=== PATIENT | male | born 1975 | race Caucasian/White ===

== ENCOUNTER 2018-08-01 19:17 | Emergency (ER) | payer MEDICAID ==
[~2018-08-01] VITALS: Ht 185.4 cm; Wt 129.3 kg
[2018-08-01] MEDS ORDERED: NKM (19:24)
[2018-08-01 19:28] VITALS: BP 145/94
--- NOTE | 2018-08-01 19:28 | NUR ---
ED Nurse Note: Pt arrived ED from home. c/o slipped and fell on his back and hurt on his left hip and back. Pt is A/O X4. Vital signs stable at this time, waiting for orders.
[2018-08-01] MEDS ORDERED: Morphine Sulfate 2mg/ml Inj(IV/IM USE ONLY) IVP ONE (20:00)
--- NOTE | 2018-08-01 20:02 | NUR ---
ED Nurse Note: Pt was sent for X-ray.
--- NOTE | 2018-08-01 20:22 | NUR ---
ED Nurse Note: Pt returned from X-ray.
--- NOTE | 2018-08-01 20:39 | NUR ---
ED Nurse Note: Meds given as ordered.
[2018-08-01] MEDS ORDERED: Methocarbamol 750mg tab ORAL ONE (21:15)
[2018-08-01] MEDS ORDERED: LIDODERM700 M1 TOPIC (21:16)
[2018-08-01] MEDS ORDERED: NARCAN4 MG NS (21:30)
[2018-08-01 21:41] VITALS: BP 141/90
--- NOTE | 2018-08-01 21:41 | NUR ---
ER DISCHARGE NOTE: Patient is cleared to be discharged per Ismael Scott. X-ray done, Meds given as ordered. Pt is aox4 on room air with stable vital signs. Pt was given dc and prescription instructions and was able to verbalize understanding. Pt ID band removed. Pt is able to ambulate with steady gait and took all belongings.
--- NOTE | 2018-08-01 21:50 | Emergency Room Report ---
History of Present Illness General Chief Complaint: Multiple Trauma/Fall Source: Patient Present Illness HPI 42-year-old male presents to the emergency department complaining of 10 out of 10 in severity pain to the mid lumbar portion of the back with left-sided sciatica/radiculopathy in addition to tenderness to the left femur status post mechanical trip and fall earlier today. Patient denies hitting his head he denies having a loss of consciousness and he denies midline neck pain. Patient reports history of chronic low back pain with left-sided sciatica he states that his symptoms have been exacerbated with today's injury. Patient denies open wounds or bleeding. Denies paresthesias, loss of gross motor movements, urinary retention or incontinence. He is exacerbated upon attempts to walk however he is ambulatory without assistance. No relieving factors at this time. Allergies: Coded Allergies: TRAMADOL (Verified Allergy, Unknown, 08/01/18) NSAIDS (NON-STEROIDAL ANTI-INFLAMMA (Verified Adverse Reaction, Unknown, ) Patient History Past Medical History: see triage record Past Surgical History: none Pertinent Family History: none Reviewed Nursing Documentation: PMH: Agreed; PSxH: Agreed Nursing Documentation-PMH Past Medical History: No History, Except For Review of Systems All Other Systems: negative except mentioned in HPI Physical Exam Vital Signs Date Time Temp Pulse Resp B/P (MAP) Pulse Ox O2 Delivery O2 Flow Rate FiO2 08/01/18 19:17 98.1 65 18 98 Room Air 08/01/18 19:28 145/94 Sp02 EP Interpretation: reviewed, normal General Appearance: alert, GCS 15, non-toxic, mild distress Head: normocephalic, atraumatic Eyes: bilateral eye normal inspection, bilateral eye PERRL ENT: hearing grossly normal, normal voice Neck: full range of motion Respiratory: lungs clear, normal breath sounds, speaking full sentences Cardiovascular #1: regular rate, rhythm, normal capillary refill Cardiovascular #2: 2+ dorsalis pedis (R), 2+ dorsalis pedis (L) Gastrointestinal: non tender, soft Musculoskeletal: back normal, gait/station normal - compensatory gait. no saddle anesthesia, normal range of motion, tender - Mild Tenderness to palpation to left paraspinal muscles of the lower back with midline tenderness. TTP to the lateral aspect of the proximal femur, pt. has compensatory gait. Neurologic: alert, oriented x3, responsive, motor strength/tone normal, sensory intact, speech normal, grossly normal Psychiatric: judgement/insight normal Skin: normal color, no rash, warm/dry, well hydrated Medical Decision Making PA Attestation Dr. peters is my supervising Physician whom patient management has been discussed with. Diagnostic Impression: Primary Impression: Opiate dependence, continuous Additional Impressions: Exacerbation of chronic back pain Contusion, hip and thigh Qualified Codes: S70.02XA - Contusion of left hip, initial encounter; S70.12XA - Contusion of left thigh, initial encounter Back pain Qualified Codes: M54.42 - Lumbago with sciatica, left side ER Course Pt. presents to ED c/o LBP and lateral left femur and thigh pain s/p mechanical fall. Ddx considered: epidural abscess, fracture, sprain/strain, meningitis, spinal chord injury, sciatica, cauda equina, Pyelonephritis, renal calculi just to name a few. Vital signs reviewed and are WNL during ED visit. Pt. is afebrile with no signs of infection No new symptoms, and denies recent trauma. No saddle anesthesia noted, Pt. denies incontinence Neurovascular is intact ROM is limited due to pain * Mild Tenderness to palpation to left paraspinal muscles of the lower back with midline tenderness. TTP to the lateral aspect of the proximal femur, pt. has compensatory gait. *Pt. describes pain today as moderate and radiates across the lower back. ORDERS: X_RAY L-spine and left femur; Within normal limits INTERVENTIONS: - 4mg Morphine IM -Robaxin PO This patient's cures report is very concerning for doctor shopping as well as prescription opiate abuse/misuse distribution. I discussed this with this patient and I went over his report discussing several instances where he filled [id number] days for a quantity of medication that should have lasted him more than overnight. I discussed with this patient that if he is truly in a lot of pain he needs to establish himself with a primary care provider as his current report is suggestive of abuse/misuse which is a deterrent for providers to prescribe medication and therefore he may be poorly controlled due to his habit of doctor shopping. I discussed with this patient resources for substance abuse and I provided him resources information as well I went over the use of indication Narcan and he was prescribed nasal spray of Narcan symptoms to be used in a case of accidental overdose which I am concerned for due to multiple medication refills when there should be sufficient amount. D/W Pt. that for further pain management is it recommended to consult PCP or a Chronic Pain management doctor. A provider who can safely prescribe controlled substances with close follow up. DISCHARGE: At this time pt. is stable for d/c to home. Will provide printed patient care instructions, and any necessary prescriptions. Care plan and follow up instructions have been discussed with the patient prior to discharge. Other X-Ray Diagnostic Results Other X-Ray Diagnostic Results #1: X-Ray ordered: L-Spine # of Views/Limited Vs Complete: 4 View Indication: Pain EP Interpretation: Yes PA Xray: Interpretation reviewed, by supervising MD Interpretation: no dislocation, no soft tissue swelling, other - Chronic compression fx of T12 Impression: Other - abnormal: chronic Electronically Signed by: Zeinab Guevara PA-C Other X-Ray Diagnostic Results #2: X-Ray ordered: Left Femur # of Views/Limited Vs Complete: 2 View Indication: Pain EP Interpretation: Yes PA Xray: Interpretation reviewed, by supervising MD, and agrees with findings. Interpretation: no dislocation, no soft tissue swelling, no fractures Impression: No acute disease Electronically Signed by: Zeinab Guevara PA-C Last Vital Signs Date Time Temp Pulse Resp B/P (MAP) Pulse Ox O2 Delivery O2 Flow Rate FiO2 08/01/18 19:28 67 18 Room Air 08/01/18 19:28 98.1 145/94 98 Disposition: HOME, SELF-CARE Condition: Stable Scripts Naloxone HCl (Narcan) 4 Mg [place] 4 MG NS PRN PRN for Per rx protocol, #1 SPRAY 2 Refills Prov: Zeinab Guevara 08/01/18 Lidocaine (Lidoderm) 1 Each Adh..patch 1 PATCH TOPIC DAILY, #30 PATCH 0 Refills Patch(es) may remain in place for up to 12 hours in any 24-hour period. Prov: Zeinab Guevara 08/01/18 Referrals: NOT CHOSEN [facility]/,REFERRING (PCP) Patient Instructions: Contusion, [place], Back Pain, Adult Additional Instructions: Take medications as directed. Follow up with a Primary Care Provider in 3-5 days, even if your symptoms have resolved. Please review provided information for substance abuse resources Return sooner to ED if new symptoms occur, or current symptoms become worse. - Please note that this Emergency Department Report was dictated using [employer]ipal quality engineer technology software, occasionally this can lead to erroneous entry secondary to interpretation by the dictation equipment. Zeinab Guevara August 01, 2018 21:50
--- NOTE | 2018-08-02 11:09 | Diagnostic Imaging Report ---
Indication: Back pain Comparison: None Findings: 3 views of the lumbar spine were obtained. No acute fracture or malalignment is identified. Minimal endplate osteophytes noted. Vertebral body heights and disk spaces are well maintained. Posterior elements are unremarkable. Impression: No acute findings.
--- NOTE | 2018-08-02 11:11 | Diagnostic Imaging Report ---
Indication: Left thigh pain Comparison: None Findings: 2 views of the left femur were obtained. No acute fractures, malalignment, erosions or periostitis are identified. There is a deformity of the upper femur likely on the basis of an old fracture. The bones are osteopenic. Soft tissues are unremarkable. Impression: Negative for acute injury
== END 2018-08-01 21:41 | disposition home or self-care (01) ==
LOC: EMR 19:52
DX: M54.42 Lumbago with sciatica, left side (principal); S70.02XA Contusion of left hip, initial encounter; S70.12XA Contusion of left thigh, initial encounter; F11.20 Opioid dependence, uncomplicated; G89.29 Other chronic pain; W01.0XXA Fall on same level from slipping, tripping and stumbling without subsequent striking against object, initial encounter; Y92.9 Unspecified place or not applicable; Z88.6 Allergy status to analgesic agent
CPT/HCPCS: 72020; 73552; 96374; 99284; J2270

== ENCOUNTER 2018-08-24 01:16 | Emergency (ER) | payer MEDICAID ==
[~2018-08-24] VITALS: Ht 185.4 cm; Wt 127.0 kg
[~2018-08-24 01:16] MED LIST: LIDODERM700 M1 TOPIC; NARCAN4 MG NS; NKM
--- NOTE | 2018-08-24 01:34 | NUR ---
ED Nurse Note: Pt has internal abcess in rectum, pain level 10/10 when sitting or standing.
[2018-08-24 01:40] VITALS: BP 141/93
--- NOTE | 2018-08-24 01:40 | NUR ---
ED Nurse Note: iv access established. blood collected; sent down to lab.
[2018-08-24] MEDS ORDERED: Isovue-300 100ml vial INJ PRN (01:45)
[2018-08-24 01:58] LABS: BASOPHILS % (AUTO) 0.7 % (0.0-2.0); EOSINOPHILS % (AUTO) 1.2 % (0.0-3.0); HEMATOCRIT 36.8 % (42.0-52.0); HEMOGLOBIN 12.5 G/DL (14.2-18.0); LYMPHOCYTES % (AUTO) 30.7 % (20.0-45.0); MEAN CORPUSCULAR VOLUME 95 FL (80-99); MONOCYTES % (AUTO) 5.7 % (1.0-10.0); NEUTROPHILS % (AUTO) 61.7 % (45.0-75.0); PLATELET COUNT 139 K/UL (150-450); RED BLOOD COUNT 3.88 M/UL (4.70-6.10); RED CELL DISTRIBUTION WIDTH 11.9 % (11.6-14.8); WHITE BLOOD COUNT 6.2 K/UL (4.8-10.8)
[2018-08-24 02:11] LABS: ANION GAP 8 mmol/L (5-15); BLOOD UREA NITROGEN 12 mg/dL (7-18); CALCIUM 8.7 MG/DL (8.5-10.1); CARBON DIOXIDE 26 MMOL/L (21-32); CHLORIDE 108 MMOL/L (98-107); POTASSIUM 3.8 MMOL/L (3.5-5.1); SODIUM 142 MMOL/L (136-145)
[2018-08-24 02:16] LABS: ALANINE AMINOTRANSFERASE 34 U/L (12-78); ALBUMIN 3.5 G/DL (3.4-5.0); ALBUMIN/GLOBULIN RATIO 0.9 (1.0-2.7); ALKALINE PHOSPHATASE 100 U/L (46-116); ASPARTATE AMINO TRANSFERASE 33 U/L (15-37); BILIRUBIN,TOTAL 0.5 MG/DL (0.2-1.0)
[2018-08-24] MEDS ORDERED: TYLENOL EXTRA500 MG ORAL (03:28)
[2018-08-24 03:35] VITALS: BP 141/93
--- NOTE | 2018-08-24 03:35 | NUR ---
ER DISCHARGE NOTE: Patient is cleared to be discharged per ERMD, pt is aox4, on room air, with stable vital signs. pt was given dc and prescription instructions, pt was able to verbalize understanding, pt id band removed. pt is able to ambulate with steady gait. pt took all belongings.
--- NOTE | 2018-08-24 04:35 | Emergency Room Report ---
History of Present Illness General Chief Complaint: Gastrointestinal Illness Source: Patient Present Illness HPI 42-year-old male presents ED for evaluation. Patient walked in complaining of rectal pain for the last several days. States that in the past he had a rectal abscess that required surgery. States that this feels the same. Pain is a 10 out of 10, sharp, nonradiating. Denies fevers or chills. Denies any rectal bleeding or discharge. No other aggravating relieving factors. Denies any other associated symptoms Allergies: Coded Allergies: TRAMADOL (Verified Allergy, Unknown, 08/01/18) NSAIDS (NON-STEROIDAL ANTI-INFLAMMA (Verified Adverse Reaction, Unknown, ) Patient History Past Medical History: none Past Surgical History: none Pertinent Family History: none Social History: Denies: smoking, alcohol use, drug use Immunizations: UTD Reviewed Nursing Documentation: PMH: Agreed; PSxH: Agreed Review of Systems All Other Systems: negative except mentioned in HPI Physical Exam Vital Signs Date Time Temp Pulse Resp B/P (MAP) Pulse Ox O2 Delivery O2 Flow Rate FiO2 08/24/18 01:25 98.1 91 18 141/93 (109) 97 Room Air Sp02 EP Interpretation: reviewed, normal General Appearance: no apparent distress, alert, GCS 15, non-toxic, obese Head: normocephalic, atraumatic Eyes: bilateral eye normal inspection, bilateral eye PERRL ENT: hearing grossly normal, normal pharynx, no angioedema, normal voice Neck: full range of motion, supple/symm/no masses Respiratory: chest non-tender, lungs clear, normal breath sounds, speaking full sentences Cardiovascular #1: regular rate, rhythm, no edema Cardiovascular #2: 2+ carotid (R), 2+ carotid (L), 2+ radial (R), 2+ radial (L) , 2+ dorsalis pedis (R), 2+ dorsalis pedis (L) Gastrointestinal: normal bowel sounds, non tender, soft, non-distended, no guarding, no rebound Rectal: normal exam, normal rectal tone Genitourinary: normal inspection, no CVA tenderness Musculoskeletal: back normal, gait/station normal, normal range of motion, non- tender Neurologic: alert, oriented x3, responsive, motor strength/tone normal, sensory intact, speech normal Psychiatric: judgement/insight normal, memory normal, mood/affect normal, no suicidal/homicidal ideation Reflexes: 3+ bicep (R), 3+ bicep (L), 3+ tricep (R), 3+ tricep (L), 3+ knee (R) , 3+ knee (L) Skin: normal color, no rash, warm/dry, well hydrated Lymphatic: no adenopathy Medical Decision Making Diagnostic Impression: Primary Impression: Rectal pain, chronic Additional Impression: Opiate dependence, continuous ER Course Hospital Course 42 yo M presents to ED c/o rectal pain. h/o rectal abscess Differential diagnosis includes - fistula, rectal abscess, cellultiis Clinical course Patient placed on stretcher. After initial history and physical I ordered labs , CT scan Labs - no leukocytosis, electrolytes ok LFTs normal CT scan shows no acute pathology no evidence of rectal abscess Patient requested pain medications multiple times. During previous ED it was documented patient had multiple narcotic prescriptions on [facility]. I reviewed CURES a and patient has extensive narcotic prescriptions being filled to him. I discussed this with the patient explained that and I will prescribe him any additional medication at this time. He will need to follow-up with his PMD. I will provide referrals I feel this is a highly complex case requiring extensive working including EKG/ Rhythm strip, Xray/CT/US, Blood/urine lab work, repeat exams while in ED, and administration of strong opiates/narcotics for pain control, admission to hospital or close patient follow up. Diagnosis - rectal pain chronic, opiate dependence Stable and discharged to home. Followup with PMD. Return to ED if symptoms recur or worsen Labs Test 08/24/18 01:40 White Blood Count 6.2 K/UL (4.8-10.8) Red Blood Count 3.88 M/UL (4.70-6.10) Hemoglobin 12.5 G/DL (14.2-18.0) Hematocrit 36.8 % (42.0-52.0) Mean Corpuscular Volume 95 FL (80-99) Mean Corpuscular Hemoglobin 32.2 PG (27.0-31.0) Mean Corpuscular Hemoglobin Concent 33.9 G/DL (32.0-36.0) Red Cell Distribution Width 11.9 % (11.6-14.8) Platelet Count 139 K/UL (150-450) Mean Platelet Volume 7.3 FL (6.5-10.1) Neutrophils (%) (Auto) 61.7 % (45.0-75.0) Lymphocytes (%) (Auto) 30.7 % (20.0-45.0) Monocytes (%) (Auto) 5.7 % (1.0-10.0) Eosinophils (%) (Auto) 1.2 % (0.0-3.0) Basophils (%) (Auto) 0.7 % (0.0-2.0) Prothrombin Time 10.4 SEC (9.30-11.50) Prothromb Time International Ratio 1.0 (0.9-1.1) Activated Partial Thromboplast Time 24 SEC (23-33) Sodium Level 142 MMOL/L (136-145) Potassium Level 3.8 MMOL/L (3.5-5.1) Chloride Level 108 MMOL/L (98-107) Carbon Dioxide Level 26 MMOL/L (21-32) Anion Gap 8 mmol/L (5-15) Blood Urea Nitrogen 12 mg/dL (7-18) Creatinine 1.0 MG/DL (0.55-1.30) Estimat Glomerular Filtration Rate > 60 mL/min (>60) Glucose Level 115 MG/DL (74-106) Calcium Level 8.7 MG/DL (8.5-10.1) Total Bilirubin 0.5 MG/DL (0.2-1.0) Aspartate Amino Transf (AST/SGOT) 33 U/L (15-37) Alanine Aminotransferase (ALT/SGPT) 34 U/L (12-78) Alkaline Phosphatase 100 U/L (46-116) Total Protein 7.3 G/DL (6.4-8.2) Albumin 3.5 G/DL (3.4-5.0) Globulin 3.8 g/dL Albumin/Globulin Ratio 0.9 (1.0-2.7) CT/MRI/US Diagnostic Results CT/MRI/US Diagnostic Results : Imaging Test Ordered: CT A/P Impression no acute process. no evidence of rectal abscess Last Vital Signs Date Time Temp Pulse Resp B/P (MAP) Pulse Ox O2 Delivery O2 Flow Rate FiO2 08/24/18 03:35 98.1 91 18 141/93 97 Room Air Status: improved Disposition: HOME, SELF-CARE Condition: Stable Scripts Acetaminophen* (TYLENOL EXTRA STRENGTH*) 500 Mg Tablet 500 MG ORAL Q8H PRN for Prn Headache/Temp > 101, #30 TAB 0 Refills Prov: Juan Diego Donohue MD 08/24/18 Referrals: NOT CHOSEN [facility]/,REFERRING (PCP) [facility] Patient Instructions: Chronic Pain Juan Diego Donohue MD Aug 24, 2018 04:35
--- NOTE | 2018-08-24 17:46 | Diagnostic Imaging Report ---
Clinical Indication: Abdominal pain for 3 days Technique: No oral contrast utilized, per emergency room physician request IV administration nonionic contrast. Venous phase spiral acquisition obtained through the abdomen and pelvis. Multiplanar reconstructions were generated. Total dose length product 1116.74 mGycm. CTDIvol(s) 19.51 mGy. Dose reduction achieved using automated exposure control Comparison: none Findings: What is probably a normal appendix is demonstrated. There are ascending colonic diverticula. No evidence of diverticulitis. No small bowel distention. There is evidence of prior gastroesophageal surgery. There is mild hazy infiltration of the fat of the mesenteric root. No free or loculated intraperitoneal gas or fluid is evident. The duodenum is unremarkable. The liver, gallbladder, bile ducts, pancreas are unremarkable. The spleen demonstrates a capsular calcification. The adrenals and kidneys are unremarkable. No retroperitoneal or mesenteric mass or adenopathy. No pelvic mass or adenopathy. There is some edema of the lumbar region and bilateral flank subcutaneous fat. The included lung bases are clear. The bones are unremarkable. Impression: Mild hazy infiltration of the mesenteric fat. This is a nonspecific finding, could indicate mesenteric panniculitis No definite acute process otherwise Ascending colon diverticulosis. No evidence of diverticulitis Evidence of prior gastroesophageal surgery Mild edema of the lumbar region and bilateral flank subcutaneous fat This agrees with the preliminary interpretation provided overnight by [facility] teleradiology service, with minor variation. The CT scanner at [facility] is accredited by the [employer] and the scans are performed using protocols designed to limit radiation exposure to as low as reasonably achievable to attain images of sufficient resolution adequate for diagnostic evaluation.
== END 2018-08-24 03:35 | disposition home or self-care (01) ==
LOC: EMR 01:40
DX: K62.89 Other specified diseases of anus and rectum (principal); G89.29 Other chronic pain; F11.20 Opioid dependence, uncomplicated; Z88.5 Allergy status to narcotic agent; K57.30 Diverticulosis of large intestine without perforation or abscess without bleeding
CPT/HCPCS: 36415; 74177; 80053; 85025; 85610; 85730; 86850; 86900; 86901; 99284; Q9967

== ENCOUNTER 2019-08-18 00:55 | Emergency (ER) | payer MEDICAID ==
[~2019-08-18] VITALS: Ht 185.4 cm; Wt 136.1 kg
[~2019-08-18 00:55] MED LIST changes: +ACETAMINOPHEN500 M3 ORAL; +TYLENOL EXTRA500 MG ORAL
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
[2019-08-18 01:11] VITALS: BP 126/78
[2019-08-18] MEDS ORDERED: HYDROcodone/Acetamin 5/325 tab ORAL ONE (01:15)
[2019-08-18] MEDS ORDERED: Morphine Sulfate 2mg/ml Inj(IV/IM USE ONLY) IM ONE (02:00)
--- NOTE | 2019-08-18 02:23 | Diagnostic Imaging Report ---
EXAM: CT Chest Without Intravenous Contrast CLINICAL HISTORY: TRAUMA TECHNIQUE: Axial computed tomography images of the chest without intravenous contrast. CTDI is 14 mGy and DLP is 990 mGy-cm. One or more of the following dose reduction techniques were used: automated exposure control, adjustment of the mA and/or kV according to patient size, use of iterative reconstruction technique. Coronal and sagittal reformatted images were created and reviewed. COMPARISON: No relevant prior studies available. FINDINGS: Lungs: Unremarkable. No mass. No consolidation. Pleural space: Unremarkable. No pneumothorax. No significant effusion. Heart: Unremarkable. No cardiomegaly. No significant pericardial effusion. Mediastinum: Hiatal hernia. Bones/joints: Unremarkable. No acute fracture. No dislocation. Soft tissues: Unremarkable. Vasculature: Unremarkable. No thoracic aortic aneurysm. Lymph nodes: Unremarkable. No enlarged lymph nodes. IMPRESSION: 1. No acute traumatic injury. 2. Hiatal hernia. 3. Otherwise unremarkable study. EXAM: CT Abdomen and Pelvis Without Intravenous Contrast CLINICAL HISTORY: TRAUMA TECHNIQUE: Axial computed tomography images of the abdomen and pelvis without intravenous contrast. CTDI is 14 mGy and DLP is 990 mGy-cm. One or more of the following dose reduction techniques were used: automated exposure control, adjustment of the mA and/or kV according to patient size, use of iterative reconstruction technique. Coronal and sagittal reformatted images were created and reviewed. COMPARISON: No relevant prior studies available. FINDINGS: Lung bases: Unremarkable. No mass. No consolidation. ABDOMEN: Liver: Unremarkable. Gallbladder and bile ducts: Unremarkable. No calcified stones. No ductal dilation. Pancreas: Unremarkable. No ductal dilation. Spleen: Unremarkable. No splenomegaly. Adrenals: Unremarkable. No mass. Kidneys and ureters: Unremarkable. No obstructing stones. No hydronephrosis. Stomach and bowel: Sleeve gastrectomy. Colonic diverticulosis without acute diverticulitis. No obstruction. PELVIS: Appendix: Appendectomy. Bladder: Unremarkable. No stones. Reproductive: Unremarkable as visualized. ABDOMEN and PELVIS: Intraperitoneal space: Unremarkable. No free air. No significant fluid collection. Bones/joints: No acute fracture. No dislocation. Soft tissues: Unremarkable. Vasculature: Unremarkable. No abdominal aortic aneurysm. Lymph nodes: Unremarkable. No enlarged lymph nodes. IMPRESSION: 1. No acute traumatic injury. 2. Sleeve gastrectomy. 3. Colonic diverticulosis without acute diverticulitis. 4. Appendectomy.
[2019-08-18] MEDS ORDERED: NORCO 5-325 TA1 EAC1 ORAL (02:29)
[2019-08-18 02:30] VITALS: BP_SYST 126; BP_SYST 134; BP_DIAS 76; BP_DIAS 78
== END 2019-08-18 02:30 | disposition home or self-care (01) ==
LOC: EMR 01:09
DX: K57.90 Diverticulosis of intestine, part unspecified, without perforation or abscess without bleeding (principal); K44.9 Diaphragmatic hernia without obstruction or gangrene; M54.6 Pain in thoracic spine; Z88.6 Allergy status to analgesic agent; Z88.8 Allergy status to other drugs, medicaments and biological substances; Y04.2XXA Assault by strike against or bumped into by another person, initial encounter; Y92.9 Unspecified place or not applicable; Z98.84 Bariatric surgery status; E66.3 Overweight; Z68.39 Body mass index [BMI] 39.0-39.9, adult
CPT/HCPCS: 71250; 74176; 96372; J2270; Z7502; 99284

== ENCOUNTER 2019-10-05 00:57 | Inpatient (IN) | payer MEDICAID ==
[2019-10-05] VITALS (7 sets, daily range): BP systolic 118–163; BP diastolic 65–79
[~2019-10-05] VITALS: Ht 185.4 cm; Wt 136.1 kg
[~2019-10-05 00:57] MED LIST changes: +NORCO 5-325 TA1 EAC1 ORAL
--- NOTE | 2019-10-05 01:27 | Emergency Room Report ---
History of Present Illness General Chief Complaint: Chest Pain Source: Patient Present Illness HPI Patient is a 43-year-old male presents after increased right-sided chest pain. Reports having intermittent pain which has become more constant. Reports having prior history of pulmonary embolism as well as atrial fibrillation in the past. States he is not currently on anticoagulation and had this discontinued. Reports having previous pulmonary embolism approximately 2 to 3 months ago. Had reported constant pain for approximately 8 hours. Prior history of acid reflux as well as PTSD. Had taken Tylenol with codeine prior to arrival denies any cough. Allergies: Coded Allergies: KETOROLAC (Verified Allergy, Mild, Rash, 01/01/19) TRAMADOL (Verified Allergy, Unknown, 08/01/18) NSAIDS (NON-STEROIDAL ANTI-INFLAMMA (Verified Adverse Reaction, Unknown, ) COVID-19 Screening Contact w/high risk pt: No Recent Travel to affected area: No Experienced COVID-19 symptoms?: No COVID-19 Testing performed AIR ROUTE [employer]ER: No Patient History Past Medical History: see triage record Reviewed Nursing Documentation: PMH: Agreed; PSxH: Agreed Nursing Documentation-PMH Hx Gastrointestinal Problems: Yes - GASTRIC BYPASS Review of Systems All Other Systems: negative except mentioned in HPI Physical Exam Vital Signs Date Time Temp Pulse Resp B/P (MAP) Pulse Ox O2 Delivery O2 Flow Rate FiO2 10/05/19 01:10 98.6 71 14 129/77 (94) 97 Room Air Sp02 EP Interpretation: reviewed, normal General Appearance: normal inspection, well appearing, no apparent distress, alert, GCS 15, non-toxic Head: atraumatic ENT: normal ENT inspection, hearing grossly normal, normal voice Neck: normal inspection, full range of motion, supple, no bony tend Respiratory: normal inspection, lungs clear, normal breath sounds, no respiratory distress, no retraction, no wheezing Cardiovascular #1: regular rate, rhythm, no edema Gastrointestinal: normal inspection, normal bowel sounds, non tender, soft, no guarding, no hernia Genitourinary: no CVA tenderness Musculoskeletal: normal inspection, back normal, normal range of motion Neurologic: alert, motor strength/tone normal, 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 Differential diagnosis include was not limited to pulmonary embolism, pneumonia, coronavirus infection, myocardial infarction among others. Because of complexity of patient's case laboratory tests and imaging studies were ordered. EKG interpreted by me showed normal sinus rhythm with a rate of [address] or T wave changes. Given patient's constant pain for greater than 8hours laboratory testing should definitively evaluate for MA. CTA was ordered due to patient's prior history of pulmonary embolism. Patient does not appear to be in distress and has 100% oxygen saturation.Patient apparently had recent negative CT imaging however given patient's reported history ABG was ordered CT angiogram was ordered. Patient denies any recent exposure to coronavirus. He states he lives in transitional housing. Laboratory testing showed some pancytopenia as well as elevated d-dimer.CT imaging did not show any evidence of pulmonary embolism. Coronavirus testing was negative. Dr. Raymon Santamaria was contacted for inpatient management due to panel physician Labs Test 10/05/19 01:17 White Blood Count 3.8 K/UL (4.8-10.8) Red Blood Count 3.27 M/UL (4.70-6.10) Hemoglobin 9.4 G/DL (14.2-18.0) Hematocrit 30.3 % (42.0-52.0) Mean Corpuscular Volume 93 FL (80-99) Mean Corpuscular Hemoglobin 28.8 PG (27.0-31.0) Mean Corpuscular Hemoglobin Concent 31.0 G/DL (32.0-36.0) Red Cell Distribution Width 15.4 % (11.6-14.8) Platelet Count 90 K/UL (150-450) Mean Platelet Volume 7.3 FL (6.5-10.1) Neutrophils (%) (Auto) % (45.0-75.0) Lymphocytes (%) (Auto) % (20.0-45.0) Monocytes (%) (Auto) % (1.0-10.0) Eosinophils (%) (Auto) % (0.0-3.0) Basophils (%) (Auto) % (0.0-2.0) Differential Total Cells Counted 100 Neutrophils % (Manual) 57 % (45-75) Lymphocytes % (Manual) 33 % (20-45) Monocytes % (Manual) 9 % (1-10) Eosinophils % (Manual) 0 % (0-3) Basophils % (Manual) 1 % (0-2) Band Neutrophils 0 % (0-8) Platelet Estimate Decreased Platelet Morphology Normal D-Dimer 2.26 mg/L FEU (0.00-0.49) Sodium Level 141 MMOL/L (136-145) Potassium Level 3.6 MMOL/L (3.5-5.1) Chloride Level 106 MMOL/L (98-107) Carbon Dioxide Level 29 MMOL/L (21-32) Anion Gap 6 mmol/L (5-15) Blood Urea Nitrogen 10 mg/dL (7-18) Creatinine 1.0 MG/DL (0.55-1.30) Estimat Glomerular Filtration Rate > 60 mL/min (>60) Glucose Level 93 MG/DL (74-106) Calcium Level 8.2 MG/DL (8.5-10.1) Total Bilirubin 0.2 MG/DL (0.2-1.0) Aspartate Amino Transf (AST/SGOT) 18 U/L (15-37) Alanine Aminotransferase (ALT/SGPT) 22 U/L (12-78) Alkaline Phosphatase 81 U/L (46-116) Troponin I 0.000 ng/mL (0.000-0.056) Pro-B-Type Natriuretic Peptide 335 pg/mL (0-125) Total Protein 7.1 G/DL (6.4-8.2) Albumin 3.7 G/DL (3.4-5.0) Globulin 3.4 g/dL Albumin/Globulin Ratio 1.1 (1.0-2.7) Lipase 96 U/L (73-393) EKG Diagnostic Results Rate: normal Rhythm: NSR ST Segments: no acute changes Last Vital Signs Date Time Temp Pulse Resp B/P (MAP) Pulse Ox O2 Delivery O2 Flow Rate FiO2 10/05/19 01:20 98.6 89 14 129/77 97 Room Air Status: unchanged Disposition: ADMITTED INPATIENT Condition: Stable Girma Valladares MD Oct 05, 2019 01:27
[2019-10-05] MEDS ORDERED: Omnipaque 350 100ml vial INJ PRN (01:30)
[2019-10-05 01:40] LABS: HEMATOCRIT 30.3 % (42.0-52.0); HEMOGLOBIN 9.4 G/DL (14.2-18.0); MEAN CORPUSCULAR VOLUME 93 FL (80-99); PLATELET COUNT 90 K/UL (150-450); RED BLOOD COUNT 3.27 M/UL (4.70-6.10); RED CELL DISTRIBUTION WIDTH 15.4 % (11.6-14.8); WHITE BLOOD COUNT 3.8 K/UL (4.8-10.8)
[2019-10-05 01:45] LABS: ANION GAP 6 mmol/L (5-15); BLOOD UREA NITROGEN 10 mg/dL (7-18); CALCIUM 8.2 MG/DL (8.5-10.1); CARBON DIOXIDE 29 MMOL/L (21-32); CHLORIDE 106 MMOL/L (98-107); POTASSIUM 3.6 MMOL/L (3.5-5.1); SODIUM 141 MMOL/L (136-145)
[2019-10-05 01:58] LABS: ALANINE AMINOTRANSFERASE 22 U/L (12-78); ALBUMIN 3.7 G/DL (3.4-5.0); ALBUMIN/GLOBULIN RATIO 1.1 (1.0-2.7); ALKALINE PHOSPHATASE 81 U/L (46-116); ASPARTATE AMINO TRANSFERASE 18 U/L (15-37); BILIRUBIN,TOTAL 0.2 MG/DL (0.2-1.0)
[2019-10-05] MEDS ORDERED: HYDROcodone/Acetamin 5/325 tab ORAL ONE (02:30)
--- NOTE | 2019-10-05 04:55 | Diagnostic Imaging Report ---
EXAM: CT Angiography Chest With Intravenous Contrast CLINICAL HISTORY: CP TECHNIQUE: Axial computed tomographic angiography images of the chest with intravenous contrast. CTDI is 13 mGy and DLP is 454 mGy-cm. One or more of the following dose reduction techniques were used: automated exposure control, adjustment of the mA and/or kV according to patient size, use of iterative reconstruction technique. MIP reconstructed images were created and reviewed. COMPARISON: No relevant prior studies available. FINDINGS: Pulmonary arteries: Unremarkable. No pulmonary embolism. Aorta: No acute findings. No thoracic aortic aneurysm. Lungs: Unremarkable. No mass. No consolidation. Pleural space: Unremarkable. No significant effusion. No pneumothorax. Heart: Unremarkable. No cardiomegaly. No significant pericardial effusion. No evidence of RV dysfunction. Bones/joints: No acute fracture. No dislocation. Soft tissues: Unremarkable. Lymph nodes: Unremarkable. No enlarged lymph nodes. Stomach and bowel: There are postsurgical changes of gastric reduction surgery. There is mild sliding type hiatal hernia. IMPRESSION: No acute findings in the visualized arteries of the chest.
[2019-10-05] MEDS ORDERED: Morphine Sulfate 4mg/ml Inj (IV USE ONLY) IVP PRN (05:15)
--- NOTE | 2019-10-05 08:44 | Diagnostic Imaging Report ---
EXAM: US Duplex Bilateral Lower Extremities Veins CLINICAL HISTORY: DVT TECHNIQUE: Real-time duplex ultrasound scan of the bilateral lower extremity veins integrating B-mode two-dimensional vascular structure, Doppler spectral analysis, color flow Doppler imaging and compression. COMPARISON: No relevant prior studies available. FINDINGS: Right deep veins: Unremarkable. No DVT in the right common femoral, femoral, proximal deep femoral or popliteal veins. The veins demonstrate normal color flow, are normally compressible, with normal phasic flow and/or augmentation response. Right superficial veins: Unremarkable. No thrombus in the visualized right great saphenous vein. Left deep veins: Unremarkable. No DVT in the left common femoral, femoral, proximal deep femoral or popliteal veins. The veins demonstrate normal color flow, are normally compressible, with normal phasic flow and/or augmentation response. Left superficial veins: Unremarkable. No thrombus in the visualized left great saphenous vein. Soft tissues: No acute findings. No popliteal cyst. IMPRESSION: Normal bilateral lower extremity duplex venous ultrasound.
[2019-10-05] MEDS ORDERED: Enoxaparin 40mg Inj SUBQ SCH (09:00)
[2019-10-05] MEDS: Enoxaparin 40mg Inj SUBQ SCH (09:09)
--- NOTE | 2019-10-05 14:01 | Consultation ---
Consult Note Consult Note PULMONARY Rg Silva~is a 43 year old~male~with a history of HTN, gastric sleeve~ 2011, and left calf DVT found 6 months ago at [facility], on rivaroxaban, who presents with pleuritic chest pain. After being diagnosed with the left calf DVT, he was started on rivaroxaban 15mg BID for 3 weeks, then 20mg daily. He denies any injury to the leg or prolonged stasis. He reports taking the medication every day without missing a dose. However, per patient and OSH notes, he received a 30 day start pack, but first had the DVT 1.5 to 2 months ago. He describes it as a constant chest tightness, worse with deep breath, and associated with occasional palpitations. The pain radiates to his back, and is worse with lying down. The pain is a 9/10, and is not improved with norco or tylenol. HE also reports productive cough with blood tinged sputum. He denies fevers, chills, or recent illness. He endorses nausea, nonbloody emesis, left calf pain and swelling. Of note, he has had multiple family members with unprovoked DVT. CT was read as negative by the radiologist. ~Chest x-ray is without a pneumothorax or effusion. ~Patient had stated that he had taken Tylenol at home without any relief. ~Patient does not appear to be uncomfortable here and is comfortably watching his iPhone. ~Cures inquiry was done. ~The patient's had greater than 400 tablets of narcotics prescribed by multiple different providers since March 20, 2019. ~Explained to the patient that in a 12-month. ~ He has had greater than the thousand tablets prescribed. Review of Systems: A fourteen point review of systems was negative except as noted in the HPI or as noted below. PAST MEDICAL HISTORY History of pulmonary embolus (PE) Drug-seeking behavior Gastric~Sleeve HTN Sciatic nerve pain Lives~in [place] with his sister. Allergies: Tramadol and Nsaids (non-steroidal anti-inflammatory drug) Medications Prior to Admission rivaroxaban (XARELTO PO) HYDROcodone-acetaminophen 5-325 mg (NORCO) 5-325 mg oral tablet Take 1 tablet by mouth every 6 hours as needed for Pain. Max dose of acetaminophen is 3000mg from all sources in 24 hrs. Physical exam: Vital Signs: BP ~Min: 128/79 ~Max: 149/89 Temp ~Av.8 F (36.6 C) ~Min: 97.5 F (36.4 C) ~Max: 98 F (36.7 C) Pulse ~Av.5 ~Min: 61 ~Max: 79 Resp ~Av.6 ~Min: 16 ~Max: 26 SpO2 ~Av.3 % ~Min: 97 % ~Max: 100 % Physical Exam: General: Alert, cooperative, no distress HEENT: normocephalic atraumatic, EOMI, MMM~ Lungs: Clear to auscultation bilaterally, no w/r/r. Chest wall:~Tenderness to palpation along right chest wall, no bruising or deformity Heart: Regular rate and rhythm, normal S1/S2,~no~murmur, click, rub or gallop. Abdomen:~normoactive, soft, non-tender, non-distended. No masses, ~No hepatosplenomegaly. Extremities: Extremities normal, no cyanosis or edema.~Right and left calf symmetric Pulses:~radial and DP~pulses 2+ and symmetric Skin: Skin color, texture, turgor normal.~no~rashes or lesions. Neurologic:~nonfocal, moving all extremities appropriately~ Assessment/ Plan: Rg Silva~is a 43 year old~male~with a history of HTN, gastric~sleeve~ 2011, and left calf DVT, and drug seeking behaviors, now with chest pain. #~PE: # Right chest pain: #HTN: RECOMMENDATIONS DC home Drug seeking behaviour Conor Allen MD Oct 05, 2019 14:01
--- NOTE | 2019-10-05 15:36 | Cardiac Electrophysiology PN ---
Subjective Subjective [id number] Objective Last 24 Hour Vital Signs Date Time Temp Pulse Resp B/P (MAP) Pulse Ox O2 Delivery O2 Flow Rate FiO2 10/05/19 12:00 Room Air 10/05/19 12:00 98.1 74 20 124/72 (89) 100 10/05/19 12:00 58 10/05/19 08:51 62 10/05/19 08:00 Room Air 10/05/19 08:00 98.3 58 20 122/70 (87) 100 10/05/19 05:45 98.0 67 20 137/79 (98) 100 10/05/19 05:45 Room Air 10/05/19 05:30 98.6 60 17 117/78 99 Room Air 10/05/19 03:12 55 15 118/79 99 Room Air 10/05/19 03:12 98.6 10/05/19 01:20 98.6 89 14 129/77 97 Room Air 10/05/19 01:20 71 14 Room Air 10/05/19 01:10 98.6 71 14 129/77 (94) 97 Room Air Intake and Output 10/04/19 10/05/19 19:00 07:00 Intake Total 100 ml Balance 100 ml Intake Oral 100 ml Laboratory Tests Test 10/05/19 01:17 10/05/19 10:15 White Blood Count 3.8 K/UL (4.8-10.8) L Red Blood Count 3.27 M/UL (4.70-6.10) L Hemoglobin 9.4 G/DL (14.2-18.0) L Hematocrit 30.3 % (42.0-52.0) L Mean Corpuscular Volume 93 FL (80-99) Mean Corpuscular Hemoglobin 28.8 PG (27.0-31.0) Mean Corpuscular Hemoglobin Concent 31.0 G/DL (32.0-36.0) L Red Cell Distribution Width 15.4 % (11.6-14.8) H Platelet Count 90 K/UL (150-450) L Mean Platelet Volume 7.3 FL (6.5-10.1) Neutrophils (%) (Auto) % (45.0-75.0) Lymphocytes (%) (Auto) % (20.0-45.0) Monocytes (%) (Auto) % (1.0-10.0) Eosinophils (%) (Auto) % (0.0-3.0) Basophils (%) (Auto) % (0.0-2.0) Differential Total Cells Counted 100 Neutrophils % (Manual) 57 % (45-75) Lymphocytes % (Manual) 33 % (20-45) Monocytes % (Manual) 9 % (1-10) Eosinophils % (Manual) 0 % (0-3) Basophils % (Manual) 1 % (0-2) Band Neutrophils 0 % (0-8) Platelet Estimate Decreased L Platelet Morphology Normal D-Dimer 2.26 mg/L FEU (0.00-0.49) H Sodium Level 141 MMOL/L (136-145) Potassium Level 3.6 MMOL/L (3.5-5.1) Chloride Level 106 MMOL/L (98-107) Carbon Dioxide Level 29 MMOL/L (21-32) Anion Gap 6 mmol/L (5-15) Blood Urea Nitrogen 10 mg/dL (7-18) Creatinine 1.0 MG/DL (0.55-1.30) Estimat Glomerular Filtration Rate > 60 mL/min (>60) Glucose Level 93 MG/DL (74-106) Calcium Level 8.2 MG/DL (8.5-10.1) L Total Bilirubin 0.2 MG/DL (0.2-1.0) Aspartate Amino Transf (AST/SGOT) 18 U/L (15-37) Alanine Aminotransferase (ALT/SGPT) 22 U/L (12-78) Alkaline Phosphatase 81 U/L (46-116) Troponin I 0.000 ng/mL (0.000-0.056) 0.000 ng/mL (0.000-0.056) Pro-B-Type Natriuretic Peptide 335 pg/mL (0-125) H Total Protein 7.1 G/DL (6.4-8.2) Albumin 3.7 G/DL (3.4-5.0) Globulin 3.4 g/dL Albumin/Globulin Ratio 1.1 (1.0-2.7) Lipase 96 U/L (73-393) Jarek Grant MD Oct 05, 2019 15:36
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
--- NOTE | 2019-10-05 17:15 | History and Physical Report ---
DATE OF ADMISSION: 10/05/2019 DATE AND TIME SEEN: On 10/05/2019 at 9 a.m. CONSULTANTS: 1. Conor Allen MD 2. Jarek Grant MD 3. Dr. Contreras. 4. Gary Carrillo MD 5. Heather Churchill MD CHIEF COMPLAINT: Chest pain, history of PE, pancytopenia, suspect COVID. BRIEF HISTORY: This is a 43-year-old male, who presents to [facility] last night with the above-mentioned diagnoses, admitted to step-down unit. Currently, sleeping in bed, not talking much. REVIEW OF SYSTEMS: Unavailable. PAST MEDICAL HISTORY: Includes back pain, hip pain, hiatal hernia, and diverticulosis. PAST SURGICAL HISTORY: Unknown. ALLERGIES: Ketorolac and NSAID. MEDICATIONS: Include trazodone, famotidine, fluoxetine, quetiapine, enoxaparin, morphine, Zofran, and hydrocodone. SOCIAL HISTORY: Unable to obtain secondary to lethargy. PHYSICAL EXAMINATION: GENERAL: Sleeping in bed, not talking much. VITAL SIGNS: Temperature is 98 degrees, pulse 67, respirations 20, blood pressure 137/79. HEENT: Normocephalic and atraumatic. NECK: Trachea in midline. CARDIOVASCULAR: No peripheral edema. LUNGS: Breathing comfortably on room air. ABDOMEN: wounds. EXTREMITIES: Show no cyanosis or clubbing. LABORATORY AND DIAGNOSTIC DATA: Labs at this time show white count 3.8, hemoglobin and hematocrit 9.4/30, platelets 90,000. BMP shows calcium 8.2. BNP is 335, otherwise BMP is normal. D-dimer 2.26. ASSESSMENT: Chest pain, history of PE, pancytopenia, hiatal hernia, suspect COVID, back pain, hip pain, and diverticulosis. PLAN: O2 and pulmonary treatment as needed. Antibiotic per Infectious Disease. Hematology followup. PT and dietary evaluation. Resume home medications. Troponin q.8h. x3. EKG in the morning. Cardiology followup. CBC and BMP in the morning. Raymon Santamaria D.O. DR: Nacho :57 JOB#: [id number] CC:
--- NOTE | 2019-10-05 18:30 | Consultation ---
DATE OF CONSULTATION: 10/05/2019 INFECTIOUS DISEASES CONSULTATION CONSULTING PHYSICIAN: Heather Churchill MD REFERRING PHYSICIAN: Raymon Santamaria DO REASON FOR CONSULTATION: Possible pneumonia. HISTORY OF PRESENTING ILLNESS: This is a 43-year-old gentleman with history of gastric bypass, who comes in with chest pain, abdominal pain, and nausea. His COVID-19 test was negative. An Infectious Diseases consultation has been obtained for antibiotics. PAST MEDICAL HISTORY: 1. History of gastric bypass. 2. History of pulmonary embolism. 3. Atrial fibrillation. MEDICATIONS: As an inpatient, he is on trazodone, famotidine, Prozac, Seroquel, enoxaparin, and morphine. ALLERGIES: 1. Ketoralac. 2. NSAIDs. 3. Tramadol. SOCIAL HISTORY: He does not smoke. He used to drink alcohol. He does not drink anymore. He used to smoke marijuana; he does not smoke anymore. FAMILY HISTORY: Positive for heart disease. REVIEW OF SYSTEMS: RESPIRATORY: No fever or chills. No cough. No shortness of breath. He has chest pain. CARDIAC: He has chest pain. No palpitation. No dizziness. No syncope. GASTROINTESTINAL: He has nausea. No vomiting. He does have abdominal pain. No diarrhea. PHYSICAL EXAMINATION: VITAL SIGNS: Temperature 98.3, T-max of 98.6, pulse of 62, respiratory rate 20, blood pressure 122/70, O2 saturation of 100%. GENERAL: Examination deferred due to possibility of COVID-19. LABORATORY AND DIAGNOSTIC DATA: White count 3.8, hemoglobin 9.4, hematocrit 30.3, MCV 93, platelet count of 90,000 with neutrophils of 57%. Sodium 141, potassium 3.6, chloride 106, bicarb 29, BUN 10, creatinine 1, glucose 93, calcium 8.2. Total bilirubin 0.2, AST 18, ALT 22, alkaline phosphatase 81. Troponin zero. Beta-natriuretic peptide 335. Total protein 7.1, albumin 3.7. Lipase of 96. CT angiogram of chest showed no acute findings. Ultrasound of legs showed it was normal. ASSESSMENT: This is a 43-year-old gentleman with history of gastric bypass, pulmonary embolism, atrial fibrillation, who comes in with chest pain. 1. We would like to rule out COVID-19 pneumonia as a possibility. 2. History of pulmonary embolism. 3. History of atrial fibrillation. PLAN: 1. Continue isolation. 2. We will order COVID-19 testing. 3. We will follow up the patient clinically. I would like to thank, Dr. Raymon Santamaria, for this consultation. Heather Churchill M.D. DR: Char JOB#: [id number] CC: Raymon Santamaria D.O.
[2019-10-05] MEDS: Morphine Sulfate 4mg/ml Inj (IV USE ONLY) IVP PRN (20:35)
[2019-10-05] MEDS ORDERED: TraZODone 100mg tab ORAL SCH (21:00)
--- NOTE | 2019-10-05 22:00 | Consultation ---
DATE OF CONSULTATION: 10/05/2019 CARDIOLOGY CONSULTATION CONSULTING PHYSICIAN: Jarek Grant M.D. REFERRING PHYSICIAN: Raymon Santamaria D.O. REASON FOR CONSULTATION: Chest pain, hypertension, and bradycardia. HISTORY OF PRESENT ILLNESS: The patient is a 43-year-old gentleman with hypertension and morbid obesity, status post gastric sleeve surgery in 2011, with left calf DVT, about 6 months on Xarelto, who presented with chest pain to the emergency room. The patient denies any injury to the leg and has been medication regularly. The patient complained of chest pain, worse with deep breathing with radiation to the back. The patient's CT scan was negative for PE or effusion or pneumothorax. The patient however was noted and has had more than 400 tablets of narcotics prescribed by multiple different providers since March 2019. The patient also has bradycardia with heart rate down to 41. At the time of my evaluation, the patient denies any headache, shortness of breath atypical chest pain. REVIEW OF SYSTEMS: Negative other than what is mentioned in history of present illness. PAST MEDICAL HISTORY: As mentioned above. FAMILY HISTORY: Noncontributory. SOCIAL HISTORY: He lives in assisted living. Does not smoke or drink alcohol. MEDICATIONS AT HOME: Xarelto and [place]. He is currently also on psych medication. PHYSICAL EXAMINATION: VITAL SIGNS: Blood pressure 124/72, pulse is 58, respirations 18, and he is afebrile. NECK: No JVD or carotid bruit. LUNGS: Clear. CARDIOVASCULAR: Regular S1 and S2 with no gallop. ABDOMEN: Soft. EXTREMITIES: No pitting edema. LABORATORY DATA: Labs show troponin negative x2. Sodium 141, potassium 3.3, BUN of 10, creatinine 1, glucose of 93. D-dimer is 2.26. The chest CT shows no pulmonary embolism or aneurysm or dissection. His lower extremity duplex is negative for DVT. ASSESSMENT AND PLAN: 1. Atypical chest pain. The patient was ruled out for myocardial infarction. EKG does not show any acute ischemic changes. Echocardiogram showed normal left ventricular systolic function. The chest showed no evidence of pulmonary embolism or dissection. The patient may benefit from a stress test, but it can be done as an outpatient. 2. Bradycardia. On telemetry, heart rate dropped to 40s. This may be due to the patient's narcotic and psych medications. The patient has no history of syncope. We will check a thyroid function test to make sure the patient is not hypothyroid. 3. History of psychiatric issue, on Desyrel 4. Pain-seeking behavior as mentioned above. 5. History of pulmonary embolus. The patient is on Xarelto. Thank you very much for allowing me to participate in the care of this patient. Please do not hesitate to contact me for any questions regarding my evaluation. Case was discussed with Dr. Allen and nurse at the bedside. Jarek rGant M.D. DR: Jacklyn JOB#: [id number] CC:
[2019-10-06] VITALS: BP 111/63
[2019-10-06 04:00] VITALS: BP 92/53
[2019-10-06 06:11] LABS: HEMATOCRIT 30.2 % (42.0-52.0); HEMOGLOBIN 9.3 G/DL (14.2-18.0); MEAN CORPUSCULAR VOLUME 92 FL (80-99); PLATELET COUNT 79 K/UL (150-450); RED BLOOD COUNT 3.27 M/UL (4.70-6.10); WHITE BLOOD COUNT 2.7 K/UL (4.8-10.8)
[2019-10-06 06:21] LABS: ANION GAP 3 mmol/L (5-15); BLOOD UREA NITROGEN 9 mg/dL (7-18); CALCIUM 8.3 MG/DL (8.5-10.1); CARBON DIOXIDE 32 MMOL/L (21-32); CHLORIDE 109 MMOL/L (98-107); CREATININE 0.9 MG/DL (0.55-1.30); POTASSIUM 3.8 MMOL/L (3.5-5.1); SODIUM 144 MMOL/L (136-145)
[2019-10-06 08:00] VITALS: BP 125/70
--- NOTE | 2019-10-06 08:26 | Pulmonology Progress Note ---
Subjective Interval Events: None new Constitutional: Reports: no symptoms HEENT: Repors: no symptoms Respiratory: Reports: no symptoms Cardiovascular: Reports: chest pain Gastrointestinal/Abdominal: Reports: no symptoms Allergies: Coded Allergies: KETOROLAC (Verified Allergy, Mild, Rash, 01/01/19) TRAMADOL (Verified Allergy, Unknown, 08/01/18) NSAIDS (NON-STEROIDAL ANTI-INFLAMMA (Verified Adverse Reaction, Unknown, ) Objective Last 24 Hour Vital Signs Date Time Temp Pulse Resp B/P (MAP) Pulse Ox O2 Delivery O2 Flow Rate FiO2 10/06/19 04:00 47 10/06/19 04:00 98.5 53 20 92/53 (66) 100 10/06/19 00:00 63 10/06/19 00:00 98.5 54 20 111/63 (79) 100 10/05/19 21:00 Room Air 10/05/19 20:00 98.6 81 24 163/70 (101) 100 10/05/19 20:00 71 10/05/19 16:00 Room Air 10/05/19 16:00 55 10/05/19 16:00 98.5 63 16 127/65 (85) 100 10/05/19 12:00 Room Air 10/05/19 12:00 98.1 74 20 124/72 (89) 100 10/05/19 12:00 58 10/05/19 08:51 62 Intake and Output 10/05/19 10/06/19 19:00 07:00 Intake Total 70 ml 1060 ml Output Total 2000 ml Balance -1930 ml 1060 ml Intake Oral 360 ml IV Total 70 ml 700 ml Output Urine Total 2000 ml # Voids 6 2 # Bowel Movements 3 General Appearance: no acute distress HEENT: normocephalic Respiratory: chest wall non-tender Cardiovascular: normal peripheral pulses Abdomen: normal bowel sounds Laboratory Tests 10/05/19 10:15: Troponin I 0.000, Thyroid Stimulating Hormone (TSH) 1.030, Free Thyroxine 0.97 10/06/19 05:07: White Blood Count 2.7L, Red Blood Count 3.27L, Hemoglobin 9.3L, Hematocrit 30.2L , Mean Corpuscular Volume 92, Mean Corpuscular Hemoglobin 28.3, Mean Corpuscular Hemoglobin Concent 30.7L, Red Cell Distribution Width 15.0H, Platelet Count 79L, Mean Platelet Volume 7.4, Neutrophils (%) (Auto) , Lymphocytes (%) (Auto) , Monocytes (%) (Auto) , Eosinophils (%) (Auto) , Basophils (%) (Auto) , Neutrophils % (Manual) [Pending], Lymphocytes % (Manual) [Pending], Platelet Estimate [Pending], Platelet Morphology [Pending], Sodium Level 144, Potassium Level 3.8, Chloride Level 109H, Carbon Dioxide Level 32, Anion Gap 3L, Blood Urea Nitrogen 9, Creatinine 0.9, Estimat Glomerular Filtration Rate > 60, Glucose Level 95, Calcium Level 8.3L Current Medications Medications (Trade) Dose Ordered Sig/Mikey Route PRN Reason Start Time Stop Time Status Last Admin Dose Admin Enoxaparin Sodium (Lovenox) 40 mg DAILY SUBQ 10/05/19 09:00 01/03/20 08:59 10/05/19 09:09 Famotidine (Pepcid) 40 mg DAILY ORAL 10/05/19 09:00 01/03/20 08:59 10/05/19 09:08 Fluoxetine HCl (PROzac) 40 mg DAILY ORAL 10/05/19 09:00 11/04/19 08:59 10/05/19 09:08 Iohexol (Omnipaque 350 100ml) 100 ml NOW PRN INJ Radiology Procedure 10/05/19 01:30 10/07/19 01:22 Morphine Sulfate (Morphine Sulfate) 1 mg Q6H PRN IVP For Pain 10/05/19 06:15 10/12/19 06:14 10/05/19 20:35 Quetiapine Fumarate (SEROqueL) 50 mg QHS ORAL 10/06/19 21:00 11/19/19 08:59 Sodium Chloride 1,000 ml @ 70 mls/hr [id number] IV 10/05/19 09:00 11/04/19 08:59 10/05/19 09:08 Trazodone HCl (Desyrel) 100 mg BEDTIME ORAL 10/05/19 21:00 11/04/19 20:59 10/05/19 20:34 Assessment/Plan Assessment/Plan Assessment/ Plan: Rg Silva~is a 43 year old~male~with a history of HTN, gastric~sleeve~ 2011, and left calf DVT, and drug seeking behaviors, now with chest pain. #~PE: On Xarelto # Right chest pain:Cleared by cardilogy #HTN: RECOMMENDATIONS DC home Drug seeking behavior Conor Allen MD Oct 06, 2019 08:25
--- NOTE | 2019-10-06 08:27 | Consultation ---
History of Present Illness General Chief Complaint: Chest Pain Present Illness Allergies: Coded Allergies: KETOROLAC (Verified Allergy, Mild, Rash, 01/01/19) TRAMADOL (Verified Allergy, Unknown, 08/01/18) NSAIDS (NON-STEROIDAL ANTI-INFLAMMA (Verified Adverse Reaction, Unknown, ) Medication History Scheduled PRN Acetaminophen* (Acetaminophen Extra Strength*), 500 MG ORAL Q8H PRN for Fever/ Headache/Mild Pain Hydrocodone Bit/Acetaminophen 5-325* (Twain 5-325 Tablet*), 1 TAB ORAL Q6H PRN for FOR PAIN Patient History Healthcare decision maker Resuscitation status Advanced Directive on File Physical Exam Last 24 Hour Vital Signs Date Time Temp Pulse Resp B/P (MAP) Pulse Ox O2 Delivery O2 Flow Rate FiO2 10/06/19 04:00 47 10/06/19 04:00 98.5 53 20 92/53 (66) 100 10/06/19 00:00 63 10/06/19 00:00 98.5 54 20 111/63 (79) 100 10/05/19 21:00 Room Air 10/05/19 20:00 98.6 81 24 163/70 (101) 100 10/05/19 20:00 71 10/05/19 16:00 Room Air 10/05/19 16:00 55 10/05/19 16:00 98.5 63 16 127/65 (85) 100 10/05/19 12:00 Room Air 10/05/19 12:00 98.1 74 20 124/72 (89) 100 10/05/19 12:00 58 10/05/19 08:51 62 Intake and Output 10/05/19 10/06/19 19:00 07:00 Intake Total 70 ml 1060 ml Output Total 2000 ml Balance -1930 ml 1060 ml Intake Oral 360 ml IV Total 70 ml 700 ml Output Urine Total 2000 ml # Voids 6 2 # Bowel Movements 3 Laboratory Tests Test 10/05/19 10:15 10/06/19 05:07 Troponin I 0.000 ng/mL (0.000-0.056) Thyroid Stimulating Hormone (TSH) 1.030 uiU/mL (0.358-3.740) Free Thyroxine 0.97 NG/DL (0.76-1.46) White Blood Count 2.7 K/UL (4.8-10.8) L Red Blood Count 3.27 M/UL (4.70-6.10) L Hemoglobin 9.3 G/DL (14.2-18.0) L Hematocrit 30.2 % (42.0-52.0) L Mean Corpuscular Volume 92 FL (80-99) Mean Corpuscular Hemoglobin 28.3 PG (27.0-31.0) Mean Corpuscular Hemoglobin Concent 30.7 G/DL (32.0-36.0) L Red Cell Distribution Width 15.0 % (11.6-14.8) H Platelet Count 79 K/UL (150-450) L Mean Platelet Volume 7.4 FL (6.5-10.1) Neutrophils (%) (Auto) % (45.0-75.0) Lymphocytes (%) (Auto) % (20.0-45.0) Monocytes (%) (Auto) % (1.0-10.0) Eosinophils (%) (Auto) % (0.0-3.0) Basophils (%) (Auto) % (0.0-2.0) Neutrophils % (Manual) Pending Lymphocytes % (Manual) Pending Platelet Estimate Pending Platelet Morphology Pending Sodium Level 144 MMOL/L (136-145) Potassium Level 3.8 MMOL/L (3.5-5.1) Chloride Level 109 MMOL/L (98-107) H Carbon Dioxide Level 32 MMOL/L (21-32) Anion Gap 3 mmol/L (5-15) L Blood Urea Nitrogen 9 mg/dL (7-18) Creatinine 0.9 MG/DL (0.55-1.30) Estimat Glomerular Filtration Rate > 60 mL/min (>60) Glucose Level 95 MG/DL (74-106) Calcium Level 8.3 MG/DL (8.5-10.1) L Height (Feet): 6 Height (Inches): 1.00 Weight (Pounds): 300 Medications Current Medications Medications (Trade) Dose Ordered Sig/Mikey Route PRN Reason Start Time Stop Time Status Last Admin Dose Admin Enoxaparin Sodium (Lovenox) 40 mg DAILY SUBQ 10/05/19 09:00 01/03/20 08:59 10/05/19 09:09 Famotidine (Pepcid) 40 mg DAILY ORAL 10/05/19 09:00 01/03/20 08:59 10/05/19 09:08 Fluoxetine HCl (PROzac) 40 mg DAILY ORAL 10/05/19 09:00 11/04/19 08:59 10/05/19 09:08 Iohexol (Omnipaque 350 100ml) 100 ml NOW PRN INJ Radiology Procedure 10/05/19 01:30 10/07/19 01:22 Morphine Sulfate (Morphine Sulfate) 1 mg Q6H PRN IVP For Pain 10/05/19 06:15 10/12/19 06:14 10/05/19 20:35 Quetiapine Fumarate (SEROqueL) 50 mg QHS ORAL 10/06/19 21:00 11/19/19 08:59 Sodium Chloride 1,000 ml @ 70 mls/hr [id number] IV 10/05/19 09:00 11/04/19 08:59 10/05/19 09:08 Trazodone HCl (Desyrel) 100 mg BEDTIME ORAL 10/05/19 21:00 11/04/19 20:59 10/05/19 20:34 Assessment/Plan Assessment/Plan: Hematology Consultation REQ MD: Raymon Santamaria [facility] Pancytopenia DOS 10/06/2019 HPI 43-year-old male presents after increased right-sided chest pain. Reports having intermittent pain which has become more constant. Reports having prior history of pulmonary embolism as well as atrial fibrillation in the past. States he is not currently on anticoagulation and had this discontinued. Reports having previous pulmonary embolism approximately 2 to 3 months ago. Had reported constant pain for approximately 8 hours. Prior history of acid reflux as well as PTSD. Had taken Tylenol with codeine prior to arrival denies any cough. currently is on xarelto, has been seen by id, pulm, cards and surg, I have reviewed their recommendations. Allergies: KETOROLAC (Verified Allergy, Mild, Rash, 01/01/19) TRAMADOL (Verified Allergy, Unknown, 08/01/18) NSAIDS (NON-STEROIDAL ANTI-INFLAMMA (Verified Adverse Reaction, Unknown, ) COVID-19 Screening Contact w/high risk pt: No Recent Travel to affected area: No Experienced COVID-19 symptoms?: No COVID-19 Testing performed BAKERY CLERK: No Patient History Reviewed Nursing Documentation: PMH: Agreed; PSxH: Agreed Nursing Documentation-PMH Hx Gastrointestinal Problems: Yes - GASTRIC BYPASS Review of Systems All Other Systems: negative except mentioned in HPI Physical Exam Vitals: reviewed are wnl General: normal inspection, well appearing, no apparent distress, alert Heent: nc, at Resp: normal inspection, lungs clear, normal breath sounds Cardiovascular: regular rate, rhythm, no edema GI: normal inspection, normal bowel sounds, non tender, soft, no guarding, no hernia Gu: no CVA tenderness Msk: normal inspection, back normal Neurologic: alert, motor strength/tone normal, acetylene torch solderer III-XII nml as tested, oriented x3, responsive Psychiatric: normal inspection Labs: noted Imaging: reviewed Assessment and Recs # Pancytopenia is likely related to history of drug use and potential liver disease as well, labs noted --> have ordered for hepatitis and hiv panel at this time --> us abd hold off unless stays here overwknd --> consider outpatient management once discharged as well --> reviewed labs from 2018, 2019 and now is worsened concerning for condition requires workup in near future --> outpatient appointment pls schedule this week to followup as per cm # Pulmonary embolism history 2-3 months ago, came in on xarelto --> continue as outpatient xarelto --> 3 month course # Elevated D-Dimer --> cta is neg for pe --> venous duplex neg for acute dvt # Chest pain, CTA was ordered due to patient's prior history of pulmonary embolism. Patient does not appear to be in distress and has 100% oxygen saturation. --> The patient may benefit from a stress test, but it can be done as an outpatient. --> as per cards recs, no bleeding # History of psychiatric issue, on Desyrel # Pain-seeking behavior as mentioned above. # Dvt ppx Xarelto Appreciate consultation and dw Deonte Hsu MD Oct 06, 2019 08:27
--- NOTE | 2019-10-06 09:48 | General Progress Note ---
Assessment/Plan Problem List: (1) Chest pain ICD Codes: R07.9 - Chest pain, unspecified SNOMED: 50273494 (2) Exacerbation of chronic back pain ICD Codes: M54.9 - Dorsalgia, unspecified; G89.29 - Other chronic pain SNOMED: 014775280, 138237467 (3) Diverticulosis ICD Codes: K57.90 - Diverticulosis of intestine, part unspecified, without perforation or abscess without bleeding SNOMED: 119759463, 262410708 (4) Back pain ICD Codes: M54.9 - Dorsalgia, unspecified SNOMED: 456241710 (5) Hiatal hernia ICD Codes: K44.9 - Diaphragmatic hernia without obstruction or gangrene SNOMED: 71840773 (6) Pancytopenia ICD Codes: D61.818 - Other pancytopenia SNOMED: 753151302 Status: stable, progressing Assessment/Plan: pt diet abx cbc bmp am cardio and pulm cleared, dc if celar by heme and id Subjective Constitutional: Reports: weakness Allergies: Coded Allergies: KETOROLAC (Verified Allergy, Mild, Rash, 01/01/19) TRAMADOL (Verified Allergy, Unknown, 08/01/18) NSAIDS (NON-STEROIDAL ANTI-INFLAMMA (Verified Adverse Reaction, Unknown, ) All Systems: reviewed and negative except above Subjective calm in bed Objective Last 24 Hour Vital Signs Date Time Temp Pulse Resp B/P (MAP) Pulse Ox O2 Delivery O2 Flow Rate FiO2 10/06/19 08:00 48 10/06/19 04:00 47 10/06/19 04:00 98.5 53 20 92/53 (66) 100 10/06/19 00:00 63 10/06/19 00:00 98.5 54 20 111/63 (79) 100 10/05/19 21:00 Room Air 10/05/19 20:00 98.6 81 24 163/70 (101) 100 10/05/19 20:00 71 10/05/19 16:00 Room Air 10/05/19 16:00 55 10/05/19 16:00 98.5 63 16 127/65 (85) 100 10/05/19 12:00 Room Air 10/05/19 12:00 98.1 74 20 124/72 (89) 100 10/05/19 12:00 58 Intake and Output 10/05/19 10/06/19 19:00 07:00 Intake Total 70 ml 1060 ml Output Total 2000 ml Balance -1930 ml 1060 ml Intake Oral 360 ml IV Total 70 ml 700 ml Output Urine Total 2000 ml # Voids 6 2 # Bowel Movements 3 Laboratory Tests 10/05/19 10:15: Troponin I 0.000, Thyroid Stimulating Hormone (TSH) 1.030, Free Thyroxine 0.97 10/06/19 05:07: White Blood Count 2.7L, Red Blood Count 3.27L, Hemoglobin 9.3L, Hematocrit 30.2L , Mean Corpuscular Volume 92, Mean Corpuscular Hemoglobin 28.3, Mean Corpuscular Hemoglobin Concent 30.7L, Red Cell Distribution Width 15.0H, Platelet Count 79L, Mean Platelet Volume 7.4, Neutrophils (%) (Auto) , Lymphocytes (%) (Auto) , Monocytes (%) (Auto) , Eosinophils (%) (Auto) , Basophils (%) (Auto) , Neutrophils % (Manual) [Pending], Lymphocytes % (Manual) [Pending], Platelet Estimate [Pending], Platelet Morphology [Pending], Sodium Level 144, Potassium Level 3.8, Chloride Level 109H, Carbon Dioxide Level 32, Anion Gap 3L, Blood Urea Nitrogen 9, Creatinine 0.9, Estimat Glomerular Filtration Rate > 60, Glucose Level 95, Calcium Level 8.3L, Ferritin 6L, Hepatitis A IgM Antibody [Pending], Hepatitis B Surface Antigen [Pending], Hepatitis B Core IgM Antibody [Pending], Hepatitis C Antibody [Pending], HIV (1& 2) Antibody Rapid Negative Height (Feet): 6 Height (Inches): 1.00 Weight (Pounds): 300 General Appearance: lethargic EENT: normal ENT inspection Neck: normal alignment Cardiovascular: normal rate, regular rhythm Respiratory/Chest: no respiratory distress, no accessory muscle use Extremities: normal inspection Skin: normal pigmentation Raymon Santamaria DO Oct 06, 2019 09:48
[2019-10-06] MEDS: Enoxaparin 40mg Inj SUBQ SCH (09:53)
[2019-10-06] MEDS: Morphine Sulfate 4mg/ml Inj (IV USE ONLY) IVP PRN (09:55)
--- NOTE | 2019-10-06 10:21 | Infectious Diseases Prog Note ---
Assessment/Plan Assessment/Plan A: 1. Chest pain rule out COVID19 2. History of pulmonary embolism. 3. History of atrial fibrillation. 4. Pancytopenia PLAN: 1. Can be discharged to home 2. We will f/u COVID-19 testing. Subjective ROS Limited/Unobtainable: No Constitutional: Reports: no symptoms Respiratory: Reports: no symptoms Cardiovascular: Reports: chest pain, other - right side Gastrointestinal/Abdominal: Reports: no symptoms Genitourinary: Reports: no symptoms Allergies: Coded Allergies: KETOROLAC (Verified Allergy, Mild, Rash, 01/01/19) TRAMADOL (Verified Allergy, Unknown, 08/01/18) NSAIDS (NON-STEROIDAL ANTI-INFLAMMA (Verified Adverse Reaction, Unknown, ) Objective Last 24 Hour Vital Signs Date Time Temp Pulse Resp B/P (MAP) Pulse Ox O2 Delivery O2 Flow Rate FiO2 10/06/19 08:00 48 10/06/19 04:00 47 10/06/19 04:00 98.5 53 20 92/53 (66) 100 10/06/19 00:00 63 10/06/19 00:00 98.5 54 20 111/63 (79) 100 10/05/19 21:00 Room Air 10/05/19 20:00 98.6 81 24 163/70 (101) 100 10/05/19 20:00 71 10/05/19 16:00 Room Air 10/05/19 16:00 55 10/05/19 16:00 98.5 63 16 127/65 (85) 100 10/05/19 12:00 Room Air 10/05/19 12:00 98.1 74 20 124/72 (89) 100 10/05/19 12:00 58 Height (Feet): 6 Height (Inches): 1.00 Weight (Pounds): 300 General Appearance: no acute distress HEENT: mucous membranes moist Respiratory/Chest: no respiratory distress Cardiovascular: bradycardia Extremities: no edema Neurologic/Psychiatric: alert, oriented x 3, responsive Laboratory Tests Test 10/06/19 05:07 White Blood Count 2.7 K/UL (4.8-10.8) L Red Blood Count 3.27 M/UL (4.70-6.10) L Hemoglobin 9.3 G/DL (14.2-18.0) L Hematocrit 30.2 % (42.0-52.0) L Mean Corpuscular Volume 92 FL (80-99) Mean Corpuscular Hemoglobin 28.3 PG (27.0-31.0) Mean Corpuscular Hemoglobin Concent 30.7 G/DL (32.0-36.0) L Red Cell Distribution Width 15.0 % (11.6-14.8) H Platelet Count 79 K/UL (150-450) L Mean Platelet Volume 7.4 FL (6.5-10.1) Neutrophils (%) (Auto) % (45.0-75.0) Lymphocytes (%) (Auto) % (20.0-45.0) Monocytes (%) (Auto) % (1.0-10.0) Eosinophils (%) (Auto) % (0.0-3.0) Basophils (%) (Auto) % (0.0-2.0) Differential Total Cells Counted 100 Neutrophils % (Manual) 57 % (45-75) Lymphocytes % (Manual) 36 % (20-45) Monocytes % (Manual) 6 % (1-10) Eosinophils % (Manual) 1 % (0-3) Basophils % (Manual) 0 % (0-2) Band Neutrophils 0 % (0-8) Platelet Estimate Decreased L Platelet Morphology Normal Hypochromasia 2+ Anisocytosis 1+ Sodium Level 144 MMOL/L (136-145) Potassium Level 3.8 MMOL/L (3.5-5.1) Chloride Level 109 MMOL/L (98-107) H Carbon Dioxide Level 32 MMOL/L (21-32) Anion Gap 3 mmol/L (5-15) L Blood Urea Nitrogen 9 mg/dL (7-18) Creatinine 0.9 MG/DL (0.55-1.30) Estimat Glomerular Filtration Rate > 60 mL/min (>60) Glucose Level 95 MG/DL (74-106) Calcium Level 8.3 MG/DL (8.5-10.1) L Ferritin 6 NG/ML (8-388) L Hepatitis A IgM Antibody Pending Hepatitis B Surface Antigen Pending Hepatitis B Core IgM Antibody Pending Hepatitis C Antibody Pending HIV (1&2) Antibody Rapid Negative (NEGATIVE) Current Medications Medications (Trade) Dose Ordered Sig/Mikey Route PRN Reason Start Time Stop Time Status Last Admin Dose Admin Enoxaparin Sodium (Lovenox) 40 mg DAILY SUBQ 10/05/19 09:00 01/03/20 08:59 10/06/19 09:53 Famotidine (Pepcid) 40 mg DAILY ORAL 10/05/19 09:00 01/03/20 08:59 10/06/19 09:53 Fluoxetine HCl (PROzac) 40 mg DAILY ORAL 10/05/19 09:00 11/04/19 08:59 10/06/19 09:53 Iohexol (Omnipaque 350 100ml) 100 ml NOW PRN INJ Radiology Procedure 10/05/19 01:30 10/07/19 01:22 Morphine Sulfate (Morphine Sulfate) 1 mg Q6H PRN IVP For Pain 10/05/19 06:15 10/12/19 06:14 10/06/19 09:55 Quetiapine Fumarate (SEROqueL) 50 mg QHS ORAL 10/06/19 21:00 11/19/19 08:59 Sodium Chloride 1,000 ml @ 70 mls/hr [id number] IV 10/05/19 09:00 11/04/19 08:59 10/05/19 09:08 Trazodone HCl (Desyrel) 100 mg BEDTIME ORAL 10/05/19 21:00 11/04/19 20:59 10/05/19 20:34 Norberto Lux MD Oct 06, 2019 10:21
[2019-10-06] MEDS ORDERED: FAMOTIDINE20 MG ORAL (11:04)
[2019-10-06] MEDS ORDERED: FLUOXETINE HCL40 MG ORAL (11:05)
[2019-10-06] MEDS ORDERED: QUETIAPINE FUMA50 MG ORAL (11:05)
[2019-10-06] MEDS ORDERED: TRAZODONE HCL100 MG ORAL (11:06)
[2019-10-06 12:00] VITALS: BP 123/78
[2019-10-06] MEDS ORDERED: Tubing IV Secondary IV ONE (13:23)
[2019-10-06] MEDS ORDERED: D5NS 1000ml IV ONE (13:23)
[2019-10-06] MEDS ORDERED: NS 275ml ONE (13:23)
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
[2019-10-06 14:00] VITALS: BP 120/76
--- NOTE | 2019-10-07 17:17 | Discharge Summary ---
Discharge Summary Discharge Summary _ DATE OF ADMISSION: 10/05/2019 DATE OF DISCHARGE: 10/06/2019 DISCHARGED BY: Dr Santamaria REASON FOR ADMISSION: 43 years old male with past medical history of atrial fibrillation, DVT, PE, obesity, status post gastric bypass, presented with right-sided chest pain , reported as intermittent , which became more constant. Patient reported not being on anticoagulation at this time. Prior pulmonary embolism was about 3 months ago. Upon evaluation vital signs were stable. CTA of the chest and thorax revealed no acute findings. Venous duplex bilateral lower extremity revealed no evidence of acute DVT. Laboratory work-up revealed pancytopenia with WBC 3.8, hemoglobin 9.4, hematocrit 30.3 ,platelet count 90. Troponin was negative. ProBNP 335. EKG revealed sinus rhythm, no acute ischemic changes. Stable electrolytes and renal parameters. Patient subsequently admitted for pancytopenia and chest pain. CONSULTANTS: solar electric practitioner Dr. Márquez pulmonary Dr. Allen ID specialist Dr. Churchill v groove cutter/oncologist Dr. Contreras surgery Dr. Carrillo [facility] COURSE: Patient admitted to stepdown unit. Serial troponin were negative. EKG revealed no acute ischemic changes. Patient was ruled out for acute myocardial infarction. Echocardiogram demonstrated preserved ejection fraction 55 to 60%. No evidence of wall motion abnormality. Per cardiology, chest pain was atypical. Transfusion Nurse recommended stress test, which can be done as outpatient. On telemetry noted bradycardia with heart rate dropped to 40s. Per solar electric practitioner possibly due to to patient's narcotic and psych medication. Thyroid function test was checked and was stable. Patient had no prior history of syncope. Judicious use of narcotic and psych medication was implemented. Heart rate improved to high 50th -low 60th prior to discharge Patient was on DVT prophylaxis with Lovenox. GI prophylaxis provided. Blood pressure was closely monitored and remained stable. Per v groove cutter, pancytopenia was likely related to history of drug use and potential liver disease. HIV was nonreactive, hepatitis panel pending at the time of this dictation. Counts were closely monitored. Prior to discharge hemoglobin 9.3, hematocrit 30.2, WBC 2.7 and platelet count 79. Chest pain resolved. Heart rate stable. All counts remained at baseline. Patient clinically stabilized and was ready for discharge to Board and Care for continuation of care. FINAL DIAGNOSES: Pancytopenia (likely due to history of drug use and potential liver disease Atypical chest pain Bradycardia possibly due to narcotic and psych medication Pain seeking behavior History of PE History of atrial fibrillation DISCHARGE MEDICATIONS: See Medication Reconciliation list. DISCHARGE INSTRUCTIONS: [facility] Follow-up with a primary care provider in 1 week. I have been assigned to dictate discharge summary for this account. I was not involved in the patient's management. Cher Lerner NP Oct 07, 2019 17:17
== END 2019-10-06 14:34 | DRG 660 ==
LOC: EMR 01:36 → 2W 02:53 → EDBEDREQ 04:51
DX: D61.818 Other pancytopenia (principal); Z88.6 Allergy status to analgesic agent; Z86.711 Personal history of pulmonary embolism; K57.90 Diverticulosis of intestine, part unspecified, without perforation or abscess without bleeding; K44.9 Diaphragmatic hernia without obstruction or gangrene; R07.89 Other chest pain; R00.1 Bradycardia, unspecified; T40.605A Adverse effect of unspecified narcotics, initial encounter; T43.95XA Adverse effect of unspecified psychotropic drug, initial encounter; Z76.5 Malingerer [conscious simulation]; I48.91 Unspecified atrial fibrillation; I10 Essential (primary) hypertension; Z98.84 Bariatric surgery status; Z86.718 Personal history of other venous thrombosis and embolism; S70.00XA Contusion of unspecified hip, initial encounter; X58.XXXA Exposure to other specified factors, initial encounter; G89.29 Other chronic pain; M54.9 Dorsalgia, unspecified; K62.89 Other specified diseases of anus and rectum; F11.20 Opioid dependence, uncomplicated; Z79.01 Long term (current) use of anticoagulants; Z66 Do not resuscitate
CPT/HCPCS: 36415; 71275; 80048; 80053; 82728; 83690; 83880; 84439; 84443; 84484; 85007; 85025; 85379; 86703; 86705; 86709; 86803; 87340; 93005; 93306; 93970; 96374; 99285; J7030

== ENCOUNTER 2019-11-17 02:22 | Inpatient (IN) | payer MEDICAID ==
[~2019-11-17] VITALS: Ht 175.3 cm; Wt 116.1 kg
[2019-11-17] VITALS (7 sets, daily range): BP systolic 121–135; BP diastolic 62–90
[~2019-11-17 02:22] MED LIST changes: +FAMOTIDINE20 MG ORAL; +FLUOXETINE HCL40 MG ORAL; +QUETIAPINE FUMA50 MG ORAL; +TRAZODONE HCL100 MG ORAL
[2019-11-17] MEDS ORDERED: Morphine Sulfate 4mg/ml Inj (IV USE ONLY) IVP ONE ×2 (02:45→05:30)
[2019-11-17] MEDS ORDERED: Omnipaque-300 100ml vial INJ PRN (02:45)
[2019-11-17 02:58] LABS: HEMATOCRIT 30.6 % (42.0-52.0); HEMOGLOBIN 9.7 G/DL (14.2-18.0); MEAN CORPUSCULAR VOLUME 93 FL (80-99); PLATELET COUNT 96 K/UL (150-450); RED BLOOD COUNT 3.29 M/UL (4.70-6.10); RED CELL DISTRIBUTION WIDTH 16.7 % (11.6-14.8)
--- NOTE | 2019-11-17 02:59 | Emergency Room Report ---
History of Present Illness General Chief Complaint: Abdominal Pain Present Illness HPI 43-year-old male here with right lower quadrant abdominal pain. The patient had an open appendectomy at outside hospital 7 days ago and says that over the past 4 days he has been having "twisting cramping" underneath the incision site in his right lower quadrant. Says he has been taking Tylenol for the pain. [place] headaches, vision changes, fevers, chills, chest pain, palpitation, shortness of breath, back pain, other abdominal pain, nausea, vomiting, diarrhea , dysuria. Allergies: Coded Allergies: KETOROLAC (Verified Allergy, Mild, Rash, 01/01/19) TRAMADOL (Verified Allergy, Unknown, 08/01/18) NSAIDS (NON-STEROIDAL ANTI-INFLAMMA (Verified Adverse Reaction, Unknown, ) COVID-19 Screening Contact w/high risk pt: No Recent Travel to affected area: No Experienced COVID-19 symptoms?: No COVID-19 Testing performed KENNEL WORKER: No Nursing Documentation-PMH Hx Cardiac Problems: Yes - A-FIB Hx Gastrointestinal Problems: Yes - GASTRIC BYPASS 2016, appy 10/2019 Hx Neurological Problems: No Review of Systems All Other Systems: negative except mentioned in HPI Physical Exam Vital Signs Date Time Temp Pulse Resp B/P (MAP) Pulse Ox O2 Delivery O2 Flow Rate FiO2 11/17/19 02:26 98.2 75 16 135/90 (105) 99 Room Air Sp02 EP Interpretation: reviewed, normal General Appearance: no apparent distress, alert, non-toxic Head: normocephalic, atraumatic Eyes: bilateral eye normal inspection, bilateral eye PERRL ENT: hearing grossly normal, normal pharynx, no angioedema, normal voice Neck: full range of motion, supple/symm/no masses Respiratory: chest non-tender, lungs clear, normal breath sounds, speaking full sentences Cardiovascular #1: regular rate, rhythm, no edema Cardiovascular #2: 2+ carotid (R), 2+ carotid (L), 2+ radial (R), 2+ radial (L) , 2+ dorsalis pedis (R), 2+ dorsalis pedis (L) Gastrointestinal: normal bowel sounds, soft, non-distended, no guarding, no rebound, other - Moderate tenderness in the right lower quadrant in the region of the incision site. Approximately 10 cm linear horizontal surgical incision in the right lower quadrant that appears well-healed without any evidence of surrounding infection or wound evisceration. No drainage Rectal: deferred Genitourinary: normal inspection, no CVA tenderness Musculoskeletal: back normal, normal range of motion, calf tenderness, gait/ station normal, non-tender Neurologic: alert, motor strength/tone normal, oriented x3, sensory intact, responsive, speech normal Psychiatric: judgement/insight normal, memory normal, mood/affect normal, no suicidal/homicidal ideation Reflexes: 3+ bicep (R), 3+ bicep (L), 3+ tricep (R), 3+ tricep (L), 3+ knee (R) , 3+ knee (L) Lymphatic: no adenopathy Medical Decision Making Diagnostic Impression: Primary Impression: Post-operative wound abscess Additional Impressions: Post-operative complication Abdominal pain ER Course Laboratory Tests Test 11/17/19 02:48 11/17/19 03:40 White Blood Count 4.0 K/UL (4.8-10.8) L Red Blood Count 3.29 M/UL (4.70-6.10) L Hemoglobin 9.7 G/DL (14.2-18.0) L Hematocrit 30.6 % (42.0-52.0) L Mean Corpuscular Volume 93 FL (80-99) Mean Corpuscular Hemoglobin 29.4 PG (27.0-31.0) Mean Corpuscular Hemoglobin Concent 31.7 G/DL (32.0-36.0) L Red Cell Distribution Width 16.7 % (11.6-14.8) H Platelet Count 96 K/UL (150-450) L Mean Platelet Volume 4.9 FL (6.5-10.1) L Neutrophils (%) (Auto) % (45.0-75.0) Lymphocytes (%) (Auto) % (20.0-45.0) Monocytes (%) (Auto) % (1.0-10.0) Eosinophils (%) (Auto) % (0.0-3.0) Basophils (%) (Auto) % (0.0-2.0) Differential Total Cells Counted 100 Neutrophils % (Manual) 55 % (45-75) Lymphocytes % (Manual) 39 % (20-45) Monocytes % (Manual) 2 % (1-10) Eosinophils % (Manual) 4 % (0-3) H Basophils % (Manual) 0 % (0-2) Band Neutrophils 0 % (0-8) Platelet Estimate Decreased L Platelet Morphology Normal Anisocytosis 1+ Sodium Level 142 MMOL/L (136-145) Potassium Level 3.7 MMOL/L (3.5-5.1) Chloride Level 105 MMOL/L (98-107) Carbon Dioxide Level 29 MMOL/L (21-32) Anion Gap 8 mmol/L (5-15) Blood Urea Nitrogen 11 mg/dL (7-18) Creatinine 1.0 MG/DL (0.55-1.30) Estimated Glomerular Filtration Rate > 60 mL/min (>60) Glucose Level 113 MG/DL (74-106) H Calcium Level 8.6 MG/DL (8.5-10.1) Total Bilirubin 0.3 MG/DL (0.2-1.0) Aspartate Amino Transferase (AST) 15 U/L (15-37) Alanine Aminotransferase (ALT) 13 U/L (12-78) Alkaline Phosphatase 79 U/L (46-116) Total Protein 6.9 G/DL (6.4-8.2) Albumin 3.5 G/DL (3.4-5.0) Globulin 3.4 g/dL Albumin/Globulin Ratio 1.0 (1.0-2.7) Lipase 94 U/L (73-393) Urine Color Yellow Urine Appearance Clear Urine pH 6 (4.5-8.0) Urine Specific [place] 1.025 (1.005-1.035) Urine Protein 1+ (NEGATIVE) H Urine Glucose (UA) Negative (NEGATIVE) Urine Ketones 1+ (NEGATIVE) H Urine Blood Negative (NEGATIVE) Urine Nitrite Negative (NEGATIVE) Urine Bilirubin Negative (NEGATIVE) Urine Urobilinogen 1 MG/DL (0.0-1.0) H Urine Leukocyte Esterase 1+ (NEGATIVE) H Urine RBC 0-2 /HPF (0 - 0) H Urine WBC 2-4 /HPF (0 - 0) Urine Squamous Epithelial Cells Occasional /LPF Urine Bacteria Few /HPF (NONE) Urine Mucus Moderate /LPF (NONE/OCC) H CT abdomen pelvis with IV contrast: Superficial soft tissue edema and inflammatory changes along the right anterior abdominal wall with loculated fluid collection 6.3 x 1.5 x 1.7 cm. Superficial soft tissue cellulitis with abscess versus postoperative seroma or considerations 43-year-old male here with right lower quadrant abdominal pain after an appendectomy performed 1 week ago at outside hospital. Patient was hemodynamically stable in the emergency department and was afebrile had otherwise normal vital signs. CBC shows his baseline pancytopenia without any acute changes. CMP unremarkable. CT abdomen pelvis shows a fluid collection in the subcutaneous region surrounding the patient's operative site. I spoke with the radiologist over the phone who agreed this was possible cellulitis versus a postoperative seroma. Patient was requiring multiple doses of pain medications in the emergency department. High suspicion for abscess at this time given the patient's severe pain with the CT findings. He was started on vancomycin in the emergency department. Blood cultures obtained. Patient to be admitted [facility]. Last Vital Signs Date Time Temp Pulse Resp B/P (MAP) Pulse Ox O2 Delivery O2 Flow Rate FiO2 11/17/19 02:26 98.2 75 16 135/90 (105) 99 Room Air Referrals: [facility],REFERRING (PCP) León Barfield M.D. Nov 17, 2019 02:59
[2019-11-17 03:08] LABS: ANION GAP 8 mmol/L (5-15); BLOOD UREA NITROGEN 11 mg/dL (7-18); CALCIUM 8.6 MG/DL (8.5-10.1); CARBON DIOXIDE 29 MMOL/L (21-32); CHLORIDE 105 MMOL/L (98-107); POTASSIUM 3.7 MMOL/L (3.5-5.1); SODIUM 142 MMOL/L (136-145)
[2019-11-17 03:13] LABS: ALANINE AMINOTRANSFERASE 13 U/L (12-78); ALBUMIN 3.5 G/DL (3.4-5.0); ALKALINE PHOSPHATASE 79 U/L (46-116); ASPARTATE AMINO TRANSFERASE 15 U/L (15-37); BILIRUBIN,TOTAL 0.3 MG/DL (0.2-1.0)
[2019-11-17 04:01] LABS: APPEARANCE,URINE CLEAR; BILIRUBIN, URINE NEGATIVE (NEGATIVE); GLUCOSE, URINE (UA) NEGATIVE (NEGATIVE); KETONES,URINE 1+ (NEGATIVE); LEUKOCYTE ESTERASE ,URINE 1+ (NEGATIVE); NITRITE,URINE NEGATIVE (NEGATIVE); PH,URINE 6 (4.5-8.0); PROTEIN,URINE 1+ (NEGATIVE); UROBILINOGEN,URINE 1 MG/DL (0.0-1.0)
[2019-11-17 04:05] LABS: COLOR,URINE YELLOW
[2019-11-17] MEDS ORDERED: HYDROcodone/Acetamin 5/325 tab ORAL ONE (04:30)
--- NOTE | 2019-11-17 05:21 | Diagnostic Imaging Report ---
EXAM: CT Abdomen and Pelvis With Intravenous Contrast CLINICAL HISTORY: PAIN TECHNIQUE: Axial computed tomography images of the abdomen and pelvis with intravenous contrast. CTDI is 14.00 mGy and DLP is 704.10 mGy-cm. One or more of the following dose reduction techniques were used: automated exposure control, adjustment of the mA and/or kV according to patient size, use of iterative reconstruction technique. COMPARISON: CT abdomen pelvis 08/24/2018. FINDINGS: Visualized lung bases are clear. There is no pleural effusion. The liver, gallbladder, pancreas, spleen, adrenals, and kidneys are unremarkable. Patient is status post gastric sleeve procedure with postsurgical change along the greater curvature of the stomach. There is no bowel obstruction or significant adenopathy. The appendix is not visualized, likely surgically absent. Small amount of fluid versus undescended left testicle is seen in the left angle canal. Also trace pelvic free fluid is noted, image 72 series 3. There is no loculation of the intraabdominal fluid. There is no significant abdominal free air. Small volume mesenteric nodes and retroperitoneal are identified. Abdominal wall superficial soft tissue changes and small nodular foci of soft tissue edema are noted. This may be sequelae of recent surgery. Superficial soft tissue cellulitis cannot be excluded. Loculated fluid collection along the right anterior superficial soft tissues measures 6.3 x 1.5 x 1.7 cm, images 49-59 of series 3. Small additional phlegmonous changes noted inferior to the umbilicus. There are multilevel degenerative changes of the spine and pelvis. IMPRESSION: Superficial soft tissue edema and inflammatory change noted along the right anterior abdominal wall superficial soft tissues with loculated fluid collection measuring 6.3 x 1.5 x 1.7 cm. Superficial soft tissue cellulitis with abscess versus postoperative seroma are considerations. Additional phlegmonous change inferior to the umbilicus. Dr. Barfield was informed of these findings on 11/17/2019 at 8:17 AM EDT.
[2019-11-17] MEDS ORDERED: Vancomycin 1 GM in NS 275 ML IVPB ONE (05:30)
[2019-11-17] MEDS ORDERED: HYDROmorphone 1mg/ml Carpuject IVP ONE (07:00)
[2019-11-17] MEDS: Morphine Sulfate 4mg/ml Inj (IV USE ONLY) IVP PRN ×4 (10:11→22:03)
--- NOTE | 2019-11-17 10:14 | History and Physical Report ---
DATE OF ADMISSION: 11/17/2019 TIME SEEN: 8 a.m. CONSULTANTS: 1. Gary Carrillo MD. 2. Danyel Walden MD. 3. Jay Sommer MD. CHIEF COMPLAINT: Postop abscess. BRIEF HISTORY: This is a 43-year-old male who had appendectomy about two weeks ago, about 3 days ago started having some abdominal pain and nausea, came to [facility], diagnosed with possible postop post-appendectomy abscess and currently calm in the ER [facility], awaiting admission. PAST MEDICAL HISTORY: . PAST SURGICAL HISTORY: Recent appendectomy, gastric sleeve, right wrist surgery. MEDICATIONS: Include hydromorphone, Zofran, vancomycin. ALLERGIES: Ketorolac, NSAID, Tramadol. SOCIAL HISTORY: No smoking. No alcohol. Positive marijuana. OBJECTIVE: GENERAL: Calm in bed, oriented x3, no acute distress. VITAL SIGNS: Temperature is 98 degrees, pulse 80, respiratory rate 19, blood pressure 120/78. CARDIOVASCULAR: No murmur. LUNGS: Distant and clear. ABDOMEN: Bowel sound positive. Slightly tender. No guarding. No rigidity. No rebound. EXTREMITIES: No cyanosis, clubbing, or edema. NEUROLOGIC: The patient moves all extremities, slightly weak. LABORATORY AND DIAGNOSTIC DATA: Labs at this time show white count 4.2, hemoglobin and hematocrit 9.7 and 30, platelets is 96. BMP shows glucose 113, otherwise normal. Urinalysis, 1+ leukocyte esterase. ASSESSMENT: 1. Abdominal pain. 2. Nausea. 3. Postop abscess. 4. Status post appendectomy. 5. Anemia. 6. Urinary tract infection. 7. Pancytopenia. PLAN: 1. NPO. 2. IV fluids. 3. Pain control. 4. Wound care. 5. PT and dietary evaluation. 6. CBC and BMP in the morning. 7. Dr. Contreras, hematology evaluation. Raymon Santamaria D.O. DR: Ana JOB#: [id number] CC:
[2019-11-17] MEDS ORDERED: D5 1/2NS 1,000 ML IV SCH (11:00)
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
[2019-11-17] MEDS: D5 1/2NS 1,000 ML IV SCH ×2 (13:38→23:09)
[2019-11-17] MEDS ORDERED: Piperacillin/Tazobactam 3.375 GM in NS 110 ML IVPB SCH (14:00)
[2019-11-17] MEDS: Vancomycin 1gm in Dextrose 275ml IVPB SCH ×2 (14:05→22:07)
--- NOTE | 2019-11-17 14:09 | Consultation ---
History of Present Illness General Chief Complaint: Abdominal Pain Present Illness Allergies: Coded Allergies: KETOROLAC (Verified Allergy, Mild, Rash, 01/01/19) TRAMADOL (Verified Allergy, Unknown, 08/01/18) NSAIDS (NON-STEROIDAL ANTI-INFLAMMA (Verified Adverse Reaction, Unknown, ) Medication History Scheduled Famotidine* (Pepcid 20mg tablet*), 40 MG ORAL DAILY, (Reported) Fluoxetine Hcl* (Fluoxetine Hcl*), 40 MG ORAL DAILY, (Reported) Quetiapine Fumarate* (Quetiapine Fumarate*), 50 MG ORAL QHS, (Reported) Trazodone Hcl* (Desyrel*), 100 MG ORAL BEDTIME, (Reported) Patient History Healthcare decision maker N Resuscitation status Advanced Directive on File Physical Exam Last 24 Hour Vital Signs Date Time Temp Pulse Resp B/P (MAP) Pulse Ox O2 Delivery O2 Flow Rate FiO2 11/17/19 12:00 97.7 48 18 121/62 (81) 97 11/17/19 10:41 98.4 11/17/19 08:21 98.4 79 17 128/76 97 Room Air 11/17/19 08:20 97.3 60 20 133/75 (94) 98 11/17/19 07:27 98.4 11/17/19 07:00 98.4 80 19 121/78 99 Room Air 11/17/19 06:11 98.2 11/17/19 05:00 98.2 11/17/19 05:00 98.1 76 18 128/90 99 Room Air 11/17/19 03:19 98.2 11/17/19 02:54 78 16 Room Air 11/17/19 02:54 98.2 82 16 135/90 99 Room Air 11/17/19 02:30 59 21 100 Nasal Cannula 2.0 28 56 21 100 11/17/19 02:26 98.2 75 16 135/90 (105) 99 Room Air Laboratory Tests Test 11/17/19 02:48 11/17/19 03:40 White Blood Count 4.0 K/UL (4.8-10.8) L Red Blood Count 3.29 M/UL (4.70-6.10) L Hemoglobin 9.7 G/DL (14.2-18.0) L Hematocrit 30.6 % (42.0-52.0) L Mean Corpuscular Volume 93 FL (80-99) Mean Corpuscular Hemoglobin 29.4 PG (27.0-31.0) Mean Corpuscular Hemoglobin Concent 31.7 G/DL (32.0-36.0) L Red Cell Distribution Width 16.7 % (11.6-14.8) H Platelet Count 96 K/UL (150-450) L Mean Platelet Volume 4.9 FL (6.5-10.1) L Neutrophils (%) (Auto) % (45.0-75.0) Lymphocytes (%) (Auto) % (20.0-45.0) Monocytes (%) (Auto) % (1.0-10.0) Eosinophils (%) (Auto) % (0.0-3.0) Basophils (%) (Auto) % (0.0-2.0) Differential Total Cells Counted 100 Neutrophils % (Manual) 55 % (45-75) Lymphocytes % (Manual) 39 % (20-45) Monocytes % (Manual) 2 % (1-10) Eosinophils % (Manual) 4 % (0-3) H Basophils % (Manual) 0 % (0-2) Band Neutrophils 0 % (0-8) Platelet Estimate Decreased L Platelet Morphology Normal Anisocytosis 1+ Sodium Level 142 MMOL/L (136-145) Potassium Level 3.7 MMOL/L (3.5-5.1) Chloride Level 105 MMOL/L (98-107) Carbon Dioxide Level 29 MMOL/L (21-32) Anion Gap 8 mmol/L (5-15) Blood Urea Nitrogen 11 mg/dL (7-18) Creatinine 1.0 MG/DL (0.55-1.30) Estimat Glomerular Filtration Rate > 60 mL/min (>60) Glucose Level 113 MG/DL (74-106) H Calcium Level 8.6 MG/DL (8.5-10.1) Total Bilirubin 0.3 MG/DL (0.2-1.0) Aspartate Amino Transf (AST/SGOT) 15 U/L (15-37) Alanine Aminotransferase (ALT/SGPT) 13 U/L (12-78) Alkaline Phosphatase 79 U/L (46-116) Total Protein 6.9 G/DL (6.4-8.2) Albumin 3.5 G/DL (3.4-5.0) Globulin 3.4 g/dL Albumin/Globulin Ratio 1.0 (1.0-2.7) Lipase 94 U/L (73-393) Urine Color Yellow Urine Appearance Clear Urine pH 6 (4.5-8.0) Urine Specific [place] 1.025 (1.005-1.035) Urine Protein 1+ (NEGATIVE) H Urine Glucose (UA) Negative (NEGATIVE) Urine Ketones 1+ (NEGATIVE) H Urine Blood Negative (NEGATIVE) Urine Nitrite Negative (NEGATIVE) Urine Bilirubin Negative (NEGATIVE) Urine Urobilinogen 1 MG/DL (0.0-1.0) H Urine Leukocyte Esterase 1+ (NEGATIVE) H Urine RBC 0-2 /HPF (0 - 0) H Urine WBC 2-4 /HPF (0 - 0) Urine Squamous Epithelial Cells Occasional /LPF Urine Bacteria Few /HPF (NONE) Urine Mucus Moderate /LPF (NONE/OCC) H Microbiology Date/Time Source Procedure Growth Status 11/17/19 07:18 Nasopharynx SARS-CoV-2 RdRp Gene Assay - Final Complete Height (Feet): 5 Height (Inches): 9.00 Weight (Pounds): 220 Medications Current Medications Medications (Trade) Dose Ordered Sig/Mikey Route PRN Reason Start Time Stop Time Status Last Admin Dose Admin Dextrose/Sodium Chloride 1,000 ml @ 100 mls/hr Q10H IV 11/17/19 12:54 12/17/19 12:53 11/17/19 13:38 Famotidine (Pepcid) 40 mg QHS ORAL 11/17/19 21:00 02/15/20 20:59 Fluoxetine HCl (PROzac) 40 mg QHS ORAL 11/17/19 21:00 12/17/19 20:59 Iohexol (OMNIPAQUE-300 100ml) 100 ml NOW PRN INJ Radiology Procedure 11/17/19 02:45 11/19/19 02:38 Morphine Sulfate (Morphine Sulfate) 4 mg Q4H PRN IVP Severe Pain (Pain Scale 7-10) 11/17/19 09:38 11/24/19 09:37 11/17/19 10:11 Ondansetron HCl (Zofran) 4 mg Q4H PRN IVP Nausea & Vomiting 11/17/19 11:00 12/17/19 10:59 Piperacillin Sod/ Tazobactam Sod 3.375 gm/Sodium Chloride 110 ml @ 27.5 mls/hr Q8H IVPB 11/17/19 16:00 11/24/19 15:59 Quetiapine Fumarate (SEROqueL) 50 mg QHS ORAL 11/17/19 21:00 01/01/20 20:59 Trazodone HCl (Desyrel) 100 mg BEDTIME ORAL 11/17/19 21:00 12/17/19 20:59 Vancomycin HCl (Vanco pharmacy to dose) 1 ea DAILY PRN MISC Per rx protocol 11/17/19 12:30 12/17/19 12:29 Vancomycin HCl 1 gm/Dextrose 275 ml @ 183.708 mls/hr Q8H IVPB 11/17/19 14:00 11/22/19 13:59 Assessment/Plan Assessment/Plan: Hematology Consultation REQ MD: Raymon Santamaria [facility] Pancytopenia DOS 11/17/19 HPI 43-year-old male presents after increased right-sided chest pain.He is well known to me from /admission. Reports having intermittent pain which has become more constant. Reports having prior history of pulmonary embolism as well as atrial fibrillation in the past. States he is not currently on anticoagulation and had this discontinued. Reports having previous pulmonary embolism approximately 2 to 3 months ago. Had reported constant pain for approximately 8 hours. Prior history of acid reflux as well as PTSD. Had taken Tylenol with codeine prior to arrival denies any cough. currently is on xarelto, has been seen by id, pulm, cards and surg, I have reviewed their recommendations. At this viist, he is recently s/p open appy and now with a fluid collection, surg has seen already in am. Allergies: KETOROLAC (Verified Allergy, Mild, Rash, 01/01/19) TRAMADOL (Verified Allergy, Unknown, 08/01/18) NSAIDS (NON-STEROIDAL ANTI-INFLAMMA (Verified Adverse Reaction, Unknown, ) COVID-19 Screening Contact w/high risk pt: No Recent Travel to affected area: No Experienced COVID-19 symptoms?: No COVID-19 Testing performed NURSE CLINICAL: No Patient History Reviewed Nursing Documentation: PMH: Agreed; PSxH: Agreed Nursing Documentation-PMH Hx Gastrointestinal Problems: Yes - GASTRIC BYPASS Review of Systems All Other Systems: negative except mentioned in HPI Physical Exam Vitals: reviewed are wnl General: normal inspection, well appearing, no apparent distress, alert Heent: nc, at Resp: normal inspection, lungs clear, normal breath sounds Cardiovascular: regular rate, rhythm, no edema GI: normal inspection, normal bowel sounds, non tender, soft, no guarding, no hernia Gu: no CVA tenderness Msk: normal inspection, back normal Neurologic: alert, motor strength/tone normal, 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, oriented x3, responsive Psychiatric: normal inspection Labs: noted Imaging: reviewed Assessment and Recs # Pancytopenia is likely related to history of drug use and potential liver disease as well, labs noted, recent surgery with potential fluid loculation v abscess --> have ordered for hepatitis and hiv panel at this time --> us abd hold off unless stays here overwknd --> consider outpatient management once discharged as well --> reviewed labs from 2018, 2019 and now is worsened concerning for condition requires workup in near future --> outpatient appointment pls schedule this week to followup as per cm # Pulmonary embolism history 2-3 months ago, came in on xarelto --> 3 month course anticoag ccompleted recently --> low dose lovenox if cbc better # Elevated D-Dimer hx --> cta is neg for pe --> venous duplex neg for acute dvt # Phlegmon v fluid collection abd s/p surgery --> per surg recs --> ABX vanc/zosyn # History of psychiatric issue, on Desyrel # Pain-seeking behavior as mentioned above. # Dvt ppx lovenox if cbc improvs Appreciate consultation and dw Deonte Hsu MD Nov 17, 2019 14:09
--- NOTE | 2019-11-17 15:39 | General Progress Note ---
Assessment/Plan Assessment/Plan: GI Consult Dictated Thank you Bernardo Reardon MD Subjective Allergies: Coded Allergies: KETOROLAC (Verified Allergy, Mild, Rash, 01/01/19) TRAMADOL (Verified Allergy, Unknown, 08/01/18) NSAIDS (NON-STEROIDAL ANTI-INFLAMMA (Verified Adverse Reaction, Unknown, ) Objective Last 24 Hour Vital Signs Date Time Temp Pulse Resp B/P (MAP) Pulse Ox O2 Delivery O2 Flow Rate FiO2 11/17/19 14:40 97.7 11/17/19 12:00 97.7 48 18 121/62 (81) 97 11/17/19 08:21 98.4 79 17 128/76 97 Room Air 11/17/19 08:20 97.3 60 20 133/75 (94) 98 11/17/19 07:27 98.4 11/17/19 07:00 98.4 80 19 121/78 99 Room Air 11/17/19 06:11 98.2 11/17/19 05:00 98.2 11/17/19 05:00 98.1 76 18 128/90 99 Room Air 11/17/19 03:19 98.2 11/17/19 02:54 78 16 Room Air 11/17/19 02:54 98.2 82 16 135/90 99 Room Air 11/17/19 02:30 59 21 100 Nasal Cannula 2.0 28 56 21 100 11/17/19 02:26 98.2 75 16 135/90 (105) 99 Room Air Laboratory Tests 11/17/19 02:48: White Blood Count 4.0L, Red Blood Count 3.29L, Hemoglobin 9.7L, Hematocrit 30.6L , Mean Corpuscular Volume 93, Mean Corpuscular Hemoglobin 29.4, Mean Corpuscular Hemoglobin Concent 31.7L, Red Cell Distribution Width 16.7H, Platelet Count 96L, Mean Platelet Volume 4.9L, Neutrophils (%) (Auto) , Lymphocytes (%) (Auto) , Monocytes (%) (Auto) , Eosinophils (%) (Auto) , Basophils (%) (Auto) , Differential Total Cells Counted 100, Neutrophils % ( Manual) 55, Lymphocytes % (Manual) 39, Monocytes % (Manual) 2, Eosinophils % ( Manual) 4H, Basophils % (Manual) 0, Band Neutrophils 0, Platelet Estimate DecreasedL, Platelet Morphology Normal, Anisocytosis 1+, Sodium Level 142, Potassium Level 3.7, Chloride Level 105, Carbon Dioxide Level 29, Anion Gap 8, Blood Urea Nitrogen 11, Creatinine 1.0, Estimat Glomerular Filtration Rate > 60 , Glucose Level 113H, Calcium Level 8.6, Total Bilirubin 0.3, Aspartate Amino Transf (AST/SGOT) 15, Alanine Aminotransferase (ALT/SGPT) 13, Alkaline Phosphatase 79, Total Protein 6.9, Albumin 3.5, Globulin 3.4, Albumin/Globulin Ratio 1.0, Lipase 94 11/17/19 03:40: Urine Color Yellow, Urine Appearance Clear, Urine pH 6, Urine Specific [place] 1.025, Urine Protein 1+H, Urine Glucose (UA) Negative, Urine Ketones 1+H, Urine Blood Negative, Urine Nitrite Negative, Urine Bilirubin Negative, Urine Urobilinogen 1H, Urine Leukocyte Esterase 1+H, Urine RBC 0-2H, Urine WBC 2-4, Urine Squamous Epithelial Cells Occasional, Urine Bacteria Few, Urine Mucus ModerateH Height (Feet): 5 Height (Inches): 9.00 Weight (Pounds): 220 Bernardo Reardon MD Nov 17, 2019 15:39
[2019-11-17] MEDS: Piperacillin/Tazobactam 3.375 GM in NS 110 ML IVPB SCH ×2 (17:13→23:09)
[2019-11-17] MEDS: TraZODone 100mg tab ORAL SCH (20:46)
--- NOTE | 2019-11-17 21:45 | Consultation ---
DATE OF CONSULTATION: 11/17/2019 GASTROENTEROLOGY CONSULTATION CONSULTING PHYSICIAN: Bernardo Reardon MD. CHIEF COMPLAINT: I was asked to see patient by Dr. Raymon Santamaria for evaluation of abdominal pain after operation. HISTORY OF PRESENT ILLNESS: The patient is a 43-year-old white man who presented to an outside hospital about 2 weeks ago with acute appendicitis. He underwent an open appendectomy and was discharged home. The patient has now noted a 2 or 3-day history of tightness and pain and swelling in the right lower quadrant where the surgical incision is. He has had no fevers or chills. His bowel movements were regular and last was last night. Patient has already been seen by the surgical consultants in the hospital. PAST MEDICAL HISTORY: History of posttraumatic stress disorder, depression, bipolar affective disorder, history of gastroesophageal reflux. MEDICATIONS: Prozac, trazodone, and Seroquel. FAMILY HISTORY: Positive for gastric and liver cancer as well as leukemia and breast cancer. SOCIAL HISTORY: The patient is single. He has no children. He does not drink alcohol, but does use marijuana. REVIEW OF SYSTEMS: Otherwise negative. MEDICATIONS: Noted. ASSESSMENT: This patient has developed tenderness and fluid collection around his wound in the right lower quadrant, which is concerning for either an abscess or seroma. The patient has been seen by the surgical staff and plans are noted. Since the patient has no elevation in white count and no fever, the possibility of seroma has been raised. Should there be any diagnostic uncertainties identified, then fine-needle aspiration can be used to remove some fluid to determine the nature of the fluid collection. In the meantime, the patient should be placed on broad-spectrum antibiotics and should be followed closely. RECOMMENDATIONS: Per above discussion and per orders written in the chart. Thank you for asking me to participate in the care of this patient. Bernardo Reardon M.D. DR: ANAHI JOB#: [id number] CC:
[2019-11-18] VITALS: BP 129/66
[2019-11-18 04:00] VITALS: BP 117/61
[2019-11-18] MEDS: Vancomycin 1gm in Dextrose 275ml IVPB SCH ×3 (06:00→21:24)
[2019-11-18 06:01] LABS: HEMATOCRIT 28.6 % (42.0-52.0); HEMOGLOBIN 9.2 G/DL (14.2-18.0); MEAN CORPUSCULAR VOLUME 94 FL (80-99); PLATELET COUNT 87 K/UL (150-450); RED BLOOD COUNT 3.05 M/UL (4.70-6.10); RED CELL DISTRIBUTION WIDTH 16.7 % (11.6-14.8); WHITE BLOOD COUNT 2.5 K/UL (4.8-10.8)
[2019-11-18 06:06] LABS: INR 1.1 (0.9-1.1)
[2019-11-18 06:12] LABS: ALANINE AMINOTRANSFERASE 17 U/L (12-78); ALBUMIN 3.1 G/DL (3.4-5.0); ALKALINE PHOSPHATASE 70 U/L (46-116); ANION GAP 2 mmol/L (5-15); ASPARTATE AMINO TRANSFERASE 15 U/L (15-37); BILIRUBIN,TOTAL 0.3 MG/DL (0.2-1.0); BLOOD UREA NITROGEN 4 mg/dL (7-18); CALCIUM 8.2 MG/DL (8.5-10.1); CARBON DIOXIDE 33 MMOL/L (21-32); CHLORIDE 109 MMOL/L (98-107); POTASSIUM 3.8 MMOL/L (3.5-5.1); SODIUM 144 MMOL/L (136-145)
--- NOTE | 2019-11-18 07:28 | Hematology/Onc Progress Note ---
Assessment/Plan Assessment/Plan Assessment and Recs # Pancytopenia is likely related to history of drug use and potential liver disease as well, labs noted, recent surgery with potential fluid loculation v abscess --> have ordered for hepatitis and hiv panel at this time --> us abd hold off unless stays here overwknd --> consider outpatient management once discharged as well --> reviewed labs from 2018, 2019 and now is worsened concerning for condition requires workup in near future --> outpatient appointment pls schedule this week to followup as per cm --> wbc 2.5 --> hgb 9.2 # Pulmonary embolism history 2-3 months ago, came in on xarelto --> 3 month course anticoag ccompleted recently --> low dose lovenox if cbc better # Elevated D-Dimer hx --> cta is neg for pe --> venous duplex neg for acute dvt # Phlegmon v fluid collection abd s/p surgery --> per surg recs --> ABX vanc/zosyn # History of psychiatric issue, on Desyrel # Pain-seeking behavior as mentioned above. # Dvt ppx lovenox if cbc improvs Appreciate consultation and cinthya RN Subjective HEENT: Denies: no symptoms, eye pain, blurred vision, tearing, double vision, ear pain, ear discharge, nose pain, nose congestion, throat pain, throat swelling, mouth pain, mouth swelling, other Cardiovascular: Denies: no symptoms, chest pain, edema, irregular heart rate, lightheadedness, palpitations, syncope, other Respiratory: Denies: no symptoms, cough, shortness of breath, SOB with excertion, SOB at rest, sputum, wheezing, other Gastrointestinal/Abdominal: Denies: no symptoms, abdomen distended, abdominal pain, black stools, tarry stools, blood in stool, constipated, diarrhea, difficulty swallowing, nausea, poor appetite, poor fluid intake, rectal bleeding , vomiting, other Genitourinary: Denies: no symptoms, burning, discharge, frequency, flank pain, hematuria, incontinence, pain, urgency, other Neurologic/Psychiatric: Denies: no symptoms, anxiety, depressed, emotional problems, headache, numbness, paresthesia, pre-existing deficit, seizure, tingling, tremors, weakness, other Endocrine: Denies: no symptoms, excessive sweating, flushing, intolerance to cold, intolerance to heat, increased hunger, increased thirst, increased urine, unexplained weight gain, unexplained weight loss, other Hematologic/Lymphatic: Denies: no symptoms, anemia, easy bleeding, easy bruising, adenopathy, other Allergies: Coded Allergies: KETOROLAC (Verified Allergy, Mild, Rash, 01/01/19) TRAMADOL (Verified Allergy, Unknown, 08/01/18) NSAIDS (NON-STEROIDAL ANTI-INFLAMMA (Verified Adverse Reaction, Unknown, ) Subjective 11/17 labs noted, no bleeding, dw rn, may need neupogen v prbc if worse Objective Objective Current Medications Medications (Trade) Dose Ordered Sig/Mikey Route PRN Reason Start Time Stop Time Status Last Admin Dose Admin Dextrose/Sodium Chloride 1,000 ml @ 100 mls/hr Q10H IV 11/17/19 12:54 12/17/19 12:53 11/17/19 23:09 Famotidine (Pepcid) 40 mg QHS ORAL 11/17/19 21:00 02/15/20 20:59 11/17/19 20:46 Fluoxetine HCl (PROzac) 40 mg QHS ORAL 11/17/19 21:00 12/17/19 20:59 11/17/19 20:46 Hydromorphone HCl (Dilaudid) 2 mg Q4H PRN IVP Severe Pain (Pain Scale 7-10) 11/17/19 22:45 11/24/19 22:44 11/18/19 04:44 Iohexol (OMNIPAQUE-300 100ml) 100 ml NOW PRN INJ Radiology Procedure 11/17/19 02:45 11/19/19 02:38 Ondansetron HCl (Zofran) 4 mg Q4H PRN IVP Nausea & Vomiting 11/17/19 11:00 12/17/19 10:59 Piperacillin Sod/ Tazobactam Sod 3.375 gm/Sodium Chloride 110 ml @ 27.5 mls/hr Q8H IVPB 11/17/19 16:00 11/24/19 15:59 11/17/19 23:09 Quetiapine Fumarate (SEROqueL) 50 mg QHS ORAL 11/17/19 21:00 01/01/20 20:59 11/17/19 20:46 Trazodone HCl (Desyrel) 100 mg BEDTIME ORAL 11/17/19 21:00 12/17/19 20:59 11/17/19 20:46 Vancomycin HCl (Vanco pharmacy to dose) 1 ea DAILY PRN MISC Per rx protocol 11/17/19 12:30 12/17/19 12:29 Vancomycin HCl 1 gm/Dextrose 275 ml @ 183.708 mls/hr Q8H IVPB 11/17/19 14:00 11/22/19 13:59 11/18/19 06:00 Last 24 Hour Vital Signs Date Time Temp Pulse Resp B/P (MAP) Pulse Ox O2 Delivery O2 Flow Rate FiO2 11/18/19 04:00 97.7 50 18 117/61 (79) 97 11/18/19 00:00 98.1 57 16 129/66 (87) 98 11/17/19 20:25 Room Air 11/17/19 20:00 98.3 60 18 135/70 (91) 99 11/17/19 18:54 97.7 11/17/19 16:34 Room Air 11/17/19 16:00 97.9 52 18 129/71 (90) 96 11/17/19 12:00 97.7 48 18 121/62 (81) 97 11/17/19 09:00 Room Air 11/17/19 08:21 98.4 79 17 128/76 97 Room Air 11/17/19 08:20 Room Air 11/17/19 08:20 97.3 60 20 133/75 (94) 98 11/17/19 07:27 98.4 11/17/19 07:00 98.4 80 19 121/78 99 Room Air 11/17/19 06:11 98.2 11/17/19 05:00 98.2 11/17/19 05:00 98.1 76 18 128/90 99 Room Air 11/17/19 03:19 98.2 11/17/19 02:54 78 16 Room Air 11/17/19 02:54 98.2 82 16 135/90 99 Room Air 11/17/19 02:30 59 21 100 Nasal Cannula 2.0 28 56 21 100 11/17/19 02:26 98.2 75 16 135/90 (105) 99 Room Air Intake and Output 11/17/19 11/18/19 19:00 07:00 Intake Total 100 ml 2523.708 ml Output Total 1100 ml Balance 100 ml 1423.708 ml Intake Oral 1000 ml IV Total 100 ml 1523.708 ml Output Urine Total 1100 ml Labs Test 11/17/19 02:48 11/17/19 03:40 11/18/19 05:00 White Blood Count 4.0 K/UL (4.8-10.8) 2.5 K/UL (4.8-10.8) Red Blood Count 3.29 M/UL (4.70-6.10) 3.05 M/UL (4.70-6.10) Hemoglobin 9.7 G/DL (14.2-18.0) 9.2 G/DL (14.2-18.0) Hematocrit 30.6 % (42.0-52.0) 28.6 % (42.0-52.0) Mean Corpuscular Volume 93 FL (80-99) 94 FL (80-99) Mean Corpuscular Hemoglobin 29.4 PG (27.0-31.0) 30.1 PG (27.0-31.0) Mean Corpuscular Hemoglobin Concent 31.7 G/DL (32.0-36.0) 32.1 G/DL (32.0-36.0) Red Cell Distribution Width 16.7 % (11.6-14.8) 16.7 % (11.6-14.8) Platelet Count 96 K/UL (150-450) 87 K/UL (150-450) Mean Platelet Volume 4.9 FL (6.5-10.1) 7.5 FL (6.5-10.1) Neutrophils (%) (Auto) % (45.0-75.0) % (45.0-75.0) Lymphocytes (%) (Auto) % (20.0-45.0) % (20.0-45.0) Monocytes (%) (Auto) % (1.0-10.0) % (1.0-10.0) Eosinophils (%) (Auto) % (0.0-3.0) % (0.0-3.0) Basophils (%) (Auto) % (0.0-2.0) % (0.0-2.0) Differential Total Cells Counted 100 Neutrophils % (Manual) 55 % (45-75) Lymphocytes % (Manual) 39 % (20-45) Monocytes % (Manual) 2 % (1-10) Eosinophils % (Manual) 4 % (0-3) Basophils % (Manual) 0 % (0-2) Band Neutrophils 0 % (0-8) Platelet Estimate Decreased Platelet Morphology Normal Anisocytosis 1+ Sodium Level 142 MMOL/L (136-145) 144 MMOL/L (136-145) Potassium Level 3.7 MMOL/L (3.5-5.1) 3.8 MMOL/L (3.5-5.1) Chloride Level 105 MMOL/L (98-107) 109 MMOL/L (98-107) Carbon Dioxide Level 29 MMOL/L (21-32) 33 MMOL/L (21-32) Anion Gap 8 mmol/L (5-15) 2 mmol/L (5-15) Blood Urea Nitrogen 11 mg/dL (7-18) 4 mg/dL (7-18) Creatinine 1.0 MG/DL (0.55-1.30) 1.0 MG/DL (0.55-1.30) Estimat Glomerular Filtration Rate > 60 mL/min (>60) > 60 mL/min (>60) Glucose Level 113 MG/DL (74-106) 106 MG/DL (74-106) Calcium Level 8.6 MG/DL (8.5-10.1) 8.2 MG/DL (8.5-10.1) Total Bilirubin 0.3 MG/DL (0.2-1.0) 0.3 MG/DL (0.2-1.0) Aspartate Amino Transf (AST/SGOT) 15 U/L (15-37) 15 U/L (15-37) Alanine Aminotransferase (ALT/SGPT) 13 U/L (12-78) 17 U/L (12-78) Alkaline Phosphatase 79 U/L (46-116) 70 U/L (46-116) Total Protein 6.9 G/DL (6.4-8.2) 6.1 G/DL (6.4-8.2) Albumin 3.5 G/DL (3.4-5.0) 3.1 G/DL (3.4-5.0) Globulin 3.4 g/dL 3.0 g/dL Albumin/Globulin Ratio 1.0 (1.0-2.7) 1.0 (1.0-2.7) Lipase 94 U/L (73-393) Urine Color Yellow Urine Appearance Clear Urine pH 6 (4.5-8.0) Urine Specific [place] 1.025 (1.005-1.035) Urine Protein 1+ (NEGATIVE) Urine Glucose (UA) Negative (NEGATIVE) Urine Ketones 1+ (NEGATIVE) Urine Blood Negative (NEGATIVE) Urine Nitrite Negative (NEGATIVE) Urine Bilirubin Negative (NEGATIVE) Urine Urobilinogen 1 MG/DL (0.0-1.0) Urine Leukocyte Esterase 1+ (NEGATIVE) Urine RBC 0-2 /HPF (0 - 0) Urine WBC 2-4 /HPF (0 - 0) Urine Squamous Epithelial Cells Occasional /LPF Urine Bacteria Few /HPF (NONE) Urine Mucus Moderate /LPF (NONE/OCC) Prothrombin Time 12.0 SEC (9.30-11.50) Prothromb Time International Ratio 1.1 (0.9-1.1) Activated Partial Thromboplast Time 23 SEC (23-33) Vancomycin Level Trough 15.6 ug/mL (5.0-12.0) Height (Feet): 5 Height (Inches): 9.00 Weight (Pounds): 220 Objective Physical Exam Vitals: reviewed are wnl General: normal inspection, well appearing, no apparent distress, alert Heent: nc, at Resp: normal inspection, lungs clear, normal breath sounds Cardiovascular: regular rate, rhythm, no edema GI: normal inspection, normal bowel sounds, non tender, soft, no guarding, no hernia Gu: no CVA tenderness Msk: normal inspection, back normal Neurologic: alert, motor strength/tone normal, 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
[2019-11-18] MEDS: Piperacillin/Tazobactam 3.375 GM in NS 110 ML IVPB SCH ×2 (08:23→16:00)
--- NOTE | 2019-11-18 08:46 | General Progress Note ---
Assessment/Plan Problem List: (1) UTI (urinary tract infection) ICD Codes: N39.0 - Urinary tract infection, site not specified SNOMED: 66460992 (2) Anemia ICD Codes: D64.9 - Anemia, unspecified SNOMED: 728442484 (3) Nausea ICD Codes: R11.0 - Nausea SNOMED: 895931999 (4) Post-operative wound abscess ICD Codes: T81.49XA - Infection following a procedure, other surgical site, initial encounter SNOMED: 67604392 (5) Abdominal pain ICD Codes: R10.9 - Unspecified abdominal pain SNOMED: 06120622 Status: unchanged Assessment/Plan: diet abx pain control cbc bmp am Subjective Constitutional: Reports: weakness Gastrointestinal/Abdominal: Reports: abdominal pain, nausea Allergies: Coded Allergies: KETOROLAC (Verified Allergy, Mild, Rash, 01/01/19) TRAMADOL (Verified Allergy, Unknown, 08/01/18) NSAIDS (NON-STEROIDAL ANTI-INFLAMMA (Verified Adverse Reaction, Unknown, ) All Systems: reviewed and negative except above Subjective calm in bed Objective Last 24 Hour Vital Signs Date Time Temp Pulse Resp B/P (MAP) Pulse Ox O2 Delivery O2 Flow Rate FiO2 11/18/19 04:00 97.7 50 18 117/61 (79) 97 11/18/19 00:00 98.1 57 16 129/66 (87) 98 11/17/19 20:25 Room Air 11/17/19 20:00 98.3 60 18 135/70 (91) 99 11/17/19 18:54 97.7 11/17/19 16:34 Room Air 11/17/19 16:00 97.9 52 18 129/71 (90) 96 11/17/19 12:00 97.7 48 18 121/62 (81) 97 11/17/19 09:00 Room Air Intake and Output 11/17/19 11/18/19 19:00 07:00 Intake Total 100 ml 2523.708 ml Output Total 1100 ml Balance 100 ml 1423.708 ml Intake Oral 1000 ml IV Total 100 ml 1523.708 ml Output Urine Total 1100 ml Laboratory Tests 11/18/19 05:00: White Blood Count 2.5L, Red Blood Count 3.05L, Hemoglobin 9.2L, Hematocrit 28.6L , Mean Corpuscular Volume 94, Mean Corpuscular Hemoglobin 30.1, Mean Corpuscular Hemoglobin Concent 32.1, Red Cell Distribution Width 16.7H, Platelet Count 87L, Mean Platelet Volume 7.5, Neutrophils (%) (Auto) , Lymphocytes (%) (Auto) , Monocytes (%) (Auto) , Eosinophils (%) (Auto) , Basophils (%) (Auto) , Neutrophils % (Manual) [Pending], Lymphocytes % (Manual) [Pending], Platelet Estimate [Pending], Platelet Morphology [Pending], Erythrocyte Sedimentation Rate [Pending], Prothrombin Time 12.0H, Prothromb Time International Ratio 1.1, Activated Partial Thromboplast Time 23, Sodium Level 144, Potassium Level 3.8, Chloride Level 109H, Carbon Dioxide Level 33H, Anion Gap 2L, Blood Urea Nitrogen 4L, Creatinine 1.0, Estimat Glomerular Filtration Rate > 60, Glucose Level 106, Calcium Level 8.2L, Total Bilirubin 0.3 , Aspartate Amino Transf (AST/SGOT) 15, Alanine Aminotransferase (ALT/SGPT) 17, Alkaline Phosphatase 70, C-Reactive Protein, Quantitative 0.6, Total Protein 6.1L, Albumin 3.1L, Globulin 3.0, Albumin/Globulin Ratio 1.0, Amylase Level 29, Lipase 63L, Vancomycin Level Trough 15.6H Height (Feet): 5 Height (Inches): 9.00 Weight (Pounds): 220 General Appearance: lethargic EENT: normal ENT inspection Neck: normal alignment Cardiovascular: normal peripheral pulses, normal rate, regular rhythm Respiratory/Chest: chest wall non-tender, lungs clear, normal breath sounds Abdomen: normal bowel sounds, non tender, soft Extremities: normal inspection Edema: no edema noted Arm (L), no edema noted Arm (R), no edema noted Leg (L), no edema noted Leg (R), no edema noted Pedal (L), no edema noted Pedal (R), no edema noted Generalized Neurologic: responsive, motor weakness Skin: normal pigmentation, warm/dry Raymon Santamaria DO Nov 18, 2019 08:46
[2019-11-18] MEDS: D5 1/2NS 1,000 ML IV SCH ×3 (08:54→21:43)
--- NOTE | 2019-11-18 10:40 | General Progress Note ---
Assessment/Plan Status: unchanged Assessment/Plan: left lower abd fluid collection post appendectomy abx pain control fu abd us may need drainage Subjective ROS Limited/Unobtainable: Yes Allergies: Coded Allergies: KETOROLAC (Verified Allergy, Mild, Rash, 01/01/19) TRAMADOL (Verified Allergy, Unknown, 08/01/18) NSAIDS (NON-STEROIDAL ANTI-INFLAMMA (Verified Adverse Reaction, Unknown, ) Objective Last 24 Hour Vital Signs Date Time Temp Pulse Resp B/P (MAP) Pulse Ox O2 Delivery O2 Flow Rate FiO2 11/18/19 04:00 97.7 50 18 117/61 (79) 97 11/18/19 00:00 98.1 57 16 129/66 (87) 98 11/17/19 20:25 Room Air 11/17/19 20:00 98.3 60 18 135/70 (91) 99 11/17/19 18:54 97.7 11/17/19 16:34 Room Air 11/17/19 16:00 97.9 52 18 129/71 (90) 96 11/17/19 12:00 97.7 48 18 121/62 (81) 97 Intake and Output 11/17/19 11/18/19 19:00 07:00 Intake Total 100 ml 2523.708 ml Output Total 1100 ml Balance 100 ml 1423.708 ml Intake Oral 1000 ml IV Total 100 ml 1523.708 ml Output Urine Total 1100 ml Laboratory Tests 11/18/19 05:00: White Blood Count 2.5L, Red Blood Count 3.05L, Hemoglobin 9.2L, Hematocrit 28.6L , Mean Corpuscular Volume 94, Mean Corpuscular Hemoglobin 30.1, Mean Corpuscular Hemoglobin Concent 32.1, Red Cell Distribution Width 16.7H, Platelet Count 87L, Mean Platelet Volume 7.5, Neutrophils (%) (Auto) , Lymphocytes (%) (Auto) , Monocytes (%) (Auto) , Eosinophils (%) (Auto) , Basophils (%) (Auto) , Differential Total Cells Counted 100, Neutrophils % ( Manual) 50, Lymphocytes % (Manual) 43, Monocytes % (Manual) 5, Eosinophils % ( Manual) 2, Basophils % (Manual) 0, Band Neutrophils 0, Platelet Estimate DecreasedL, Platelet Morphology Normal, Hypochromasia 2+, Anisocytosis 1+, Erythrocyte Sedimentation Rate 40H, Prothrombin Time 12.0H, Prothromb Time International Ratio 1.1, Activated Partial Thromboplast Time 23, Sodium Level 144, Potassium Level 3.8, Chloride Level 109H, Carbon Dioxide Level 33H, Anion Gap 2L, Blood Urea Nitrogen 4L, Creatinine 1.0, Estimat Glomerular Filtration Rate > 60, Glucose Level 106, Calcium Level 8.2L, Total Bilirubin 0.3, Aspartate Amino Transf (AST/SGOT) 15, Alanine Aminotransferase (ALT/SGPT) 17, Alkaline Phosphatase 70, C-Reactive Protein, Quantitative 0.6, Total Protein 6.1L, Albumin 3.1L, Globulin 3.0, Albumin/Globulin Ratio 1.0, Amylase Level 29, Lipase 63L, Vancomycin Level Trough 15.6H Height (Feet): 5 Height (Inches): 9.00 Weight (Pounds): 220 General Appearance: no apparent distress EENT: normal ENT inspection Neck: supple Cardiovascular: normal rate Respiratory/Chest: decreased breath sounds Abdomen: soft, hypoactive bowel sounds, tender Extremities: non-tender Daynel Walden MD Nov 18, 2019 10:40
[2019-11-18 12:00] VITALS: BP 111/55
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
--- NOTE | 2019-11-18 12:50 | Consultation ---
History of Present Illness General Date patient seen: Nov 18, 2019 Chief Complaint: Abdominal Pain Present Illness HPI 43 y/o M with hx of PTSD, right wrist surgery, PE ~2-3 months ago (not currently on AC), obesity, gastric bypass 2017, Afib, MDD, bipolar disorder, GERD presented to ED on 11/17/19 with 4 days of abd pain. Patient had recent acute appendicitis s/p open appendectomy at OSH about 2 weeks prior to admission. Pain is RLQ around surgical incision. Denied f/c, cough, surgical wound drainage, n/v/d, dysuria Allergies: Coded Allergies: KETOROLAC (Verified Allergy, Mild, Rash, 01/01/19) TRAMADOL (Verified Allergy, Unknown, 08/01/18) NSAIDS (NON-STEROIDAL ANTI-INFLAMMA (Verified Adverse Reaction, Unknown, ) Medication History Scheduled Famotidine* (Pepcid 20mg tablet*), 40 MG ORAL DAILY, (Reported) Fluoxetine Hcl* (Fluoxetine Hcl*), 40 MG ORAL DAILY, (Reported) Quetiapine Fumarate* (Quetiapine Fumarate*), 50 MG ORAL QHS, (Reported) Trazodone Hcl* (Desyrel*), 100 MG ORAL BEDTIME, (Reported) Patient History Healthcare decision maker N Resuscitation status Advanced Directive on File Patient History Narrative Pmhx: as above Shx: The patient is single. He has no children. He does not drink alcohol, but does use marijuana. Fhx: non contributory Review of Systems All Other Systems: negative except mentioned in HPI Physical Exam Physical Exam Narrative GENERAL: Calm in bed, oriented x3, no acute distress. CARDIOVASCULAR: No murmur. LUNGS: Distant and clear. ABDOMEN: Bowel sound positive. Slightly tender. No guarding. No rigidity. No rebound. EXTREMITIES: No cyanosis, clubbing, or edema. NEUROLOGIC: The patient moves all extremities, slightly weak. Last 24 Hour Vital Signs Date Time Temp Pulse Resp B/P (MAP) Pulse Ox O2 Delivery O2 Flow Rate FiO2 11/18/19 09:05 97.7 11/18/19 04:00 97.7 50 18 117/61 (79) 97 11/18/19 00:00 98.1 57 16 129/66 (87) 98 11/17/19 20:25 Room Air 8/30/20 20:00 98.3 60 18 135/70 (91) 99 11/17/19 18:54 97.7 11/17/19 16:34 Room Air 11/17/19 16:00 97.9 52 18 129/71 (90) 96 Intake and Output 11/17/19 11/18/19 19:00 07:00 Intake Total 100 ml 2523.708 ml Output Total 1100 ml Balance 100 ml 1423.708 ml Intake Oral 1000 ml IV Total 100 ml 1523.708 ml Output Urine Total 1100 ml Laboratory Tests Test 11/18/19 05:00 White Blood Count 2.5 K/UL (4.8-10.8) L Red Blood Count 3.05 M/UL (4.70-6.10) L Hemoglobin 9.2 G/DL (14.2-18.0) L Hematocrit 28.6 % (42.0-52.0) L Mean Corpuscular Volume 94 FL (80-99) Mean Corpuscular Hemoglobin 30.1 PG (27.0-31.0) Mean Corpuscular Hemoglobin Concent 32.1 G/DL (32.0-36.0) Red Cell Distribution Width 16.7 % (11.6-14.8) H Platelet Count 87 K/UL (150-450) L Mean Platelet Volume 7.5 FL (6.5-10.1) Neutrophils (%) (Auto) % (45.0-75.0) Lymphocytes (%) (Auto) % (20.0-45.0) Monocytes (%) (Auto) % (1.0-10.0) Eosinophils (%) (Auto) % (0.0-3.0) Basophils (%) (Auto) % (0.0-2.0) Differential Total Cells Counted 100 Neutrophils % (Manual) 50 % (45-75) Lymphocytes % (Manual) 43 % (20-45) Monocytes % (Manual) 5 % (1-10) Eosinophils % (Manual) 2 % (0-3) Basophils % (Manual) 0 % (0-2) Band Neutrophils 0 % (0-8) Platelet Estimate Decreased L Platelet Morphology Normal Hypochromasia 2+ Anisocytosis 1+ Erythrocyte Sedimentation Rate 40 MM/HR (0-15) H Prothrombin Time 12.0 SEC (9.30-11.50) H Prothromb Time International Ratio 1.1 (0.9-1.1) Activated Partial Thromboplast Time 23 SEC (23-33) Sodium Level 144 MMOL/L (136-145) Potassium Level 3.8 MMOL/L (3.5-5.1) Chloride Level 109 MMOL/L (98-107) H Carbon Dioxide Level 33 MMOL/L (21-32) H Anion Gap 2 mmol/L (5-15) L Blood Urea Nitrogen 4 mg/dL (7-18) L Creatinine 1.0 MG/DL (0.55-1.30) Estimat Glomerular Filtration Rate > 60 mL/min (>60) Glucose Level 106 MG/DL (74-106) Calcium Level 8.2 MG/DL (8.5-10.1) L Total Bilirubin 0.3 MG/DL (0.2-1.0) Aspartate Amino Transf (AST/SGOT) 15 U/L (15-37) Alanine Aminotransferase (ALT/SGPT) 17 U/L (12-78) Alkaline Phosphatase 70 U/L (46-116) C-Reactive Protein, Quantitative 0.6 mg/dL (0.00-0.90) Total Protein 6.1 G/DL (6.4-8.2) L Albumin 3.1 G/DL (3.4-5.0) L Globulin 3.0 g/dL Albumin/Globulin Ratio 1.0 (1.0-2.7) Amylase Level 29 U/L (25-115) Lipase 63 U/L (73-393) L Vancomycin Level Trough 15.6 ug/mL (5.0-12.0) H Height (Feet): 5 Height (Inches): 9.00 Weight (Pounds): 220 Medications Current Medications Medications (Trade) Dose Ordered Sig/Mikey Route PRN Reason Start Time Stop Time Status Last Admin Dose Admin Dextrose/Sodium Chloride 1,000 ml @ 100 mls/hr Q10H IV 11/17/19 12:54 12/17/19 12:53 11/18/19 08:54 Famotidine (Pepcid) 40 mg QHS ORAL 11/17/19 21:00 02/15/20 20:59 11/17/19 20:46 Fluoxetine HCl (PROzac) 40 mg QHS ORAL 11/17/19 21:00 12/17/19 20:59 11/17/19 20:46 Hydromorphone HCl (Dilaudid) 2 mg Q4H PRN IVP Severe Pain (Pain Scale 7-10) 11/17/19 22:45 11/24/19 22:44 11/18/19 08:35 Iohexol (OMNIPAQUE-300 100ml) 100 ml NOW PRN INJ Radiology Procedure 11/17/19 02:45 11/19/19 02:38 Ondansetron HCl (Zofran) 4 mg Q4H PRN IVP Nausea & Vomiting 11/17/19 11:00 12/17/19 10:59 Piperacillin Sod/ Tazobactam Sod 3.375 gm/Sodium Chloride 110 ml @ 27.5 mls/hr Q8H IVPB 11/17/19 16:00 11/24/19 15:59 11/18/19 08:23 Quetiapine Fumarate (SEROqueL) 50 mg QHS ORAL 11/17/19 21:00 01/01/20 20:59 11/17/19 20:46 Trazodone HCl (Desyrel) 100 mg BEDTIME ORAL 11/17/19 21:00 12/17/19 20:59 11/17/19 20:46 Vancomycin HCl (Vanco pharmacy to dose) 1 ea DAILY PRN MISC Per rx protocol 11/17/19 12:30 12/17/19 12:29 Vancomycin HCl 1 gm/Dextrose 275 ml @ 183.708 mls/hr Q8H IVPB 11/17/19 14:00 11/22/19 13:59 11/18/19 06:00 Assessment/Plan Assessment/Plan: Abx: IV Vancomycin 11/16- Zosyn 11/17- Assessment: COVID neg -11/16 rapid COVID PCR neg Afebrile Pancytopenia Abdominal pain- loculated fluid collection- seroma vs abscess Recent Acute appendicitis s/p open appendectomy -11/16 CT abd/p w/: Superficial soft tissue edema and inflammatory change noted along the right anterior abdominal wall superficial soft tissues with loculated fluid collection measuring 6.3 x 1.5 x 1.7 cm. Superficial soft tissue cellulitis with abscess versus postoperative seroma are considerations. Additional phlegmonous change inferior to the umbilicus. PTSD right wrist surgery hx of PE ~2-3 months ago (not currently on AC) obesity gastric bypass 2017 Afib MDD bipolar disorder GERD Plan: -Continue empiric IV Vancomycin #2 and ZOsyn #1 -f/u cx -Monitor CBC/CMP, temperatures -GI, Gen Sx f/u -wound care per surgical team Thank you for this consultation. Will continue to follow along with you. Discussed with ANDERS. Aline Oneal M.D. Nov 18, 2019 12:50
--- NOTE | 2019-11-18 13:02 | Diagnostic Imaging Report ---
Indication: Lower right abdominal pain. History of gastric sleeve surgery 2 weeks ago Technique: Figueroa-scale and duplex images of the upper abdomen were obtained Comparison: No comparison sonograms. Reference made to CT scan dated 11/17/2019 Findings: In the right lower quadrant subcutaneous fat, in the area of incision, there is a small fluid collection which measures 7.4 x 2.2 x 1.1 cm. This corresponds to findings reported on recent CT scan. The collection is anechoic Gallbladder is unremarkable, without stones, wall thickening, nor pericholecystic fluid. Sonographic Atkinson's sign is negative. Common bile duct measures 4 mm in diameter. No intrahepatic biliary ductal dilatation. Liver demonstrates borderline increased echogenicity. No focal abnormality. It is somewhat enlarged. Portal vein and hepatic veins are patent. Pancreas is unremarkable. Spleen is unremarkable. Left kidney measures 11.2 cm in length. Right kidney measures 11.2 cm length. Both kidneys demonstrate normal echogenicity. There is no hydronephrosis. No focal abnormality . Non-aneurysmal abdominal aorta . Impression: 7.4 x 2.2 x 1.1 cm fluid collection in the right lower quadrant subcutaneous fat, corresponding to findings reported on recent CT scan. Appearance is nonspecific as to whether or not this is infected although the lack of internal echoes suggests a sterile collection. Negative for gallstones or dilated bile ducts Borderline enlarged liver. Nonspecific slight increased hepatic echogenicity may indicate hepatocellular disease. Note that appearance on recent CT scan did not suggest fatty change, however
[2019-11-18 16:00] VITALS: BP 116/66
[2019-11-18 20:00] VITALS: BP 113/55
[2019-11-18] MEDS: TraZODone 100mg tab ORAL SCH (21:24)
[2019-11-19] VITALS: BP 146/67
[2019-11-19] MEDS: Piperacillin/Tazobactam 3.375 GM in NS 110 ML IVPB SCH ×2 (00:44→08:39)
[2019-11-19 04:00] VITALS: BP 109/76
[2019-11-19] MEDS: Vancomycin 1gm in Dextrose 275ml IVPB SCH ×2 (05:45→15:01)
[2019-11-19 06:10] LABS: HEMATOCRIT 28.5 % (42.0-52.0); MEAN CORPUSCULAR VOLUME 94 FL (80-99); PLATELET COUNT 70 K/UL (150-450); RED BLOOD COUNT 3.02 M/UL (4.70-6.10); RED CELL DISTRIBUTION WIDTH 16.7 % (11.6-14.8); WHITE BLOOD COUNT 2.2 K/UL (4.8-10.8)
--- NOTE | 2019-11-19 06:29 | General Progress Note ---
Assessment/Plan Status: unchanged Assessment/Plan: left lower abd fluid collection post appendectomy obesity h/o sleeve gastrectomy abx per ID pain control abd us and CT reviewed surg and ID note reviewed conservative management for now percutaneous drainage if needed Subjective ROS Limited/Unobtainable: Yes Allergies: Coded Allergies: KETOROLAC (Verified Allergy, Mild, Rash, 01/01/19) TRAMADOL (Verified Allergy, Unknown, 08/01/18) NSAIDS (NON-STEROIDAL ANTI-INFLAMMA (Verified Adverse Reaction, Unknown, ) Objective Last 24 Hour Vital Signs Date Time Temp Pulse Resp B/P (MAP) Pulse Ox O2 Delivery O2 Flow Rate FiO2 11/19/19 04:00 97.8 63 17 109/76 (87) 99 11/19/19 00:00 97.7 55 19 146/67 (93) 97 11/18/19 21:00 Room Air 11/18/19 20:00 97.8 55 18 113/55 (74) 95 11/18/19 17:07 97.7 11/18/19 16:00 98.1 56 20 116/66 (83) 95 11/18/19 12:00 97.3 52 19 111/55 (73) 96 11/18/19 09:00 Room Air Intake and Output 11/18/19 11/19/19 19:00 07:00 Intake Total 1000 ml Balance 1000 ml Intake Oral 400 ml IV Total 600 ml # Voids 3 # Bowel Movements 1 Laboratory Tests 11/19/19 04:45: White Blood Count [Pending], Red Blood Count [Pending], Hemoglobin [Pending], Hematocrit [Pending], Mean Corpuscular Volume [Pending], Mean Corpuscular Hemoglobin [Pending], Mean Corpuscular Hemoglobin Concent [Pending], Red Cell Distribution Width [Pending], Platelet Count [Pending], Mean Platelet Volume [ Pending], Neutrophils (%) (Auto) [Pending], Lymphocytes (%) (Auto) [Pending], Monocytes (%) (Auto) [Pending], Eosinophils (%) (Auto) [Pending], Basophils (%) (Auto) [Pending], Sodium Level [Pending], Potassium Level [Pending], Chloride Level [Pending], Carbon Dioxide Level [Pending], Blood Urea Nitrogen [Pending], Creatinine [Pending], Estimat Glomerular Filtration Rate [Pending], Glucose Level [Pending], Calcium Level [Pending], Total Bilirubin [Pending], Aspartate Amino Transf (AST/SGOT) [Pending], Alanine Aminotransferase (ALT/SGPT) [Pending] , Alkaline Phosphatase [Pending], Total Protein [Pending], Albumin [Pending], Globulin [Pending] Height (Feet): 5 Height (Inches): 9.00 Weight (Pounds): 256 General Appearance: alert EENT: normal ENT inspection Neck: supple Cardiovascular: normal rate Respiratory/Chest: lungs clear Abdomen: hypoactive bowel sounds, tender Extremities: non-tender Danyel Walden MD Nov 19, 2019 06:29
[2019-11-19 06:49] LABS: ALANINE AMINOTRANSFERASE 17 U/L (12-78); ALBUMIN 2.9 G/DL (3.4-5.0); ALBUMIN/GLOBULIN RATIO 0.9 (1.0-2.7); ALKALINE PHOSPHATASE 68 U/L (46-116); ANION GAP 6 mmol/L (5-15); ASPARTATE AMINO TRANSFERASE 19 U/L (15-37); BILIRUBIN,TOTAL 0.2 MG/DL (0.2-1.0); BLOOD UREA NITROGEN 7 mg/dL (7-18); CALCIUM 8.3 MG/DL (8.5-10.1); CARBON DIOXIDE 32 MMOL/L (21-32); CHLORIDE 106 MMOL/L (98-107); CREATININE 1.2 MG/DL (0.55-1.30); POTASSIUM 3.8 MMOL/L (3.5-5.1); SODIUM 143 MMOL/L (136-145)
--- NOTE | 2019-11-19 07:23 | Hematology/Onc Progress Note ---
Assessment/Plan Assessment/Plan Assessment and Recs # Pancytopenia is likely related to history of drug use and potential liver disease as well, labs noted, recent surgery with potential fluid loculation v abscess --> have ordered for hepatitis and hiv panel at this time --> us abd shows same size indeterminate abscess/fluid collection-->per surg --> consider outpatient management once discharged as well --> reviewed labs from 2018, 2019 and now is worsened concerning for condition requires workup in near future --> outpatient appointment pls schedule this week to followup as per cm --> wbc 2.5-->2.2 --> hgb 9.2-->9 --> plt 70 # Pulmonary embolism history 2-3 months ago, came in on xarelto --> 3 month course anticoag ccompleted recently --> low dose lovenox if cbc better # Elevated D-Dimer hx --> cta is neg for pe --> venous duplex neg for acute dvt # Phlegmon v fluid collection abd s/p surgery --> per surg recs --> ABX vanc/zosyn # History of psychiatric issue, on Desyrel # Pain-seeking behavior as mentioned above. # Dvt ppx lovenox if cbc improvs Appreciate consultation and cinthya RN Subjective HEENT: Denies: no symptoms, eye pain, blurred vision, tearing, double vision, ear pain, ear discharge, nose pain, nose congestion, throat pain, throat swelling, mouth pain, mouth swelling, other Cardiovascular: Denies: no symptoms, chest pain, edema, irregular heart rate, lightheadedness, palpitations, syncope, other Respiratory: Denies: no symptoms, cough, shortness of breath, SOB with excertion, SOB at rest, sputum, wheezing, other Gastrointestinal/Abdominal: Denies: no symptoms, abdomen distended, abdominal pain, black stools, tarry stools, blood in stool, constipated, diarrhea, difficulty swallowing, nausea, poor appetite, poor fluid intake, rectal bleeding , vomiting, other Genitourinary: Denies: no symptoms, burning, discharge, frequency, flank pain, hematuria, incontinence, pain, urgency, other Endocrine: Denies: no symptoms, excessive sweating, flushing, intolerance to cold, intolerance to heat, increased hunger, increased thirst, increased urine, unexplained weight gain, unexplained weight loss, other Hematologic/Lymphatic: Denies: no symptoms, anemia, easy bleeding, easy bruising, adenopathy, other Allergies: Coded Allergies: KETOROLAC (Verified Allergy, Mild, Rash, 01/01/19) TRAMADOL (Verified Allergy, Unknown, 08/01/18) NSAIDS (NON-STEROIDAL ANTI-INFLAMMA (Verified Adverse Reaction, Unknown, ) Subjective 11/17 labs noted, no bleeding, dw rn, may need neupogen v prbc if worse 11/18 labs noted, seen by gi and surg, meds noted, patient irritable in am Objective Objective Current Medications Medications (Trade) Dose Ordered Sig/Mikey Route PRN Reason Start Time Stop Time Status Last Admin Dose Admin Dextrose/Sodium Chloride 1,000 ml @ 100 mls/hr Q10H IV 11/17/19 12:54 12/17/19 12:53 11/18/19 21:43 Famotidine (Pepcid) 40 mg QHS ORAL 11/17/19 21:00 02/15/20 20:59 11/18/19 21:25 Fluoxetine HCl (PROzac) 40 mg QHS ORAL 11/17/19 21:00 12/17/19 20:59 11/18/19 21:24 Hydromorphone HCl (Dilaudid) 2 mg Q4H PRN IVP Severe Pain (Pain Scale 7-10) 11/17/19 22:45 11/24/19 22:44 11/19/19 04:36 Ondansetron HCl (Zofran) 4 mg Q4H PRN IVP Nausea & Vomiting 11/17/19 11:00 12/17/19 10:59 11/19/19 04:35 Piperacillin Sod/ Tazobactam Sod 3.375 gm/Sodium Chloride 110 ml @ 27.5 mls/hr Q8H IVPB 11/17/19 16:00 11/24/19 15:59 11/19/19 00:44 Quetiapine Fumarate (SEROqueL) 50 mg QHS ORAL 11/17/19 21:00 01/01/20 20:59 11/18/19 21:25 Trazodone HCl (Desyrel) 100 mg BEDTIME ORAL 11/17/19 21:00 12/17/19 20:59 8/31/20 21:24 Vancomycin HCl (Vanco pharmacy to dose) 1 ea DAILY PRN MISC Per rx protocol 11/17/19 12:30 12/17/19 12:29 Vancomycin HCl 1 gm/Dextrose 275 ml @ 183.708 mls/hr Q8H IVPB 11/17/19 14:00 11/22/19 13:59 11/19/19 05:45 Last 24 Hour Vital Signs Date Time Temp Pulse Resp B/P (MAP) Pulse Ox O2 Delivery O2 Flow Rate FiO2 11/19/19 04:00 97.8 63 17 109/76 (87) 99 11/19/19 00:00 97.7 55 19 146/67 (93) 97 11/18/19 21:00 Room Air 11/18/19 20:00 97.8 55 18 113/55 (74) 95 11/18/19 17:07 97.7 11/18/19 16:00 98.1 56 20 116/66 (83) 95 11/18/19 12:00 97.3 52 19 111/55 (73) 96 11/18/19 09:00 Room Air 11/18/19 04:00 97.7 50 18 117/61 (79) 97 11/18/19 00:00 98.1 57 16 129/66 (87) 98 11/17/19 20:25 Room Air 11/17/19 20:00 98.3 60 18 135/70 (91) 99 11/17/19 18:54 97.7 11/17/19 16:34 Room Air 11/17/19 16:00 97.9 52 18 129/71 (90) 96 11/17/19 12:00 97.7 48 18 121/62 (81) 97 11/17/19 09:00 Room Air 11/17/19 08:21 98.4 79 17 128/76 97 Room Air 11/17/19 08:20 Room Air 11/17/19 08:20 97.3 60 20 133/75 (94) 98 11/17/19 07:27 98.4 Intake and Output 11/18/19 11/19/19 19:00 07:00 Intake Total 1600 ml Balance 1600 ml Intake Oral 400 ml IV Total 1200 ml # Voids 3 # Bowel Movements 1 Labs Test 11/17/19 02:48 11/17/19 03:40 11/18/19 05:00 11/19/19 04:45 White Blood Count 4.0 K/UL (4.8-10.8) 2.5 K/UL (4.8-10.8) 2.2 K/UL (4.8-10.8) Red Blood Count 3.29 M/UL (4.70-6.10) 3.05 M/UL (4.70-6.10) 3.02 M/UL (4.70-6.10) Hemoglobin 9.7 G/DL (14.2-18.0) 9.2 G/DL (14.2-18.0) 9.0 G/DL (14.2-18.0) Hematocrit 30.6 % (42.0-52.0) 28.6 % (42.0-52.0) 28.5 % (42.0-52.0) Mean Corpuscular Volume 93 FL (80-99) 94 FL (80-99) 94 FL (80-99) Mean Corpuscular Hemoglobin 29.4 PG (27.0-31.0) 30.1 PG (27.0-31.0) 29.7 PG (27.0-31.0) Mean Corpuscular Hemoglobin Concent 31.7 G/DL (32.0-36.0) 32.1 G/DL (32.0-36.0) 31.4 G/DL (32.0-36.0) Red Cell Distribution Width 16.7 % (11.6-14.8) 16.7 % (11.6-14.8) 16.7 % (11.6-14.8) Platelet Count 96 K/UL (150-450) 87 K/UL (150-450) 70 K/UL (150-450) Mean Platelet Volume 4.9 FL (6.5-10.1) 7.5 FL (6.5-10.1) 6.3 FL (6.5-10.1) Neutrophils (%) (Auto) % (45.0-75.0) % (45.0-75.0) % (45.0-75.0) Lymphocytes (%) (Auto) % (20.0-45.0) % (20.0-45.0) % (20.0-45.0) Monocytes (%) (Auto) % (1.0-10.0) % (1.0-10.0) % (1.0-10.0) Eosinophils (%) (Auto) % (0.0-3.0) % (0.0-3.0) % (0.0-3.0) Basophils (%) (Auto) % (0.0-2.0) % (0.0-2.0) % (0.0-2.0) Differential Total Cells Counted 100 100 Neutrophils % (Manual) 55 % (45-75) 50 % (45-75) Lymphocytes % (Manual) 39 % (20-45) 43 % (20-45) Monocytes % (Manual) 2 % (1-10) 5 % (1-10) Eosinophils % (Manual) 4 % (0-3) 2 % (0-3) Basophils % (Manual) 0 % (0-2) 0 % (0-2) Band Neutrophils 0 % (0-8) 0 % (0-8) Platelet Estimate Decreased Decreased Platelet Morphology Normal Normal Anisocytosis 1+ 1+ Sodium Level 142 MMOL/L (136-145) 144 MMOL/L (136-145) 143 MMOL/L (136-145) Potassium Level 3.7 MMOL/L (3.5-5.1) 3.8 MMOL/L (3.5-5.1) 3.8 MMOL/L (3.5-5.1) Chloride Level 105 MMOL/L (98-107) 109 MMOL/L (98-107) 106 MMOL/L (98-107) Carbon Dioxide Level 29 MMOL/L (21-32) 33 MMOL/L (21-32) 32 MMOL/L (21-32) Anion Gap 8 mmol/L (5-15) 2 mmol/L (5-15) 6 mmol/L (5-15) Blood Urea Nitrogen 11 mg/dL (7-18) 4 mg/dL (7-18) 7 mg/dL (7-18) Creatinine 1.0 MG/DL (0.55-1.30) 1.0 MG/DL (0.55-1.30) 1.2 MG/DL (0.55-1.30) Estimat Glomerular Filtration Rate > 60 mL/min (>60) > 60 mL/min (>60) > 60 mL/min (>60) Glucose Level 113 MG/DL (74-106) 106 MG/DL (74-106) 99 MG/DL (74-106) Calcium Level 8.6 MG/DL (8.5-10.1) 8.2 MG/DL (8.5-10.1) 8.3 MG/DL (8.5-10.1) Total Bilirubin 0.3 MG/DL (0.2-1.0) 0.3 MG/DL (0.2-1.0) 0.2 MG/DL (0.2-1.0) Aspartate Amino Transf (AST/SGOT) 15 U/L (15-37) 15 U/L (15-37) 19 U/L (15-37) Alanine Aminotransferase (ALT/SGPT) 13 U/L (12-78) 17 U/L (12-78) 17 U/L (12-78) Alkaline Phosphatase 79 U/L (46-116) 70 U/L (46-116) 68 U/L (46-116) Total Protein 6.9 G/DL (6.4-8.2) 6.1 G/DL (6.4-8.2) 6.1 G/DL (6.4-8.2) Albumin 3.5 G/DL (3.4-5.0) 3.1 G/DL (3.4-5.0) 2.9 G/DL (3.4-5.0) Globulin 3.4 g/dL 3.0 g/dL 3.2 g/dL Albumin/Globulin Ratio 1.0 (1.0-2.7) 1.0 (1.0-2.7) 0.9 (1.0-2.7) Lipase 94 U/L (73-393) 63 U/L (73-393) Urine Color Yellow Urine Appearance Clear Urine pH 6 (4.5-8.0) Urine Specific [place] 1.025 (1.005-1.035) Urine Protein 1+ (NEGATIVE) Urine Glucose (UA) Negative (NEGATIVE) Urine Ketones 1+ (NEGATIVE) Urine Blood Negative (NEGATIVE) Urine Nitrite Negative (NEGATIVE) Urine Bilirubin Negative (NEGATIVE) Urine Urobilinogen 1 MG/DL (0.0-1.0) Urine Leukocyte Esterase 1+ (NEGATIVE) Urine RBC 0-2 /HPF (0 - 0) Urine WBC 2-4 /HPF (0 - 0) Urine Squamous Epithelial Cells Occasional /LPF Urine Bacteria Few /HPF (NONE) Urine Mucus Moderate /LPF (NONE/OCC) Hypochromasia 2+ Erythrocyte Sedimentation Rate 40 MM/HR (0-15) Prothrombin Time 12.0 SEC (9.30-11.50) Prothromb Time International Ratio 1.1 (0.9-1.1) Activated Partial Thromboplast Time 23 SEC (23-33) C-Reactive Protein, Quantitative 0.6 mg/dL (0.00-0.90) Amylase Level 29 U/L (25-115) Vancomycin Level Trough 15.6 ug/mL (5.0-12.0) Height (Feet): 5 Height (Inches): 9.00 Weight (Pounds): 256 Objective Physical Exam Vitals: reviewed are wnl General: normal inspection, well appearing, no apparent distress, alert Heent: nc, at Resp: normal inspection, lungs clear, normal breath sounds Cardiovascular: regular rate, rhythm, no edema GI: normal inspection, normal bowel sounds, non tender, soft, no guarding, no hernia Gu: no CVA tenderness Msk: normal inspection, back normal Neurologic: alert, motor strength/tone normal, edge cutter III-XII nml as tested, oriented x3, responsive Psychiatric: normal inspection Deonte Contreras MD Nov 19, 2019 07:23
[2019-11-19 08:00] VITALS: BP 116/66
[2019-11-19 12:00] VITALS: BP 112/52
--- NOTE | 2019-11-19 13:32 | General Progress Note ---
Assessment/Plan Problem List: (1) UTI (urinary tract infection) ICD Codes: N39.0 - Urinary tract infection, site not specified SNOMED: 70848891 (2) Anemia ICD Codes: D64.9 - Anemia, unspecified SNOMED: 060530953 (3) Nausea ICD Codes: R11.0 - Nausea SNOMED: 489070500 (4) Post-operative wound abscess ICD Codes: T81.49XA - Infection following a procedure, other surgical site, initial encounter SNOMED: 83247811 (5) Abdominal pain ICD Codes: R10.9 - Unspecified abdominal pain SNOMED: 52760982 Status: stable, progressing Assessment/Plan: diet abx pain control cbc bmp am dc plan if lcear by heme and gi Subjective Constitutional: Reports: weakness Allergies: Coded Allergies: KETOROLAC (Verified Allergy, Mild, Rash, 01/01/19) TRAMADOL (Verified Allergy, Unknown, 08/01/18) NSAIDS (NON-STEROIDAL ANTI-INFLAMMA (Verified Adverse Reaction, Unknown, ) All Systems: reviewed and negative except above Subjective calm in bed Objective Last 24 Hour Vital Signs Date Time Temp Pulse Resp B/P (MAP) Pulse Ox O2 Delivery O2 Flow Rate FiO2 11/19/19 12:00 97.7 55 20 112/52 (72) 95 11/19/19 09:00 Room Air 11/19/19 08:00 97.7 57 18 116/66 (83) 97 11/19/19 04:00 97.8 63 17 109/76 (87) 99 11/19/19 00:00 97.7 55 19 146/67 (93) 97 11/18/19 21:00 Room Air 11/18/19 20:00 97.8 55 18 113/55 (74) 95 11/18/19 17:07 97.7 11/18/19 16:00 98.1 56 20 116/66 (83) 95 Intake and Output 11/18/19 11/19/19 19:00 07:00 Intake Total 1600 ml Balance 1600 ml Intake Oral 400 ml IV Total 1200 ml # Voids 3 # Bowel Movements 1 Laboratory Tests 11/19/19 04:45: White Blood Count 2.2L, Red Blood Count 3.02L, Hemoglobin 9.0L, Hematocrit 28.5L , Mean Corpuscular Volume 94, Mean Corpuscular Hemoglobin 29.7, Mean Corpuscular Hemoglobin Concent 31.4L, Red Cell Distribution Width 16.7H, Platelet Count 70L, Mean Platelet Volume 6.3L, Neutrophils (%) (Auto) , Lymphocytes (%) (Auto) , Monocytes (%) (Auto) , Eosinophils (%) (Auto) , Basophils (%) (Auto) , Differential Total Cells Counted 100, Neutrophils % ( Manual) 49, Lymphocytes % (Manual) 46H, Monocytes % (Manual) 4, Eosinophils % ( Manual) 1, Basophils % (Manual) 0, Band Neutrophils 0, Platelet Estimate DecreasedL, Platelet Morphology Normal, Hypochromasia 1+, Anisocytosis 1+, Sodium Level 143, Potassium Level 3.8, Chloride Level 106, Carbon Dioxide Level 32, Anion Gap 6, Blood Urea Nitrogen 7, Creatinine 1.2, Estimat Glomerular Filtration Rate > 60, Glucose Level 99, Calcium Level 8.3L, Total Bilirubin 0.2 , Aspartate Amino Transf (AST/SGOT) 19, Alanine Aminotransferase (ALT/SGPT) 17, Alkaline Phosphatase 68, Total Protein 6.1L, Albumin 2.9L, Globulin 3.2, Albumin /Globulin Ratio 0.9L Height (Feet): 5 Height (Inches): 9.00 Weight (Pounds): 256 General Appearance: lethargic EENT: normal ENT inspection Neck: normal alignment Cardiovascular: normal peripheral pulses, normal rate, regular rhythm Respiratory/Chest: chest wall non-tender, lungs clear, normal breath sounds Abdomen: normal bowel sounds, non tender, soft Extremities: normal inspection Edema: no edema noted Arm (L), no edema noted Arm (R), no edema noted Leg (L), no edema noted Leg (R), no edema noted Pedal (L), no edema noted Pedal (R), no edema noted Generalized Neurologic: motor weakness Skin: normal pigmentation, warm/dry Raymon Santamaria DO Nov 19, 2019 13:32
--- NOTE | 2019-11-19 14:13 | Infectious Diseases Prog Note ---
Assessment/Plan Abx: IV Vancomycin 11/16- Zosyn 11/17- Assessment: COVID neg -11/16 rapid COVID PCR neg Afebrile Pancytopenia Abdominal pain- loculated fluid collection- likely seroma rather than abscess based on US appearance, afebrile, no leukocytosis and relatively normal inflammatory markers Recent Acute appendicitis s/p open appendectomy -11/17 Abd US: .4 x 2.2 x 1.1 cm fluid collection in the right lower quadrant subcutaneous fat, corresponding to findings reported on recent CT scan. Appearance is nonspecific as to whether or not this is infected although the lack of internal echoes suggests a sterile collection. Negative for gallstones or dilated bile ducts. Borderline enlarged liver. Nonspecific slight increased hepatic echogenicity may indicate hepatocellular disease. -11/16 CT abd/p w/: Superficial soft tissue edema and inflammatory change noted along the right anterior abdominal wall superficial soft tissues with loculated fluid collection measuring 6.3 x 1.5 x 1.7 cm. Superficial soft tissue cellulitis with abscess versus postoperative seroma are considerations. Additional phlegmonous change inferior to the umbilicus. -ESR 46, CRP 0.6 PTSD right wrist surgery hx of PE ~2-3 months ago (not currently on AC) obesity gastric bypass 2017 Afib MDD bipolar disorder GERD Plan: -Dc empiric IV Vancomycin #3 and ZOsyn #2 and monitor off abx --low threshold to restart if fever, leukocytosis, worsening pain, drainage, local erythema -f/u cx -Monitor CBC/CMP, temperatures -GI, Gen Sx f/u -wound care per surgical team Thank you for this consultation. Will continue to follow along with you. Discussed with RN and Dr Carrillo Subjective Allergies: Coded Allergies: KETOROLAC (Verified Allergy, Mild, Rash, 01/01/19) TRAMADOL (Verified Allergy, Unknown, 08/01/18) NSAIDS (NON-STEROIDAL ANTI-INFLAMMA (Verified Adverse Reaction, Unknown, ) afebrile leukopenia and thrombocytopenia worsening Objective Last 24 Hour Vital Signs Date Time Temp Pulse Resp B/P (MAP) Pulse Ox O2 Delivery O2 Flow Rate FiO2 11/19/19 12:00 97.7 55 20 112/52 (72) 95 11/19/19 09:00 Room Air 11/19/19 08:00 97.7 57 18 116/66 (83) 97 11/19/19 04:00 97.8 63 17 109/76 (87) 99 11/19/19 00:00 97.7 55 19 146/67 (93) 97 11/18/19 21:00 Room Air 11/18/19 20:00 97.8 55 18 113/55 (74) 95 11/18/19 17:07 97.7 11/18/19 16:00 98.1 56 20 116/66 (83) 95 Height (Feet): 5 Height (Inches): 9.00 Weight (Pounds): 256 Microbiology Date/Time Source Procedure Growth Status 11/17/19 05:45 Blood Blood Culture - Preliminary NO GROWTH AFTER 24 HOURS Resulted 11/17/19 05:30 Blood Blood Culture - Preliminary NO GROWTH AFTER 24 HOURS Resulted 11/17/19 07:18 Nasal Nares MRSA Culture - Final NO METHICILLIN RESISTANT STAPH AUREUS... Complete 11/17/19 07:18 Nasopharynx SARS-CoV-2 RdRp Gene Assay - Final Complete 11/17/19 07:18 Rectum VRE Culture - Final NO VANCOMYCIN RESISTANT ENTEROCOCCUS ... Complete Laboratory Tests Test 11/19/19 04:45 White Blood Count 2.2 K/UL (4.8-10.8) L Red Blood Count 3.02 M/UL (4.70-6.10) L Hemoglobin 9.0 G/DL (14.2-18.0) L Hematocrit 28.5 % (42.0-52.0) L Mean Corpuscular Volume 94 FL (80-99) Mean Corpuscular Hemoglobin 29.7 PG (27.0-31.0) Mean Corpuscular Hemoglobin Concent 31.4 G/DL (32.0-36.0) L Red Cell Distribution Width 16.7 % (11.6-14.8) H Platelet Count 70 K/UL (150-450) L Mean Platelet Volume 6.3 FL (6.5-10.1) L Neutrophils (%) (Auto) % (45.0-75.0) Lymphocytes (%) (Auto) % (20.0-45.0) Monocytes (%) (Auto) % (1.0-10.0) Eosinophils (%) (Auto) % (0.0-3.0) Basophils (%) (Auto) % (0.0-2.0) Differential Total Cells Counted 100 Neutrophils % (Manual) 49 % (45-75) Lymphocytes % (Manual) 46 % (20-45) H Monocytes % (Manual) 4 % (1-10) Eosinophils % (Manual) 1 % (0-3) Basophils % (Manual) 0 % (0-2) Band Neutrophils 0 % (0-8) Platelet Estimate Decreased L Platelet Morphology Normal Hypochromasia 1+ Anisocytosis 1+ Sodium Level 143 MMOL/L (136-145) Potassium Level 3.8 MMOL/L (3.5-5.1) Chloride Level 106 MMOL/L (98-107) Carbon Dioxide Level 32 MMOL/L (21-32) Anion Gap 6 mmol/L (5-15) Blood Urea Nitrogen 7 mg/dL (7-18) Creatinine 1.2 MG/DL (0.55-1.30) Estimat Glomerular Filtration Rate > 60 mL/min (>60) Glucose Level 99 MG/DL (74-106) Calcium Level 8.3 MG/DL (8.5-10.1) L Total Bilirubin 0.2 MG/DL (0.2-1.0) Aspartate Amino Transf (AST/SGOT) 19 U/L (15-37) Alanine Aminotransferase (ALT/SGPT) 17 U/L (12-78) Alkaline Phosphatase 68 U/L (46-116) Total Protein 6.1 G/DL (6.4-8.2) L Albumin 2.9 G/DL (3.4-5.0) L Globulin 3.2 g/dL Albumin/Globulin Ratio 0.9 (1.0-2.7) L Current Medications Medications (Trade) Dose Ordered Sig/Mikey Route PRN Reason Start Time Stop Time Status Last Admin Dose Admin Dextrose/Sodium Chloride 1,000 ml @ 100 mls/hr Q10H IV 11/17/19 12:54 12/17/19 12:53 11/18/19 21:43 Famotidine (Pepcid) 40 mg QHS ORAL 11/17/19 21:00 02/15/20 20:59 11/18/19 21:25 Fluoxetine HCl (PROzac) 40 mg QHS ORAL 11/17/19 21:00 12/17/19 20:59 11/18/19 21:24 Hydromorphone HCl (Dilaudid) 2 mg Q4H PRN IVP Severe Pain (Pain Scale 7-10) 11/17/19 22:45 11/24/19 22:44 11/19/19 12:40 Ondansetron HCl (Zofran) 4 mg Q4H PRN IVP Nausea & Vomiting 11/17/19 11:00 12/17/19 10:59 11/19/19 12:40 Piperacillin Sod/ Tazobactam Sod 3.375 gm/Sodium Chloride 110 ml @ 27.5 mls/hr Q8H IVPB 11/17/19 16:00 11/24/19 15:59 11/19/19 08:39 Quetiapine Fumarate (SEROqueL) 50 mg QHS ORAL 11/17/19 21:00 01/01/20 20:59 11/18/19 21:25 Trazodone HCl (Desyrel) 100 mg BEDTIME ORAL 11/17/19 21:00 12/17/19 20:59 11/18/19 21:24 Vancomycin HCl (Vanco pharmacy to dose) 1 ea DAILY PRN MISC Per rx protocol 11/17/19 12:30 12/17/19 12:29 Vancomycin HCl 1 gm/Dextrose 275 ml @ 183.708 mls/hr Q8H IVPB 11/17/19 14:00 11/22/19 13:59 11/19/19 05:45 Aline Oneal M.D. Nov 19, 2019 14:13
[2019-11-19] MEDS: D5 1/2NS 1,000 ML IV SCH (15:04)
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
[2019-11-19 16:00] VITALS: BP 123/65
[2019-11-19] MEDS ORDERED: ACETAMINOPHEN-1 EAC1 ORAL (17:22)
[2019-11-19] MEDS ORDERED: COLACE100 MG ORAL (17:23)
[2019-11-19] MEDS ORDERED: D5 1/2NS 1000ml IV ONE (18:32)
--- NOTE | 2019-11-22 11:23 | Discharge Summary ---
Discharge Summary Discharge Summary _ Charge summary DATE OF ADMISSION: 11/17/2019 DATE OF DISCHARGE: [] 11/19/2019 DISCHARGED BY: Dr. Santamaria REASON FOR ADMISSION: 43 years old male with past medical history of gastric sleeve surgery, atrial fibrillation, history of PE, history of recent open appendectomy at the outside hospital 7 days ago, presented to emergency department with right lower quadrant abdominal pain. Patient reported that over the past 4 days he had cramping underneath the incision site in the right lower quadrant. Patient was taken Tylenol for pain . No fever or chills. No chest pain or shortness of breath. No back pain, no other abdominal pain. No nausea ,vomiting, diarrhea or dysuria Upon evaluation vital signs were stable. Laboratory work-up revealed leukopenia WBC 4.0, hemoglobin 9.7, hematocrit 30.6 , platelet count 96. Chemistry was stable. Stable LFT and lipase. Urinalysis revealed +1 leukocyte esterase, no pyuria , no bacteria. CT scan of the abdomen and pelvis revealed superficial soft tissue edema and inflammatory changes along the right anterior abdominal wall with superficial soft tissue loculated fluid collection. Consider superficial soft tissue cellulitis with abscess versus postoperative seroma. In emergency department patient pancultured, started on empiric antibiotics , received analgesic, one liter of fluid and admitted for further management. Rapid COVID-19 was negative. CONSULTANTS: ID specialist Dr Oneal GI specialist Dr. Reardon mining engineer/oncologist Dr. Contreras [facility] COURSE: Patient admitted to medical surgical floor . Patient continued on IV fluids and empiric antibiotic. Blood cultures were negative. Abdominal ultrasound revealed 7.4 x 2.2 x 1.1 cm fluid collection in the right lower quadrant cutaneous fat corresponding to findings reported on CT scan. Appearance was nonspecific. No evidence of gallstones or dilated bile ducts. Borderline enlarged liver. Surgeon closely reviewed imaging. CRP 0.6, ESR 40. Per surgeon, fluid collection was most likely postoperative seroma, and not appear to be an abscess. No acute surgical intervention was necessarily at this time. GI specialist concurred with surgeon and recommended conservative measures. If no improvement consider percutaneous drainage. Antibiotic provided as per ID specialist recommendation. Patient received empiric Vanco and Zosyn while in the hospital. ID specialist recommended to monitor patient off antibiotic, and only restart antibiotic if fever, leukocytosis, worsening pain, drainage or local erythema. Diet provided as tolerated. Patient was able to tolerate diet. Pain management was addressed. Surgeon recommended to patient follow-up with his primary surgeon after discharge. Counts were closely monitored, prior to discharge WBC 2.2, hemoglobin 9, platelet count 70. Pancytopenia was most likely related to history of drug use and potential liver disease. Patient to follow-up as outpatient with mining engineer for further work-up and management. Patient with history of PE. He completed 3 months of anticoagulation. Pulse oximetry remained stable on room air. No signs of respiratory distress. Patient clinically stabilized and was ready for discharge home. FINAL DIAGNOSES: Abdominal pain Recent acute appendicitis, status post open appendectomy Loculated postoperative fluid collection likely seroma History of sleeve gastrectomy Pancytopenia History of PE DISCHARGE MEDICATIONS: See Medication Reconciliation list. DISCHARGE INSTRUCTIONS: Patient was discharged home. Follow-up with primary care provider in 1 week. Follow-up with a mining engineer as scheduled for pancytopenia I have been assigned to dictate discharge summary for this account. I was not involved in the patient's management. Cher Lerner NP Nov 22, 2019 11:23
== END 2019-11-19 18:33 | disposition home or self-care (01) | DRG 813 ==
LOC: EMR 02:40 → EDBEDREQ 07:01 → 3E 08:00
DX: K91.872 Postprocedural seroma of a digestive system organ or structure following a digestive system procedure (principal); Y83.8 Other surgical procedures as the cause of abnormal reaction of the patient, or of later complication, without mention of misadventure at the time of the procedure; N39.0 Urinary tract infection, site not specified; D61.818 Other pancytopenia; Z88.6 Allergy status to analgesic agent; Z88.8 Allergy status to other drugs, medicaments and biological substances; K57.90 Diverticulosis of intestine, part unspecified, without perforation or abscess without bleeding; Z86.711 Personal history of pulmonary embolism; Z79.01 Long term (current) use of anticoagulants; F43.10 Post-traumatic stress disorder, unspecified; K44.9 Diaphragmatic hernia without obstruction or gangrene; Z98.84 Bariatric surgery status; F31.9 Bipolar disorder, unspecified; K21.9 Gastro-esophageal reflux disease without esophagitis; G89.29 Other chronic pain; K62.89 Other specified diseases of anus and rectum; M54.9 Dorsalgia, unspecified; F11.20 Opioid dependence, uncomplicated
CPT/HCPCS: 36415; 74177; 76700; 80053; 80202; 81003; 82150; 83690; 85007; 85025; 85610; 85651; 85730; 86140; 87040; 87081; 94640; 96361; 96365; 96375; 96376; 99285; J2405; J7030; U0002

== ENCOUNTER 2019-12-22 00:21 | Inpatient (IN) | payer MEDICAID ==
[~2019-12-22] VITALS: Ht 185.4 cm; Wt 113.0 kg
[~2019-12-22 00:21] MED LIST changes: +ACETAMINOPHEN-1 EAC1 ORAL; +COLACE100 MG ORAL
[2019-12-22 00:35] VITALS: BP 109/76
[2019-12-22] MEDS ORDERED: Morphine Sulfate 4mg/ml Inj (IV USE ONLY) IVP ONE ×2 (01:00→04:45)
[2019-12-22] MEDS ORDERED: Omnipaque 350 100ml vial INJ PRN (01:00)
[2019-12-22 01:29] LABS: ANION GAP 6 mmol/L (5-15); BLOOD UREA NITROGEN 13 mg/dL (7-18); CALCIUM 8.9 MG/DL (8.5-10.1); CARBON DIOXIDE 28 MMOL/L (21-32); CHLORIDE 104 MMOL/L (98-107); CREATININE 0.9 MG/DL (0.55-1.30); POTASSIUM 3.9 MMOL/L (3.5-5.1); SODIUM 138 MMOL/L (136-145)
[2019-12-22 01:41] LABS: ALANINE AMINOTRANSFERASE 38 U/L (12-78); ALBUMIN 3.9 G/DL (3.4-5.0); ALBUMIN/GLOBULIN RATIO 1.1 (1.0-2.7); ALKALINE PHOSPHATASE 93 U/L (46-116); ASPARTATE AMINO TRANSFERASE 32 U/L (15-37); BILIRUBIN,TOTAL 0.3 MG/DL (0.2-1.0)
[2019-12-22 01:42] LABS: HEMATOCRIT 30.2 % (42.0-52.0); MEAN CORPUSCULAR VOLUME 90 FL (80-99); PLATELET COUNT 79 K/UL (150-450); RED BLOOD COUNT 3.36 M/UL (4.70-6.10); RED CELL DISTRIBUTION WIDTH 15.9 % (11.6-14.8); WHITE BLOOD COUNT 3.5 K/UL (4.8-10.8)
[2019-12-22 01:54] LABS: INR 1.2 (0.9-1.1)
--- NOTE | 2019-12-22 03:46 | Diagnostic Imaging Report ---
EXAM: CT Angiography Chest With Intravenous Contrast CLINICAL HISTORY: CP TECHNIQUE: Axial computed tomographic angiography images of the chest with intravenous contrast. CTDI is 12.00 mGy and DLP is 407.70 mGy-cm. One or more of the following dose reduction techniques were used: automated exposure control, adjustment of the mA and/or kV according to patient size, use of iterative reconstruction technique. MIP reconstructed images were created and reviewed. COMPARISON: 10/05/2019 FINDINGS: Pulmonary arteries: Pulmonary embolism in the subsegmental branch of the right lower lobe. Aorta: No thoracic aortic aneurysm. Lungs: No mass. No consolidation. Pleural space: No pneumothorax. No effusion. Heart: No cardiomegaly. No pericardial effusion. Bones/joints: No acute fracture or dislocation. Soft tissues: Prior gastric surgery. Lymph nodes: No enlarged lymph nodes. IMPRESSION: Pulmonary embolism in the subsegmental branch of the right lower lobe. No pulmonary infarct or right heart strain.
[2019-12-22] MEDS ORDERED: Enoxaparin 100mg Inj SUBQ ONE (04:00)
--- NOTE | 2019-12-22 04:31 | Emergency Room Report ---
History of Present Illness General Chief Complaint: Pain Source: Patient Present Illness HPI 44-year-old male presents to ED complaining of chest pain. Noting right-sided chest pain pain with deep breaths. Started today. States he has had a PE last year. States he was taken off blood thinners a few months ago. Denies any leg swelling. Denies shortness of breath. Denies cough. No other aggravating reli eving factors. Denies any other associated symptoms Allergies: Coded Allergies: KETOROLAC (Verified Allergy, Mild, Rash, 01/01/19) TRAMADOL (Verified Allergy, Unknown, 08/01/18) NSAIDS (NON-STEROIDAL ANTI-INFLAMMA (Verified Adverse Reaction, Unknown, 08/01/18) COVID-19 Screening Contact w/high risk pt: No Recent Travel to affected area: No Experienced COVID-19 symptoms?: No COVID-19 Testing performed DIETARY WORKER: No Patient History Past Medical History: AFib, other - PE Past Surgical History: none Pertinent Family History: none Social History: Denies: smoking, alcohol use, drug use Immunizations: UTD Reviewed Nursing Documentation: PMH: Agreed; PSxH: Agreed Nursing Documentation-PMH Past Medical History: No History, Except For Hx Cardiac Problems: Yes - atrial fibrillation Hx Cancer: No Hx Neurological Problems: No Review of Systems All Other Systems: negative except mentioned in HPI Physical Exam Vital Signs Date Time Temp Pulse Resp B/P (MAP) Pulse Ox O2 Delivery O2 Flow Rate FiO2 12/22/19 00:30 97.5 68 18 108/71 (83) 96 Room Air Sp02 EP Interpretation: reviewed, normal General Appearance: no apparent distress, alert, GCS 15, non-toxic Head: normocephalic, atraumatic Eyes: bilateral eye normal inspection, bilateral eye PERRL ENT: hearing grossly normal, normal pharynx, no angioedema, normal voice Neck: full range of motion, supple/symm/no masses Respiratory: chest non-tender, lungs clear, normal breath sounds, speaking full sentences Cardiovascular #1: regular rate, rhythm, no edema Cardiovascular #2: 2+ carotid (R), 2+ carotid (L), 2+ radial (R), 2+ radial (L), 2+ dorsalis pedis (R), 2+ dorsalis pedis (L) Gastrointestinal: normal bowel sounds, non tender, soft, non-distended, no guarding, no rebound Rectal: deferred Genitourinary: normal inspection, no CVA tenderness Musculoskeletal: back normal, normal range of motion, gait/station normal, non- tender Neurologic: alert, motor strength/tone normal, oriented x3, sensory intact, responsive, speech normal Psychiatric: judgement/insight normal, memory normal, mood/affect normal, no suicidal/homicidal ideation Reflexes: 3+ bicep (R), 3+ bicep (L), 3+ tricep (R), 3+ tricep (L), 3+ knee (R), 3+ knee (L) Lymphatic: no adenopathy Medical Decision Making Diagnostic Impression: Primary Impression: Pulmonary embolus Qualified Codes: I26.99 - Other pulmonary embolism without acute cor pulmonale ER Course Hospital Course 44 yo M presents with chest pain. h/o PE Differential diagnoses include: NH/unstable angina, PE, bronchitis, asthma Clinical course Patient placed on stretcher. on cardiac technician. After initial history and physical I ordered labs, EKG, CTA CHest. pain meds labs reviewed- no leukocytosis, hemoglobin/hematocrit stable, electrolytes ok, troponins negative, coags ok EKG - NSR, no acute ischemic changes interpreted by me CT chest- R sided PE, no signs of RV strain Lovenox given. Resting comfortably. On cardiac technician with stable vitals. O2 sats normal. No tachypnea. No tachycardia. Case discussed with Dr. Nascimento and he agreed to accept the patient to his service for further care and support I. I feel this is a highly complex case requiring extensive working including EKG/Rhythm strip, Xray/CT/US, Blood/urine lab work, repeat exams while in ED, and administration of strong opiates/narcotics for pain control, admission to hospital or close patient follow up. Diagnosis - Pulmonary Embolus admitted to telemetry in serious condition Laboratory Tests Test 12/22/19 01:00 White Blood Count 3.5 K/UL (4.8-10.8) L Red Blood Count 3.36 M/UL (4.70-6.10) L Hemoglobin 10.0 G/DL (14.2-18.0) L Hematocrit 30.2 % (42.0-52.0) L Mean Corpuscular Volume 90 FL (80-99) Mean Corpuscular Hemoglobin 29.8 PG (27.0-31.0) Mean Corpuscular Hemoglobin Concent 33.1 G/DL (32.0-36.0) Red Cell Distribution Width 15.9 % (11.6-14.8) H Platelet Count 79 K/UL (150-450) L Mean Platelet Volume 5.7 FL (6.5-10.1) L Neutrophils (%) (Auto) % (45.0-75.0) Lymphocytes (%) (Auto) % (20.0-45.0) Monocytes (%) (Auto) % (1.0-10.0) Eosinophils (%) (Auto) % (0.0-3.0) Basophils (%) (Auto) % (0.0-2.0) Prothrombin Time 12.6 SEC (9.30-11.50) H Prothromb Time International Ratio 1.2 (0.9-1.1) H Activated Partial Thromboplast Time 22 SEC (23-33) L Sodium Level 138 MMOL/L (136-145) Potassium Level 3.9 MMOL/L (3.5-5.1) Chloride Level 104 MMOL/L (98-107) Carbon Dioxide Level 28 MMOL/L (21-32) Anion Gap 6 mmol/L (5-15) Blood Urea Nitrogen 13 mg/dL (7-18) Creatinine 0.9 MG/DL (0.55-1.30) Estimat Glomerular Filtration Rate > 60 mL/min (>60) Glucose Level 101 MG/DL (74-106) Calcium Level 8.9 MG/DL (8.5-10.1) Total Bilirubin 0.3 MG/DL (0.2-1.0) Aspartate Amino Transf (AST/SGOT) 32 U/L (15-37) Alanine Aminotransferase (ALT/SGPT) 38 U/L (12-78) Alkaline Phosphatase 93 U/L (46-116) Troponin I 0.000 ng/mL (0.000-0.056) Total Protein 7.5 G/DL (6.4-8.2) Albumin 3.9 G/DL (3.4-5.0) Globulin 3.6 g/dL Albumin/Globulin Ratio 1.1 (1.0-2.7) EKG Diagnostic Results Rate: normal Rhythm: NSR ST Segments: no acute changes ASA given to the pt in ED: No Rhythm Strip Diag. Results EP Interpretation: yes Rhythm: NSR, no PVC's, no ectopy CT/MRI/US Diagnostic Results CT/MRI/US Diagnostic Results : Imaging Test Ordered: CTA Chest Impression Procedure: CTA Chest w Contrast EXAM: CT Angiography Chest With Intravenous Contrast CLINICAL HISTORY: CP TECHNIQUE: Axial computed tomographic angiography images of the chest with intravenous contrast. CTDI is 12.00 mGy and DLP is 407.70 mGy-cm. One or more of the following dose reduction techniques were used: automated exposure control, adjustment of the mA and/or kV according to patient size, use of iterative reconstruction technique. MIP reconstructed images were created and reviewed. COMPARISON: 10/05/2019 FINDINGS: Pulmonary arteries: Pulmonary embolism in the subsegmental branch of the right lower lobe. Aorta: No thoracic aortic aneurysm. Lungs: No mass. No consolidation. Pleural space: No pneumothorax. No effusion. Heart: No cardiomegaly. No pericardial effusion. Bones/joints: No acute fracture or dislocation. Soft tissues: Prior gastric surgery. Lymph nodes: No enlarged lymph nodes. IMPRESSION: Pulmonary embolism in the subsegmental branch of the right lower lobe. No pulmonary infarct or right heart strain. Last Vital Signs Date Time Temp Pulse Resp B/P (MAP) Pulse Ox O2 Delivery O2 Flow Rate FiO2 12/22/19 01:44 97.6 12/22/19 00:35 66 18 109/76 97 Room Air Status: improved Disposition: ADMITTED INPATIENT Condition: Serious Referrals: NON PHYSICIAN (PCP) Juan Diego Donohue MD Dec 22, 2019 04:31
[2019-12-22 05:13] VITALS: BP 114/81
[2019-12-22] MEDS ORDERED: Milk of Magnesia 30ml Ud ORAL PRN (06:15)
[2019-12-22] MEDS ORDERED: Tylenol #3 tab (300mg/30mg) ORAL PRN (06:15)
[2019-12-22 08:00] VITALS: BP 112/59
[2019-12-22] MEDS: Docusate 100mg cap ORAL SCH ×2 (09:09→17:48)
--- NOTE | 2019-12-22 10:09 | History and Physical ---
Lerner Cher EQUIPMENT ASSOCIATE 12/22/19 1008: History of Present Illness General Date patient seen: Dec 22, 2019 Time patient seen: 09:00 Reason for Hospitalization: chest pain with deep breathing Present Illness HPI 44 years old male with PMH of DVT, prior PE in 2019 completed 6 months of anticoagulation, atrial fibrillation, history of gastric bypass, history of open appendectomy, bipolar disorder, presented from transitional home with right- sided chest pain with deep breathing. Onset of symptoms for 1 day. He denied any leg swelling. No shortness of breath or cough. No fever or chills. Upon evaluation vital signs were stable. CT angio fo the chest revealed pulmonary embolism in the subsegmental branch of the right lower lobe. No pulmonary infarct or right heart strain. Troponin negative, ECG revealed NSR, no acute ischemic change., Stable electrolytes and renal parameters. Pancytopenia with WBC 3.5, hemoglobin 10, platelet count 79. In emergency room patient received a dose of Lovenox and admitted to telemetry floor for further management Upon questioning of the patient , it was found that patient had a family history from the father's side of blood clots. Patient initially developed DVT and then apparently was untreated , and subsequently he developed PE in 2019, status post anticoagulation for 6 months with Coumadin. Patient admits to prior history of EtOH abuse quit in 2007. Allergies: Coded Allergies: KETOROLAC (Verified Allergy, Mild, Rash, 01/01/19) TRAMADOL (Verified Allergy, Unknown, 08/01/18) NSAIDS (NON-STEROIDAL ANTI-INFLAMMA (Verified Adverse Reaction, Unknown, 08/01/18) COVID-19 Screening Contact w/high risk pt: No Recent Travel to affected area: No Experienced COVID-19 symptoms?: No Medication History Scheduled Docusate Sodium* (Colace*), 100 MG ORAL TWICE A DAY, (Reported) Famotidine* (Pepcid 20mg tablet*), 40 MG ORAL DAILY, (Reported) Fluoxetine Hcl* (Fluoxetine Hcl*), 40 MG ORAL DAILY, (Reported) Quetiapine Fumarate* (Quetiapine Fumarate*), 50 MG ORAL QHS, (Reported) Trazodone Hcl* (Desyrel*), 100 MG ORAL BEDTIME, (Reported) Scheduled PRN Acetaminophen With Codeine (T#3) (Tylenol #3 Tab*), 1 TAB ORAL Q6HR PRN for For Pain, (Reported) Patient History History Provided By: Patient Healthcare decision maker Resuscitation status full code Advanced Directive on File Review of Systems Constitutional: Reports: weakness Eye: Reports: no symptoms ENT: Reports: no symptoms Respiratory: Reports: see HPI Cardiovascular: Reports: see HPI Gastrointestinal: Reports: no symptoms Genitourinary: Reports: no symptoms Musculoskeletal: Reports: no symptoms Skin: Reports: no symptoms Psychiatric: Reports: no symptoms Neurological: Reports: no symptoms Endocrine: Reports: no symptoms Hematologic/Lymphatic: Reports: no symptoms Physical Exam General Appearance: WD/WN - overweight middle age male in NAD , alert Lines, tubes and drains: peripheral HEENT: normocephalic, atraumatic, anicteric, mucous membranes moist, PERRL Neck: non-tender, normal alignment, supple Respiratory/Chest: chest wall non-tender, lungs clear, no respiratory distress, no accessory muscle use Cardiovascular/Chest: normal peripheral pulses, normal rate, regular rhythm - SR on tele Abdomen: normal bowel sounds, non tender, soft - obese Extremities: normal range of motion, non-tender, no calf tenderness, normal capillary refill Skin Exam: warm/dry, other - large ecchymosis abdominal area, healed scars 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 normal, no motor/sensory deficits, alert, oriented x 3, responsive, normal mood/affect Musculoskeletal: normal muscle bulk Last 24 Hour Vital Signs Date Time Temp Pulse Resp B/P (MAP) Pulse Ox O2 Delivery O2 Flow Rate FiO2 12/22/19 05:30 98.1 78 18 114/81 98 Room Air 12/22/19 05:13 98.1 78 18 114/81 98 Room Air 12/22/19 05:11 97.6 12/22/19 01:44 97.6 12/22/19 00:35 97.3 66 18 109/76 97 Room Air 12/22/19 00:30 97.5 68 18 108/71 (83) 96 Room Air Intake and Output 12/21/19 12/22/19 19:00 07:00 Intake Total 1000 ml Balance 1000 ml IV Total 1000 ml Laboratory Tests Test 12/22/19 01:00 White Blood Count 3.5 K/UL (4.8-10.8) L Red Blood Count 3.36 M/UL (4.70-6.10) L Hemoglobin 10.0 G/DL (14.2-18.0) L Hematocrit 30.2 % (42.0-52.0) L Mean Corpuscular Volume 90 FL (80-99) Mean Corpuscular Hemoglobin 29.8 PG (27.0-31.0) Mean Corpuscular Hemoglobin Concent 33.1 G/DL (32.0-36.0) Red Cell Distribution Width 15.9 % (11.6-14.8) H Platelet Count 79 K/UL (150-450) L Mean Platelet Volume 5.7 FL (6.5-10.1) L Neutrophils (%) (Auto) % (45.0-75.0) Lymphocytes (%) (Auto) % (20.0-45.0) Monocytes (%) (Auto) % (1.0-10.0) Eosinophils (%) (Auto) % (0.0-3.0) Basophils (%) (Auto) % (0.0-2.0) Prothrombin Time 12.6 SEC (9.30-11.50) H Prothromb Time International Ratio 1.2 (0.9-1.1) H Activated Partial Thromboplast Time 22 SEC (23-33) L Sodium Level 138 MMOL/L (136-145) Potassium Level 3.9 MMOL/L (3.5-5.1) Chloride Level 104 MMOL/L (98-107) Carbon Dioxide Level 28 MMOL/L (21-32) Anion Gap 6 mmol/L (5-15) Blood Urea Nitrogen 13 mg/dL (7-18) Creatinine 0.9 MG/DL (0.55-1.30) Estimat Glomerular Filtration Rate > 60 mL/min (>60) Glucose Level 101 MG/DL (74-106) Calcium Level 8.9 MG/DL (8.5-10.1) Total Bilirubin 0.3 MG/DL (0.2-1.0) Aspartate Amino Transf (AST/SGOT) 32 U/L (15-37) Alanine Aminotransferase (ALT/SGPT) 38 U/L (12-78) Alkaline Phosphatase 93 U/L (46-116) Troponin I 0.000 ng/mL (0.000-0.056) Total Protein 7.5 G/DL (6.4-8.2) Albumin 3.9 G/DL (3.4-5.0) Globulin 3.6 g/dL Albumin/Globulin Ratio 1.1 (1.0-2.7) Microbiology Date/Time Source Procedure Growth Status 12/22/19 00:00 Nasopharynx SARS-CoV-2 RdRp Gene Assay - Final Complete Height (Feet): 6 Height (Inches): 1.00 Weight (Pounds): 242 Medications Current Medications Medications (Trade) Dose Ordered Sig/Mikey Route PRN Reason Start Time Stop Time Status Last Admin Dose Admin Acetaminophen (Tylenol) 650 mg Q4H PRN ORAL Pain (1-3)/ Temp >100.4 12/22/19 06:15 01/21/20 06:14 Acetaminophen/ Codeine Phosphate (Tylenol #3) 1 tab Q6H PRN ORAL For Pain 12/22/19 06:15 12/29/19 06:14 Docusate Sodium (Colace) 100 mg TWICE A DAY ORAL 12/22/19 09:00 01/21/20 08:59 12/22/19 09:09 Famotidine (Pepcid) 40 mg DAILY ORAL 12/22/19 09:00 03/21/20 08:59 12/22/19 09:09 Fluoxetine HCl (PROzac) 40 mg DAILY ORAL 12/22/19 09:00 01/21/20 08:59 12/22/19 09:09 Hydromorphone HCl (Dilaudid) 2 mg Q4H PRN IVP Severe pain (7-10) 12/22/19 06:15 12/29/19 06:14 12/22/19 09:28 Magnesium Hydroxide (Mom) 30 ml DAILYPRN PRN ORAL Constipation 12/22/19 06:15 01/21/20 06:14 Ondansetron HCl (Zofran) 4 mg Q4H PRN IVP Nausea & Vomiting 12/22/19 06:15 01/21/20 06:14 Quetiapine Fumarate (SEROqueL) 50 mg QHS ORAL 12/22/19 21:00 02/05/20 20:59 Trazodone HCl (Desyrel) 100 mg BEDTIME ORAL 12/22/19 21:00 01/21/20 20:59 Assessment/Plan Assessment/Plan: ASSESSMENT 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 Possible hypercoagulability disorder ( given family hsitroy) Pancytopenia Hx of ETOH abuse ( quit yrs ago) HTN PAF Bipolar disorder Homeless/from transitional housing Hx of gastric bypass PLAN OF CARE tele O2 prn keep sat > 90%, so far pulse ox remains 98% on RA hold Heparin or Lovenox for now given low PLT ECHO heme eval , need further recs re management and hypercoagulability w/up likely as OP source of pancytopenias unclear will check hep panel and HIV test as well as abdominal US pain management BP monitoring and management, no need for antiHTN at this time keep on tele GI prophylaxis supportive care case discussed and evaluated by supervising physician Nikko Nascimento MD 12/22/19 1336: History of Present Illness General Reason for Hospitalization: chest pain with deep breathing Present Illness Allergies: Coded Allergies: KETOROLAC (Verified Allergy, Mild, Rash, 01/01/19) TRAMADOL (Verified Allergy, Unknown, 08/01/18) NSAIDS (NON-STEROIDAL ANTI-INFLAMMA (Verified Adverse Reaction, Unknown, 08/01/18) Medication History Scheduled Docusate Sodium* (Colace*), 100 MG ORAL TWICE A DAY, (Reported) Famotidine* (Pepcid 20mg tablet*), 40 MG ORAL DAILY, (Reported) Fluoxetine Hcl* (Fluoxetine Hcl*), 40 MG ORAL DAILY, (Reported) Quetiapine Fumarate* (Quetiapine Fumarate*), 50 MG ORAL QHS, (Reported) Trazodone Hcl* (Desyrel*), 100 MG ORAL BEDTIME, (Reported) Scheduled PRN Acetaminophen With Codeine (T#3) (Tylenol #3 Tab*), 1 TAB ORAL Q6HR PRN for For Pain, (Reported) Assessment/Plan Assessment/Plan: Patient seen and examined with EQUIPMENT ASSOCIATE and I agree with the above formulated assessment and plan. Recurrent PE. Hemodynamically stable with no evidence of heart strain. Check 2D Echo and duplex b/l LE r/o DVT Lovenox given in Ed, noted concern about thrombocytopenia, will cont heparin gtt and await heme/onc eval. Patient will likely need lifelong anticoagulation. Cher Lerner NP Dec 22, 2019 10:08 Nikko Nascimento MD Dec 22, 2019 13:36
[2019-12-22 12:00] VITALS: BP 100/44
[2019-12-22 16:00] VITALS: BP 99/63
[2019-12-22 16:43] LABS: HEMATOCRIT 30.1 % (42.0-52.0); HEMOGLOBIN 9.5 G/DL (14.2-18.0); MEAN CORPUSCULAR VOLUME 96 FL (80-99); PLATELET COUNT 64 K/UL (150-450); RED BLOOD COUNT 3.14 M/UL (4.70-6.10); RED CELL DISTRIBUTION WIDTH 17.1 % (11.6-14.8); WHITE BLOOD COUNT 2.3 K/UL (4.8-10.8)
--- NOTE | 2019-12-22 16:51 | Diagnostic Imaging Report ---
US ABDOMEN Ultrasound abdomen complete INDICATION: Pain COMPARISON: None TECHNIQUE: Real-time sonographic evaluation of the abdomen is performed using grayscale and color flow. FINDINGS: The liver demonstrates fatty changes and measures 19.31 cm. The portal vein is patent with appropriate direction of flow. The common duct is not abnormally dilated. Common bile duct measures 3.5 mm The gallbladder demonstrates no abnormal wall thickening, pericholecystic free fluid, or shadowing echogenic foci. Visualized portions of the pancreas are within normal limits. The spleen is normal in size and echogenicity. The right kidney measures 10.55 cm in length. No contour deforming masses, hydronephrosis, or shadowing echogenic stones are identified. Renal cortical echogenicity is echogenicity. The left kidney measures 11.74 cm in length. No contour deforming masses, hydronephrosis, or shadowing echogenic stones are identified. Renal cortical echogenicity is echogenicity. Visualized portions of the aorta and IVC are unremarkable. No free fluid is identified. IMPRESSION: Enlarged liver with fatty changes. No gallstones appreciated. No free fluid seen.
[2019-12-22] MEDS ORDERED: Heparin1,000 units/500ml Premix(Conc:2 units/ml) IV SCH (18:15)
[2019-12-22 20:00] VITALS: BP 136/76
[2019-12-22] MEDS: TraZODone 100mg tab ORAL SCH (20:48)
--- NOTE | 2019-12-22 20:51 | Diagnostic Imaging Report ---
US VENOUS BILATERAL LOWER EXTREMITIES INDICATION: Shortness of breath TECHNIQUE: Real-time sonographic imaging of the bilateral common femoral, superficial femoral and popliteal veins is performed utilizing intermittent compression. The study is supplemented with color flow imaging and duplex Doppler during spontaneous flow, Valsalva and calf augmentation. COMPARISON: None FINDINGS: Normal compressibility is demonstrated from the left common femoral vein to the popliteal vein bilaterally. There is normal response to Valsalva and augmentation in the left lower extremity. Normal spontaneous phasic flow is noted. There is echogenic material within the right distal superficial femoral vein. Remaining right lower extremity veins appear patent. IMPRESSION: Nonocclusive clot in the right distal superficial femoral vein.
[2019-12-22] MEDS: Heparin 5000 units/ml inj SUBQ SCH (23:48)
[2019-12-23] VITALS (14 sets, daily range): BP systolic 108–138; BP diastolic 51–72
[2019-12-23] MEDS: Heparin 5000 units/ml inj SUBQ SCH ×3 (06:00→22:00)
[2019-12-23 07:12] LABS: HEMATOCRIT 28.7 % (42.0-52.0); HEMOGLOBIN 9.6 G/DL (14.2-18.0); MEAN CORPUSCULAR VOLUME 91 FL (80-99); PLATELET COUNT 72 K/UL (150-450); RED BLOOD COUNT 3.15 M/UL (4.70-6.10); RED CELL DISTRIBUTION WIDTH 15.7 % (11.6-14.8); WHITE BLOOD COUNT 2.6 K/UL (4.8-10.8)
[2019-12-23 07:23] LABS: ANION GAP 2 mmol/L (5-15); BLOOD UREA NITROGEN 9 mg/dL (7-18); CALCIUM 8.6 MG/DL (8.5-10.1); CARBON DIOXIDE 32 MMOL/L (21-32); CHLORIDE 108 MMOL/L (98-107); CREATININE 0.9 MG/DL (0.55-1.30); POTASSIUM 4.2 MMOL/L (3.5-5.1); SODIUM 142 MMOL/L (136-145)
[2019-12-23] MEDS ORDERED: Lidocaine 1% Plain 30 ml INJ PRN (08:15)
[2019-12-23] MEDS ORDERED: Sodium Bicarbonate 4% 2.4meq/5ml vial IV PRN (08:15)
[2019-12-23] MEDS: Docusate 100mg cap ORAL SCH ×2 (08:21→18:15)
[2019-12-23] MEDS ORDERED: Omnipaque-300 100ml vial INJ PRN (10:45)
[2019-12-23] MEDS ORDERED: Heparin1,000 units/500ml Premix(Conc:2 units/ml) INJ PRN (10:45)
--- NOTE | 2019-12-23 10:48 | Pulmonology Progress Note ---
Cher Lerner ADDICTIONS THERAPIST 12/23/19 1048: Subjective Allergies: Coded Allergies: KETOROLAC (Verified Allergy, Mild, Rash, 01/01/19) TRAMADOL (Verified Allergy, Unknown, 08/01/18) NSAIDS (NON-STEROIDAL ANTI-INFLAMMA (Verified Adverse Reaction, Unknown, 08/01/18) Subjective no CP no SOB pulse oximetry remains stable on RA PLT 72 this am awaiting for IVC filter and heme eval noted yessi high 40th-low 50th on monitor, SB patient reports intermittent dizziness, Objective Last 24 Hour Vital Signs Date Time Temp Pulse Resp B/P (MAP) Pulse Ox O2 Delivery O2 Flow Rate FiO2 12/23/19 08:57 97.9 12/23/19 08:53 Room Air 12/23/19 08:00 97.9 60 19 109/69 (82) 98 12/23/19 08:00 56 12/23/19 04:56 96.8 12/23/19 04:00 46 12/23/19 04:00 97.2 46 20 131/71 (91) 98 12/23/19 00:00 96.8 45 18 138/69 (92) 100 12/23/19 00:00 45 12/22/19 22:15 97.7 12/22/19 21:00 Room Air 12/22/19 20:00 97.3 47 18 136/76 (96) 100 12/22/19 20:00 47 12/22/19 18:18 97.7 12/22/19 16:00 97.7 50 18 99/63 (75) 96 12/22/19 16:00 45 12/22/19 14:41 97.5 12/22/19 12:00 45 12/22/19 12:00 97.5 54 18 100/44 (62) 100 12/22/19 11:44 Room Air 12/22/19 11:28 Room Air Intake and Output 12/22/19 12/23/19 19:00 07:00 Intake Total 640 ml Balance 640 ml Intake Oral 640 ml # Voids 5 3 # Bowel Movements 1 Objective General Appearance: WD/WN - overweight middle age male in NAD , alert Lines, tubes and drains: peripheral HEENT: normocephalic, atraumatic, anicteric, mucous membranes moist, PERRL Neck: non-tender, normal alignment, supple Respiratory/Chest: chest wall non-tender, lungs clear, no respiratory distress, no accessory muscle use Cardiovascular/Chest: normal peripheral pulses, yessi, regular rhythm - SB on tele Abdomen: normal bowel sounds, non tender, soft - obese Extremities: normal range of motion, non-tender, no calf tenderness, normal capillary refill Skin Exam: warm/dry, large ecchymosis abdominal area, healed scars 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 grossly normal, no motor/sensory deficits, alert, oriented x 3, responsive, normal mood/affect Musculoskeletal: normal muscle bulk Microbiology Date/Time Source Procedure Growth Status 12/22/19 00:00 Nasopharynx SARS-CoV-2 RdRp Gene Assay - Final Complete Laboratory Tests 12/22/19 16:25: White Blood Count 2.3L, Red Blood Count 3.14L, Hemoglobin 9.5L, Hematocrit 30.1L , Mean Corpuscular Volume 96, Mean Corpuscular Hemoglobin 30.3, Mean Corpuscular Hemoglobin Concent 31.6L, Red Cell Distribution Width 17.1H, Platelet Count 64L, Mean Platelet Volume 7.6, Neutrophils (%) (Auto) , Lymphocytes (%) (Auto) , Monocytes (%) (Auto) , Eosinophils (%) (Auto) , Basophils (%) (Auto) , Differential Total Cells Counted 100, Neutrophils % (Manual) 47, Lymphocytes % (Manual) 42, Monocytes % (Manual) 8, Eosinophils % (Manual) 2, Basophils % (Manual) 1, Band Neutrophils 0, Platelet Estimate DecreasedL, Platelet Morphology Normal, Hypochromasia 1+, Anisocytosis 1+ 12/23/19 06:34: White Blood Count 2.6L, Red Blood Count 3.15L, Hemoglobin 9.6L, Hematocrit 28.7L , Mean Corpuscular Volume 91, Mean Corpuscular Hemoglobin 30.4, Mean Corpuscular Hemoglobin Concent 33.4, Red Cell Distribution Width 15.7H, Platelet Count 72L, Mean Platelet Volume 6.9, Neutrophils (%) (Auto) , Lymphocytes (%) (Auto) , Monocytes (%) (Auto) , Eosinophils (%) (Auto) , Basophils (%) (Auto) , Differential Total Cells Counted 100, Neutrophils % (Manual) 51, Lymphocytes % (Manual) 47H, Monocytes % (Manual) 1, Eosinophils % (Manual) 1, Basophils % (Manual) 0, Band Neutrophils 0, Platelet Estimate DecreasedL, Platelet Morphology Normal, Hypochromasia 2+, Anisocytosis 1+, Sodium Level 142, Potassium Level 4.2, Chloride Level 108H, Carbon Dioxide Level 32, Anion Gap 2L, Blood Urea Nitrogen 9, Creatinine 0.9, Estimat Glomerular Filtration Rate > 60, Glucose Level 88, Calcium Level 8.6, Troponin I 0.003, Hepatitis A IgM Antibody [Pending], Hepatitis B Surface Antigen [Pending], Hepatitis B Core IgM Antibody [Pending], Hepatitis C Antibody [Pending], HIV (1&2) Antibody Rapid Negative Current Medications Medications (Trade) Dose Ordered Sig/Mikey Route PRN Reason Start Time Stop Time Status Last Admin Dose Admin Acetaminophen (Tylenol) 650 mg Q4H PRN ORAL Pain (1-3)/ Temp >100.4 12/22/19 06:15 01/21/20 06:14 Acetaminophen/ Codeine Phosphate (Tylenol #3) 1 tab Q6H PRN ORAL For Pain 12/22/19 06:15 12/29/19 06:14 Docusate Sodium (Colace) 100 mg TWICE A DAY ORAL 12/22/19 09:00 01/21/20 08:59 12/23/19 08:21 Famotidine (Pepcid) 40 mg DAILY ORAL 12/22/19 09:00 03/21/20 08:59 12/23/19 08:22 Fluoxetine HCl (PROzac) 40 mg DAILY ORAL 12/22/19 09:00 01/21/20 08:59 12/23/19 08:23 Heparin Sodium (Porcine) (Heparin 5000 units/ml) 5,000 units EVERY 8 HOURS SUBQ 12/22/19 23:30 02/05/20 23:29 12/23/19 06:00 Hydromorphone HCl (Dilaudid) 2 mg Q4H PRN IVP Severe pain (7-10) 12/22/19 06:15 12/29/19 06:14 12/23/19 08:24 Lidocaine HCl (Xylocaine 1% 30ml) 30 ml NOW PRN INJ Radiology Procedure 12/23/19 08:15 12/26/19 08:14 Magnesium Hydroxide (Mom) 30 ml DAILYPRN PRN ORAL Constipation 12/22/19 06:15 01/21/20 06:14 Ondansetron HCl (Zofran) 4 mg Q4H PRN IVP Nausea & Vomiting 12/22/19 06:15 01/21/20 06:14 12/23/19 08:26 Quetiapine Fumarate (SEROqueL) 50 mg QHS ORAL 12/22/19 21:00 02/05/20 20:59 12/22/19 20:48 Sodium Bicarbonate (Sodium Bicarbonate 4%) 1 ml NOW PRN IV Radiology Procedure 12/23/19 08:15 12/26/19 08:14 Trazodone HCl (Desyrel) 100 mg BEDTIME ORAL 12/22/19 21:00 01/21/20 20:59 12/22/19 20:48 Assessment/Plan Assessment/Plan ASSESSMENT 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 Probably hypercoagulability disorder ( given family history) Bradycardia with dizziness Pancytopenia Hepatomegaly Fatty liver Hx of ETOH abuse ( quit yrs ago) HTN PAF Bipolar disorder Homeless/from transitional housing Hx of gastric bypass PLAN OF CARE tele O2 prn keep sat > 90%, so far pulse ox remains 98% on RA hold Heparin or Lovenox given low PLT Venous Duplex nonocclusive clot R distal SFV heme eval pending -> need further recs re management and hypercoagulability w/up, likely as OP IVC filter this am ECHO with pEF, no evidence of R heart strain yessi noted high 40th and low 50th, troponin negative will get another troponin this am and ECG cardio eval pending source of pancytopenias unclear will check hep panel pending and HIV test NGT as well as abdominal US + HM, fatty liver prior hx of ETOH pain management BP monitoring and management, no need for antiHTN at this time keep on tele GI prophylaxis supportive care case discussed and evaluated by supervising physician Nikko Nascimento MD 12/23/19 1128: Subjective Allergies: Coded Allergies: KETOROLAC (Verified Allergy, Mild, Rash, 01/01/19) TRAMADOL (Verified Allergy, Unknown, 08/01/18) NSAIDS (NON-STEROIDAL ANTI-INFLAMMA (Verified Adverse Reaction, Unknown, 08/01/18) Assessment/Plan Assessment/Plan Patient seen and examined with ADDICTIONS THERAPIST and the above formulated assessment and plan. Cher Lerner NP Dec 23, 2019 10:48 Nikko Nascimento MD Dec 23, 2019 11:28
--- NOTE | 2019-12-23 14:15 | Pre-Procedure Note/Attestation ---
Pre-Procedure Note/Attestation Complete Prior to Procedure Planned Procedure: not applicable Procedure Narrative: IVC filter Indications for Procedure Pre-Operative Diagnosis: recurrent PE/DVT, thrombocytopenia contraindicating anticoagulation Attestation I attest that I discussed the nature of the procedure; its benefits; risks and complications; and alternatives (and the risks and benefits of such alternatives), prior to the procedure, with the patient (or the patient's legal practice representative). I attest that, if there was a reasonable possibility of needing a blood transfusion, the patient (or the patient's legal practice representative) was given the [facility] standardized written summary, pursuant to the Brien Vincenzo Blood Safety Act ([place] Health and Safety Code # 1645, as amended). I attest that I re-evaluated the patient just prior to the surgery and that ther e has been no change in the patient's H&P, except as documented below: D/W pt. Also d/w Dr. Nascimento, indicated preference for removable filter. This was also discussed with pt. Mitch Sampson MD Dec 23, 2019 14:15
--- NOTE | 2019-12-23 15:01 | Cardiac Electrophysiology PN ---
Subjective Subjective [id number] Objective Last 24 Hour Vital Signs Date Time Temp Pulse Resp B/P (MAP) Pulse Ox O2 Delivery O2 Flow Rate FiO2 12/23/19 14:32 62 19 109/51 99 Room Air 12/23/19 13:33 52 19 12/23/19 12:00 46 12/23/19 12:00 97.9 53 18 108/56 (73) 98 12/23/19 08:57 97.9 12/23/19 08:53 Room Air 12/23/19 08:00 97.9 60 19 109/69 (82) 98 12/23/19 08:00 56 12/23/19 04:56 96.8 12/23/19 04:00 46 12/23/19 04:00 97.2 46 20 131/71 (91) 98 12/23/19 00:00 96.8 45 18 138/69 (92) 100 12/23/19 00:00 45 12/22/19 22:15 97.7 12/22/19 21:00 Room Air 12/22/19 20:00 97.3 47 18 136/76 (96) 100 12/22/19 20:00 47 12/22/19 18:18 97.7 12/22/19 16:00 97.7 50 18 99/63 (75) 96 12/22/19 16:00 45 Intake and Output 12/22/19 12/23/19 19:00 07:00 Intake Total 640 ml Balance 640 ml Intake Oral 640 ml # Voids 5 3 # Bowel Movements 1 Laboratory Tests Test 12/22/19 16:25 12/23/19 06:34 White Blood Count 2.3 K/UL (4.8-10.8) L 2.6 K/UL (4.8-10.8) L Red Blood Count 3.14 M/UL (4.70-6.10) L 3.15 M/UL (4.70-6.10) L Hemoglobin 9.5 G/DL (14.2-18.0) L 9.6 G/DL (14.2-18.0) L Hematocrit 30.1 % (42.0-52.0) L 28.7 % (42.0-52.0) L Mean Corpuscular Volume 96 FL (80-99) 91 FL (80-99) Mean Corpuscular Hemoglobin 30.3 PG (27.0-31.0) 30.4 PG (27.0-31.0) Mean Corpuscular Hemoglobin Concent 31.6 G/DL (32.0-36.0) L 33.4 G/DL (32.0-36.0) Red Cell Distribution Width 17.1 % (11.6-14.8) H 15.7 % (11.6-14.8) H Platelet Count 64 K/UL (150-450) L 72 K/UL (150-450) L Mean Platelet Volume 7.6 FL (6.5-10.1) 6.9 FL (6.5-10.1) Neutrophils (%) (Auto) % (45.0-75.0) % (45.0-75.0) Lymphocytes (%) (Auto) % (20.0-45.0) % (20.0-45.0) Monocytes (%) (Auto) % (1.0-10.0) % (1.0-10.0) Eosinophils (%) (Auto) % (0.0-3.0) % (0.0-3.0) Basophils (%) (Auto) % (0.0-2.0) % (0.0-2.0) Differential Total Cells Counted 100 100 Neutrophils % (Manual) 47 % (45-75) 51 % (45-75) Lymphocytes % (Manual) 42 % (20-45) 47 % (20-45) H Monocytes % (Manual) 8 % (1-10) 1 % (1-10) Eosinophils % (Manual) 2 % (0-3) 1 % (0-3) Basophils % (Manual) 1 % (0-2) 0 % (0-2) Band Neutrophils 0 % (0-8) 0 % (0-8) Platelet Estimate Decreased L Decreased L Platelet Morphology Normal Normal Hypochromasia 1+ 2+ Anisocytosis 1+ 1+ Sodium Level 142 MMOL/L (136-145) Potassium Level 4.2 MMOL/L (3.5-5.1) Chloride Level 108 MMOL/L (98-107) H Carbon Dioxide Level 32 MMOL/L (21-32) Anion Gap 2 mmol/L (5-15) L Blood Urea Nitrogen 9 mg/dL (7-18) Creatinine 0.9 MG/DL (0.55-1.30) Estimat Glomerular Filtration Rate > 60 mL/min (>60) Glucose Level 88 MG/DL (74-106) Calcium Level 8.6 MG/DL (8.5-10.1) Troponin I 0.003 ng/mL (0.000-0.056) Hepatitis A IgM Antibody Pending Hepatitis B Surface Antigen Pending Hepatitis B Core IgM Antibody Pending Hepatitis C Antibody Pending HIV (1&2) Antibody Rapid Negative (NEGATIVE) Microbiology Date/Time Source Procedure Growth Status 12/22/19 00:00 Nasopharynx SARS-CoV-2 RdRp Gene Assay - Final Complete Jarek Grant MD Dec 23, 2019 15:01
--- NOTE | 2019-12-23 17:20 | Diagnostic Imaging Report ---
Indications: Deep venous thrombosis, contraindication to anticoagulation Technique: Informed consent obtained prior to commencement of the procedure. Prior CT scan reviewed, and demonstrates no caval anomalies . Total sterile technique, including sterile probe cover and sterile gel, sterile gloves, hand hygiene, hat, mask,, sterile gown, large sterile drape, and preparation with 2% chlorhexidine utilized. Local anesthesia with 1% lidocaine. Ultrasound reveals patent compressible right internal jugular vein. Under real-time ultrasound guidance, puncture right internal jugular vein, passage of a guidewire, into the inferior vena cava, , over which was passed the introducer assembly for the Cook Celect IVC filter. Catheter was then placed at the level of the iliac venous confluence.. An inferior venacavogram performed, using machine injection of contrast. The images were reviewed. The position of the renal veins was determined. The sheath was positioned appropriately, and the guidewire and dilator were removed. The filter was passed into the into the sheath. It was then positioned into the appropriate position. The filter was then deployed by unsheathing it. The filter introducer was removed, and a followup inferior venacavogram was performed using hand injection of contrast through the sheath. The filter position was deemed acceptable. The sheath was removed. Pressure held on the right neck until hemostasis was achieved. The patient tolerated procedure well, without immediate complication. Total fluoroscopy time 467 seconds Total dose area product 2.4 mGym2 Comparison: none. Findings: Inferior venacavogram demonstrates normal caliber inferior vena cava. Single renal veins. No intracaval thrombus. Completion inferior venacavogram demonstrates satisfactory filter position, with slight acceptable rightward tilt. Impression: Successful placement of right transjugular infrarenal inferior vena cava filter, as above.
[2019-12-23] MEDS: TraZODone 100mg tab ORAL SCH (20:56)
--- NOTE | 2019-12-23 21:45 | Consultation ---
DATE OF CONSULTATION: 12/23/2019 CARDIOLOGY CONSULTATION CONSULTING PHYSICIAN: Jarek Grant MD REFERRING PHYSICIAN: Jonas Butt MD REASON FOR CONSULTATION: Chest pain and shortness of breath. HISTORY OF PRESENT ILLNESS: The patient is a 44-year-old gentleman with history of DVT and pulmonary embolism in 2019, who completed six months of anticoagulation as well as atrial fibrillation, history of morbid obesity, status post gastric bypass surgery as well as appendectomy, and bipolar disorder, presented from the transitional home with right-sided chest pain, especially with deep breathing of one-day duration. The patient denies any nausea, vomiting, or diaphoresis. CT angio of the chest showed pulmonary embolism in the subsegmental branch of the right lower lobe. EKG showed sinus rhythm with no acute ischemic changes. Patient received Lovenox on admission and was admitted. The patient also has family history of blood clots in his father's side. He has been on anticoagulation for six months with Coumadin. The patient has a history of alcohol use, quit in 2007. REVIEW OF SYSTEMS: Negative other than what was mentioned in history of present illness. PAST MEDICAL HISTORY: As mentioned above. FAMILY HISTORY: Noncontributory. SOCIAL HISTORY: History of alcohol use in the past. PHYSICAL EXAMINATION: VITAL SIGNS: Show blood pressure 114/55, pulse is 67, respirations 18. He is afebrile. HEAD AND NECK: Showed no JVD. LUNGS: Coarse rhonchi. CARDIOVASCULAR: Shows regular S1 and S2 with no gallop or murmur. ABDOMEN: Soft. EXTREMITIES: 1+ pitting edema. LABORATORY AND DIAGNOSTIC DATA: Labs show white count of 2.7, hemoglobin 9.7, hematocrit 28.7, platelet count of 72,000. Sodium 142, potassium 4.2, BUN of 9, creatinine 0.9. Troponin is negative. ASSESSMENT AND PLAN: 1. Chest pain due to acute pulmonary embolism. The patient is already ruled out for myocardial infarction. Echocardiogram showed ejection fraction of 60% to 65% with a PA pressure of only 12. 2. Acute pulmonary embolism. The patient is on heparin drip and IVC filter in view of history of recurrent pulmonary embolism. 3. Thrombocytopenia contraindicating anticoagulation. The patient's platelet count in 60s and 70s. 4. History of bipolar disorder, on Seroquel. Thank you very much for allowing me to participate in the care of this patient. Please do not hesitate to contact me for any questions regarding my evaluation. Jarek Grant M.D. DR: ELIZA JOB#: [id number] CC:
[2019-12-24] VITALS: BP 107/69
[2019-12-24 04:00] VITALS: BP 120/58
[2019-12-24] MEDS: Heparin 5000 units/ml inj SUBQ SCH ×3 (06:00→22:00)
[2019-12-24 06:45] LABS: HEMATOCRIT 27.7 % (42.0-52.0); HEMOGLOBIN 9.2 G/DL (14.2-18.0); MEAN CORPUSCULAR VOLUME 92 FL (80-99); PLATELET COUNT 76 K/UL (150-450); RED BLOOD COUNT 3.02 M/UL (4.70-6.10); RED CELL DISTRIBUTION WIDTH 15.6 % (11.6-14.8); WHITE BLOOD COUNT 2.8 K/UL (4.8-10.8)
[2019-12-24 08:00] VITALS: BP 112/54
[2019-12-24] MEDS: Docusate 100mg cap ORAL SCH ×2 (08:28→19:19)
--- NOTE | 2019-12-24 11:54 | Pulmonology Progress Note ---
Reginald Lerneret HOG STICKER 12/24/19 1154: Subjective Allergies: Coded Allergies: DIAZEPAM (Verified Allergy, Intermediate, 12/23/19) TREE NUT (Verified Allergy, Intermediate, 12/23/19) KETOROLAC (Verified Allergy, Mild, Rash, 01/01/19) TRAMADOL (Verified Allergy, Unknown, 08/01/18) NSAIDS (NON-STEROIDAL ANTI-INFLAMMA (Verified Adverse Reaction, Unknown, 08/01/18) Subjective no CP no SOB pulse oximetry remains stable on RA PLT 76 this am s/p IVC filter 12/22 heme eval pending no yessi this am Objective Last 24 Hour Vital Signs Date Time Temp Pulse Resp B/P (MAP) Pulse Ox O2 Delivery O2 Flow Rate FiO2 12/24/19 09:00 Room Air 12/24/19 08:00 99.3 62 20 112/54 (73) 94 12/24/19 08:00 71 12/24/19 04:00 63 12/24/19 04:00 98.1 61 16 120/58 (78) 98 12/24/19 00:00 52 12/24/19 00:00 97.1 52 14 107/69 (82) 99 12/23/19 21:00 Room Air 12/23/19 20:16 98.6 12/23/19 20:00 96.8 64 18 120/72 (88) 100 12/23/19 20:00 59 12/23/19 16:00 98.6 58 20 119/58 (78) 100 12/23/19 14:59 67 22 114/55 100 Room Air 12/23/19 14:57 65 26 119/57 100 Room Air 12/23/19 14:52 57 19 114/57 100 Room Air 12/23/19 14:47 60 12 118/60 100 Room Air 12/23/19 14:42 62 12 113/54 100 Room Air 12/23/19 14:37 53 17 113/56 100 Room Air 12/23/19 14:32 62 19 109/51 99 Room Air 12/23/19 13:33 52 19 12/23/19 12:00 46 12/23/19 12:00 97.9 53 18 108/56 (73) 98 Intake and Output 12/23/19 12/24/19 19:00 07:00 Intake Total 150 ml 505 ml Balance 150 ml 505 ml Intake Oral 150 ml 480 ml IV Total 25 ml # Voids 4 3 # Bowel Movements 1 Objective General Appearance: WD/WN - overweight middle age male in NAD , alert Lines, tubes and drains: peripheral HEENT: normocephalic, atraumatic, anicteric, mucous membranes moist, PERRL Neck: non-tender, normal alignment, supple Respiratory/Chest: chest wall non-tender, lungs clear, no respiratory distress, no accessory muscle use Cardiovascular/Chest: normal peripheral pulses, yessi, regular rhythm - SB on tele Abdomen: normal bowel sounds, non tender, soft - obese Extremities: normal range of motion, non-tender, no calf tenderness, normal capillary refill Skin Exam: warm/dry, large ecchymosis abdominal area, healed scars 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 grossly normal, no motor/sensory deficits, alert, oriented x 3, responsive, normal mood/affect Musculoskeletal: normal muscle bulk Microbiology Date/Time Source Procedure Growth Status 12/22/19 00:00 Nasopharynx SARS-CoV-2 RdRp Gene Assay - Final Complete Laboratory Tests 12/24/19 06:09: White Blood Count 2.8L, Red Blood Count 3.02L, Hemoglobin 9.2L, Hematocrit 27.7L , Mean Corpuscular Volume 92, Mean Corpuscular Hemoglobin 30.3, Mean Corpuscular Hemoglobin Concent 33.0, Red Cell Distribution Width 15.6H, Platelet Count 76L, Mean Platelet Volume 8.1, Neutrophils (%) (Auto) , Lymphocytes (%) (Auto) , Monocytes (%) (Auto) , Eosinophils (%) (Auto) , Basophils (%) (Auto) , Differential Total Cells Counted 100, Neutrophils % (Manual) 55, Lymphocytes % (Manual) 40, Monocytes % (Manual) 4, Eosinophils % (Manual) 1, Basophils % (Manual) 0, Band Neutrophils 0, Platelet Estimate DecreasedL, Platelet Morphology Normal, Hypochromasia 2+, Anisocytosis 1+, Spherocytes 1+ Current Medications Medications (Trade) Dose Ordered Sig/Mikey Route PRN Reason Start Time Stop Time Status Last Admin Dose Admin Acetaminophen (Tylenol) 650 mg Q4H PRN ORAL Pain (1-3)/ Temp >100.4 12/22/19 06:15 01/21/20 06:14 Acetaminophen/ Codeine Phosphate (Tylenol #3) 1 tab Q6H PRN ORAL For Pain 12/22/19 06:15 12/29/19 06:14 Docusate Sodium (Colace) 100 mg TWICE A DAY ORAL 12/22/19 09:00 01/21/20 08:59 12/24/19 08:28 Famotidine (Pepcid) 40 mg DAILY ORAL 12/22/19 09:00 03/21/20 08:59 12/24/19 08:27 Fluoxetine HCl (PROzac) 40 mg DAILY ORAL 12/22/19 09:00 01/21/20 08:59 12/24/19 08:28 Heparin Sodium (Porcine) (Heparin 5000 units/ml) 5,000 units EVERY 8 HOURS SUBQ 12/22/19 23:30 02/05/20 23:29 12/23/19 06:00 Heparin Sodium/ Sodium Chloride (Heparin 1000 units/500ml Premix) 1,000 unit ONCE PRN INJ PROCEDURE 12/23/19 10:45 12/25/19 10:44 Hydromorphone HCl (Dilaudid) 2 mg Q4H PRN IVP Severe pain (7-10) 12/22/19 06:15 12/29/19 06:14 12/24/19 11:41 Iohexol (OMNIPAQUE-300 100ml) 200 ml ONCE PRN INJ radiology 12/23/19 10:45 12/25/19 10:44 Lidocaine HCl (Xylocaine 1% 30ml) 30 ml NOW PRN INJ Radiology Procedure 12/23/19 08:15 12/26/19 08:14 Magnesium Hydroxide (Mom) 30 ml DAILYPRN PRN ORAL Constipation 12/22/19 06:15 01/21/20 06:14 Ondansetron HCl (Zofran) 4 mg Q4H PRN IVP Nausea & Vomiting 12/22/19 06:15 01/21/20 06:14 12/24/19 11:40 Quetiapine Fumarate (SEROqueL) 50 mg QHS ORAL 12/22/19 21:00 02/05/20 20:59 12/23/19 20:57 Sodium Bicarbonate (Sodium Bicarbonate 4%) 1 ml NOW PRN IV Radiology Procedure 12/23/19 08:15 12/26/19 08:14 Trazodone HCl (Desyrel) 100 mg BEDTIME ORAL 12/22/19 21:00 01/21/20 20:59 12/23/19 20:56 Assessment/Plan Assessment/Plan ASSESSMENT 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 Probably hypercoagulability disorder ( given family history) Bradycardia with dizziness Pancytopenia Hepatomegaly Fatty liver Hx of ETOH abuse ( quit yrs ago) HTN PAF Bipolar disorder Homeless/from transitional housing Hx of gastric bypass PLAN OF CARE tele O2 prn keep sat > 90%, so far pulse ox remains 98% on RA hold Heparin or Lovenox given low PLT Venous Duplex nonocclusive clot R distal SFV heme eval pending -> need further recs re management and hypercoagulability w/up, likely as OP s/p 12/22 IVC filter ECHO with pEF, no evidence of R heart strain yessi noted high 40th and low 50th, improved now troponin x2 negative cardio eval appreciated source of pancytopenias unclear -also need heme further recs hep panel NGT , HIV test NGT abdominal US + HM, fatty liver prior hx of ETOH pain management BP monitoring and management, no need for antiHTN at this time keep on tele GI prophylaxis supportive care case discussed and evaluated by supervising physician Nikko Nascimento MD 12/24/19 1500: Subjective Allergies: Coded Allergies: DIAZEPAM (Verified Allergy, Intermediate, 12/23/19) TREE NUT (Verified Allergy, Intermediate, 12/23/19) KETOROLAC (Verified Allergy, Mild, Rash, 01/01/19) TRAMADOL (Verified Allergy, Unknown, 08/01/18) NSAIDS (NON-STEROIDAL ANTI-INFLAMMA (Verified Adverse Reaction, Unknown, 08/01/18) Assessment/Plan Assessment/Plan Patient seen and examined with HOG STICKER and the above formulated assessment and plan. Awaiting heme eval for recurrent PE with thrombocytopenia. IVC filter placed. Platelets in 70s. Not on anticoagulation for now. Heme to see today. Cher Lerner NP Dec 24, 2019 11:54 Nikko Nascimento MD Dec 24, 2019 15:00
[2019-12-24 12:00] VITALS: BP 109/57
[2019-12-24 16:00] VITALS: BP 116/62
--- NOTE | 2019-12-24 16:38 | Cardiology Report ---
APPROVED REPORT EXAM: Two-dimensional and M-mode echocardiogram with Doppler and color Doppler. INDICATION Chest Pain Pericardial Effusion M-Mode DIMENSIONS IVSd0.9 (0.7-1.1cm)Left Atrium (MM)3.1 (1.6-4.0cm) LVDd5.5 (3.5-5.6cm)Aortic Root3.6 (2.0-3.7cm) PWd0.9 (0.7-1.1cm)Aortic Cusp Exc.2.4 (1.5-2.0cm) IVSs1.4 cmEPSS0.5 (>1.0cm) LVDs3.7 (2.5-4.0cm) PWs1.4 cm <Conclusion> Normal left ventricular chamber size, systolic function and wall motion. Left ventricular ejection fraction estimated to be 60-65 %. No evidence of left ventricular hypertrophy. Anterior Echo-free space, may be due to pericardial fat or effusion. Left atrial chamber size is at upper limits of normal. Right cardiac chamber sizes are within normal limits. Focal aortic valve sclerosis with adequate cusp excursion. Thickened mitral valve leaflets with normal excursion. Mitral annulus and aortic root calcification. Pulmonic valve not well visualized. Normal tricuspid valve structure. IVC at normal size with physiologic collapse. A color flow and spectral Doppler study was performed and revealed: No aortic regurgitation. Trace mitral regurgitation. Mitral inflow indicate normal left ventricular diastolic function. Trace tricuspid regurgitation. Tricuspid systolic velocities suggests peak right ventricular systolic pressure of 12 mmHg.
--- NOTE | 2019-12-24 17:05 | Cardiac Electrophysiology PN ---
Assessment/Plan Assessment/Plan 1. Chest pain due to acute pulmonary embolism. The patient is already ruled out for myocardial infarction. Echocardiogram showed ejection fraction of 60% to 65% with a PA pressure of only 12. 2. Acute pulmonary embolism. S/P IVC filter 12/23/19 3. Thrombocytopenia contraindicating anticoagulation. The patient's platelet count in 60s and 70s. Hemonc eval pending 4. History of bipolar disorder, on Seroquel. 5. LOAN IN 50S INTERMITTENT. NO HEART BLOCK Subjective Subjective Still has some CP and SOB. On heparin drip on 2 liter NC. Occasional sinus loan in 50s Objective Last 24 Hour Vital Signs Date Time Temp Pulse Resp B/P (MAP) Pulse Ox O2 Delivery O2 Flow Rate FiO2 12/24/19 16:00 98.5 61 20 116/62 (80) 95 12/24/19 12:00 98.9 62 20 109/57 (74) 95 12/24/19 12:00 70 12/24/19 09:00 Room Air 12/24/19 08:00 99.3 62 20 112/54 (73) 94 12/24/19 08:00 71 12/24/19 04:00 63 12/24/19 04:00 98.1 61 16 120/58 (78) 98 12/24/19 00:00 52 12/24/19 00:00 97.1 52 14 107/69 (82) 99 12/23/19 21:00 Room Air 12/23/19 20:16 98.6 12/23/19 20:00 96.8 64 18 120/72 (88) 100 12/23/19 20:00 59 Intake and Output 12/23/19 12/24/19 19:00 07:00 Intake Total 150 ml 505 ml Balance 150 ml 505 ml Intake Oral 150 ml 480 ml IV Total 25 ml # Voids 4 3 # Bowel Movements 1 Laboratory Tests Test 12/24/19 06:09 White Blood Count 2.8 K/UL (4.8-10.8) L Red Blood Count 3.02 M/UL (4.70-6.10) L Hemoglobin 9.2 G/DL (14.2-18.0) L Hematocrit 27.7 % (42.0-52.0) L Mean Corpuscular Volume 92 FL (80-99) Mean Corpuscular Hemoglobin 30.3 PG (27.0-31.0) Mean Corpuscular Hemoglobin Concent 33.0 G/DL (32.0-36.0) Red Cell Distribution Width 15.6 % (11.6-14.8) H Platelet Count 76 K/UL (150-450) L Mean Platelet Volume 8.1 FL (6.5-10.1) Neutrophils (%) (Auto) % (45.0-75.0) Lymphocytes (%) (Auto) % (20.0-45.0) Monocytes (%) (Auto) % (1.0-10.0) Eosinophils (%) (Auto) % (0.0-3.0) Basophils (%) (Auto) % (0.0-2.0) Differential Total Cells Counted 100 Neutrophils % (Manual) 55 % (45-75) Lymphocytes % (Manual) 40 % (20-45) Monocytes % (Manual) 4 % (1-10) Eosinophils % (Manual) 1 % (0-3) Basophils % (Manual) 0 % (0-2) Band Neutrophils 0 % (0-8) Platelet Estimate Decreased L Platelet Morphology Normal Hypochromasia 2+ Anisocytosis 1+ Spherocytes 1+ Microbiology Date/Time Source Procedure Growth Status 12/22/19 00:00 Nasopharynx SARS-CoV-2 RdRp Gene Assay - Final Complete Objective HEAD AND NECK: Showed no JVD. LUNGS: Coarse rhonchi. CARDIOVASCULAR: Shows regular S1 and S2 with no gallop or murmur. ABDOMEN: Soft. EXTREMITIES: 1+ pitting edema. Jarek Grant MD Dec 24, 2019 17:05
--- NOTE | 2019-12-24 17:06 | Cardiology Report ---
APPROVED REPORT EKG Measurement Heart [id number] <Conclusion> Normal sinus rhythm with sinus arrhythmia Normal ECG
[2019-12-24 20:00] VITALS: BP 115/68
[2019-12-24] MEDS: TraZODone 100mg tab ORAL SCH (20:30)
[2019-12-25] VITALS: BP 127/75
[2019-12-25 04:00] VITALS: BP 124/66
[2019-12-25] MEDS: Heparin 5000 units/ml inj SUBQ SCH ×2 (06:00→13:56)
--- NOTE | 2019-12-25 07:04 | Pulmonology Progress Note ---
Reginald Lerneret [facility] 12/25/19 0704: Subjective Allergies: Coded Allergies: DIAZEPAM (Verified Allergy, Intermediate, 12/23/19) TREE NUT (Verified Allergy, Intermediate, 12/23/19) KETOROLAC (Verified Allergy, Mild, Rash, 01/01/19) TRAMADOL (Verified Allergy, Unknown, 08/01/18) NSAIDS (NON-STEROIDAL ANTI-INFLAMMA (Verified Adverse Reaction, Unknown, 08/01/18) Subjective no CP no SOB labs pending for this am s/p IVC filter 12/22 heme seen last night -per patient, no notes yet at the chart yessi this am in 50 th Objective Last 24 Hour Vital Signs Date Time Temp Pulse Resp B/P (MAP) Pulse Ox O2 Delivery O2 Flow Rate FiO2 12/25/19 04:00 98.2 62 17 124/66 (85) 97 12/25/19 04:00 51 12/25/19 00:00 97.9 55 17 127/75 (92) 99 12/25/19 00:00 50 12/24/19 21:00 Room Air 12/24/19 20:00 99.5 59 18 115/68 (84) 95 12/24/19 20:00 64 12/24/19 19:48 98.5 12/24/19 16:00 98.5 61 20 116/62 (80) 95 12/24/19 16:00 64 12/24/19 12:00 98.9 62 20 109/57 (74) 95 12/24/19 12:00 70 12/24/19 09:00 Room Air 12/24/19 08:00 99.3 62 20 112/54 (73) 94 12/24/19 08:00 71 Intake and Output 12/24/19 12/25/19 19:00 07:00 Intake Total 925 ml 480 ml Balance 925 ml 480 ml Intake Oral 900 ml 480 ml IV Total 25 ml # Voids 4 5 # Bowel Movements 3 1 Objective General Appearance: WD/WN - overweight middle age male in NAD , alert Lines, tubes and drains: peripheral HEENT: normocephalic, atraumatic, anicteric, mucous membranes moist, PERRL Neck: non-tender, normal alignment, supple Respiratory/Chest: chest wall non-tender, lungs clear, no respiratory distress, no accessory muscle use Cardiovascular/Chest: normal peripheral pulses, yessi, regular rhythm - SB on tele Abdomen: normal bowel sounds, non tender, soft - obese Extremities: normal range of motion, non-tender, no calf tenderness, normal capillary refill Skin Exam: warm/dry, large ecchymosis abdominal area, healed scars 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 II-XII grossly normal, no motor/sensory deficits, alert, oriented x 3, responsive, normal mood/affect Musculoskeletal: normal muscle bulk Current Medications Medications (Trade) Dose Ordered Sig/Mikey Route PRN Reason Start Time Stop Time Status Last Admin Dose Admin Acetaminophen (Tylenol) 650 mg Q4H PRN ORAL Pain (1-3)/ Temp >100.4 12/22/19 06:15 01/21/20 06:14 Acetaminophen/ Codeine Phosphate (Tylenol #3) 1 tab Q6H PRN ORAL For Pain 12/22/19 06:15 12/29/19 06:14 Docusate Sodium (Colace) 100 mg TWICE A DAY ORAL 12/22/19 09:00 01/21/20 08:59 12/24/19 19:19 Famotidine (Pepcid) 40 mg DAILY ORAL 12/22/19 09:00 03/21/20 08:59 12/24/19 08:27 Fluoxetine HCl (PROzac) 40 mg DAILY ORAL 12/22/19 09:00 01/21/20 08:59 12/24/19 08:28 Heparin Sodium (Porcine) (Heparin 5000 units/ml) 5,000 units EVERY 8 HOURS SUBQ 12/22/19 23:30 02/05/20 23:29 12/23/19 06:00 Heparin Sodium/ Sodium Chloride (Heparin 1000 units/500ml Premix) 1,000 unit ONCE PRN INJ PROCEDURE 12/23/19 10:45 12/25/19 10:44 Hydromorphone HCl (Dilaudid) 2 mg Q4H PRN IVP Severe pain (7-10) 12/22/19 06:15 12/29/19 06:14 12/25/19 04:08 Iohexol (OMNIPAQUE-300 100ml) 200 ml ONCE PRN INJ radiology 12/23/19 10:45 12/25/19 10:44 Lidocaine HCl (Xylocaine 1% 30ml) 30 ml NOW PRN INJ Radiology Procedure 12/23/19 08:15 12/26/19 08:14 Magnesium Hydroxide (Mom) 30 ml DAILYPRN PRN ORAL Constipation 12/22/19 06:15 01/21/20 06:14 Ondansetron HCl (Zofran) 4 mg Q4H PRN IVP Nausea & Vomiting 12/22/19 06:15 01/21/20 06:14 12/25/19 04:09 Quetiapine Fumarate (SEROqueL) 50 mg QHS ORAL 12/22/19 21:00 02/05/20 20:59 12/24/19 20:30 Sodium Bicarbonate (Sodium Bicarbonate 4%) 1 ml NOW PRN IV Radiology Procedure 12/23/19 08:15 12/26/19 08:14 Trazodone HCl (Desyrel) 100 mg BEDTIME ORAL 12/22/19 21:00 01/21/20 20:59 12/24/19 20:30 Assessment/Plan Assessment/Plan ASSESSMENT 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 need further recs re management and hypercoagulability w/up, likely as OP s/p 12/22 IVC filter ECHO with pEF, no evidence of R heart strain yessi noted high 40th and low 50th, improved now troponin x2 negative cardio eval appreciated source of pancytopenias unclear -also need heme further recs-apparently BM biopsy is planned hep panel NGT , HIV test NGT abdominal US + HM, fatty liver prior hx of ETOH pain management BP monitoring and management, no need for antiHTN at this time keep on tele GI prophylaxis supportive care case discussed and evaluated by supervising physician Nikko Nascimento MD 12/25/19 1504: Subjective Allergies: Coded Allergies: DIAZEPAM (Verified Allergy, Intermediate, 12/23/19) TREE NUT (Verified Allergy, Intermediate, 10/5/20) KETOROLAC (Verified Allergy, Mild, Rash, 01/01/19) TRAMADOL (Verified Allergy, Unknown, 08/01/18) NSAIDS (NON-STEROIDAL ANTI-INFLAMMA (Verified Adverse Reaction, Unknown, 08/01/18) Assessment/Plan Assessment/Plan Patient seen and examined with [facility] and the above formulated assessment and plan. Lovenox restarted. Will monitor platelet. Awaiting heme recs. Cher Lerner NP Dec 25, 2019 07:04 Nikko Nascimento MD Dec 25, 2019 15:04
[2019-12-25 08:00] VITALS: BP 111/54
[2019-12-25 08:04] LABS: ANION GAP 4 mmol/L (5-15); BLOOD UREA NITROGEN 11 mg/dL (7-18); CALCIUM 8.7 MG/DL (8.5-10.1); CARBON DIOXIDE 32 MMOL/L (21-32); CHLORIDE 104 MMOL/L (98-107); POTASSIUM 3.7 MMOL/L (3.5-5.1); SODIUM 140 MMOL/L (136-145)
[2019-12-25 08:13] LABS: HEMATOCRIT 28.2 % (42.0-52.0); HEMOGLOBIN 9.4 G/DL (14.2-18.0); MEAN CORPUSCULAR VOLUME 91 FL (80-99); PLATELET COUNT 73 K/UL (150-450); RED BLOOD COUNT 3.11 M/UL (4.70-6.10); RED CELL DISTRIBUTION WIDTH 15.3 % (11.6-14.8); WHITE BLOOD COUNT 2.5 K/UL (4.8-10.8)
[2019-12-25] MEDS: Docusate 100mg cap ORAL SCH ×2 (08:26→18:23)
[2019-12-25 12:00] VITALS: BP 95/52
--- NOTE | 2019-12-25 13:36 | Cardiac Electrophysiology PN ---
Assessment/Plan Assessment/Plan 1. Chest pain due to acute pulmonary embolism. The patient is already ruled out for myocardial infarction. Echocardiogram showed ejection fraction of 60% to 65% with a PA pressure of only 12. 2. Acute pulmonary embolism. S/P IVC filter 12/23/19 3. Bradycardia with HR dropping to high 30s and low BP. Off any CHEN or AVN tessy. May need PPM implant. 4. Thrombocytopenia contraindicating anticoagulation. The patient's platelet count in 60s and 70s. Hemonc eval pending 5. History of bipolar disorder, on Seroquel. JENNIFER RN Subjective Subjective Still has some SOB. On heparin drip and on 2 liter NC. HR in 50s and at times drops to 39 Objective Last 24 Hour Vital Signs Date Time Temp Pulse Resp B/P (MAP) Pulse Ox O2 Delivery O2 Flow Rate FiO2 12/25/19 13:13 98.2 12/25/19 12:00 49 12/25/19 12:00 98.2 51 20 95/52 (66) 96 12/25/19 09:00 Room Air 12/25/19 09:00 59 12/25/19 08:57 98.4 12/25/19 08:00 98.4 64 18 111/54 (73) 97 12/25/19 04:00 98.2 62 17 124/66 (85) 97 12/25/19 04:00 51 12/25/19 00:00 97.9 55 17 127/75 (92) 99 12/25/19 00:00 50 12/24/19 21:00 Room Air 12/24/19 20:00 99.5 59 18 115/68 (84) 95 12/24/19 20:00 64 12/24/19 19:48 98.5 12/24/19 16:00 98.5 61 20 116/62 (80) 95 12/24/19 16:00 64 Intake and Output 12/24/19 12/25/19 19:00 07:00 Intake Total 925 ml 480 ml Balance 925 ml 480 ml Intake Oral 900 ml 480 ml IV Total 25 ml # Voids 4 5 # Bowel Movements 3 1 Laboratory Tests Test 12/25/19 07:43 White Blood Count 2.5 K/UL (4.8-10.8) L Red Blood Count 3.11 M/UL (4.70-6.10) L Hemoglobin 9.4 G/DL (14.2-18.0) L Hematocrit 28.2 % (42.0-52.0) L Mean Corpuscular Volume 91 FL (80-99) Mean Corpuscular Hemoglobin 30.4 PG (27.0-31.0) Mean Corpuscular Hemoglobin Concent 33.5 G/DL (32.0-36.0) Red Cell Distribution Width 15.3 % (11.6-14.8) H Platelet Count 73 K/UL (150-450) L Mean Platelet Volume 7.8 FL (6.5-10.1) Neutrophils (%) (Auto) % (45.0-75.0) Lymphocytes (%) (Auto) % (20.0-45.0) Monocytes (%) (Auto) % (1.0-10.0) Eosinophils (%) (Auto) % (0.0-3.0) Basophils (%) (Auto) % (0.0-2.0) Differential Total Cells Counted 100 Neutrophils % (Manual) 52 % (45-75) Lymphocytes % (Manual) 41 % (20-45) Monocytes % (Manual) 5 % (1-10) Eosinophils % (Manual) 2 % (0-3) Basophils % (Manual) 0 % (0-2) Band Neutrophils 0 % (0-8) Platelet Estimate Decreased L Platelet Morphology Normal Red Blood Cell Morphology Normal Sodium Level 140 MMOL/L (136-145) Potassium Level 3.7 MMOL/L (3.5-5.1) Chloride Level 104 MMOL/L (98-107) Carbon Dioxide Level 32 MMOL/L (21-32) Anion Gap 4 mmol/L (5-15) L Blood Urea Nitrogen 11 mg/dL (7-18) Creatinine 1.0 MG/DL (0.55-1.30) Estimat Glomerular Filtration Rate > 60 mL/min (>60) Glucose Level 73 MG/DL (74-106) L Calcium Level 8.7 MG/DL (8.5-10.1) Objective HEAD AND NECK: Showed no JVD. LUNGS: Coarse rhonchi. CARDIOVASCULAR: Shows regular S1 and S2 with no gallop or murmur. ABDOMEN: Soft. EXTREMITIES: 1+ pitting edema. Jarek Grant MD Dec 25, 2019 13:36
--- NOTE | 2019-12-25 14:52 | Cardiac Electrophysiology PN ---
Assessment/Plan Assessment/Plan 1. Chest pain due to acute pulmonary embolism. The patient is already ruled out for myocardial infarction. Echocardiogram showed ejection fraction of 60% to 65% with a PA pressure of only 12. 2. Acute pulmonary embolism. S/P IVC filter 12/23/19. On Lovenox 100 mg sq bid Awaiting final input from hematology 3. Bradycardia with HR dropping to high 30s and low BP. Off any CHEN or AVN tessy. May need PPM implant. 4. Pancytopenia including Thrombocytopenia 70s. Hemonc eval pending 5. History of bipolar disorder, on Seroquel. JENNIFER RN, pharmacist and Dr Nascimento Subjective Subjective Still has some SOB. On Lovenox 100 mg sq bid and on 2 liter NC. HR in 50s and at times drops to 39 Objective Last 24 Hour Vital Signs Date Time Temp Pulse Resp B/P (MAP) Pulse Ox O2 Delivery O2 Flow Rate FiO2 12/25/19 13:13 98.2 12/25/19 12:00 49 12/25/19 12:00 98.2 51 20 95/52 (66) 96 12/25/19 09:00 Room Air 12/25/19 09:00 59 12/25/19 08:57 98.4 12/25/19 08:00 98.4 64 18 111/54 (73) 97 12/25/19 04:00 98.2 62 17 124/66 (85) 97 12/25/19 04:00 51 12/25/19 00:00 97.9 55 17 127/75 (92) 99 12/25/19 00:00 50 12/24/19 21:00 Room Air 12/24/19 20:00 99.5 59 18 115/68 (84) 95 12/24/19 20:00 64 12/24/19 19:48 98.5 12/24/19 16:00 98.5 61 20 116/62 (80) 95 12/24/19 16:00 64 Intake and Output 12/24/19 12/25/19 19:00 07:00 Intake Total 925 ml 480 ml Balance 925 ml 480 ml Intake Oral 900 ml 480 ml IV Total 25 ml # Voids 4 5 # Bowel Movements 3 1 Laboratory Tests Test 12/25/19 07:43 White Blood Count 2.5 K/UL (4.8-10.8) L Red Blood Count 3.11 M/UL (4.70-6.10) L Hemoglobin 9.4 G/DL (14.2-18.0) L Hematocrit 28.2 % (42.0-52.0) L Mean Corpuscular Volume 91 FL (80-99) Mean Corpuscular Hemoglobin 30.4 PG (27.0-31.0) Mean Corpuscular Hemoglobin Concent 33.5 G/DL (32.0-36.0) Red Cell Distribution Width 15.3 % (11.6-14.8) H Platelet Count 73 K/UL (150-450) L Mean Platelet Volume 7.8 FL (6.5-10.1) Neutrophils (%) (Auto) % (45.0-75.0) Lymphocytes (%) (Auto) % (20.0-45.0) Monocytes (%) (Auto) % (1.0-10.0) Eosinophils (%) (Auto) % (0.0-3.0) Basophils (%) (Auto) % (0.0-2.0) Differential Total Cells Counted 100 Neutrophils % (Manual) 52 % (45-75) Lymphocytes % (Manual) 41 % (20-45) Monocytes % (Manual) 5 % (1-10) Eosinophils % (Manual) 2 % (0-3) Basophils % (Manual) 0 % (0-2) Band Neutrophils 0 % (0-8) Platelet Estimate Decreased L Platelet Morphology Normal Red Blood Cell Morphology Normal Sodium Level 140 MMOL/L (136-145) Potassium Level 3.7 MMOL/L (3.5-5.1) Chloride Level 104 MMOL/L (98-107) Carbon Dioxide Level 32 MMOL/L (21-32) Anion Gap 4 mmol/L (5-15) L Blood Urea Nitrogen 11 mg/dL (7-18) Creatinine 1.0 MG/DL (0.55-1.30) Estimat Glomerular Filtration Rate > 60 mL/min (>60) Glucose Level 73 MG/DL (74-106) L Calcium Level 8.7 MG/DL (8.5-10.1) Objective HEAD AND NECK: Showed no JVD. LUNGS: Coarse rhonchi. CARDIOVASCULAR: Shows regular S1 and S2 with no gallop or murmur. ABDOMEN: Soft. EXTREMITIES: 1+ pitting edema. Toluie,Jarek MD Dec 25, 2019 14:52
[2019-12-25 16:00] VITALS: BP 110/67
[2019-12-25] MEDS: Enoxaparin 100mg Inj SUBQ SCH (18:25)
[2019-12-25 20:00] VITALS: BP 115/57
[2019-12-25] MEDS ORDERED: Enoxaparin 100mg Inj SUBQ SCH (21:00)
[2019-12-25] MEDS: TraZODone 100mg tab ORAL SCH (21:17)
[2019-12-26] VITALS: BP 122/74
[2019-12-26 04:00] VITALS: BP 108/55
[2019-12-26] MEDS: Enoxaparin 100mg Inj SUBQ SCH ×2 (05:35→17:40)
[2019-12-26 07:26] LABS: HEMATOCRIT 27.5 % (42.0-52.0); MEAN CORPUSCULAR VOLUME 91 FL (80-99); PLATELET COUNT 71 K/UL (150-450); RED BLOOD COUNT 3.01 M/UL (4.70-6.10); RED CELL DISTRIBUTION WIDTH 15.2 % (11.6-14.8); WHITE BLOOD COUNT 2.3 K/UL (4.8-10.8)
[2019-12-26 07:59] LABS: ANION GAP 6 mmol/L (5-15); BLOOD UREA NITROGEN 12 mg/dL (7-18); CALCIUM 8.3 MG/DL (8.5-10.1); CARBON DIOXIDE 31 MMOL/L (21-32); CHLORIDE 105 MMOL/L (98-107); CREATININE 0.9 MG/DL (0.55-1.30); POTASSIUM 3.8 MMOL/L (3.5-5.1); SODIUM 142 MMOL/L (136-145)
[2019-12-26 08:00] VITALS: BP 108/65
[2019-12-26] MEDS: Docusate 100mg cap ORAL SCH ×2 (08:45→17:30)
--- NOTE | 2019-12-26 08:45 | Consultation ---
DATE OF CONSULTATION: HEMATOLOGY/ONCOLOGY CONSULTATION REFERRING PHYSICIAN: Nikko Nascimento M.D. REASON FOR CONSULTATION: History of DVT, pulmonary embolism, and pancytopenia. HISTORY OF PRESENT ILLNESS: The patient is an extremely pleasant 44-year-old gentleman with a history of obesity, history of psychiatric disorders including PTSD, depression, bipolar disease, insomnia, anxiety disorder. The patient presented to [facility] and has been admitted on December 22, 2019 with significant shortness of breath and right-sided calf pain. It should be noted, the patient apparently in October 2019 was admitted to an outside facility with a perforated appendix, status post open appendectomy. The patient was discharged presented with shortness of breath and calf pain. It should be noted in 2018, the patient was diagnosed with a spontaneous lower extremity clot and pulmonary embolus, was treated with 6 months of Coumadin therapy, which was discontinued in July 2019. The patient does have a known history of atrial fibrillation, three gastric bypass history, history of appendectomy as noted above. During hospitalization, the patient had undergone CT angiogram of the chest and abdomen, was found to have some pulmonary embolism in the subsegmental branch of the right lower lobe. Venous duplex has demonstrated lower extremity DVT as above. At the same time, upon admission, the patient was noted to have white count of 3.5, hemoglobin of 10, platelet count 79. The patient's hepatitis B surface antigen, hep C antibody, HIV antibody have all been noted to be negative. PAST MEDICAL HISTORY: History of obesity, history of DVT, history of PE, history of bipolar disease, history of atrial fibrillation, history of gastric bypass, history of appendectomy, history of insomnia and anxiety, history of PTSD, history of significant family history, has multiple cancers. MEDICATIONS: The patient has been on Prozac, Seroquel, as well as Trazodone and subQ heparin. PAST SURGICAL HISTORY: The patient has undergone IVC filter placement today. SOCIAL HISTORY: The patient resides in a transitional facility. The patient denies any significant alcohol or drugs. REVIEW OF SYSTEMS: CONSTITUTIONAL: The patient denies any headaches. PULMONARY: chest pain and shortness of breath pleuritic chest pain. GASTROINTESTINAL: abdominal pain. NEUROLOGIC: The patient denies any focal weakness. SKIN: The patient denies any bruising or petechiae. MUSCULOSKELETAL: The patient lower extremity edema as well as calf pain. HEMATOLOGIC: The patient does have pancytopenia. He has been told he has . PHYSICAL EXAMINATION: GENERAL APPEARANCE: The patient is very pleasant. VITAL SIGNS: Temperature 98 degrees. Blood pressure 114/85, , pulse oximetry 98%, 20. HEAD AND NECK: Sclerae anicteric. CHEST: Rhonchi. CARDIAC: Regular rhythm. S1 and S2. ABDOMEN: Tender 04:16 abdominal wall. EXTREMITIES: Edema 04:20 on the left than the right. NEUROLOGIC: Nonfocal. PSYCHIATRIC: The patient has appropriate mood. LABORATORY DATA: has been noted in detail. The patient has a white count of 2.8, hemoglobin 9.2, platelet count 76. the patient has a PT of 12.6, INR 1.2, PTT of 22. Sodium 142, potassium 4.2, creatinine 0.9, calcium 8.6, albumin of 3.9, troponin negative. HIV antibody, hepatitis B surface antigen and transferrin has been noted to be negative. IMAGING STUDIES: As noted above. ASSESSMENT AND PLAN: 1. Recurrent pulmonary embolism. The patient had a significant DVT and PE, previously diagnosed to have a repeat PE and DVT. The patient most likely will need to undergo a left leg anticoagulation. At this point, concerning. Therefore, the patient has not been further anticoagulant. However, the patient's platelet count is greater than 50,000. The patient should be okay to proceed with anticoagulation. Risks and benefits should be discussed with the patient at length in terms of risk of bleeding versus recurrent PE. At the same time, the patient is status post IVC filter placement. Hopefully, the patient can be fully anticoagulated and filter can be discontinued within the next month or two. I made the patient aware of the need for removal of the IVC filter at length. I explained to him that unfortunately because of his insurance status his insurance would not allow me to follow him on an outpatient basis and he needs to follow up all his primary care physician for removal of the filter as well as to follow up all the laboratory data that I will be recommending. Underlying malignancy should also be ruled out. The patient had a CT scan of the abdomen and pelvis to delineate any intra-abdominal malignancy. CT scan of the chest as not reported any malignancy. In light of the patient's age and anticoagulation evaluation will be done. 2. Pancytopenia. The patient's B12, folate, SPEP, UPEP, flow cytometry will be reevaluated. The patient is found to have bone marrow biopsy aspiration and would like to proceed. 3. Code status. Full code has been discussed with the patient and family history of multiple cancers. The patient needs to have appropriate evaluation in terms of upper and lower endoscopy at outpatient visits. Reny Ross M.D. DR: CASSI JOB#: [id number] CC:
[2019-12-26 12:00] VITALS: BP 104/57
--- NOTE | 2019-12-26 13:24 | Pulmonology Progress Note ---
Subjective Interval Events: Platelets stable on lovenox. Wants pain meds. Ok with pacemaker placement Allergies: Coded Allergies: DIAZEPAM (Verified Allergy, Intermediate, 12/23/19) TREE NUT (Verified Allergy, Intermediate, 12/23/19) KETOROLAC (Verified Allergy, Mild, Rash, 01/01/19) TRAMADOL (Verified Allergy, Unknown, 08/01/18) NSAIDS (NON-STEROIDAL ANTI-INFLAMMA (Verified Adverse Reaction, Unknown, 08/01/18) Objective Last 24 Hour Vital Signs Date Time Temp Pulse Resp B/P (MAP) Pulse Ox O2 Delivery O2 Flow Rate FiO2 12/26/19 12:00 98.2 58 20 104/57 (73) 97 12/26/19 12:00 58 12/26/19 09:00 Room Air 12/26/19 08:00 62 12/26/19 08:00 98.1 60 18 108/65 (79) 98 12/26/19 04:00 97.0 67 18 108/55 (72) 97 12/26/19 04:00 52 12/26/19 00:00 57 12/26/19 00:00 97.9 60 20 122/74 (90) 100 12/25/19 21:00 Room Air 12/25/19 20:00 98.6 58 20 115/57 (76) 98 12/25/19 20:00 57 12/25/19 17:06 98.2 12/25/19 16:00 58 12/25/19 16:00 99.8 58 18 110/67 (81) 98 Intake and Output 12/25/19 12/26/19 19:00 07:00 Intake Total 720 ml 500 ml Balance 720 ml 500 ml Intake Oral 720 ml 500 ml # Voids 4 2 # Bowel Movements 1 General Appearance: no acute distress HEENT: normocephalic, atraumatic Respiratory: lungs clear Cardiovascular: normal rate, regular rhythm Abdomen: non distended Extremities: no edema Laboratory Tests 12/26/19 06:34: White Blood Count 2.3L, Red Blood Count 3.01L, Hemoglobin 9.0L, Hematocrit 27.5L , Mean Corpuscular Volume 91, Mean Corpuscular Hemoglobin 29.9, Mean Corpuscular Hemoglobin Concent 32.7, Red Cell Distribution Width 15.2H, Platelet Count 71L, Mean Platelet Volume 6.9, Neutrophils (%) (Auto) , Lymphocytes (%) (Auto) , Monocytes (%) (Auto) , Eosinophils (%) (Auto) , Basophils (%) (Auto) , Differential Total Cells Counted 100, Neutrophils % (Manual) 38L, Lymphocytes % (Manual) 55H, Monocytes % (Manual) 3, Eosinophils % (Manual) 4H, Basophils % (Manual) 0, Band Neutrophils 0, Platelet Estimate DecreasedL, Platelet Morphology Normal, Red Blood Cell Morphology Normal, Sodium Level 142, Potassium Level 3.8, Chloride Level 105, Carbon Dioxide Level 31, Anion Gap 6, Blood Urea Nitrogen 12, Creatinine 0.9, Estimat Glomerular Filtration Rate > 60, Glucose Level 87, Calcium Level 8.3L Current Medications Medications (Trade) Dose Ordered Sig/Mikey Route PRN Reason Start Time Stop Time Status Last Admin Dose Admin Acetaminophen (Tylenol) 650 mg Q4H PRN ORAL Pain (1-3)/ Temp >100.4 12/22/19 06:15 01/21/20 06:14 Acetaminophen/ Codeine Phosphate (Tylenol #3) 1 tab Q6H PRN ORAL For Pain 12/22/19 06:15 12/29/19 06:14 Docusate Sodium (Colace) 100 mg TWICE A DAY ORAL 12/22/19 09:00 01/21/20 08:59 12/26/19 08:45 Enoxaparin Sodium (Lovenox) 100 mg Q12H SUBQ 12/25/19 17:00 03/24/20 16:59 12/26/19 05:35 Famotidine (Pepcid) 40 mg DAILY ORAL 12/22/19 09:00 03/21/20 08:59 12/26/19 08:45 Fluoxetine HCl (PROzac) 40 mg DAILY ORAL 12/22/19 09:00 01/21/20 08:59 12/26/19 08:45 Hydromorphone HCl (Dilaudid) 2 mg Q4H PRN IVP Severe pain (7-10) 12/22/19 06:15 12/29/19 06:14 12/26/19 12:55 Magnesium Hydroxide (Mom) 30 ml DAILYPRN PRN ORAL Constipation 12/22/19 06:15 01/21/20 06:14 Ondansetron HCl (Zofran) 4 mg Q4H PRN IVP Nausea & Vomiting 12/22/19 06:15 01/21/20 06:14 12/25/19 21:18 Quetiapine Fumarate (SEROqueL) 50 mg QHS ORAL 12/22/19 21:00 02/05/20 20:59 12/25/19 21:17 Trazodone HCl (Desyrel) 100 mg BEDTIME ORAL 12/22/19 21:00 01/21/20 20:59 12/25/19 21:17 Assessment/Plan Assessment/Plan ASSESSMENT 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 Consideration for bone marrow biopsy, wll f/u w/ Dr. Ross IVC filter in place, will need to be removed once tolerating anticoagulation Patient is open to pacemaker if felt necessary ECHO with pEF, no evidence of R heart strain Nikko Nascimento MD Dec 26, 2019 13:24
[2019-12-26 16:00] VITALS: BP 120/69
--- NOTE | 2019-12-26 16:03 | Diagnostic Imaging Report ---
Indication: Pain Technique: Grayscale and duplex images of the right upper extremity veins Comparison: Findings: On the right, grayscale and duplex images demonstrate no evidence of intraluminal thrombus. Normal phasic Doppler waveforms. Normal compressibility Impression: Negative for evidence of right upper extremity venous thrombosis
--- NOTE | 2019-12-26 16:15 | Cardiac Electrophysiology PN ---
Assessment/Plan Assessment/Plan 1. Chest pain due to acute pulmonary embolism. Ruled out for myocardial infarction. Echocardiogram showed ejection fraction of 60% to 65% with a PA pressure of only 12. 2. Acute pulmonary embolism. S/P IVC filter 12/23/19. On Lovenox 100 mg sq bid Awaiting final input from hematology 3. Bradycardia with HR dropping to high 30s and low BP. Off any CHEN or AVN tessy. May need PPM implant. 4. Pancytopenia including Thrombocytopenia 70s. Hemonc eval pending 5. History of bipolar disorder, on Seroquel. JENNIFER RN, pharmacist and Dr Nascimento Subjective Subjective On Lovenox 100 mg sq bid and on 2 liter NC. HR in 50s and at times drops to 39. No CP or SOB Objective Last 24 Hour Vital Signs Date Time Temp Pulse Resp B/P (MAP) Pulse Ox O2 Delivery O2 Flow Rate FiO2 12/26/19 12:00 98.2 58 20 104/57 (73) 97 12/26/19 12:00 58 12/26/19 09:00 Room Air 12/26/19 08:00 62 12/26/19 08:00 98.1 60 18 108/65 (79) 98 12/26/19 04:00 97.0 67 18 108/55 (72) 97 12/26/19 04:00 52 12/26/19 00:00 57 12/26/19 00:00 97.9 60 20 122/74 (90) 100 12/25/19 21:00 Room Air 12/25/19 20:00 98.6 58 20 115/57 (76) 98 12/25/19 20:00 57 12/25/19 17:06 98.2 Intake and Output 12/25/19 12/26/19 19:00 07:00 Intake Total 720 ml 500 ml Balance 720 ml 500 ml Intake Oral 720 ml 500 ml # Voids 4 2 # Bowel Movements 1 Laboratory Tests Test 12/26/19 06:34 White Blood Count 2.3 K/UL (4.8-10.8) L Red Blood Count 3.01 M/UL (4.70-6.10) L Hemoglobin 9.0 G/DL (14.2-18.0) L Hematocrit 27.5 % (42.0-52.0) L Mean Corpuscular Volume 91 FL (80-99) Mean Corpuscular Hemoglobin 29.9 PG (27.0-31.0) Mean Corpuscular Hemoglobin Concent 32.7 G/DL (32.0-36.0) Red Cell Distribution Width 15.2 % (11.6-14.8) H Platelet Count 71 K/UL (150-450) L Mean Platelet Volume 6.9 FL (6.5-10.1) Neutrophils (%) (Auto) % (45.0-75.0) Lymphocytes (%) (Auto) % (20.0-45.0) Monocytes (%) (Auto) % (1.0-10.0) Eosinophils (%) (Auto) % (0.0-3.0) Basophils (%) (Auto) % (0.0-2.0) Differential Total Cells Counted 100 Neutrophils % (Manual) 38 % (45-75) L Lymphocytes % (Manual) 55 % (20-45) H Monocytes % (Manual) 3 % (1-10) Eosinophils % (Manual) 4 % (0-3) H Basophils % (Manual) 0 % (0-2) Band Neutrophils 0 % (0-8) Platelet Estimate Decreased L Platelet Morphology Normal Red Blood Cell Morphology Normal Sodium Level 142 MMOL/L (136-145) Potassium Level 3.8 MMOL/L (3.5-5.1) Chloride Level 105 MMOL/L (98-107) Carbon Dioxide Level 31 MMOL/L (21-32) Anion Gap 6 mmol/L (5-15) Blood Urea Nitrogen 12 mg/dL (7-18) Creatinine 0.9 MG/DL (0.55-1.30) Estimat Glomerular Filtration Rate > 60 mL/min (>60) Glucose Level 87 MG/DL (74-106) Calcium Level 8.3 MG/DL (8.5-10.1) L Objective HEAD AND NECK: Showed no JVD. LUNGS: Coarse rhonchi. CARDIOVASCULAR: Shows regular S1 and S2 with no gallop or murmur. ABDOMEN: Soft. EXTREMITIES: 1+ pitting edema. Jarek Grant MD Dec 26, 2019 16:15
[2019-12-26 20:00] VITALS: BP 112/62
[2019-12-26] MEDS: TraZODone 100mg tab ORAL SCH (20:13)
[2019-12-27] VITALS (8 sets, daily range): BP systolic 104–152; BP diastolic 55–74
[2019-12-27] MEDS: Enoxaparin 100mg Inj SUBQ SCH ×2 (05:00→16:15)
--- NOTE | 2019-12-27 07:56 | Pulmonology Progress Note ---
Cher Lerner VENDING MACHINE COIN COLLECTOR 12/27/19 0756: Subjective Interval Events: Platelets stable on lovenox. Wants pain meds. Ok with pacemaker placement Allergies: Coded Allergies: DIAZEPAM (Verified Allergy, Intermediate, 12/23/19) TREE NUT (Verified Allergy, Intermediate, 12/23/19) KETOROLAC (Verified Allergy, Mild, Rash, 01/01/19) TRAMADOL (Verified Allergy, Unknown, 08/01/18) NSAIDS (NON-STEROIDAL ANTI-INFLAMMA (Verified Adverse Reaction, Unknown, 08/01/18) Subjective no CP no SOB s/p IVC filter 12/22 started on a/c as per heme BM biopsy and CT scan A/P pending for today Objective Last 24 Hour Vital Signs Date Time Temp Pulse Resp B/P (MAP) Pulse Ox O2 Delivery O2 Flow Rate FiO2 12/27/19 04:00 52 12/27/19 04:00 98.7 60 20 121/60 (80) 96 12/27/19 00:00 98.3 68 20 104/55 (71) 97 12/27/19 00:00 59 12/26/19 21:00 Room Air 12/26/19 20:00 98.0 70 20 112/62 (79) 95 12/26/19 20:00 63 12/26/19 16:00 98.6 63 18 120/69 (86) 98 12/26/19 16:00 60 12/26/19 12:00 98.2 58 20 104/57 (73) 97 12/26/19 12:00 58 12/26/19 09:00 Room Air 12/26/19 08:00 62 12/26/19 08:00 98.1 60 18 108/65 (79) 98 Intake and Output 12/26/19 12/27/19 19:00 07:00 Intake Total 600 ml 100 ml Balance 600 ml 100 ml Intake Oral 600 ml 100 ml # Voids 3 3 # Bowel Movements 1 Objective General Appearance: WD/WN - overweight middle age male in NAD , alert Lines, tubes and drains: peripheral HEENT: normocephalic, atraumatic, anicteric, mucous membranes moist, PERRL Neck: non-tender, normal alignment, supple Respiratory/Chest: chest wall non-tender, lungs clear, no respiratory distress, no accessory muscle use Cardiovascular/Chest: normal peripheral pulses, yessi, regular rhythm - SB on tele Abdomen: normal bowel sounds, non tender, soft - obese Extremities: normal range of motion, non-tender, no calf tenderness, normal capillary refill Skin Exam: warm/dry, large ecchymosis abdominal area, healed scars Neurologic: song writer II-XII grossly normal, no motor/sensory deficits, alert, oriented x 3, responsive, normal mood/affect Musculoskeletal: normal muscle bulk Abdomen: non distended Laboratory Tests 12/26/19 21:45: Reticulocyte Count 0.5, Prothrombin Time 11.2, Prothromb Time International Ratio 1.0, Activated Partial Thromboplast Time 31, Lactate Dehydrogenase 162, Vitamin B12 Level 177L, Folate 7.4L 12/27/19 03:50: Urine Total Protein [Pending], Urine Albumin (%) [Pending], Urine Alpha-1-Carmita bulins (%) [Pending], Urine Ftubk-2-Qerepcxoq (%) [Pending], Urine Beta-Globulin (%) [Pending], Urine Gamma Globulin (%) [Pending], Ur Protein Electrophoresis M-Zach [Pending], Urine Protein Electrophoresis Intrp [Pending], Total Protein (PEP) [Pending], Albumin (PEP) [Pending], Globulin (PEP) [Pending], Albumin/Globulin Ratio [Pending], Bqiww-6-Uqhoaegiu [Pending], Zqdeg-6-Alkijwyct [Pending], Beta Globulins [Pending], Beta Gamma Globulin [Pending], PEP Abnormal Protein Bands [Pending], Protein Electrophoresis Interpret [Pending] Current Medications Medications (Trade) Dose Ordered Sig/Mikey Route PRN Reason Start Time Stop Time Status Last Admin Dose Admin Acetaminophen (Tylenol) 650 mg Q4H PRN ORAL Pain (1-3)/ Temp >100.4 12/22/19 06:15 01/21/20 06:14 Acetaminophen/ Codeine Phosphate (Tylenol #3) 1 tab Q6H PRN ORAL For Pain 12/22/19 06:15 12/29/19 06:14 Docusate Sodium (Colace) 100 mg TWICE A DAY ORAL 12/22/19 09:00 01/21/20 08:59 12/26/19 17:30 Enoxaparin Sodium (Lovenox) 100 mg Q12H SUBQ 12/25/19 17:00 03/24/20 16:59 12/26/19 17:40 Famotidine (Pepcid) 40 mg DAILY ORAL 12/22/19 09:00 03/21/20 08:59 12/26/19 08:45 Fluoxetine HCl (PROzac) 40 mg DAILY ORAL 12/22/19 09:00 01/21/20 08:59 12/26/19 08:45 Hydromorphone HCl (Dilaudid) 2 mg Q4H PRN IVP Severe pain (7-10) 12/22/19 06:15 12/29/19 06:14 12/27/19 04:11 Magnesium Hydroxide (Mom) 30 ml DAILYPRN PRN ORAL Constipation 12/22/19 06:15 01/21/20 06:14 Ondansetron HCl (Zofran) 4 mg Q4H PRN IVP Nausea & Vomiting 12/22/19 06:15 01/21/20 06:14 12/25/19 21:18 Quetiapine Fumarate (SEROqueL) 50 mg QHS ORAL 12/22/19 21:00 02/05/20 20:59 12/26/19 20:13 Trazodone HCl (Desyrel) 100 mg BEDTIME ORAL 12/22/19 21:00 01/21/20 20:59 12/26/19 20:13 Assessment/Plan Assessment/Plan ASSESSMENT 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 Probably hypercoagulability disorder ( given family history) Bradycardia with dizziness Pancytopenia Hepatomegaly Fatty liver Hx of ETOH abuse ( quit yrs ago) HTN PAF Bipolar disorder Homeless/from transitional housing Hx of gastric bypass PLAN OF CARE tele on Lovelox, continue- ( started by heme ) IVC filter needs to be removed when tolerates a/c ( previously placed) BM aspiration and CT A/P pending for today O2 prn keep sat > 90%, so far pulse ox remains 98% on RA Venous Duplex BLE -> nonocclusive clot R distal SFV ECHO with pEF, no evidence of R heart strain yessi noted high 40th and low 50th, improved now troponin x2 negative cardio eval appreciated , monitor HR ; eval if need pacemaker? source of pancytopenias unclear -also need heme further recs- BM biopsy pending hep panel NGT , HIV test NGT abdominal US + HM, fatty liver prior hx of ETOH pain management BP monitoring and management, no need for antiHTN at this time keep on tele GI prophylaxis supportive care case discussed and evaluated by supervising physician Nikko Nascimento MD 12/27/19 1404: Subjective Allergies: Coded Allergies: DIAZEPAM (Verified Allergy, Intermediate, 12/23/19) TREE NUT (Verified Allergy, Intermediate, 12/23/19) KETOROLAC (Verified Allergy, Mild, Rash, 01/01/19) TRAMADOL (Verified Allergy, Unknown, 08/01/18) NSAIDS (NON-STEROIDAL ANTI-INFLAMMA (Verified Adverse Reaction, Unknown, 08/01/18) Assessment/Plan Assessment/Plan Patient seen and examined with VENDING MACHINE COIN COLLECTOR and the above formulated assessment and plan. Cher Lerner NP Dec 27, 2019 07:56 Nikko Nascimento MD Dec 27, 2019 14:04
[2019-12-27] MEDS: Docusate 100mg cap ORAL SCH ×2 (09:00→17:24)
[2019-12-27] MEDS ORDERED: Lidocaine 1% Plain 30 ml INJ PRN (12:04)
--- NOTE | 2019-12-27 12:24 | Diagnostic Imaging Report ---
Indication: Abdominal pain Technique: Spiral acquisitions obtained through the abdomen and pelvis. Patient given oral contrast. No IV contrast utilized, per referring physician request.. Multiplanar reconstructions were generated. Total dose length product 847 mGycm. CTDIvol(s) 15 mGy. Dose reduction achieved using automated exposure control Comparison: 11/17/2019 contrast study Findings: The appendix is not demonstrated, but no findings to suggest acute appendicitis are evident. There is moderate retained colonic stool. No evidence of diverticulosis or diverticulitis. Ingested contrast is seen throughout the entirety of the small bowel and colon. No small bowel distention or small bowel wall thickening. No free or loculated intraperitoneal gas or fluid is evident. There is a small hiatal hernia again demonstrated. The there is again demonstrated evidence of prior gastric sleeve procedure. Lack of IV contrast limits assessment of solid organs. The liver, gallbladder, bile ducts, pancreas, spleen, adrenals, kidneys are unremarkable. No retroperitoneal or mesenteric mass or adenopathy. No pelvic mass or adenopathy. Surgical scarring is seen in the right lower quadrant subcutaneous fat. Gas bubbles are seen in the left lower quadrant subcutaneous fat. The included lung bases are clear. The bones are unremarkable. Impression: No acute abnormality Small hiatal hernia Postsurgical changes as described Incidental findings as noted The CT scanner at [facility] is accredited by the [employer] and the scans are performed using protocols designed to limit radiation exposure to as low as reasonably achievable to attain images of sufficient resolution adequate for diagnostic evaluation.
--- NOTE | 2019-12-27 14:54 | Pre-Procedure Note/Attestation ---
Pre-Procedure Note/Attestation Complete Prior to Procedure Planned Procedure: not applicable Procedure Narrative: bone marrow biopsy Indications for Procedure Pre-Operative Diagnosis: pancytopenia Attestation I attest that I discussed the nature of the procedure; its benefits; risks and complications; and alternatives (and the risks and benefits of such alternatives), prior to the procedure, with the patient (or the patient's legal medical representative). I attest that, if there was a reasonable possibility of needing a blood transfusion, the patient (or the patient's legal medical representative) was given the [facility] standardized written summary, pursuant to the Brien Vincenzo Blood Safety Act ([place] Health and Safety Code # 1645, as amended). I attest that I re-evaluated the patient just prior to the surgery and that there has been no change in the patient's H&P, except as documented below: Mitch Sampson MD Dec 27, 2019 14:54
--- NOTE | 2019-12-27 14:55 | Brief Operative Note ---
Immediate Post Operative Note Operative Note Pre-op Diagnosis: pancytopenia Procedure: Bone marrow bx Post-op Diagnosis: same as pre-op Surgeon: Kacey SAMPSON Anesthesia: local Specimen: yes - core and aspirate Complications: none Fluids: none Implant(s) used?: No Mitch Sampson MD Dec 27, 2019 14:55
--- NOTE | 2019-12-27 16:55 | Cardiac Electrophysiology PN ---
Assessment/Plan Assessment/Plan 1. Chest pain due to acute pulmonary embolism. Ruled out for myocardial infarction. Echo showed ejection fraction of 60% to 65% with a PA pressure of only 12. 2. Acute pulmonary embolism. S/P IVC filter 12/23/19. On Lovenox 100 mg sq bid Awaiting final input from hematology 3. Bradycardia with HR dropping to high 30s and low BP. Off any CHEN or AVN tessy. May need PPM implant. 4. Pancytopenia including Thrombocytopenia 70s. S/P BM bopsy and CT abdomen and pelvis 5. History of bipolar disorder, on Seroquel. JENNIFER RN and Dr Nascimento Subjective Subjective On Lovenox 100 mg sq bid and on 2 liter NC. HR in 50s and at times drops to 39. No CP or SOB Had BM biopsy and CT abdomen and pelvis. Asking for Dilaudid every hrs Objective Last 24 Hour Vital Signs Date Time Temp Pulse Resp B/P (MAP) Pulse Ox O2 Delivery O2 Flow Rate FiO2 12/27/19 16:00 98.8 72 18 141/56 (84) 98 12/27/19 14:32 98.0 57 19 132/72 (92) 100 57 12/27/19 14:23 51 17 12/27/19 14:12 51 17 12/27/19 09:00 Room Air 12/27/19 08:00 98.1 65 19 152/74 (100) 98 12/27/19 08:00 49 12/27/19 04:00 52 12/27/19 04:00 98.7 60 20 121/60 (80) 96 12/27/19 00:00 98.3 68 20 104/55 (71) 97 12/27/19 00:00 59 12/26/19 21:00 Room Air 12/26/19 20:00 98.0 70 20 112/62 (79) 95 12/26/19 20:00 63 Intake and Output 12/26/19 12/27/19 19:00 07:00 Intake Total 600 ml 100 ml Balance 600 ml 100 ml Intake Oral 600 ml 100 ml # Voids 3 3 # Bowel Movements 1 Laboratory Tests Test 12/26/19 21:45 12/27/19 03:50 Reticulocyte Count 0.5 % (0.5-2.0) Prothrombin Time 11.2 SEC (9.30-11.50) Prothromb Time International Ratio 1.0 (0.9-1.1) Activated Partial Thromboplast Time 31 SEC (23-33) Lactate Dehydrogenase 162 U/L (135-225) Vitamin B12 Level 177 PG/ML (193-986) L Folate 7.4 NG/ML (8.6-58.9) L Urine Total Protein Pending Urine Albumin (%) Pending Urine Kmkou-9-Ncbedycje (%) Pending Urine Mzbxy-8-Rwgcnigru (%) Pending Urine Beta-Globulin (%) Pending Urine Gamma Globulin (%) Pending Ur Protein Electrophoresis M-Zach Pending Urine Protein Electrophoresis Intrp Pending Total Protein (PEP) Pending Albumin (PEP) Pending Globulin (PEP) Pending Albumin/Globulin Ratio Pending Zzbgm-3-Lqifuwnjo Pending Dnglm-9-Xbsvwarbg Pending Beta Globulins Pending Beta Gamma Globulin Pending PEP Abnormal Protein Bands Pending Protein Electrophoresis Interpret Pending Objective HEAD AND NECK: Showed no JVD. LUNGS: Coarse rhonchi. CARDIOVASCULAR: Shows regular S1 and S2 with no gallop or murmur. ABDOMEN: Soft. EXTREMITIES: 1+ pitting edema. Jarek Grant MD Dec 27, 2019 16:55
[2019-12-27] MEDS: TraZODone 100mg tab ORAL SCH (20:44)
[2019-12-27] MEDS ORDERED: Vitamin B12 1000mcg/ml Inj IM SCH (21:30)
[2019-12-28] VITALS: BP 119/68
[2019-12-28 04:00] VITALS: BP 136/70
[2019-12-28] MEDS: Enoxaparin 100mg Inj SUBQ SCH ×2 (05:15→17:05)
[2019-12-28 07:25] LABS: HEMOGLOBIN 9.1 G/DL (14.2-18.0); MEAN CORPUSCULAR VOLUME 91 FL (80-99); PLATELET COUNT 67 K/UL (150-450); RED BLOOD COUNT 3.07 M/UL (4.70-6.10); RED CELL DISTRIBUTION WIDTH 15.4 % (11.6-14.8); WHITE BLOOD COUNT 2.3 K/UL (4.8-10.8)
[2019-12-28 07:34] LABS: ANION GAP 4 mmol/L (5-15); BLOOD UREA NITROGEN 8 mg/dL (7-18); CALCIUM 8.5 MG/DL (8.5-10.1); CARBON DIOXIDE 32 MMOL/L (21-32); CHLORIDE 105 MMOL/L (98-107); CREATININE 0.8 MG/DL (0.55-1.30); POTASSIUM 4.1 MMOL/L (3.5-5.1); SODIUM 140 MMOL/L (136-145)
[2019-12-28 08:00] VITALS: BP 107/60
[2019-12-28] MEDS: Docusate 100mg cap ORAL SCH ×2 (09:04→17:06)
--- NOTE | 2019-12-28 10:59 | Pulmonology Progress Note ---
Cher Lerner SUPPLIER DEVELOPMENT MANAGER 12/28/19 1059: Subjective Interval Events: Platelets stable on lovenox. Wants pain meds. Ok with pacemaker placement Allergies: Coded Allergies: DIAZEPAM (Verified Allergy, Intermediate, 12/23/19) TREE NUT (Verified Allergy, Intermediate, 12/23/19) KETOROLAC (Verified Allergy, Mild, Rash, 01/01/19) TRAMADOL (Verified Allergy, Unknown, 08/01/18) NSAIDS (NON-STEROIDAL ANTI-INFLAMMA (Verified Adverse Reaction, Unknown, 08/01/18) Subjective no CP no SOB s/p IVC filter 12/22 started on a/c as per heme BM biopsy and CT scan A/P done 12/26 Objective Last 24 Hour Vital Signs Date Time Temp Pulse Resp B/P (MAP) Pulse Ox O2 Delivery O2 Flow Rate FiO2 12/28/19 09:35 97.7 12/28/19 09:00 Room Air 12/28/19 08:00 97.7 71 20 107/60 (76) 95 12/28/19 08:00 68 12/28/19 04:00 98.2 61 18 136/70 (92) 94 12/28/19 04:00 61 12/28/19 00:00 98.2 69 18 119/68 (85) 98 12/28/19 00:00 69 12/27/19 21:00 Room Air 12/27/19 20:00 98.2 71 18 129/74 (92) 98 12/27/19 20:00 71 12/27/19 16:00 98.8 72 18 141/56 (84) 98 12/27/19 16:00 67 12/27/19 14:32 98.0 57 19 132/72 (92) 100 57 12/27/19 14:23 51 17 12/27/19 14:12 51 17 Intake and Output 12/27/19 12/28/19 19:00 07:00 Intake Total 400 ml Balance 400 ml Other 400 ml # Voids 3 Objective General Appearance: WD/WN - overweight middle age male in NAD , alert Lines, tubes and drains: peripheral HEENT: normocephalic, atraumatic, anicteric, mucous membranes moist, PERRL Neck: non-tender, normal alignment, supple Respiratory/Chest: chest wall non-tender, lungs clear, no respiratory distress, no accessory muscle use Cardiovascular/Chest: normal peripheral pulses, yessi, regular rhythm - SB on tele Abdomen: normal bowel sounds, non tender, soft - obese Extremities: normal range of motion, non-tender, no calf tenderness, normal capillary refill Skin Exam: warm/dry, large ecchymosis abdominal area, healed scars Neurologic: regulatory agency director II-XII grossly normal, no motor/sensory deficits, alert, oriented x 3, responsive, normal mood/affect Musculoskeletal: normal muscle bulk Abdomen: non distended Laboratory Tests 12/28/19 04:45: White Blood Count 2.3L, Red Blood Count 3.07L, Hemoglobin 9.1L, Hematocrit 28.0L , Mean Corpuscular Volume 91, Mean Corpuscular Hemoglobin 29.8, Mean Corpuscular Hemoglobin Concent 32.7, Red Cell Distribution Width 15.4H, Platelet Count 67L, Mean Platelet Volume 6.3L, Neutrophils (%) (Auto) , Lymphocytes (%) (Auto) , Monocytes (%) (Auto) , Eosinophils (%) (Auto) , Basophils (%) (Auto) , Differential Total Cells Counted 100, Neutrophils % (Manual) 52, Lymphocytes % (Manual) 41, Monocytes % (Manual) 5, Eosinophils % (Manual) 2, Basophils % (Manual) 0, Band Neutrophils 0, Platelet Estimate DecreasedL, Platelet Morphology Normal, Hypochromasia 1+, Anisocytosis 1+, Sodium Level 140, Potassium Level 4.1, Chloride Level 105, Carbon Dioxide Level 32, Anion Gap 4L, Blood Urea Nitrogen 8, Creatinine 0.8, Estimat Glomerular Filtration Rate > 60, Glucose Level 84, Calcium Level 8.5 Current Medications Medications (Trade) Dose Ordered Sig/Mikey Route PRN Reason Start Time Stop Time Status Last Admin Dose Admin Acetaminophen (Tylenol) 650 mg Q4H PRN ORAL Pain (1-3)/ Temp >100.4 12/22/19 06:15 01/21/20 06:14 Acetaminophen/ Codeine Phosphate (Tylenol #3) 1 tab Q6H PRN ORAL For Pain 12/22/19 06:15 12/29/19 06:14 Docusate Sodium (Colace) 100 mg TWICE A DAY ORAL 12/22/19 09:00 01/21/20 08:59 12/28/19 09:04 Enoxaparin Sodium (Lovenox) 100 mg Q12H SUBQ 12/25/19 17:00 03/24/20 16:59 12/28/19 05:15 Famotidine (Pepcid) 40 mg DAILY ORAL 12/22/19 09:00 03/21/20 08:59 12/28/19 09:04 Fluoxetine HCl (PROzac) 40 mg DAILY ORAL 12/22/19 09:00 01/21/20 08:59 12/28/19 09:04 Folic Acid (Folate) 1 mg DAILY ORAL 12/28/19 09:00 01/27/20 08:59 12/28/19 09:04 Hydromorphone HCl (Dilaudid) 2 mg Q4H PRN IVP Severe pain (7-10) 12/22/19 06:15 12/29/19 06:14 12/28/19 09:05 Magnesium Hydroxide (Mom) 30 ml DAILYPRN PRN ORAL Constipation 12/22/19 06:15 01/21/20 06:14 Ondansetron HCl (Zofran) 4 mg Q4H PRN IVP Nausea & Vomiting 12/22/19 06:15 01/21/20 06:14 12/28/19 09:04 Quetiapine Fumarate (SEROqueL) 50 mg QHS ORAL 12/22/19 21:00 02/05/20 20:59 12/27/19 20:44 Trazodone HCl (Desyrel) 100 mg BEDTIME ORAL 12/22/19 21:00 01/21/20 20:59 12/27/19 20:44 Assessment/Plan Assessment/Plan ASSESSMENT 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 Probably hypercoagulability disorder ( given family history) Bradycardia with dizziness Pancytopenia Hepatomegaly Fatty liver Hx of ETOH abuse ( quit yrs ago) HTN PAF Bipolar disorder Homeless/from transitional housing Hx of gastric bypass PLAN OF CARE tele on Lovenox, continue- ( started by heme ) will discuss with heme if cleared to start on Eliquis IVC filter needs to be removed when tolerates a/c ( previously placed) BM aspiration done 12/26 CT A/P 12/26 - no malignancy noted O2 prn keep sat > 90%, so far pulse ox remains 98% on RA Venous Duplex BLE -> nonocclusive clot R distal SFV ECHO with pEF, no evidence of R heart strain yessi noted high 40th and low 50th, improved now troponin x2 negative cardio eval appreciated , monitor HR ; eval if need pacemaker? patient bradycardic with HR dropping to hgh 30th abd low BP off CHEN and AVN blockers may need PPM implantation as per cardio source of pancytopenias unclear fup with BM biopsy results hep panel NGT , HIV test NGT abdominal US + HM, fatty liver prior hx of ETOH pain management BP monitoring and management, no need for antiHTN at this time keep on tele GI prophylaxis supportive care case discussed and evaluated by supervising physician Nikko Nascimento MD 12/28/19 1237: Subjective Allergies: Coded Allergies: DIAZEPAM (Verified Allergy, Intermediate, 12/23/19) TREE NUT (Verified Allergy, Intermediate, 12/23/19) KETOROLAC (Verified Allergy, Mild, Rash, 01/01/19) TRAMADOL (Verified Allergy, Unknown, 08/01/18) NSAIDS (NON-STEROIDAL ANTI-INFLAMMA (Verified Adverse Reaction, Unknown, 08/01/18) Assessment/Plan Assessment/Plan Patient seen and examined with SUPPLIER DEVELOPMENT MANAGER and the above formulated assessment and plan. -BM biopsy done, results pending -plt a little lower today, monitor -will discuss transition to outpatient anticoagulation with Cher Galicia NP Dec 28, 2019 10:59 Nikko Nascimento MD Dec 28, 2019 12:37
[2019-12-28 12:00] VITALS: BP 121/69
[2019-12-28 16:00] VITALS: BP 114/50
--- NOTE | 2019-12-28 16:28 | Cardiac Electrophysiology PN ---
Assessment/Plan Assessment/Plan 1. Chest pain due to acute pulmonary embolism. Ruled out for myocardial infarction. Echo showed ejection fraction of 60% to 65% with a PA pressure of only 12. 2. Acute pulmonary embolism. S/P IVC filter 12/23/19. On Lovenox 100 mg sq bid Awaiting final input from hematology. Likely will change to Eliquis 3. Bradycardia with HR dropping to high 30s and low BP. Off any CHEN or AVN tessy. HR better. Hold off on PPM implant. 4. Pancytopenia including Thrombocytopenia 70s. S/P BM biopsy and CT abdomen and pelvis 5. History of bipolar disorder, on Seroquel. 6. Dilaudid dependency DW RN and Dr Nascimento Subjective Subjective On Lovenox 100 mg sq bid and on 2 liter NC. HR is better. No CP or SOB Had BM biopsy and CT abdomen and pelvis. Asking for increasing the Dilaudid Objective Last 24 Hour Vital Signs Date Time Temp Pulse Resp B/P (MAP) Pulse Ox O2 Delivery O2 Flow Rate FiO2 12/28/19 16:00 97.5 61 20 114/50 (71) 100 12/28/19 12:00 63 12/28/19 12:00 97.7 65 20 121/69 (86) 100 12/28/19 09:35 97.7 12/28/19 09:00 Room Air 12/28/19 08:00 97.7 71 20 107/60 (76) 95 12/28/19 08:00 68 12/28/19 04:00 98.2 61 18 136/70 (92) 94 12/28/19 04:00 61 12/28/19 00:00 98.2 69 18 119/68 (85) 98 12/28/19 00:00 69 12/27/19 21:00 Room Air 12/27/19 20:00 98.2 71 18 129/74 (92) 98 12/27/19 20:00 71 Intake and Output 12/27/19 12/28/19 19:00 07:00 Intake Total 400 ml Balance 400 ml Other 400 ml # Voids 3 Laboratory Tests Test 12/28/19 04:45 White Blood Count 2.3 K/UL (4.8-10.8) L Red Blood Count 3.07 M/UL (4.70-6.10) L Hemoglobin 9.1 G/DL (14.2-18.0) L Hematocrit 28.0 % (42.0-52.0) L Mean Corpuscular Volume 91 FL (80-99) Mean Corpuscular Hemoglobin 29.8 PG (27.0-31.0) Mean Corpuscular Hemoglobin Concent 32.7 G/DL (32.0-36.0) Red Cell Distribution Width 15.4 % (11.6-14.8) H Platelet Count 67 K/UL (150-450) L Mean Platelet Volume 6.3 FL (6.5-10.1) L Neutrophils (%) (Auto) % (45.0-75.0) Lymphocytes (%) (Auto) % (20.0-45.0) Monocytes (%) (Auto) % (1.0-10.0) Eosinophils (%) (Auto) % (0.0-3.0) Basophils (%) (Auto) % (0.0-2.0) Differential Total Cells Counted 100 Neutrophils % (Manual) 52 % (45-75) Lymphocytes % (Manual) 41 % (20-45) Monocytes % (Manual) 5 % (1-10) Eosinophils % (Manual) 2 % (0-3) Basophils % (Manual) 0 % (0-2) Band Neutrophils 0 % (0-8) Platelet Estimate Decreased L Platelet Morphology Normal Hypochromasia 1+ Anisocytosis 1+ Sodium Level 140 MMOL/L (136-145) Potassium Level 4.1 MMOL/L (3.5-5.1) Chloride Level 105 MMOL/L (98-107) Carbon Dioxide Level 32 MMOL/L (21-32) Anion Gap 4 mmol/L (5-15) L Blood Urea Nitrogen 8 mg/dL (7-18) Creatinine 0.8 MG/DL (0.55-1.30) Estimat Glomerular Filtration Rate > 60 mL/min (>60) Glucose Level 84 MG/DL (74-106) Calcium Level 8.5 MG/DL (8.5-10.1) Objective HEAD AND NECK: Showed no JVD. LUNGS: Coarse rhonchi. CARDIOVASCULAR: Shows regular S1 and S2 with no gallop or murmur. ABDOMEN: Soft. EXTREMITIES: 1+ pitting edema. Jarek Grant MD Dec 28, 2019 16:28
[2019-12-28 20:00] VITALS: BP 123/76
[2019-12-28] MEDS: TraZODone 100mg tab ORAL SCH (23:39)
[2019-12-29] VITALS: BP 118/71
[2019-12-29 04:00] VITALS: BP 101/57
[2019-12-29] MEDS: Enoxaparin 100mg Inj SUBQ SCH ×2 (05:15→17:39)
[2019-12-29 08:00] VITALS: BP 113/58
[2019-12-29] MEDS: Docusate 100mg cap ORAL SCH ×2 (08:59→17:38)
--- NOTE | 2019-12-29 10:43 | Pulmonology Progress Note ---
YannCher CAD DESIGN ENGINEER 12/29/19 1043: Subjective Interval Events: Platelets stable on lovenox. Wants pain meds. Ok with pacemaker placement Allergies: Coded Allergies: DIAZEPAM (Verified Allergy, Intermediate, 12/23/19) TREE NUT (Verified Allergy, Intermediate, 12/23/19) KETOROLAC (Verified Allergy, Mild, Rash, 01/01/19) TRAMADOL (Verified Allergy, Unknown, 08/01/18) NSAIDS (NON-STEROIDAL ANTI-INFLAMMA (Verified Adverse Reaction, Unknown, 08/01/18) Subjective no SOB s/p IVC filter 12/22 started on a/c as per heme BM biopsy and CT scan A/P done 12/26 , reports back pain and CP with deep breathing CBC pending for this am Objective Last 24 Hour Vital Signs Date Time Temp Pulse Resp B/P (MAP) Pulse Ox O2 Delivery O2 Flow Rate FiO2 12/29/19 09:00 Room Air 12/29/19 08:00 97.9 65 20 113/58 (76) 98 12/29/19 08:00 57 12/29/19 04:00 97.9 94 20 101/57 (72) 96 12/29/19 04:00 59 12/29/19 00:00 97.5 59 16 118/71 (87) 100 12/29/19 00:00 55 12/28/19 21:00 Room Air 12/28/19 20:00 97.7 63 18 123/76 (92) 100 12/28/19 20:00 63 12/28/19 16:00 56 12/28/19 16:00 97.5 61 20 114/50 (71) 100 12/28/19 12:00 63 12/28/19 12:00 97.7 65 20 121/69 (86) 100 Intake and Output 12/28/19 12/29/19 19:00 07:00 Intake Total 1000 ml 200 ml Balance 1000 ml 200 ml Intake Oral 1000 ml 200 ml # Voids 4 2 # Bowel Movements 1 Objective General Appearance: WD/WN - overweight middle age male in NAD , alert Lines, tubes and drains: peripheral HEENT: normocephalic, atraumatic, anicteric, mucous membranes moist, PERRL Neck: non-tender, normal alignment, supple Respiratory/Chest: chest wall non-tender, lungs clear, no respiratory distress, no accessory muscle use Cardiovascular/Chest: normal peripheral pulses, yessi, regular rhythm - SB on tele Abdomen: normal bowel sounds, non tender, soft - obese Extremities: normal range of motion, non-tender, no calf tenderness, normal capillary refill Skin Exam: warm/dry, large ecchymosis abdominal area, healed scars 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 II-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 grossly normal, no motor/sensory deficits, alert, oriented x 3, responsive, normal mood/affect Musculoskeletal: normal muscle bulk Abdomen: non distended Current Medications Medications (Trade) Dose Ordered Sig/Mikey Route PRN Reason Start Time Stop Time Status Last Admin Dose Admin Acetaminophen (Tylenol) 650 mg Q4H PRN ORAL Pain (1-3)/ Temp >100.4 12/22/19 06:15 01/21/20 06:14 Docusate Sodium (Colace) 100 mg TWICE A DAY ORAL 12/22/19 09:00 01/21/20 08:59 12/29/19 08:59 Enoxaparin Sodium (Lovenox) 100 mg Q12H SUBQ 12/25/19 17:00 03/24/20 16:59 12/29/19 05:15 Famotidine (Pepcid) 40 mg DAILY ORAL 12/22/19 09:00 03/21/20 08:59 12/29/19 08:59 Fluoxetine HCl (PROzac) 40 mg DAILY ORAL 12/22/19 09:00 01/21/20 08:59 12/29/19 08:58 Folic Acid (Folate) 1 mg DAILY ORAL 12/28/19 09:00 01/27/20 08:59 12/29/19 08:59 Hydromorphone HCl (Dilaudid) 2 mg Q4H PRN IVP Severe Pain (Pain Scale 7-10) 12/29/19 10:15 01/05/20 10:14 12/29/19 10:37 Magnesium Hydroxide (Mom) 30 ml DAILYPRN PRN ORAL Constipation 12/22/19 06:15 01/21/20 06:14 Ondansetron HCl (Zofran) 4 mg Q4H PRN IVP Nausea & Vomiting 12/22/19 06:15 01/21/20 06:14 12/29/19 10:36 Quetiapine Fumarate (SEROqueL) 50 mg QHS ORAL 12/22/19 21:00 02/05/20 20:59 12/28/19 20:51 Trazodone HCl (Desyrel) 100 mg BEDTIME ORAL 12/22/19 21:00 01/21/20 20:59 12/28/19 23:39 Assessment/Plan Assessment/Plan ASSESSMENT 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 Probably hypercoagulability disorder ( given family history) Bradycardia with dizziness Pancytopenia Hepatomegaly Fatty liver Hx of ETOH abuse ( quit yrs ago) HTN PAF Bipolar disorder Homeless/from transitional housing Hx of gastric bypass PLAN OF CARE tele on Lovenox, continue- ( started by heme ) will discuss with heme if cleared to start on Eliquis , PLT with small trend down 12/27 , and CBC fro this am pending IVC filter needs to be removed when tolerates a/c ( previously placed) BM aspiration done 12/26, results pending CT A/P 12/26 - no malignancy noted O2 prn keep sat > 90%, so far pulse ox remains 98% on RA Venous Duplex BLE -> nonocclusive clot R distal SFV ECHO with pEF, no evidence of R heart strain yessi noted high 40th and low 50th, troponin x2 negative cardio eval appreciated , monitor HR ; eval if need pacemaker? patient bradycardic with HR dropping to hgh 30th abd low BP off CHEN and AVN blockers HR improved now, no need for PPM placement at this time as per cardio source of pancytopenias unclear fup with BM biopsy results hep panel NGT , HIV test NGT abdominal US + HM, fatty liver prior hx of ETOH pain management BP monitoring and management, no need for antiHTN at this time keep on tele GI prophylaxis supportive care case discussed and evaluated by supervising physician Nikko Nascimento MD 12/29/192036: Subjective Allergies: Coded Allergies: DIAZEPAM (Verified Allergy, Intermediate, 12/23/19) TREE NUT (Verified Allergy, Intermediate, 12/23/19) KETOROLAC (Verified Allergy, Mild, Rash, 01/01/19) TRAMADOL (Verified Allergy, Unknown, 08/01/18) NSAIDS (NON-STEROIDAL ANTI-INFLAMMA (Verified Adverse Reaction, Unknown, 08/01/18) Assessment/Plan Assessment/Plan Patient seen and examined with nurse practitioner and I agree with the above formulated assessment and plan. Cher Lerner NP Dec 29, 2019 10:43 Nikko Nascimento MD Dec 29, 2019 20:37
[2019-12-29 11:31] LABS: HEMATOCRIT 28.9 % (42.0-52.0); HEMOGLOBIN 9.6 G/DL (14.2-18.0); MEAN CORPUSCULAR VOLUME 90 FL (80-99); PLATELET COUNT 67 K/UL (150-450); RED CELL DISTRIBUTION WIDTH 15.4 % (11.6-14.8)
[2019-12-29 11:33] LABS: WHITE BLOOD COUNT 2.1 K/UL (4.8-10.8)
[2019-12-29 12:00] VITALS: BP 104/60
[2019-12-29 16:00] VITALS: BP 109/66
--- NOTE | 2019-12-29 18:02 | Cardiac Electrophysiology PN ---
Assessment/Plan Assessment/Plan 1. Chest pain due to acute pulmonary embolism. Ruled out for myocardial infarction. Echo showed ejection fraction of 60% to 65% with a PA pressure of only 12. 2. Acute pulmonary embolism. S/P IVC filter 12/23/19. On Lovenox 100 mg sq bid Awaiting final input from hematology. Likely will change to Eliquis 3. Bradycardia with HR dropping to high 30s and low BP. Off any CHEN or AVN tessy. HR better. Hold off on PPM implant. 4. Pancytopenia including Thrombocytopenia 70s. S/P BM biopsy and CT abdomen and pelvis 5. History of bipolar disorder, on Seroquel. 6. Dilaudid dependency DW RN Subjective Subjective On Lovenox 100 mg sq bid and on 2 liter NC. HR is better. No CP or SOB S/P BM biopsy and CT abdomen and pelvis. Asking for Dilaudid Objective Last 24 Hour Vital Signs Date Time Temp Pulse Resp B/P (MAP) Pulse Ox O2 Delivery O2 Flow Rate FiO2 12/29/19 16:00 65 12/29/19 16:00 97.1 58 20 109/66 (80) 95 12/29/19 15:13 97.7 12/29/19 12:00 97.7 60 20 104/60 (75) 98 12/29/19 12:00 68 12/29/19 11:07 97.9 12/29/19 09:00 Room Air 12/29/19 08:00 97.9 65 20 113/58 (76) 98 12/29/19 08:00 57 12/29/19 04:00 97.9 94 20 101/57 (72) 96 12/29/19 04:00 59 12/29/19 00:00 97.5 59 16 118/71 (87) 100 12/29/19 00:00 55 12/28/19 21:00 Room Air 12/28/19 20:00 97.7 63 18 123/76 (92) 100 12/28/19 20:00 63 Intake and Output 12/28/19 12/29/19 19:00 07:00 Intake Total 1000 ml 200 ml Balance 1000 ml 200 ml Intake Oral 1000 ml 200 ml # Voids 4 2 # Bowel Movements 1 Laboratory Tests Test 12/29/19 11:00 White Blood Count 2.1 K/UL (4.8-10.8) *L Red Blood Count 3.20 M/UL (4.70-6.10) L Hemoglobin 9.6 G/DL (14.2-18.0) L Hematocrit 28.9 % (42.0-52.0) L Mean Corpuscular Volume 90 FL (80-99) Mean Corpuscular Hemoglobin 29.8 PG (27.0-31.0) Mean Corpuscular Hemoglobin Concent 33.1 G/DL (32.0-36.0) Red Cell Distribution Width 15.4 % (11.6-14.8) H Platelet Count 67 K/UL (150-450) L Mean Platelet Volume 6.2 FL (6.5-10.1) L Neutrophils (%) (Auto) % (45.0-75.0) Lymphocytes (%) (Auto) % (20.0-45.0) Monocytes (%) (Auto) % (1.0-10.0) Eosinophils (%) (Auto) % (0.0-3.0) Basophils (%) (Auto) % (0.0-2.0) Differential Total Cells Counted 100 Neutrophils % (Manual) 48 % (45-75) Lymphocytes % (Manual) 40 % (20-45) Monocytes % (Manual) 10 % (1-10) Eosinophils % (Manual) 2 % (0-3) Basophils % (Manual) 0 % (0-2) Band Neutrophils 0 % (0-8) Platelet Estimate Decreased L Platelet Morphology Normal Hypochromasia 1+ Anisocytosis 1+ Objective HEAD AND NECK: Showed no JVD. LUNGS: Coarse rhonchi. CARDIOVASCULAR: Shows regular S1 and S2 with no gallop or murmur. ABDOMEN: Soft. EXTREMITIES: 1+ pitting edema. Jarek Grant MD Dec 29, 2019 18:02
[2019-12-29 20:00] VITALS: BP 121/64
[2019-12-29] MEDS: TraZODone 100mg tab ORAL SCH (21:33)
[2019-12-30] VITALS: BP 95/48
[2019-12-30 04:00] VITALS: BP 124/70
[2019-12-30] MEDS: Enoxaparin 100mg Inj SUBQ SCH (06:02)
[2019-12-30 07:11] LABS: HEMATOCRIT 29.1 % (42.0-52.0); HEMOGLOBIN 9.4 G/DL (14.2-18.0); MEAN CORPUSCULAR VOLUME 91 FL (80-99); PLATELET COUNT 60 K/UL (150-450); RED BLOOD COUNT 3.19 M/UL (4.70-6.10); RED CELL DISTRIBUTION WIDTH 15.3 % (11.6-14.8)
[2019-12-30 07:18] LABS: ANION GAP 7 mmol/L (5-15); BLOOD UREA NITROGEN 12 mg/dL (7-18); CALCIUM 8.5 MG/DL (8.5-10.1); CARBON DIOXIDE 30 MMOL/L (21-32); CHLORIDE 105 MMOL/L (98-107); CREATININE 0.8 MG/DL (0.55-1.30); SODIUM 142 MMOL/L (136-145)
[2019-12-30 08:00] VITALS: BP 101/97
[2019-12-30] MEDS: Docusate 100mg cap ORAL SCH ×2 (08:14→17:10)
[2019-12-30 09:36] LABS: WHITE BLOOD COUNT 2.3 K/UL (4.8-10.8)
[2019-12-30 12:00] VITALS: BP 101/46
--- NOTE | 2019-12-30 12:17 | Pulmonology Progress Note ---
Cher Lerner BOOM CAT OPERATOR 12/30/19 1217: Subjective Interval Events: Platelets stable on lovenox. Wants pain meds. Ok with pacemaker placement Allergies: Coded Allergies: DIAZEPAM (Verified Allergy, Intermediate, 12/23/19) TREE NUT (Verified Allergy, Intermediate, 12/23/19) KETOROLAC (Verified Allergy, Mild, Rash, 01/01/19) TRAMADOL (Verified Allergy, Unknown, 08/01/18) NSAIDS (NON-STEROIDAL ANTI-INFLAMMA (Verified Adverse Reaction, Unknown, 08/01/18) Subjective no SOB s/p IVC filter 12/22 started on a/c as per heme BM biopsy and CT scan A/P done 12/26 , reports back pain and CP with deep breathing CPLT down to 60 Objective Last 24 Hour Vital Signs Date Time Temp Pulse Resp B/P (MAP) Pulse Ox O2 Delivery O2 Flow Rate FiO2 12/30/19 08:00 58 12/30/19 06:50 41 12/30/19 04:00 52 12/30/19 04:00 97.7 52 16 124/70 (88) 96 12/30/19 00:00 57 12/30/19 00:00 97.0 58 20 95/48 (64) 100 12/29/19 21:00 Room Air 12/29/19 20:00 97.0 65 20 121/64 (83) 98 12/29/19 20:00 65 12/29/19 16:00 65 12/29/19 16:00 97.1 58 20 109/66 (80) 95 12/29/19 15:13 97.7 Intake and Output 12/29/19 12/30/19 19:00 07:00 Intake Total 750 ml 230 ml Balance 750 ml 230 ml Intake Oral 750 ml 230 ml # Voids 2 2 # Bowel Movements 1 1 Objective General Appearance: WD/WN - overweight middle age male in NAD , alert Lines, tubes and drains: peripheral HEENT: normocephalic, atraumatic, anicteric, mucous membranes moist, PERRL Neck: non-tender, normal alignment, supple Respiratory/Chest: chest wall non-tender, lungs clear, no respiratory distress, no accessory muscle use Cardiovascular/Chest: normal peripheral pulses, yessi, regular rhythm - SB on tele Abdomen: normal bowel sounds, non tender, soft - obese Extremities: normal range of motion, non-tender, no calf tenderness, normal capillary refill Skin Exam: warm/dry, large ecchymosis abdominal area, healed scars 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, no motor/sensory deficits, alert, oriented x 3, responsive, normal mood/affect Musculoskeletal: normal muscle bulk Abdomen: non distended Laboratory Tests 12/30/19 05:10: White Blood Count 2.3L, Red Blood Count 3.19L, Hemoglobin 9.4L, Hematocrit 29.1L , Mean Corpuscular Volume 91, Mean Corpuscular Hemoglobin 29.5, Mean Corpuscular Hemoglobin Concent 32.4, Red Cell Distribution Width 15.3H, Platelet Count 60L, Mean Platelet Volume 6.2L, Neutrophils (%) (Auto) , Lymphocytes (%) (Auto) , Monocytes (%) (Auto) , Eosinophils (%) (Auto) , Basophils (%) (Auto) , Differential Total Cells Counted 100, Neutrophils % (Manual) 44L, Lymphocytes % (Manual) 48H, Monocytes % (Manual) 6, Eosinophils % (Manual) 1, Basophils % (Manual) 1, Band Neutrophils 0, Platelet Estimate DecreasedL, Platelet Morphology Normal, Anisocytosis 1+, Sodium Level 142, Potassium Level 4.0, Chloride Level 105, Carbon Dioxide Level 30, Anion Gap 7, Blood Urea Nitrogen 12, Creatinine 0.8, Estimat Glomerular Filtration Rate > 60, Glucose Level 87, Calcium Level 8.5 Current Medications Medications (Trade) Dose Ordered Sig/Mikey Route PRN Reason Start Time Stop Time Status Last Admin Dose Admin Acetaminophen (Tylenol) 650 mg Q4H PRN ORAL Pain (1-3)/ Temp >100.4 12/22/19 06:15 01/21/20 06:14 Docusate Sodium (Colace) 100 mg TWICE A DAY ORAL 12/22/19 09:00 01/21/20 08:59 12/30/19 08:14 Enoxaparin Sodium (Lovenox) 100 mg Q12H SUBQ 12/25/19 17:00 03/24/20 16:59 12/30/19 06:02 Famotidine (Pepcid) 40 mg DAILY ORAL 12/22/19 09:00 03/21/20 08:59 12/30/19 08:14 Fluoxetine HCl (PROzac) 40 mg DAILY ORAL 12/22/19 09:00 01/21/20 08:59 12/30/19 08:14 Folic Acid (Folate) 1 mg DAILY ORAL 12/28/19 09:00 01/27/20 08:59 12/30/19 08:13 Hydromorphone HCl (Dilaudid) 2 mg Q4H PRN IVP Severe Pain (Pain Scale 7-10) 12/29/19 10:15 01/05/20 10:14 12/30/19 08:15 Magnesium Hydroxide (Mom) 30 ml DAILYPRN PRN ORAL Constipation 12/22/19 06:15 01/21/20 06:14 Ondansetron HCl (Zofran) 4 mg Q4H PRN IVP Nausea & Vomiting 12/22/19 06:15 01/21/20 06:14 12/29/19 18:25 Quetiapine Fumarate (SEROqueL) 50 mg QHS ORAL 12/22/19 21:00 02/05/20 20:59 12/29/19 21:33 Trazodone HCl (Desyrel) 100 mg BEDTIME ORAL 12/22/19 21:00 01/21/20 20:59 12/29/19 21:33 Assessment/Plan Assessment/Plan ASSESSMENT 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 Probably hypercoagulability disorder ( given family history) Bradycardia with dizziness -improved Pancytopenia Thrombocytopenia Hepatomegaly Fatty liver Hx of ETOH abuse ( quit yrs ago) HTN PAF Bipolar disorder Homeless/from transitional housing Hx of gastric bypass PLAN OF CARE tele dc Lovenox and start Eliquis closely monitor PLT counts IVC filter needs to be removed when tolerates a/c ( previously placed) BM aspiration done 12/26, results pending CT A/P 12/26 - no malignancy noted O2 prn keep sat > 90%, so far pulse ox remains 98% on RA Venous Duplex BLE -> nonocclusive clot R distal SFV ECHO with pEF, no evidence of R heart strain yessi noted high 40th and low 50th, troponin x2 negative cardio eval appreciated , monitor HR ; eval if need pacemaker? patient bradycardic with HR dropping to hgh 30th abd low BP off CHEN and AVN blockers HR improved now, no need for PPM placement at this time as per cardio source of pancytopenias unclear fup with BM biopsy results hep panel NGT , HIV test NGT abdominal US + HM, fatty liver prior hx of ETOH pain management BP monitoring and management, no need for antiHTN at this time keep on tele GI prophylaxis supportive care Pt need very close monitoring given that he needs a/coagulation and low PLT count Dr Ross unable to fup him as OP due to insurance issues CM to arrange fup with heme per insurance or primary with referral to heme need to fup with BM results and further directions with care need frequent monitoring of PLT need weekly CBC at least the first month to make sure PLT not dropping need to be referred to network fabrication engineer prior to his discharge with appt date patient is aware of risk of bleeding , can be life threatening , educated on signs and symptoms to report need to repeat venous Duplex prior to dc of a/c in 6 month need to remove IVC filter in the next few weeks of 2-3 months ideally case discussed and evaluated by supervising physician Nikko Nascimento MD 12/31/19 0901: Subjective Allergies: Coded Allergies: DIAZEPAM (Verified Allergy, Intermediate, 12/23/19) TREE NUT (Verified Allergy, Intermediate, 12/23/19) KETOROLAC (Verified Allergy, Mild, Rash, 01/01/19) TRAMADOL (Verified Allergy, Unknown, 08/01/18) NSAIDS (NON-STEROIDAL ANTI-INFLAMMA (Verified Adverse Reaction, Unknown, 08/01/18) Assessment/Plan Assessment/Plan Patient seen and examined with BOOM CAT OPERATOR with whom I formulated the above assessment and plan. Cher Lerner NP Dec 30, 2019 12:17 Nikko Nascimento MD Dec 31, 2019 09:01
--- NOTE | 2019-12-30 12:47 | Consultation ---
History of Present Illness General Date patient seen: Dec 30, 2019 Chief Complaint: Pain Present Illness Allergies: Coded Allergies: DIAZEPAM (Verified Allergy, Intermediate, 12/23/19) TREE NUT (Verified Allergy, Intermediate, 12/23/19) KETOROLAC (Verified Allergy, Mild, Rash, 01/01/19) TRAMADOL (Verified Allergy, Unknown, 08/01/18) NSAIDS (NON-STEROIDAL ANTI-INFLAMMA (Verified Adverse Reaction, Unknown, 08/01/18) Medication History Scheduled Docusate Sodium* (Colace*), 100 MG ORAL TWICE A DAY, (Reported) Famotidine* (Pepcid 20mg tablet*), 40 MG ORAL DAILY, (Reported) Fluoxetine Hcl* (Fluoxetine Hcl*), 40 MG ORAL DAILY, (Reported) Quetiapine Fumarate* (Quetiapine Fumarate*), 50 MG ORAL QHS, (Reported) Trazodone Hcl* (Desyrel*), 100 MG ORAL BEDTIME, (Reported) Scheduled PRN Acetaminophen With Codeine (T#3) (Tylenol #3 Tab*), 1 TAB ORAL Q6HR PRN for For Pain, (Reported) Patient History Healthcare decision maker Resuscitation status Advanced Directive on File Physical Exam Last 24 Hour Vital Signs Date Time Temp Pulse Resp B/P (MAP) Pulse Ox O2 Delivery O2 Flow Rate FiO2 12/30/19 08:00 58 12/30/19 08:00 98.2 69 18 101/97 (98) 100 12/30/19 06:50 41 12/30/19 04:00 52 12/30/19 04:00 97.7 52 16 124/70 (88) 96 12/30/19 00:00 57 12/30/19 00:00 97.0 58 20 95/48 (64) 100 12/29/19 21:00 Room Air 12/29/19 20:00 97.0 65 20 121/64 (83) 98 12/29/19 20:00 65 12/29/19 16:00 65 12/29/19 16:00 97.1 58 20 109/66 (80) 95 12/29/19 15:13 97.7 Intake and Output 12/29/19 12/30/19 19:00 07:00 Intake Total 750 ml 230 ml Balance 750 ml 230 ml Intake Oral 750 ml 230 ml # Voids 2 2 # Bowel Movements 1 1 Laboratory Tests Test 12/30/19 05:10 White Blood Count 2.3 K/UL (4.8-10.8) L Red Blood Count 3.19 M/UL (4.70-6.10) L Hemoglobin 9.4 G/DL (14.2-18.0) L Hematocrit 29.1 % (42.0-52.0) L Mean Corpuscular Volume 91 FL (80-99) Mean Corpuscular Hemoglobin 29.5 PG (27.0-31.0) Mean Corpuscular Hemoglobin Concent 32.4 G/DL (32.0-36.0) Red Cell Distribution Width 15.3 % (11.6-14.8) H Platelet Count 60 K/UL (150-450) L Mean Platelet Volume 6.2 FL (6.5-10.1) L Neutrophils (%) (Auto) % (45.0-75.0) Lymphocytes (%) (Auto) % (20.0-45.0) Monocytes (%) (Auto) % (1.0-10.0) Eosinophils (%) (Auto) % (0.0-3.0) Basophils (%) (Auto) % (0.0-2.0) Differential Total Cells Counted 100 Neutrophils % (Manual) 44 % (45-75) L Lymphocytes % (Manual) 48 % (20-45) H Monocytes % (Manual) 6 % (1-10) Eosinophils % (Manual) 1 % (0-3) Basophils % (Manual) 1 % (0-2) Band Neutrophils 0 % (0-8) Platelet Estimate Decreased L Platelet Morphology Normal Anisocytosis 1+ Sodium Level 142 MMOL/L (136-145) Potassium Level 4.0 MMOL/L (3.5-5.1) Chloride Level 105 MMOL/L (98-107) Carbon Dioxide Level 30 MMOL/L (21-32) Anion Gap 7 mmol/L (5-15) Blood Urea Nitrogen 12 mg/dL (7-18) Creatinine 0.8 MG/DL (0.55-1.30) Estimat Glomerular Filtration Rate > 60 mL/min (>60) Glucose Level 87 MG/DL (74-106) Calcium Level 8.5 MG/DL (8.5-10.1) Height (Feet): 6 Height (Inches): 1.00 Weight (Pounds): 253 Medications Current Medications Medications (Trade) Dose Ordered Sig/Mikey Route PRN Reason Start Time Stop Time Status Last Admin Dose Admin Acetaminophen (Tylenol) 650 mg Q4H PRN ORAL Pain (1-3)/ Temp >100.4 12/22/19 06:15 01/21/20 06:14 Apixaban (Eliquis) 5 mg BID ORAL 12/30/19 18:00 03/29/20 17:59 Docusate Sodium (Colace) 100 mg TWICE A DAY ORAL 12/22/19 09:00 01/21/20 08:59 12/30/19 08:14 Famotidine (Pepcid) 40 mg DAILY ORAL 12/22/19 09:00 03/21/20 08:59 12/30/19 08:14 Fluoxetine HCl (PROzac) 40 mg DAILY ORAL 12/22/19 09:00 01/21/20 08:59 12/30/19 08:14 Folic Acid (Folate) 1 mg DAILY ORAL 12/28/19 09:00 01/27/20 08:59 12/30/19 08:13 Hydromorphone HCl (Dilaudid) 2 mg Q4H PRN IVP Severe Pain (Pain Scale 7-10) 12/29/19 10:15 01/05/20 10:14 12/30/19 12:38 Magnesium Hydroxide (Mom) 30 ml DAILYPRN PRN ORAL Constipation 12/22/19 06:15 01/21/20 06:14 Ondansetron HCl (Zofran) 4 mg Q4H PRN IVP Nausea & Vomiting 12/22/19 06:15 01/21/20 06:14 12/29/19 18:25 Quetiapine Fumarate (SEROqueL) 50 mg QHS ORAL 12/22/19 21:00 02/05/20 20:59 12/29/19 21:33 Trazodone HCl (Desyrel) 100 mg BEDTIME ORAL 12/22/19 21:00 01/21/20 20:59 12/29/19 21:33 Assessment/Plan Assessment/Plan: (1) Chest pain (2) Pulmonary embolism seen dictated Neo Sun Dec 30, 2019 12:47
--- NOTE | 2019-12-30 13:29 | Cardiac Electrophysiology PN ---
Assessment/Plan Assessment/Plan 1. Chest pain due to acute pulmonary embolism. Ruled out for myocardial infarction. Echo showed ejection fraction of 60% to 65% with a PA pressure of only 12. 2. Acute pulmonary embolism. S/P IVC filter 12/23/19. On Lovenox 100 mg sq bid that now is changed to Eliquis 5 bid 3. Bradycardia with HR dropping to high 30s and low BP. Off any CHEN or AVN tessy. HR better. Hold off on PPM implant. 4. Pancytopenia including Thrombocytopenia 70s. S/P BM biopsy and CT abdomen and pelvis 5. History of bipolar disorder, on Seroquel. 6. Dilaudid dependency DW RN Subjective Subjective On Lovenox 100 mg sq bid and on 2 liter NC. No CP or SOB. Asking for Dilaudid Objective Last 24 Hour Vital Signs Date Time Temp Pulse Resp B/P (MAP) Pulse Ox O2 Delivery O2 Flow Rate FiO2 12/30/19 08:00 58 12/30/19 08:00 98.2 69 18 101/97 (98) 100 12/30/19 06:50 41 12/30/19 04:00 52 12/30/19 04:00 97.7 52 16 124/70 (88) 96 12/30/19 00:00 57 12/30/19 00:00 97.0 58 20 95/48 (64) 100 12/29/19 21:00 Room Air 12/29/19 20:00 97.0 65 20 121/64 (83) 98 12/29/19 20:00 65 12/29/19 16:00 65 12/29/19 16:00 97.1 58 20 109/66 (80) 95 12/29/19 15:13 97.7 Intake and Output 12/29/19 12/30/19 19:00 07:00 Intake Total 750 ml 230 ml Balance 750 ml 230 ml Intake Oral 750 ml 230 ml # Voids 2 2 # Bowel Movements 1 1 Laboratory Tests Test 12/30/19 05:10 White Blood Count 2.3 K/UL (4.8-10.8) L Red Blood Count 3.19 M/UL (4.70-6.10) L Hemoglobin 9.4 G/DL (14.2-18.0) L Hematocrit 29.1 % (42.0-52.0) L Mean Corpuscular Volume 91 FL (80-99) Mean Corpuscular Hemoglobin 29.5 PG (27.0-31.0) Mean Corpuscular Hemoglobin Concent 32.4 G/DL (32.0-36.0) Red Cell Distribution Width 15.3 % (11.6-14.8) H Platelet Count 60 K/UL (150-450) L Mean Platelet Volume 6.2 FL (6.5-10.1) L Neutrophils (%) (Auto) % (45.0-75.0) Lymphocytes (%) (Auto) % (20.0-45.0) Monocytes (%) (Auto) % (1.0-10.0) Eosinophils (%) (Auto) % (0.0-3.0) Basophils (%) (Auto) % (0.0-2.0) Differential Total Cells Counted 100 Neutrophils % (Manual) 44 % (45-75) L Lymphocytes % (Manual) 48 % (20-45) H Monocytes % (Manual) 6 % (1-10) Eosinophils % (Manual) 1 % (0-3) Basophils % (Manual) 1 % (0-2) Band Neutrophils 0 % (0-8) Platelet Estimate Decreased L Platelet Morphology Normal Anisocytosis 1+ Sodium Level 142 MMOL/L (136-145) Potassium Level 4.0 MMOL/L (3.5-5.1) Chloride Level 105 MMOL/L (98-107) Carbon Dioxide Level 30 MMOL/L (21-32) Anion Gap 7 mmol/L (5-15) Blood Urea Nitrogen 12 mg/dL (7-18) Creatinine 0.8 MG/DL (0.55-1.30) Estimat Glomerular Filtration Rate > 60 mL/min (>60) Glucose Level 87 MG/DL (74-106) Calcium Level 8.5 MG/DL (8.5-10.1) Objective HEAD AND NECK: Showed no JVD. LUNGS: Coarse rhonchi. CARDIOVASCULAR: Shows regular S1 and S2 with no gallop or murmur. ABDOMEN: Soft. EXTREMITIES: 1+ pitting edema. Jarek Grant MD Dec 30, 2019 13:29
[2019-12-30 16:00] VITALS: BP 114/63
--- NOTE | 2019-12-30 17:01 | Diagnostic Imaging Report ---
Indication: Pancytopenia Technique: Informed consent obtained prior to commencement of the procedure. Procedural timeout performed. Noncontrast localizing spiral acquisitions obtained through the pelvis with the patient prone. Local anesthesia with 1% lidocaine. A cannula from the [employer] Bone marrow biopsy system was advanced to the posterior left iliac bone cortex. CT confirmed satisfactory needle placement. This was then advanced using the electric drill. Once the cannula was within the bone marrow, total of 10 mL of bone marrow was aspirated. The cannula was then advanced further using the drill in order to obtain a core specimen. The cannula was removed, and a core specimen removed from the cannula and provided to pathology. The patient tolerated the procedure well, without immediate complication. . Total dose length product 376 mGycm. CTDIvol(s) 41 mGy. Radiation dose was minimized using automated exposure control Comparison: none Findings: As above Impression: Apparently successful bone marrow biopsy under CT guidance, as described The CT scanner at [facility] is accredited by the [employer] and the scans are performed using protocols designed to limit radiation exposure to as low as reasonably achievable to attain images of sufficient resolution adequate for diagnostic evaluation.
[2019-12-30] MEDS: Eliquis 5mg tablet ORAL SCH (17:10)
[2019-12-30 20:00] VITALS: BP 118/65
[2019-12-30] MEDS: TraZODone 100mg tab ORAL SCH (21:16)
[2019-12-31] VITALS: BP 99/54
[2019-12-31 04:00] VITALS: BP 105/59
[2019-12-31 07:16] LABS: HEMATOCRIT 27.5 % (42.0-52.0); HEMOGLOBIN 9.5 G/DL (14.2-18.0); MEAN CORPUSCULAR VOLUME 89 FL (80-99); PLATELET COUNT 71 K/UL (150-450); RED BLOOD COUNT 3.11 M/UL (4.70-6.10); RED CELL DISTRIBUTION WIDTH 15.3 % (11.6-14.8)
[2019-12-31 07:38] LABS: ANION GAP 4 mmol/L (5-15); BLOOD UREA NITROGEN 10 mg/dL (7-18); CALCIUM 8.9 MG/DL (8.5-10.1); CARBON DIOXIDE 32 MMOL/L (21-32); CHLORIDE 107 MMOL/L (98-107); CREATININE 0.8 MG/DL (0.55-1.30); POTASSIUM 4.1 MMOL/L (3.5-5.1); SODIUM 143 MMOL/L (136-145)
[2019-12-31 08:00] VITALS: BP 106/50
--- NOTE | 2019-12-31 08:54 | General Progress Note ---
Subjective Date patient seen: Dec 31, 2019 Time patient seen: 08:30 - am Constitutional: Reports: weakness HEENT: Reports: no symptoms Cardiovascular: Reports: no symptoms Respiratory: Reports: no symptoms Gastrointestinal/Abdominal: Reports: no symptoms Genitourinary: Reports: no symptoms Neurologic/Psychiatric: Reports: no symptoms Endocrine: Reports: no symptoms Hematologic/Lymphatic: Reports: no symptoms Allergies: Coded Allergies: DIAZEPAM (Verified Allergy, Intermediate, 12/23/19) TREE NUT (Verified Allergy, Intermediate, 12/23/19) KETOROLAC (Verified Allergy, Mild, Rash, 01/01/19) TRAMADOL (Verified Allergy, Unknown, 08/01/18) NSAIDS (NON-STEROIDAL ANTI-INFLAMMA (Verified Adverse Reaction, Unknown, 08/01/18) Subjective This is a 44 y/o male being seen on the Tele floor of [facility] [place]. Patient is in bed and continues to c/o pain which has been tolerated on the Dilaudid. Was advised to use the [place] and he seems to understand. Objective Last 24 Hour Vital Signs Date Time Temp Pulse Resp B/P (MAP) Pulse Ox O2 Delivery O2 Flow Rate FiO2 12/31/19 05:53 98.0 12/31/19 04:00 98.0 57 16 105/59 (74) 98 12/31/19 04:00 52 12/31/19 00:00 97.7 68 18 99/54 (69) 97 12/31/19 00:00 64 12/30/19 21:46 98.6 12/30/19 21:00 Room Air 12/30/19 20:00 98.8 62 20 118/65 (82) 98 12/30/19 20:00 64 12/30/19 16:00 98.6 59 18 114/63 (80) 98 12/30/19 16:00 73 12/30/19 12:00 96.6 58 20 101/46 (64) 97 12/30/19 09:00 Room Air Intake and Output 12/30/19 12/31/19 19:00 07:00 Intake Total 600 ml 160 ml Balance 600 ml 160 ml Intake Oral 600 ml 160 ml # Voids 2 2 Laboratory Tests 12/31/19 06:34: White Blood Count 2.0*L, Red Blood Count 3.11L, Hemoglobin 9.5L, Hematocrit 27.5L, Mean Corpuscular Volume 89, Mean Corpuscular Hemoglobin 30.7, Mean Corpuscular Hemoglobin Concent 34.7, Red Cell Distribution Width 15.3H, Platelet Count 71L, Mean Platelet Volume 6.6, Neutrophils (%) (Auto) , Lymphocytes (%) (Auto) , Monocytes (%) (Auto) , Eosinophils (%) (Auto) , Basophils (%) (Auto) , Neutrophils % (Manual) [Pending], Lymphocytes % (Manual) [Pending], Platelet Estimate [Pending], Platelet Morphology [Pending], Sodium Level 143, Potassium Level 4.1, Chloride Level 107, Carbon Dioxide Level 32, Anion Gap 4L, Blood Urea Nitrogen 10, Creatinine 0.8, Estimat Glomerular Filtration Rate > 60, Glucose Level 95, Calcium Level 8.9 Height (Feet): 6 Height (Inches): 1.00 Weight (Pounds): 253 General Appearance: no apparent distress, alert EENT: PERRL/EOMI Neck: non-tender, normal alignment Cardiovascular: normal rate, regular rhythm Respiratory/Chest: decreased breath sounds Abdomen: non tender, soft Extremities: non-tender Edema: trace edema Neurologic: alert, oriented x 3 Skin: normal pigmentation Assessment/Plan Assessment/Plan: (1) Chest pain (2) Pulmonary embolism Patient to be continued on Dilaudid and [place] D/w Dr. Grissom and he concurred. Neo Sun Dec 31, 2019 08:54
[2019-12-31] MEDS: Eliquis 5mg tablet ORAL SCH ×2 (09:35→18:25)
[2019-12-31] MEDS: Docusate 100mg cap ORAL SCH ×2 (09:36→18:19)
--- NOTE | 2019-12-31 10:09 | Pulmonology Progress Note ---
Reginald Lerneret BUILDING DRAFTER 12/31/19 1009: Subjective Interval Events: Platelets stable on lovenox. Wants pain meds. Ok with pacemaker placement Allergies: Coded Allergies: DIAZEPAM (Verified Allergy, Intermediate, 12/23/19) TREE NUT (Verified Allergy, Intermediate, 12/23/19) KETOROLAC (Verified Allergy, Mild, Rash, 01/01/19) TRAMADOL (Verified Allergy, Unknown, 08/01/18) NSAIDS (NON-STEROIDAL ANTI-INFLAMMA (Verified Adverse Reaction, Unknown, 08/01/18) Subjective no SOB s/p IVC filter 12/22 started on Eliquis 12/[address] scan A/P done 12/26 , PLT up to 71 this am Objective Last 24 Hour Vital Signs Date Time Temp Pulse Resp B/P (MAP) Pulse Ox O2 Delivery O2 Flow Rate FiO2 12/31/19 05:53 98.0 12/31/19 04:00 98.0 57 16 105/59 (74) 98 12/31/19 04:00 52 12/31/19 00:00 97.7 68 18 99/54 (69) 97 12/31/19 00:00 64 12/30/19 21:46 98.6 12/30/19 21:00 Room Air 12/30/19 20:00 98.8 62 20 118/65 (82) 98 12/30/19 20:00 64 12/30/19 16:00 98.6 59 18 114/63 (80) 98 12/30/19 16:00 73 12/30/19 12:00 96.6 58 20 101/46 (64) 97 Intake and Output 12/30/19 12/31/19 19:00 07:00 Intake Total 600 ml 160 ml Balance 600 ml 160 ml Intake Oral 600 ml 160 ml # Voids 2 2 Objective General Appearance: WD/WN - overweight middle age male in NAD , alert Lines, tubes and drains: peripheral HEENT: normocephalic, atraumatic, anicteric, mucous membranes moist, PERRL Neck: non-tender, normal alignment, supple Respiratory/Chest: chest wall non-tender, lungs clear, no respiratory distress, no accessory muscle use Cardiovascular/Chest: normal peripheral pulses, yessi, regular rhythm - SB on tele Abdomen: normal bowel sounds, non tender, soft - obese Extremities: normal range of motion, non-tender, no calf tenderness, normal capillary refill Skin Exam: warm/dry, large ecchymosis abdominal area, healed scars Neurologic: harm reduction worker II-XII grossly normal, no motor/sensory deficits, alert, oriented x 3, responsive, normal mood/affect Musculoskeletal: normal muscle bulk Abdomen: non distended Laboratory Tests 12/31/19 06:34: White Blood Count 2.0*L, Red Blood Count 3.11L, Hemoglobin 9.5L, Hematocrit 27.5L, Mean Corpuscular Volume 89, Mean Corpuscular Hemoglobin 30.7, Mean Corpuscular Hemoglobin Concent 34.7, Red Cell Distribution Width 15.3H, Platelet Count 71L, Mean Platelet Volume 6.6, Neutrophils (%) (Auto) , Lymphocytes (%) (Auto) , Monocytes (%) (Auto) , Eosinophils (%) (Auto) , Basophils (%) (Auto) , Neutrophils % (Manual) [Pending], Lymphocytes % (Manual) [Pending], Platelet Estimate [Pending], Platelet Morphology [Pending], Sodium Level 143, Potassium Level 4.1, Chloride Level 107, Carbon Dioxide Level 32, Anion Gap 4L, Blood Urea Nitrogen 10, Creatinine 0.8, Estimat Glomerular Filtration Rate > 60, Glucose Level 95, Calcium Level 8.9 Current Medications Medications (Trade) Dose Ordered Sig/Mikey Route PRN Reason Start Time Stop Time Status Last Admin Dose Admin Acetaminophen (Tylenol) 650 mg Q4H PRN ORAL Pain (1-3)/ Temp >100.4 12/22/19 06:15 01/21/20 06:14 Acetaminophen/ Hydrocodone Bitart ([place] 10/325) 1 tab Q6H PRN ORAL Moderate Pain (Pain Scale 4-6) 12/30/19 13:00 01/06/20 12:59 Apixaban (Eliquis) 5 mg BID ORAL 12/30/19 18:00 03/29/20 17:59 12/31/19 09:35 Docusate Sodium (Colace) 100 mg TWICE A DAY ORAL 12/22/19 09:00 01/21/20 08:59 12/31/19 09:36 Famotidine (Pepcid) 40 mg DAILY ORAL 12/22/19 09:00 1/2/21 08:59 12/31/19 09:35 Fluoxetine HCl (PROzac) 40 mg DAILY ORAL 12/22/19 09:00 01/21/20 08:59 12/31/19 09:35 Folic Acid (Folate) 1 mg DAILY ORAL 12/28/19 09:00 01/27/20 08:59 12/31/19 09:36 Hydromorphone HCl (Dilaudid) 1 mg Q4H PRN IVP Severe Pain (Pain Scale 7-10) 12/30/19 13:00 01/06/20 12:59 12/31/19 09:36 Magnesium Hydroxide (Mom) 30 ml DAILYPRN PRN ORAL Constipation 12/22/19 06:15 01/21/20 06:14 Ondansetron HCl (Zofran) 4 mg Q4H PRN IVP Nausea & Vomiting 12/22/19 06:15 01/21/20 06:14 12/29/19 18:25 Quetiapine Fumarate (SEROqueL) 50 mg QHS ORAL 12/22/19 21:00 02/05/20 20:59 12/30/19 21:16 Trazodone HCl (Desyrel) 100 mg BEDTIME ORAL 12/22/19 21:00 01/21/20 20:59 12/30/19 21:16 Assessment/Plan Assessment/Plan ASSESSMENT 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 Probably hypercoagulability disorder ( given family history) Bradycardia with dizziness -improved Pancytopenia Thrombocytopenia Hepatomegaly Fatty liver Hx of ETOH abuse ( quit yrs ago) HTN PAF Bipolar disorder Homeless/from transitional housing Hx of gastric bypass PLAN OF CARE tele off Lovenox , stared on Eliquis 12/29, PLT up to 71 IVC filter needs to be removed when tolerates a/c ( previously placed) BM aspiration done 12/26, results pending CT A/P 12/26 - no malignancy noted O2 prn keep sat > 90%, so far pulse ox remains 98% on RA Venous Duplex BLE -> nonocclusive clot R distal SFV ECHO with pEF, no evidence of R heart strain yessi noted high 40th and low 50th, troponin x2 negative cardio eval appreciated , monitor HR ; eval if need pacemaker? patient bradycardic with HR dropping to hgh 30th abd low BP off CHEN and AVN blockers HR improved now, no need for PPM placement at this time as per cardio source of pancytopenias unclear fup with BM biopsy results hep panel NGT , HIV test NGT abdominal US + HM, fatty liver prior hx of ETOH pain management BP monitoring and management, no need for antiHTN at this time keep on tele GI prophylaxis supportive care Pt need very close monitoring given that he needs a/coagulation and low PLT count Dr Ross unable to fup him as OP due to insurance issues CM to arrange fup with heme per insurance or primary with referral to heme need to fup with BM results and further directions with care need frequent monitoring of PLT need weekly CBC at least the first month to make sure PLT not dropping need to be referred to network health care legal assistant prior to his discharge with appt d ate patient is aware of risk of bleeding , can be life threatening , educated on signs and symptoms to report need to repeat venous Duplex prior to dc of a/c in 6 month need to remove IVC filter in the next few weeks of 2-3 months ideally case discussed and evaluated by supervising physician Nikko Nascimento MD 01/01/202043: Subjective Allergies: Coded Allergies: DIAZEPAM (Verified Allergy, Intermediate, 12/23/19) TREE NUT (Verified Allergy, Intermediate, 12/23/19) KETOROLAC (Verified Allergy, Mild, Rash, 01/01/19) TRAMADOL (Verified Allergy, Unknown, 08/01/18) NSAIDS (NON-STEROIDAL ANTI-INFLAMMA (Verified Adverse Reaction, Unknown, 08/01/18) Assessment/Plan Assessment/Plan Patient seen and examined with BUILDING DRAFTER and I agree with the above formulated a ssessment and plan. Cher Lerner NP Dec 31, 2019 10:09 Nikko Nascimento MD Jan 01, 2020 20:44
--- NOTE | 2019-12-31 11:23 | Cardiac Electrophysiology PN ---
Assessment/Plan Assessment/Plan 1. Chest pain due to acute pulmonary embolism. Ruled out for myocardial infarction. Echo showed ejection fraction of 60% to 65% with a PA pressure of only 12. 2. Acute pulmonary embolism. S/P IVC filter 12/23/19. On Eliquis 5 bid 3. Bradycardia with HR dropping to high 30s and low BP. Off any CHEN or AVN tessy. HR better. Hold off on PPM implant. 4. Pancytopenia including Thrombocytopenia 70s. S/P BM biopsy and CT abdomen and pelvis 5. History of bipolar disorder, on Seroquel. 6. Dilaudid dependency DW RN Subjective Subjective Lovenox changed to Eliquis 5 bid and on RA,. No CP or SOB. Asking for Dilaudid Objective Last 24 Hour Vital Signs Date Time Temp Pulse Resp B/P (MAP) Pulse Ox O2 Delivery O2 Flow Rate FiO2 12/31/19 10:06 98.0 12/31/19 09:00 Room Air 12/31/19 08:00 78 12/31/19 08:00 97.7 78 18 106/50 (68) 100 12/31/19 05:53 98.0 12/31/19 04:00 98.0 57 16 105/59 (74) 98 12/31/19 04:00 52 12/31/19 00:00 97.7 68 18 99/54 (69) 97 12/31/19 00:00 64 12/30/19 21:46 98.6 12/30/19 21:00 Room Air 12/30/19 20:00 98.8 62 20 118/65 (82) 98 12/30/19 20:00 64 12/30/19 16:00 98.6 59 18 114/63 (80) 98 12/30/19 16:00 73 12/30/19 12:00 96.6 58 20 101/46 (64) 97 Intake and Output 12/30/19 12/31/19 19:00 07:00 Intake Total 600 ml 160 ml Balance 600 ml 160 ml Intake Oral 600 ml 160 ml # Voids 2 2 Laboratory Tests Test 12/31/19 06:34 White Blood Count 2.0 K/UL (4.8-10.8) *L Red Blood Count 3.11 M/UL (4.70-6.10) L Hemoglobin 9.5 G/DL (14.2-18.0) L Hematocrit 27.5 % (42.0-52.0) L Mean Corpuscular Volume 89 FL (80-99) Mean Corpuscular Hemoglobin 30.7 PG (27.0-31.0) Mean Corpuscular Hemoglobin Concent 34.7 G/DL (32.0-36.0) Red Cell Distribution Width 15.3 % (11.6-14.8) H Platelet Count 71 K/UL (150-450) L Mean Platelet Volume 6.6 FL (6.5-10.1) Neutrophils (%) (Auto) % (45.0-75.0) Lymphocytes (%) (Auto) % (20.0-45.0) Monocytes (%) (Auto) % (1.0-10.0) Eosinophils (%) (Auto) % (0.0-3.0) Basophils (%) (Auto) % (0.0-2.0) Differential Total Cells Counted 100 Neutrophils % (Manual) 61 % (45-75) Lymphocytes % (Manual) 27 % (20-45) Monocytes % (Manual) 10 % (1-10) Eosinophils % (Manual) 2 % (0-3) Basophils % (Manual) 0 % (0-2) Band Neutrophils 0 % (0-8) Platelet Estimate Decreased L Platelet Morphology Normal Anisocytosis 1+ Sodium Level 143 MMOL/L (136-145) Potassium Level 4.1 MMOL/L (3.5-5.1) Chloride Level 107 MMOL/L (98-107) Carbon Dioxide Level 32 MMOL/L (21-32) Anion Gap 4 mmol/L (5-15) L Blood Urea Nitrogen 10 mg/dL (7-18) Creatinine 0.8 MG/DL (0.55-1.30) Estimat Glomerular Filtration Rate > 60 mL/min (>60) Glucose Level 95 MG/DL (74-106) Calcium Level 8.9 MG/DL (8.5-10.1) Objective HEAD AND NECK: Showed no JVD. LUNGS: Coarse rhonchi. CARDIOVASCULAR: Shows regular S1 and S2 with no gallop or murmur. ABDOMEN: Soft. EXTREMITIES: 1+ pitting edema. Jarek Grant MD Dec 31, 2019 11:23
--- NOTE | 2019-12-31 11:31 | Consultation ---
DATE OF CONSULTATION: 12/30/2019 PAIN MANAGEMENT CONSULTATION CONSULTING PHYSICIAN: Racheal Grissom MD REFERRING PHYSICIAN: Jonas Butt MD and Nikko Nascimento MD PHYSICIAN BIOCHEMISTRY PROFESSOR: JENNA Courtney CHIEF COMPLAINT: Chest pain. HISTORY OF PRESENT ILLNESS: This is a 44 y/o male seen on the tele floor of [facility] [place] pain management consultation. Patient was admitted under the care of Dr. Butt due to chest pain and pulmonary embolism with DVT as well, status post IVC filter placement. Presenting with chest pain rating 10/10, constant pain, sharp pain worse with breathing and reduced with medication. Started on Dilaudid 2 mg IV. Discussed with the patient about reducing the dilaudid so we can transition from IV to oral medication and he seems to understand. PAST MEDICAL HISTORY: DVT, pulmonary embolism, history of gastric bypass, open appendectomy, bipolar disorder. SOCIAL HISTORY: Denies smoking tobacco, drinking alcohol and IV drug abuse. MEDICATIONS: Colace, Pepcid, fluoxetine REVIEW OF SYSTEM: Denies rash, fever, chills, sweating, dizziness, drowsiness, blurred vision, sore throat, or change in weight. No shortness of breath or chest pain. No nausea, vomiting, diarrhea, or blood in the stool or urine. No dysuria. PHYSICAL EXAMINATION: GENERAL: Alert, awake, and oriented. VITAL SIGNS: Blood pressure 121/97, heart rate is 69, oxygen saturation 98, respirations 18, temperature 98.2 degrees Fahrenheit. HEENT: PERRLA. NECK: Range of motion is full in all directions. No tenderness to paracervical muscles. No adenopathy. LUNGS: Decreased breath sounds bilaterally. HEART: S1 and S2 regular. ABDOMEN: Soft, nontender. BACK: Range of motion is full in flexion and extension. EXTREMITIES: Upper and lower extremity range of motion is full in all directions. Sensory is intact. Reflexes are not obtainable. No adenopathy. ASSESSMENT: This is a 44-year-old male with chest pain, pulmonary embolism. The patient will be reduced to Dilaudid 1 mg IV every 4 hours as needed for severe pain, started on [place] 10/325 every 6 hours as needed for moderate pain. The patient was discussed with Dr. Grissom and Dr. Grissom concurred. We will follow the patient. Thank you very much for the courtesy of this consultation. Racheal Grissom M.D. JENNA Courtney DR: ALIREZA JOB#: [id number] CC: МАРИНА
[2019-12-31 12:00] VITALS: BP 116/65
[2019-12-31 16:00] VITALS: BP 101/47
[2019-12-31 20:00] VITALS: BP 113/47
[2019-12-31] MEDS: TraZODone 100mg tab ORAL SCH (20:47)
[2020-01-01] VITALS: BP 102/58
[2020-01-01 04:00] VITALS: BP 123/57
[2020-01-01 06:38] LABS: HEMATOCRIT 28.5 % (42.0-52.0); HEMOGLOBIN 9.4 G/DL (14.2-18.0); MEAN CORPUSCULAR VOLUME 90 FL (80-99); PLATELET COUNT 74 K/UL (150-450); RED BLOOD COUNT 3.16 M/UL (4.70-6.10); WHITE BLOOD COUNT 2.2 K/UL (4.8-10.8)
[2020-01-01 08:00] VITALS: BP 131/62
--- NOTE | 2020-01-01 08:38 | General Progress Note ---
Subjective Date patient seen: Jan 02, 2020 Time patient seen: 08:00 - am Allergies: Coded Allergies: DIAZEPAM (Verified Allergy, Intermediate, 12/23/19) TREE NUT (Verified Allergy, Intermediate, 12/23/19) KETOROLAC (Verified Allergy, Mild, Rash, 01/01/19) TRAMADOL (Verified Allergy, Unknown, 08/01/18) NSAIDS (NON-STEROIDAL ANTI-INFLAMMA (Verified Adverse Reaction, Unknown, 08/01/18) Subjective This is a 44 y/o male being seen on the Tele floor of [facility] [place]. No new complaints and showing no signs of pain or distress. Pain has lila tolerated on the medication Objective Last 24 Hour Vital Signs Date Time Temp Pulse Resp B/P (MAP) Pulse Ox O2 Delivery O2 Flow Rate FiO2 01/01/20 04:33 97.7 01/01/20 04:00 97.5 54 18 123/57 (79) 98 01/01/20 04:00 51 01/01/20 00:00 56 01/01/20 00:00 97.7 54 18 102/58 (73) 98 12/31/19 22:38 97.5 12/31/19 21:00 Room Air 12/31/19 20:00 82 12/31/19 20:00 97.5 80 20 113/47 (69) 97 12/31/19 18:50 97.9 12/31/19 16:00 97.9 56 18 101/47 (65) 98 12/31/19 16:00 59 12/31/19 14:30 97.7 12/31/19 12:00 73 12/31/19 12:00 97.7 58 18 116/65 (82) 100 12/31/19 10:06 98.0 12/31/19 09:00 Room Air Intake and Output 12/31/19 01/01/20 19:00 07:00 Intake Total 840 ml Balance 840 ml Intake Oral 840 ml # Voids 6 3 # Bowel Movements 1 Laboratory Tests 01/01/20 06:16: White Blood Count 2.2L, Red Blood Count 3.16L, Hemoglobin 9.4L, Hematocrit 28.5L , Mean Corpuscular Volume 90, Mean Corpuscular Hemoglobin 29.7, Mean Corpuscular Hemoglobin Concent 32.9, Red Cell Distribution Width 15.0H, Platelet Count 74L, Mean Platelet Volume 5.9L, Neutrophils (%) (Auto) , Lymphocytes (%) (Auto) , Monocytes (%) (Auto) , Eosinophils (%) (Auto) , Basophils (%) (Auto) , Neutrophils % (Manual) [Pending], Lymphocytes % (Manual) [Pending], Platelet Estimate [Pending], Platelet Morphology [Pending] Height (Feet): 6 Height (Inches): 1.00 Weight (Pounds): 253 Assessment/Plan Assessment/Plan: (1) Chest pain (2) Pulmonary embolism Patient to be continued on Dilaudid and [place] D/w Dr. Grissom and he concurred. Neo Sun Jan 01, 2020 08:38
[2020-01-01] MEDS: Docusate 100mg cap ORAL SCH ×2 (08:42→18:08)
[2020-01-01] MEDS: Eliquis 5mg tablet ORAL SCH ×2 (08:42→18:08)
[2020-01-01 11:33] VITALS: BP 113/70
[2020-01-01] MEDS: HYDROcodone/Acetamin 10/325 tab ORAL PRN ×2 (11:38→18:08)
--- NOTE | 2020-01-01 14:09 | Pulmonology Progress Note ---
Cher Lerner MARKET SURVEY REPRESENTATIVE 01/01/20 1409: Subjective Interval Events: Platelets stable on lovenox. Wants pain meds. Ok with pacemaker placement Allergies: Coded Allergies: DIAZEPAM (Verified Allergy, Intermediate, 12/23/19) TREE NUT (Verified Allergy, Intermediate, 12/23/19) KETOROLAC (Verified Allergy, Mild, Rash, 01/01/19) TRAMADOL (Verified Allergy, Unknown, 08/01/18) NSAIDS (NON-STEROIDAL ANTI-INFLAMMA (Verified Adverse Reaction, Unknown, 08/01/18) Subjective no SOB s/p IVC filter 12/22 started on Eliquis 12/[address] scan A/P done 12/26 , PLT up to 74 this am Objective Last 24 Hour Vital Signs Date Time Temp Pulse Resp B/P (MAP) Pulse Ox O2 Delivery O2 Flow Rate FiO2 01/01/20 12:10 97.7 01/01/20 12:00 85 01/01/20 11:33 97.7 62 20 113/70 (84) 100 01/01/20 09:15 97.7 01/01/20 09:00 Room Air 01/01/20 08:00 76 01/01/20 08:00 98.8 70 20 131/62 (85) 100 01/01/20 04:33 97.7 01/01/20 04:00 97.5 54 18 123/57 (79) 98 01/01/20 04:00 51 01/01/20 00:00 56 01/01/20 00:00 97.7 54 18 102/58 (73) 98 12/31/19 22:38 97.5 12/31/19 21:00 Room Air 12/31/19 20:00 82 12/31/19 20:00 97.5 80 20 113/47 (69) 97 12/31/19 18:50 97.9 12/31/19 16:00 97.9 56 18 101/47 (65) 98 12/31/19 16:00 59 12/31/19 14:30 97.7 Intake and Output 12/31/19 01/01/20 19:00 07:00 Intake Total 840 ml Balance 840 ml Intake Oral 840 ml # Voids 6 3 # Bowel Movements 1 Objective General Appearance: WD/WN - overweight middle age male in NAD , alert Lines, tubes and drains: peripheral HEENT: normocephalic, atraumatic, anicteric, mucous membranes moist, PERRL Neck: non-tender, normal alignment, supple Respiratory/Chest: chest wall non-tender, lungs clear, no respiratory distress, no accessory muscle use Cardiovascular/Chest: normal peripheral pulses, yessi, regular rhythm - SB on tele Abdomen: normal bowel sounds, non tender, soft - obese Extremities: normal range of motion, non-tender, no calf tenderness, normal capillary refill Skin Exam: warm/dry, large ecchymosis abdominal area, healed scars 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: 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 II-XII grossly normal, no motor/sensory deficits, alert, oriented x 3, responsive, normal mood/affect Musculoskeletal: normal muscle bulk Abdomen: non distended Laboratory Tests 01/01/20 06:16: White Blood Count 2.2L, Red Blood Count 3.16L, Hemoglobin 9.4L, Hematocrit 28.5L , Mean Corpuscular Volume 90, Mean Corpuscular Hemoglobin 29.7, Mean Corpuscular Hemoglobin Concent 32.9, Red Cell Distribution Width 15.0H, Platelet Count 74L, Mean Platelet Volume 5.9L, Neutrophils (%) (Auto) , Lymphocytes (%) (Auto) , Monocytes (%) (Auto) , Eosinophils (%) (Auto) , Basophils (%) (Auto) , Differen tial Total Cells Counted 100, Neutrophils % (Manual) 46, Lymphocytes % (Manual) 48H, Monocytes % (Manual) 6, Eosinophils % (Manual) 0, Basophils % (Manual) 0, Band Neutrophils 0, Platelet Estimate DecreasedL, Platelet Morphology Normal, Red Blood Cell Morphology , Anisocytosis 1+ Current Medications Medications (Trade) Dose Ordered Sig/Mikey Route PRN Reason Start Time Stop Time Status Last Admin Dose Admin Acetaminophen (Tylenol) 650 mg Q4H PRN ORAL Pain (1-3)/ Temp >100.4 12/22/19 06:15 01/21/20 06:14 Acetaminophen/ Hydrocodone Bitart ([place] 10/325) 1 tab Q6H PRN ORAL Moderate Pain (Pain Scale 4-6) 12/30/19 13:00 01/06/20 12:59 01/01/20 11:38 Apixaban (Eliquis) 5 mg BID ORAL 12/30/19 18:00 03/29/20 17:59 01/01/20 08:42 Docusate Sodium (Colace) 100 mg TWICE A DAY ORAL 12/22/19 09:00 01/21/20 08:59 01/01/20 08:42 Famotidine (Pepcid) 40 mg DAILY ORAL 12/22/19 09:00 03/21/20 08:59 01/01/20 08:42 Fluoxetine HCl (PROzac) 40 mg DAILY ORAL 12/22/19 09:00 01/21/20 08:59 01/01/20 08:42 Folic Acid (Folate) 1 mg DAILY ORAL 12/28/19 09:00 01/27/20 08:59 01/01/20 08:42 Hydromorphone HCl (Dilaudid) 1 mg Q4H PRN IVP Severe Pain (Pain Scale 7-10) 12/30/19 13:00 01/06/20 12:59 01/01/20 08:43 Magnesium Hydroxide (Mom) 30 ml DAILYPRN PRN ORAL Constipation 12/22/19 06:15 01/21/20 06:14 Ondansetron HCl (Zofran) 4 mg Q4H PRN IVP Nausea & Vomiting 12/22/19 06:15 01/21/20 06:14 12/29/19 18:25 Quetiapine Fumarate (SEROqueL) 50 mg QHS ORAL 12/22/19 21:00 02/05/20 20:59 12/31/19 20:47 Trazodone HCl (Desyrel) 100 mg BEDTIME ORAL 12/22/19 21:00 01/21/20 20:59 12/31/19 20:47 Assessment/Plan Assessment/Plan ASSESSMENT 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 Probably hypercoagulability disorder ( given family history) Bradycardia with dizziness -improved Pancytopenia Thrombocytopenia Hepatomegaly Fatty liver Hx of ETOH abuse ( quit yrs ago) HTN PAF Bipolar disorder Homeless/from transitional housing Hx of gastric bypass PLAN OF CARE tele off Lovenox , stared on Eliquis 12/29, PLT up to 74 IVC filter needs to be removed when tolerates a/c ( previously placed) BM aspiration done 12/26, results pending , called pathology and left message asking to download results if already available CT A/P 10/9 - no malignancy noted O2 prn keep sat > 90%, so far pulse ox remains 98% on RA Venous Duplex BLE -> nonocclusive clot R distal SFV ECHO with pEF, no evidence of R heart strain yessi noted high 40th and low 50th, troponin x2 negative cardio eval appreciated , monitor HR ; eval if need pacemaker? patient bradycardic with HR dropping to hgh 30th abd low BP off CHEN and AVN blockers HR improved now, no need for PPM placement at this time as per cardio source of pancytopenias unclear fup with BM biopsy results hep panel NGT , HIV test NGT abdominal US + HM, fatty liver prior hx of ETOH pain management BP monitoring and management, no need for antiHTN at this time keep on tele GI prophylaxis supportive care Pt needs very close monitoring given that he needs a/coagulation indefinitely and low PLT count Dr Ross unable to fup him as OP due to insurance issues CM to arrange fup with heme per insurance or primary with referral to heme need to fup with BM results and further directions with care need frequent monitoring of PLT need weekly CBC at least the first month to make sure PLT not dropping need to be referred to network bulb tester prior to his discharge with appt date patient is aware of risk of bleeding , can be life threatening , educated on signs and symptoms to report need to repeat venous Duplex prior to dc of a/c in 6 month need to remove IVC filter in the next few weeks of 2-3 months ideally still with yessi intermittently mainly at night per cardio clearance if OK to transfer to [place] needs appointment fup set up at [facility] prior to dc as well as report of BM biopsy ( done 12/26 )- message left case discussed and evaluated by supervising physician Nikko Nascimento MD 01/01/202044: Subjective Allergies: Coded Allergies: DIAZEPAM (Verified Allergy, Intermediate, 12/23/19) TREE NUT (Verified Allergy, Intermediate, 12/23/19) KETOROLAC (Verified Allergy, Mild, Rash, 01/01/19) TRAMADOL (Verified Allergy, Unknown, 08/01/18) NSAIDS (NON-STEROIDAL ANTI-INFLAMMA (Verified Adverse Reaction, Unknown, 08/01/18) Assessment/Plan Assessment/Plan Patient seen and examined with MARKET SURVEY REPRESENTATIVE and I agree with the above formulated assessment and plan. Cher Lerner MARKET SURVEY REPRESENTATIVE Jan 01, 2020 14:09 Nikko Nascimento MD Jan 01, 2020 20:45
--- NOTE | 2020-01-01 15:10 | Cardiac Electrophysiology PN ---
Assessment/Plan Assessment/Plan 1. Chest pain due to acute pulmonary embolism. Ruled out for myocardial infarction. Echo showed EF 60% with a PA pressure of only 12. 2. Acute pulmonary embolism. S/P IVC filter 12/23/19. On Eliquis 5 bid 3. Bradycardia with HR dropping to high 30s and low BP. Off any CHEN or AVN tessy. HR better. Hold off on PPM implant. 4. Transient SVT. Could be due to tachy yessi syndrome. Off any CHEN or AVN blockers 5. Pancytopenia including Thrombocytopenia 70s. S/P BM biopsy and CT abdomen and pelvis 6. History of bipolar disorder, on Seroquel. 7. Dilaudid dependency DW RN Subjective Subjective Had an episode of SVT at rate 140 lasting less than a minute last night at 9 pm. Patient says he was just getting ready to go to bed. Could be sinus tach On Eliquis 5 bid and on RA,. No CP or SOB. Objective Last 24 Hour Vital Signs Date Time Temp Pulse Resp B/P (MAP) Pulse Ox O2 Delivery O2 Flow Rate FiO2 01/01/20 12:10 97.7 01/01/20 12:00 85 01/01/20 11:33 97.7 62 20 113/70 (84) 100 01/01/20 09:15 97.7 01/01/20 09:00 Room Air 01/01/20 08:00 76 01/01/20 08:00 98.8 70 20 131/62 (85) 100 01/01/20 04:33 97.7 01/01/20 04:00 97.5 54 18 123/57 (79) 98 01/01/20 04:00 51 01/01/20 00:00 56 01/01/20 00:00 97.7 54 18 102/58 (73) 98 12/31/19 22:38 97.5 12/31/19 21:00 Room Air 12/31/19 20:00 82 12/31/19 20:00 97.5 80 20 113/47 (69) 97 12/31/19 18:50 97.9 12/31/19 16:00 97.9 56 18 101/47 (65) 98 12/31/19 16:00 59 Intake and Output 12/31/19 01/01/20 19:00 07:00 Intake Total 840 ml Balance 840 ml Intake Oral 840 ml # Voids 6 3 # Bowel Movements 1 Laboratory Tests Test 01/01/20 06:16 White Blood Count 2.2 K/UL (4.8-10.8) L Red Blood Count 3.16 M/UL (4.70-6.10) L Hemoglobin 9.4 G/DL (14.2-18.0) L Hematocrit 28.5 % (42.0-52.0) L Mean Corpuscular Volume 90 FL (80-99) Mean Corpuscular Hemoglobin 29.7 PG (27.0-31.0) Mean Corpuscular Hemoglobin Concent 32.9 G/DL (32.0-36.0) Red Cell Distribution Width 15.0 % (11.6-14.8) H Platelet Count 74 K/UL (150-450) L Mean Platelet Volume 5.9 FL (6.5-10.1) L Neutrophils (%) (Auto) % (45.0-75.0) Lymphocytes (%) (Auto) % (20.0-45.0) Monocytes (%) (Auto) % (1.0-10.0) Eosinophils (%) (Auto) % (0.0-3.0) Basophils (%) (Auto) % (0.0-2.0) Differential Total Cells Counted 100 Neutrophils % (Manual) 46 % (45-75) Lymphocytes % (Manual) 48 % (20-45) H Monocytes % (Manual) 6 % (1-10) Eosinophils % (Manual) 0 % (0-3) Basophils % (Manual) 0 % (0-2) Band Neutrophils 0 % (0-8) Platelet Estimate Decreased L Platelet Morphology Normal Red Blood Cell Morphology Anisocytosis 1+ Objective HEAD AND NECK: no JVD. LUNGS: Coarse rhonchi. CARDIOVASCULAR: Regular S1 and S2 with no gallop or murmur. ABDOMEN: Soft. EXTREMITIES: 1+ pitting edema. Jarek Grant MD Jan 01, 2020 15:10
[2020-01-01 16:00] VITALS: BP 114/69
[2020-01-01 20:00] VITALS: BP 129/68
[2020-01-01] MEDS: TraZODone 100mg tab ORAL SCH (20:05)
[2020-01-02] VITALS: BP 131/66
[2020-01-02] MEDS: HYDROcodone/Acetamin 10/325 tab ORAL PRN ×3 (00:23→12:27)
[2020-01-02 04:00] VITALS: BP 117/59
[2020-01-02 07:13] LABS: HEMATOCRIT 30.4 % (42.0-52.0); MEAN CORPUSCULAR VOLUME 90 FL (80-99); PLATELET COUNT 89 K/UL (150-450); RED BLOOD COUNT 3.38 M/UL (4.70-6.10); RED CELL DISTRIBUTION WIDTH 14.6 % (11.6-14.8); WHITE BLOOD COUNT 2.5 K/UL (4.8-10.8)
[2020-01-02 08:00] VITALS: BP 133/71
[2020-01-02] MEDS: Eliquis 5mg tablet ORAL SCH (08:36)
[2020-01-02] MEDS: Docusate 100mg cap ORAL SCH (08:36)
--- NOTE | 2020-01-02 09:41 | General Progress Note ---
Subjective Date patient seen: Jan 02, 2020 Time patient seen: 08:45 - am Constitutional: Reports: weakness HEENT: Reports: no symptoms Cardiovascular: Reports: no symptoms Respiratory: Reports: no symptoms Gastrointestinal/Abdominal: Reports: no symptoms Genitourinary: Reports: no symptoms Neurologic/Psychiatric: Reports: no symptoms Endocrine: Reports: no symptoms Hematologic/Lymphatic: Reports: no symptoms Allergies: Coded Allergies: DIAZEPAM (Verified Allergy, Intermediate, 12/23/19) TREE NUT (Verified Allergy, Intermediate, 12/23/19) KETOROLAC (Verified Allergy, Mild, Rash, 01/01/19) TRAMADOL (Verified Allergy, Unknown, 08/01/18) NSAIDS (NON-STEROIDAL ANTI-INFLAMMA (Verified Adverse Reaction, Unknown, 08/01/18) Subjective This is a 44 y/o male being seen on the [place] [facility] been in bed and reports pain has been unchanged. Using 6 doses of Dilaudid and 4 doses of [place] in the last 24hrs. Objective Last 24 Hour Vital Signs Date Time Temp Pulse Resp B/P (MAP) Pulse Ox O2 Delivery O2 Flow Rate FiO2 01/02/20 08:00 98.0 01/02/20 08:00 97.5 60 20 133/71 (91) 98 01/02/20 08:00 45 01/02/20 04:00 45 01/02/20 04:00 98.0 54 20 117/59 (78) 98 01/02/20 00:00 55 01/02/20 00:00 98.1 55 20 131/66 (87) 100 01/01/20 21:00 Room Air 01/01/20 20:00 98.0 64 20 129/68 (88) 100 01/01/20 20:00 64 01/01/20 18:40 97.7 01/01/20 16:00 97.7 70 20 114/69 (84) 100 01/01/20 16:00 60 01/01/20 15:18 97.7 01/01/20 12:10 97.7 01/01/20 12:00 85 01/01/20 11:33 97.7 62 20 113/70 (84) 100 Intake and Output 01/01/20 01/02/20 19:00 07:00 Intake Total 900 ml 600 ml Balance 900 ml 600 ml Intake Oral 900 ml 600 ml # Voids 4 3 # Bowel Movements 2 1 Laboratory Tests 01/02/20 06:19: White Blood Count 2.5L, Red Blood Count 3.38L, Hemoglobin 10.0L, Hematocrit 30.4L, Mean Corpuscular Volume 90, Mean Corpuscular Hemoglobin 29.6, Mean Corpuscular Hemoglobin Concent 32.9, Red Cell Distribution Width 14.6, Platelet Count 89L, Mean Platelet Volume 7.7, Neutrophils (%) (Auto) , Lymphocytes (%) (Auto) , Monocytes (%) (Auto) , Eosinophils (%) (Auto) , Basophils (%) (Auto) , Differential Total Cells Counted 100, Neutrophils % (Manual) 42L, Lymphocytes % (Manual) 51H, Monocytes % (Manual) 6, Eosinophils % (Manual) 1, Basophils % (Manual) 0, Band Neutrophils 0, Platelet Estimate DecreasedL, Platelet Morphology Normal, Anisocytosis 1+ Height (Feet): 6 Height (Inches): 1.00 Weight (Pounds): 253 Assessment/Plan Assessment/Plan: (1) Chest pain (2) Pulmonary embolism Patient to be continued on Dilaudid and [place] D/w Dr. Grissom and he concurred. Neo Sun Jan 02, 2020 09:41
--- NOTE | 2020-01-02 09:56 | Cardiac Electrophysiology PN ---
Assessment/Plan Assessment/Plan 1. Chest pain due to acute pulmonary embolism. Ruled out for myocardial infarction. Echo showed EF 60% with a PA pressure of only 12. 2. Acute pulmonary embolism. S/P IVC filter 12/23/19. On Eliquis 5 bid 3. Bradycardia with HR dropping to high 30s and low BP. Off any CHEN or AVN tessy. Resolved 4. Transient SVT vs sinus tach. Off any CHEN or AVN blockers 5. Pancytopenia including Thrombocytopenia 70s. S/P BM biopsy and CT abdomen and pelvis 6. History of bipolar disorder, on Seroquel. 7. 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 Objective Last 24 Hour Vital Signs Date Time Temp Pulse Resp B/P (MAP) Pulse Ox O2 Delivery O2 Flow Rate FiO2 01/02/20 09:00 Room Air 01/02/20 08:00 98.0 01/02/20 08:00 97.5 60 20 133/71 (91) 98 01/02/20 08:00 45 01/02/20 04:00 45 01/02/20 04:00 98.0 54 20 117/59 (78) 98 01/02/20 00:00 55 01/02/20 00:00 98.1 55 20 131/66 (87) 100 01/01/20 21:00 Room Air 01/01/20 20:00 98.0 64 20 129/68 (88) 100 01/01/20 20:00 64 01/01/20 18:40 97.7 01/01/20 16:00 97.7 70 20 114/69 (84) 100 01/01/20 16:00 60 01/01/20 15:18 97.7 01/01/20 12:10 97.7 01/01/20 12:00 85 01/01/20 11:33 97.7 62 20 113/70 (84) 100 Intake and Output 01/01/20 01/02/20 19:00 07:00 Intake Total 900 ml 600 ml Balance 900 ml 600 ml Intake Oral 900 ml 600 ml # Voids 4 3 # Bowel Movements 2 1 Laboratory Tests Test 01/02/20 06:19 White Blood Count 2.5 K/UL (4.8-10.8) L Red Blood Count 3.38 M/UL (4.70-6.10) L Hemoglobin 10.0 G/DL (14.2-18.0) L Hematocrit 30.4 % (42.0-52.0) L Mean Corpuscular Volume 90 FL (80-99) Mean Corpuscular Hemoglobin 29.6 PG (27.0-31.0) Mean Corpuscular Hemoglobin Concent 32.9 G/DL (32.0-36.0) Red Cell Distribution Width 14.6 % (11.6-14.8) Platelet Count 89 K/UL (150-450) L Mean Platelet Volume 7.7 FL (6.5-10.1) Neutrophils (%) (Auto) % (45.0-75.0) Lymphocytes (%) (Auto) % (20.0-45.0) Monocytes (%) (Auto) % (1.0-10.0) Eosinophils (%) (Auto) % (0.0-3.0) Basophils (%) (Auto) % (0.0-2.0) Differential Total Cells Counted 100 Neutrophils % (Manual) 42 % (45-75) L Lymphocytes % (Manual) 51 % (20-45) H Monocytes % (Manual) 6 % (1-10) Eosinophils % (Manual) 1 % (0-3) Basophils % (Manual) 0 % (0-2) Band Neutrophils 0 % (0-8) Platelet Estimate Decreased L Platelet Morphology Normal Anisocytosis 1+ Objective HEAD AND NECK: no JVD. LUNGS: Coarse rhonchi. CARDIOVASCULAR: Regular S1 and S2 with no gallop or murmur. ABDOMEN: Soft. EXTREMITIES: 1+ pitting edema. Jarek Grant MD Jan 02, 2020 09:56
[2020-01-02] MEDS ORDERED: ELIQUIS5 MG ORAL (10:06)
[2020-01-02] MEDS ORDERED: FOLIC ACID1 MG ORAL (10:06)
--- NOTE | 2020-01-02 10:11 | Pulmonology Progress Note ---
Cher Lerner AUTOMATIC BEADING LATHE OPERATOR 01/02/20 1011: Subjective Interval Events: Platelets stable on lovenox. Wants pain meds. Ok with pacemaker placement Allergies: Coded Allergies: DIAZEPAM (Verified Allergy, Intermediate, 12/23/19) TREE NUT (Verified Allergy, Intermediate, 12/23/19) KETOROLAC (Verified Allergy, Mild, Rash, 01/01/19) TRAMADOL (Verified Allergy, Unknown, 08/01/18) NSAIDS (NON-STEROIDAL ANTI-INFLAMMA (Verified Adverse Reaction, Unknown, 08/01/18) Subjective no SOB s/p IVC filter 12/22 started on Eliquis 12/29, tieraltes, well, PLT up to 89 BM path report still pending no appointment was set up yet at [facility] clinic patient wants to go home Objective Last 24 Hour Vital Signs Date Time Temp Pulse Resp B/P (MAP) Pulse Ox O2 Delivery O2 Flow Rate FiO2 01/02/20 09:00 Room Air 01/02/20 08:00 98.0 01/02/20 08:00 97.5 60 20 133/71 (91) 98 01/02/20 08:00 45 01/02/20 04:00 45 01/02/20 04:00 98.0 54 20 117/59 (78) 98 01/02/20 00:00 55 01/02/20 00:00 98.1 55 20 131/66 (87) 100 01/01/20 21:00 Room Air 01/01/20 20:00 98.0 64 20 129/68 (88) 100 01/01/20 20:00 64 01/01/20 18:40 97.7 01/01/20 16:00 97.7 70 20 114/69 (84) 100 01/01/20 16:00 60 01/01/20 15:18 97.7 01/01/20 12:10 97.7 01/01/20 12:00 85 01/01/20 11:33 97.7 62 20 113/70 (84) 100 Intake and Output 01/01/20 01/02/20 19:00 07:00 Intake Total 900 ml 600 ml Balance 900 ml 600 ml Intake Oral 900 ml 600 ml # Voids 4 3 # Bowel Movements 2 1 Objective General Appearance: WD/WN - overweight middle age male in NAD , alert Lines, tubes and drains: peripheral HEENT: normocephalic, atraumatic, anicteric, mucous membranes moist, PERRL Neck: non-tender, normal alignment, supple Respiratory/Chest: chest wall non-tender, lungs clear, no respiratory distress, no accessory muscle use Cardiovascular/Chest: normal peripheral pulses, yessi, regular rhythm - SB on tele Abdomen: normal bowel sounds, non tender, soft - obese Extremities: normal range of motion, non-tender, no calf tenderness, normal capillary refill Skin Exam: warm/dry, large ecchymosis abdominal area, healed scars 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 grossly normal, no motor/sensory deficits, alert, oriented x 3, responsive, normal mood/affect Musculoskeletal: normal muscle bulk Abdomen: non distended Laboratory Tests 01/02/20 06:19: White Blood Count 2.5L, Red Blood Count 3.38L, Hemoglobin 10.0L, Hematocrit 30.4L, Mean Corpuscular Volume 90, Mean Corpuscular Hemoglobin 29.6, Mean Corpuscular Hemoglobin Concent 32.9, Red Cell Distribution Width 14.6, Platelet Count 89L, Mean Platelet Volume 7.7, Neutrophils (%) (Auto) , Lymphocytes (%) (Auto) , Monocytes (%) (Auto) , Eosinophils (%) (Auto) , Basophils (%) (Auto) , Differential Total Cells Counted 100, Neutrophils % (Manual) 42L, Lymphocytes % (Manual) 51H, Monocytes % (Manual) 6, Eosinophils % (Manual) 1, Basophils % (Manual) 0, Band Neutrophils 0, Platelet Estimate DecreasedL, Platelet Morphology Normal, Anisocytosis 1+ Current Medications Medications (Trade) Dose Ordered Sig/Mikey Route PRN Reason Start Time Stop Time Status Last Admin Dose Admin Acetaminophen (Tylenol) 650 mg Q4H PRN ORAL Pain (1-3)/ Temp >100.4 12/22/19 06:15 01/21/20 06:14 Acetaminophen/ Hydrocodone Bitart ([place] 10/325) 1 tab Q6H PRN ORAL Moderate Pain (Pain Scale 4-6) 12/30/19 13:00 01/06/20 12:59 01/02/20 06:24 Apixaban (Eliquis) 5 mg BID ORAL 12/30/19 18:00 03/29/20 17:59 01/02/20 08:36 Docusate Sodium (Colace) 100 mg TWICE A DAY ORAL 12/22/19 09:00 01/21/20 08:59 01/02/20 08:36 Famotidine (Pepcid) 40 mg DAILY ORAL 12/22/19 09:00 03/21/20 08:59 01/02/20 08:36 Fluoxetine HCl (PROzac) 40 mg DAILY ORAL 12/22/19 09:00 01/21/20 08:59 01/02/20 08:36 Folic Acid (Folate) 1 mg DAILY ORAL 12/28/19 09:00 01/27/20 08:59 01/02/20 08:36 Hydromorphone HCl (Dilaudid) 1 mg Q4H PRN IVP Severe Pain (Pain Scale 7-10) 12/30/19 13:00 01/06/20 12:59 01/02/20 07:32 Magnesium Hydroxide (Mom) 30 ml DAILYPRN PRN ORAL Constipation 12/22/19 06:15 01/21/20 06:14 Ondansetron HCl (Zofran) 4 mg Q4H PRN IVP Nausea & Vomiting 12/22/19 06:15 01/21/20 06:14 01/02/20 07:31 Quetiapine Fumarate (SEROqueL) 50 mg QHS ORAL 12/22/19 21:00 02/05/20 20:59 01/01/20 20:05 Trazodone HCl (Desyrel) 100 mg BEDTIME ORAL 12/22/19 21:00 01/21/20 20:59 01/01/20 20:05 Assessment/Plan Assessment/Plan ASSESSMENT 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 Probably hypercoagulability disorder ( given family history) Bradycardia with dizziness -improved Pancytopenia Thrombocytopenia Hepatomegaly Fatty liver Hx of ETOH abuse ( quit yrs ago) HTN PAF Bipolar disorder Homeless/from transitional housing Hx of gastric bypass PLAN OF CARE off Lovenox , stared on Eliquis 12/29, PLT up to 89 IVC filter needs to be removed when tolerates a/c ( previously placed) BM aspiration done 12/26, results pending , called pathology and left message asking to download results if already available CT A/P 12/26 - no malignancy noted O2 prn keep sat > 90%, so far pulse ox remains 98% on RA Venous Duplex BLE -> nonocclusive clot R distal SFV ECHO with pEF, no evidence of R heart strain yessi noted high 40th and low 50th, troponin x2 negative cardio eval appreciated , monitor HR ; eval if need pacemaker? patient bradycardic with HR dropping to hgh 30th abd low BP off CHEN and AVN blockers HR improved now, no need for PPM placement at this time as per cardio pt can be transferred to [place] floor, cleared byc ardio source of pancytopenias unclear fup with BM biopsy results hep panel NGT , HIV test NGT abdominal US + HM, fatty liver prior hx of ETOH pain management BP monitoring and management, no need for antiHTN at this time keep on tele GI prophylaxis supportive care Pt needs very close monitoring given that he needs a/coagulation indefinitely and low PLT count Dr Ross unable to fup him as OP due to insurance issues CM to arrange fup with heme per insurance or primary with referral to heme need to fup with BM results and further directions with care need frequent monitoring of PLT need weekly CBC at least the first month to make sure PLT not dropping need to be referred to network trap setter prior to his discharge with appt date patient is aware of risk of bleeding , can be life threatening , educated on signs and symptoms to report need to repeat venous Duplex prior to dc of a/c in 6 month need to remove IVC filter in the next few weeks of 2-3 months ideally needs appointment fup set up at [facility] prior to dc discussed with pathology, no report yet, she will attempt to get preliminary report and convey to Dr Ross addendum: at 13:00 Patient received a call from his [facility] that he may lose his spot if he does not return. patient wants to sign AMA and leave. Spoke with patient, he has appointment with [facility] on 01/25 but he will see if he can reschedule for earlier. He is aware that IVC filter needs to be removed in 2-3 weeks. prescriptions provided. case discussed and evaluated by supervising physician Nikko Nascimento MD 01/02/200: Subjective Allergies: Coded Allergies: DIAZEPAM (Verified Allergy, Intermediate, 12/23/19) TREE NUT (Verified Allergy, Intermediate, 12/23/19) KETOROLAC (Verified Allergy, Mild, Rash, 01/01/19) TRAMADOL (Verified Allergy, Unknown, 08/01/18) NSAIDS (NON-STEROIDAL ANTI-INFLAMMA (Verified Adverse Reaction, Unknown, 08/01/18) Assessment/Plan Assessment/Plan Patient seen and examined with AUTOMATIC BEADING LATHE OPERATOR and I agree with the above formulated asses sment and plan. Cher Lerner NP Jan 02, 2020 10:11 Nikko Nascimento MD Jan 02, 2020 21:20
[2020-01-02 12:00] VITALS: BP 101/69
[2020-01-02] MEDS ORDERED: NS 275ml ONE (14:44)
== END 2020-01-02 14:45 | disposition home or self-care (01) | DRG 134 ==
LOC: EMR 00:51 → 2E 04:10 → EDBEDREQ 04:49
PROC: 06H03DZ Insertion of Intraluminal Device into Inferior Vena Cava, Percutaneous Approach (ICD-10-PCS; principal; 2019-12-23)
PROC: 07DR3ZX Extraction of Iliac Bone Marrow, Percutaneous Approach, Diagnostic (ICD-10-PCS; 2019-12-27)
DX: I26.99 Other pulmonary embolism without acute cor pulmonale (principal); D61.818 Other pancytopenia; F31.9 Bipolar disorder, unspecified; K76.0 Fatty (change of) liver, not elsewhere classified; R00.1 Bradycardia, unspecified; I10 Essential (primary) hypertension; Z86.718 Personal history of other venous thrombosis and embolism; Z86.711 Personal history of pulmonary embolism; F10.11 Alcohol abuse, in remission; Z98.84 Bariatric surgery status; I48.0 Paroxysmal atrial fibrillation; Z59.0 Homelessness; D69.6 Thrombocytopenia, unspecified; D68.59 Other primary thrombophilia; I47.1 Supraventricular tachycardia; F11.20 Opioid dependence, uncomplicated
CPT/HCPCS: 36415; 38222; 71275; 74176; 76700; 76937; 77012; 80048; 80053; 82607; 82746; 83615; 84165; 84484; 85007; 85025; 85044; 85610; 85730; 86703; 86705; 86709; 86803; 87340; 93005; 93306; 93970; 93971; 96361; 96372; 96374; 96376; 99285; J2405; J7030; U0002

== ENCOUNTER 2020-01-23 05:49 | Inpatient (IN) | payer MEDICAID ==
[2020-01-23] VITALS (9 sets, daily range): BP systolic 110–138; BP diastolic 53–78
[~2020-01-23] VITALS: Ht 185.4 cm; Wt 108.9 kg
[~2020-01-23 05:49] MED LIST changes: +ELIQUIS5 MG ORAL; +FOLIC ACID1 MG ORAL
--- NOTE | 2020-01-23 06:09 | NUR ---
ED Nurse Note: walked in to ed c/o generalized body pain and headache s/p fall in am. pt reports sycopal episode witnessed by friend while trying to get up from sitting in bed. vss, nad, aaox4, ambulatory ,ermd at bedside, on pvc monitor.
[2020-01-23] MEDS ORDERED: Acetaminophen 500mg (ES) tab ORAL ONE (06:15)
--- NOTE | 2020-01-23 06:24 | Emergency Room Report ---
History of Present Illness General Chief Complaint: Multiple Trauma/Fall Source: Patient Present Illness HPI Patient is a 44-year-old male presents for increased left-sided hip pain and body pain. Prior history of pancytopenia as well as gastric sleeve. Had recent IVC filter placement. Currently taking Eliquis. Reports having fallen and hit his left hip as well as the back of his head.Patient had prior history of multiple medication allergies. Denies any recent fevers. Reportedly had negative Covid testing last week. Patient states he is taking Eliquis regularly. Denies any bleeding. Had been ambulatory after the fall. Does not feel like his hip is broken. Allergies: Coded Allergies: DIAZEPAM (Verified Allergy, Intermediate, 12/23/19) TREE NUT (Verified Allergy, Intermediate, 12/23/19) KETOROLAC (Verified Allergy, Mild, Rash, 01/01/19) TRAMADOL (Verified Allergy, Unknown, 08/01/18) NSAIDS (NON-STEROIDAL ANTI-INFLAMMA (Verified Adverse Reaction, Unknown, 08/01/18) COVID-19 Screening Contact w/high risk pt: No Recent Travel to affected area: No Experienced COVID-19 symptoms?: No COVID-19 Testing performed REAL ESTATE LEASING AGENT: No Patient History Past Medical History: see triage record Reviewed Nursing Documentation: PMH: Agreed; PSxH: Agreed Nursing Documentation-PMH Hx Cardiac Problems: Yes - atrial fibrillation Hx Cancer: No Hx Neurological Problems: No Review of Systems All Other Systems: negative except mentioned in HPI Physical Exam Vital Signs Date Time Temp Pulse Resp B/P (MAP) Pulse Ox O2 Delivery O2 Flow Rate FiO2 01/23/20 05:55 98.4 85 16 124/75 (91) 99 Room Air 01/23/20 06:07 99 Sp02 EP Interpretation: reviewed, normal General Appearance: normal inspection, well appearing, no apparent distress, alert, GCS 15, obese, Chronically Ill Head: atraumatic ENT: normal ENT inspection, hearing grossly normal, normal voice Neck: normal inspection, full range of motion, supple, no bony tend Respiratory: normal inspection, lungs clear, normal breath sounds, no respiratory distress, no retraction, no wheezing Cardiovascular #1: regular rate, rhythm, no edema Gastrointestinal: normal inspection, normal bowel sounds, non tender, soft, no guarding, no hernia Genitourinary: no CVA tenderness Musculoskeletal: normal inspection, back normal, normal range of motion Neurologic: alert, motor strength/tone normal, hot punch press operator III-XII nml as tested, oriented x3, responsive, speech normal, normal inspection Psychiatric: normal inspection, judgement/insight normal, mood/affect normal Skin: no rash Medical Decision Making Diagnostic Impression: Primary Impression: Syncope Additional Impressions: Opiate dependence, continuous Bradycardia ER Course Patient presented for pain to the head as well as to the left hip. Differential diagnosis included but was not limited to head injury, anemia, coagulopathy among others. Patient has history of chronic pain and does not appear to require opiates at this time. Patient did request strong pain medication and has multiple medication allergies. I do not feel that this is indicated at this time. Patient was given Tylenol for pain as well as ice pack.EKG interpreted by me showed normal sinus rhythm with a rate of [address] or T wave changes noted. QTC was 459Patient was observed in the emergency department was noted to have episodes where her heart rate would dip into the low 40s. Patient was given IV fluids as well as oral potassium. He was given magnesium as well. Due to prolonged QTC. Patient was not known to be taking any blood pressure medications or rate control drugs. Patient was given results of his biopsy which did not show any evidence of abnormal cells. He was given Jasper for complaint of chronic pain.Patient was discussed with Dr. Butt who agreed to admit the patient for bradycardia and syncopal episode. Labs Test 01/23/20 06:20 01/23/20 07:05 White Blood Count 3.7 K/UL (4.8-10.8) Red Blood Count 3.41 M/UL (4.70-6.10) Hemoglobin 10.6 G/DL (14.2-18.0) Hematocrit 33.6 % (42.0-52.0) Mean Corpuscular Volume 99 FL (80-99) Mean Corpuscular Hemoglobin 31.0 PG (27.0-31.0) Mean Corpuscular Hemoglobin Concent 31.4 G/DL (32.0-36.0) Red Cell Distribution Width 14.8 % (11.6-14.8) Platelet Count 80 K/UL (150-450) Mean Platelet Volume 7.4 FL (6.5-10.1) Neutrophils (%) (Auto) % (45.0-75.0) Lymphocytes (%) (Auto) % (20.0-45.0) Monocytes (%) (Auto) % (1.0-10.0) Eosinophils (%) (Auto) % (0.0-3.0) Basophils (%) (Auto) % (0.0-2.0) Prothrombin Time 11.8 SEC (9.30-11.50) Prothromb Time International Ratio 1.1 (0.9-1.1) Activated Partial Thromboplast Time 24 SEC (23-33) Sodium Level 141 MMOL/L (136-145) Potassium Level 3.3 MMOL/L (3.5-5.1) Chloride Level 104 MMOL/L (98-107) Carbon Dioxide Level 27 MMOL/L (21-32) Anion Gap 10 mmol/L (5-15) Blood Urea Nitrogen 16 mg/dL (7-18) Creatinine 1.1 MG/DL (0.55-1.30) Estimat Glomerular Filtration Rate > 60 mL/min (>60) Glucose Level 84 MG/DL (74-106) Calcium Level 8.8 MG/DL (8.5-10.1) Total Bilirubin 0.3 MG/DL (0.2-1.0) Aspartate Amino Transf (AST/SGOT) 22 U/L (15-37) Alanine Aminotransferase (ALT/SGPT) 20 U/L (12-78) Alkaline Phosphatase 87 U/L (46-116) Total Protein 6.8 G/DL (6.4-8.2) Albumin 3.7 G/DL (3.4-5.0) Globulin 3.1 g/dL Albumin/Globulin Ratio 1.2 (1.0-2.7) Urine Color Pale yellow Urine Appearance Clear Urine pH 5 (4.5-8.0) Urine Specific [place] 1.020 (1.005-1.035) Urine Protein Negative (NEGATIVE) Urine Glucose (UA) Negative (NEGATIVE) Urine Ketones Negative (NEGATIVE) Urine Blood Negative (NEGATIVE) Urine Nitrite Negative (NEGATIVE) Urine Bilirubin Negative (NEGATIVE) Urine Urobilinogen Normal MG/DL (0.0-1.0) Urine Leukocyte Esterase Negative (NEGATIVE) EKG Diagnostic Results Rate: normal Rhythm: NSR ST Segments: no acute changes Last Vital Signs Date Time Temp Pulse Resp B/P (MAP) Pulse Ox O2 Delivery O2 Flow Rate FiO2 01/23/20 06:07 80 16 Room Air 99 01/23/20 06:07 98.0 135/75 99 Status: improved Disposition: ADMITTED INPATIENT Condition: Stable Referrals: [facility],REFERRING (PCP) Girma Valladares MD Jan 23, 2020 06:24
--- NOTE | 2020-01-23 06:25 | NUR ---
ED Nurse Note: blood drawn and sent to lab
--- NOTE | 2020-01-23 06:28 | NUR ---
ED Nurse Note: pt went for ct
[2020-01-23 06:36] LABS: HEMATOCRIT 33.6 % (42.0-52.0); HEMOGLOBIN 10.6 G/DL (14.2-18.0); MEAN CORPUSCULAR VOLUME 99 FL (80-99); PLATELET COUNT 80 K/UL (150-450); RED BLOOD COUNT 3.41 M/UL (4.70-6.10); RED CELL DISTRIBUTION WIDTH 14.8 % (11.6-14.8); WHITE BLOOD COUNT 3.7 K/UL (4.8-10.8)
--- NOTE | 2020-01-23 06:43 | NUR ---
ED Nurse Note: pt back from ct
[2020-01-23 06:52] LABS: ANION GAP 10 mmol/L (5-15); BLOOD UREA NITROGEN 16 mg/dL (7-18); CALCIUM 8.8 MG/DL (8.5-10.1); CARBON DIOXIDE 27 MMOL/L (21-32); CHLORIDE 104 MMOL/L (98-107); CREATININE 1.1 MG/DL (0.55-1.30); POTASSIUM 3.3 MMOL/L (3.5-5.1); SODIUM 141 MMOL/L (136-145)
[2020-01-23 06:54] LABS: INR 1.1 (0.9-1.1)
[2020-01-23 06:59] LABS: ALANINE AMINOTRANSFERASE 20 U/L (12-78); ALBUMIN 3.7 G/DL (3.4-5.0); ALBUMIN/GLOBULIN RATIO 1.2 (1.0-2.7); ALKALINE PHOSPHATASE 87 U/L (46-116); ASPARTATE AMINO TRANSFERASE 22 U/L (15-37); BILIRUBIN,TOTAL 0.3 MG/DL (0.2-1.0)
--- NOTE | 2020-01-23 07:00 | NUR ---
HAND-OFF: Report given to Anca MCNAMARA.
--- NOTE | 2020-01-23 07:02 | NUR ---
ED Nurse Note: Received report from Nnamdi Benito RN. Patient AAO x4, all VSS at this time, stated has lower back pain 2/10, radiating to his legs.
[2020-01-23 07:26] LABS: APPEARANCE,URINE CLEAR; BILIRUBIN, URINE NEGATIVE (NEGATIVE); COLOR,URINE PALE YELLOW; GLUCOSE, URINE (UA) NEGATIVE (NEGATIVE); KETONES,URINE NEGATIVE (NEGATIVE); LEUKOCYTE ESTERASE ,URINE NEGATIVE (NEGATIVE); NITRITE,URINE NEGATIVE (NEGATIVE); PH,URINE 5 (4.5-8.0); PROTEIN,URINE NEGATIVE (NEGATIVE); UROBILINOGEN,URINE NORMAL MG/DL (0.0-1.0)
--- NOTE | 2020-01-23 07:39 | Diagnostic Imaging Report ---
EXAM: CT Head Without Intravenous Contrast CLINICAL HISTORY: PAIN TECHNIQUE: Axial computed tomography images of the head/brain without intravenous contrast. CTDI is 53.4 mGy and DLP is 1125.7 mGy-cm. One or more of the following dose reduction techniques were used: automated exposure control, adjustment of the mA and/or kV according to patient size, use of iterative reconstruction technique. COMPARISON: No relevant prior studies available. FINDINGS: Brain: No hemorrhage, extra-axial fluid collection, mass effect, or edema. Ventricles: Unremarkable. Bones/joints: Unremarkable. No fracture. Soft tissues: Unremarkable. Sinuses: Unremarkable as visualized. Mastoid air cells: Unremarkable as visualized. IMPRESSION: 1. No acute intracranial abnormality.
[2020-01-23] MEDS ORDERED: HYDROcodone/Acetamin 5/325 tab ORAL ONE (07:45)
[2020-01-23] MEDS ORDERED: VITAMIN B122500 MCG PO (08:41)
[2020-01-23] MEDS ORDERED: PANTOPRAZOLE SO40 MG ORAL (08:41)
[2020-01-23] MEDS ORDERED: GABAPENTIN100 MG ORAL ×2 (08:41)
--- NOTE | 2020-01-23 11:02 | Cardiac Electrophysiology PN ---
Subjective Subjective Seen in ER and dictated # [id number] 1. Hx of recent pulmonary embolism. S/P IVC filter 12/23/19. On Eliquis 5 bid Echo showed EF 60% with a PA pressure of only 12. 2. Recurrent Bradycardia with HR dropping to high 30s and low BP. Off any CHEN or AVN tessy. Now has syncope as well. May need PPM 3. Morbid obesity s/p Gastric sleeve surgery 5. Pancytopenia including Thrombocytopenia 70s. S/P BM biopsy and CT abdomen and pelvis 6. History of bipolar disorder, on Seroquel. 7. Dilaudid dependency Objective Last 24 Hour Vital Signs Date Time Temp Pulse Resp B/P (MAP) Pulse Ox O2 Delivery O2 Flow Rate FiO2 01/23/20 10:55 98.0 57 16 138/78 99 Room Air 99 01/23/20 08:42 98.0 52 16 135/75 99 Room Air 99 01/23/20 08:24 98.0 01/23/20 07:01 98.0 01/23/20 06:07 80 16 Room Air 99 01/23/20 06:07 98.0 88 16 135/75 99 Room Air 01/23/20 05:55 98.4 85 16 124/75 (91) 99 Room Air Laboratory Tests Test 01/23/20 06:20 01/23/20 07:05 White Blood Count 3.7 K/UL (4.8-10.8) L Red Blood Count 3.41 M/UL (4.70-6.10) L Hemoglobin 10.6 G/DL (14.2-18.0) L Hematocrit 33.6 % (42.0-52.0) L Mean Corpuscular Volume 99 FL (80-99) Mean Corpuscular Hemoglobin 31.0 PG (27.0-31.0) Mean Corpuscular Hemoglobin Concent 31.4 G/DL (32.0-36.0) L Red Cell Distribution Width 14.8 % (11.6-14.8) Platelet Count 80 K/UL (150-450) L Mean Platelet Volume 7.4 FL (6.5-10.1) Neutrophils (%) (Auto) % (45.0-75.0) Lymphocytes (%) (Auto) % (20.0-45.0) Monocytes (%) (Auto) % (1.0-10.0) Eosinophils (%) (Auto) % (0.0-3.0) Basophils (%) (Auto) % (0.0-2.0) Prothrombin Time 11.8 SEC (9.30-11.50) H Prothromb Time International Ratio 1.1 (0.9-1.1) Activated Partial Thromboplast Time 24 SEC (23-33) Sodium Level 141 MMOL/L (136-145) Potassium Level 3.3 MMOL/L (3.5-5.1) L Chloride Level 104 MMOL/L (98-107) Carbon Dioxide Level 27 MMOL/L (21-32) Anion Gap 10 mmol/L (5-15) Blood Urea Nitrogen 16 mg/dL (7-18) Creatinine 1.1 MG/DL (0.55-1.30) Estimat Glomerular Filtration Rate > 60 mL/min (>60) Glucose Level 84 MG/DL (74-106) Calcium Level 8.8 MG/DL (8.5-10.1) Total Bilirubin 0.3 MG/DL (0.2-1.0) Aspartate Amino Transf (AST/SGOT) 22 U/L (15-37) Alanine Aminotransferase (ALT/SGPT) 20 U/L (12-78) Alkaline Phosphatase 87 U/L (46-116) Total Protein 6.8 G/DL (6.4-8.2) Albumin 3.7 G/DL (3.4-5.0) Globulin 3.1 g/dL Albumin/Globulin Ratio 1.2 (1.0-2.7) Urine Color Pale yellow Urine Appearance Clear Urine pH 5 (4.5-8.0) Urine Specific [place] 1.020 (1.005-1.035) Urine Protein Negative (NEGATIVE) Urine Glucose (UA) Negative (NEGATIVE) Urine Ketones Negative (NEGATIVE) Urine Blood Negative (NEGATIVE) Urine Nitrite Negative (NEGATIVE) Urine Bilirubin Negative (NEGATIVE) Urine Urobilinogen Normal MG/DL (0.0-1.0) Urine Leukocyte Esterase Negative (NEGATIVE) Jarek Grant MD Jan 23, 2020 11:02
[2020-01-23] MEDS ORDERED: Albuterol/Ipratropium 3ml neb HHN PRN (11:30)
--- NOTE | 2020-01-23 11:38 | History and Physical ---
Cher Lerner ADULT SPECIALIST 01/23/20 1138: History of Present Illness General Date patient seen: Jan 23, 2020 Time patient seen: 10:00 Reason for Hospitalization: syncopal episode Present Illness HPI 44 years old male past medical history of DVT, PE, sciatica, history of gastric bypass, bipolar disorder, atrial fibrillation, prior history of ETOH abuse, was hospitalized in December 2019 . At that time patient was noted to have pulmonary embolism, and IVC filter was placed . Patient was significantly pancytopenic. Patient started on Eliquis and was able to tolerate it. Counts were clsoely monitored. Oncologist followed . CT scan of the abdomen and pelvis revealed no evidence of malignancy. Bone marrow biopsy was stable with normocellular marrow with multilineage hematopoiesis. No excess blasts, no atypical lymphocytes. At that time patient also noted to be bradycardic with associated dizziness. Echocardiogram revealed preserved ejection fraction . Marketing Development Manager followed . Patient was off all CHEN and AVN blockers . Heart rate improved . At that time there was no need for a pacemaker as per veterinary surgery technician. Patient was discharged on Eliquis and was strongly advised to follow-up with his primary care provider at [facility] to remove IVC stent in 2 to 3 weeks. Patient presented with bradycardia and syncope . Patient apparently stayed last night at his friend's house ( he still resides in transitional housing though). Upon waking up in am, he stood up from the bed, felt dizzy and fell. He reported hitting his head and left hip. His friend brought him for evaluation. CT of the head revealed no acute intracranial pathology. Laboratory work-up showed WBC 3.7, hemoglobin 10.6, hematocrit 33.6 ,platelet count 80. Potassium 3.3. Urinalysis unremarkable Troponin EKG revealed sinus bradycardia in 50s. Patient denied chest pain , shortness of breath, but complaining of the left hip and low back pain. Pulse oximetry stable on room air . Potassium and magnesium replaced in the emergency department. Patient received analgesic. He is currently waiting for telemetry bed. He reported that had seen his PMD, who advised him that she wants to keep IVC filter in. Patient reports compliance with medications/Eliquis. No ETOH, quit years ago, no illicit drug use. Allergies: Coded Allergies: DIAZEPAM (Verified Allergy, Intermediate, 12/23/19) TREE NUT (Verified Allergy, Intermediate, 12/23/19) KETOROLAC (Verified Allergy, Mild, Rash, 01/01/19) TRAMADOL (Verified Allergy, Unknown, 08/01/18) NSAIDS (NON-STEROIDAL ANTI-INFLAMMA (Verified Adverse Reaction, Unknown, 08/01/18) COVID-19 Screening Contact w/high risk pt: No Recent Travel to affected area: No Experienced COVID- symptoms?: No Medication History Scheduled Apixaban (Eliquis*), 5 MG ORAL BID Cyanocobalamin (Vitamin B-12) (Vitamin B12), 1,000 MCG PO DAILY, (Reported) Docusate Sodium* (Colace*), 100 MG ORAL TWICE A DAY, (Reported) Famotidine* (Pepcid 20mg tablet*), 40 MG ORAL DAILY, (Reported) Fluoxetine Hcl* (Fluoxetine Hcl*), 40 MG ORAL DAILY, (Reported) Folic Acid* (Folic Acid*), 1 MG ORAL DAILY Gabapentin* (Gabapentin*), 300 MG ORAL TWICE A DAY, (Reported) Gabapentin* (Gabapentin*), 100 MG ORAL BEDTIME, (Reported) Pantoprazole* (Pantoprazole*), 40 MG ORAL DAILY, (Reported) Quetiapine Fumarate* (Quetiapine Fumarate*), 25 MG ORAL QHS, (Reported) Trazodone Hcl* (Desyrel*), 100 MG ORAL BEDTIME, (Reported) Patient History Healthcare decision maker Resuscitation status full code Advanced Directive on File Past Medical/Surgical History Past Medical/Surgical History: (1) Bradycardia (2) Exacerbation of chronic back pain (3) Opiate dependence, continuous (4) Pulmonary embolus Review of Systems Constitutional: Reports: no symptoms Eye: Reports: no symptoms ENT: Reports: no symptoms Respiratory: Reports: other - hx of DVT and recurrent PE Cardiovascular: Reports: other - bradycardia Gastrointestinal: Reports: no symptoms Genitourinary: Reports: no symptoms Musculoskeletal: Reports: other - chronic back pain, sciatica, with radiation to the left leg Skin: Reports: no symptoms Psychiatric: Reports: other - depression Neurological: Reports: see HPI, other - dizziness Endocrine: Reports: no symptoms Hematologic/Lymphatic: Reports: other - pancytopenia Physical Exam General Appearance: WD/WN, no apparent distress, alert Lines, tubes and drains: peripheral HEENT: normocephalic, atraumatic, anicteric, mucous membranes moist, PERRL Neck: non-tender, normal alignment, supple Respiratory/Chest: chest wall non-tender, lungs clear, no respiratory distress, no accessory muscle use Cardiovascular/Chest: normal peripheral pulses, regular rhythm - SB on tele , no JVD Abdomen: normal bowel sounds, non tender, soft Extremities: normal range of motion, non-tender, no calf tenderness, normal capillary refill Skin Exam: warm/dry, other - heavy tattoos RUE Neurologic: no motor/sensory deficits, alert, oriented x 3, responsive, normal mood/affect Musculoskeletal: normal muscle bulk Last 24 Hour Vital Signs Date Time Temp Pulse Resp B/P (MAP) Pulse Ox O2 Delivery O2 Flow Rate FiO2 01/23/20 10:55 98.0 57 16 138/78 99 Room Air 99 01/23/20 08:42 98.0 52 16 135/75 99 Room Air 99 01/23/20 08:24 98.0 01/23/20 07:01 98.0 01/23/20 06:07 80 16 Room Air 99 01/23/20 06:07 98.0 88 16 135/75 99 Room Air 01/23/20 05:55 98.4 85 16 124/75 (91) 99 Room Air Laboratory Tests Test 01/23/20 06:20 01/23/20 07:05 White Blood Count 3.7 K/UL (4.8-10.8) L Red Blood Count 3.41 M/UL (4.70-6.10) L Hemoglobin 10.6 G/DL (14.2-18.0) L Hematocrit 33.6 % (42.0-52.0) L Mean Corpuscular Volume 99 FL (80-99) Mean Corpuscular Hemoglobin 31.0 PG (27.0-31.0) Mean Corpuscular Hemoglobin Concent 31.4 G/DL (32.0-36.0) L Red Cell Distribution Width 14.8 % (11.6-14.8) Platelet Count 80 K/UL (150-450) L Mean Platelet Volume 7.4 FL (6.5-10.1) Neutrophils (%) (Auto) % (45.0-75.0) Lymphocytes (%) (Auto) % (20.0-45.0) Monocytes (%) (Auto) % (1.0-10.0) Eosinophils (%) (Auto) % (0.0-3.0) Basophils (%) (Auto) % (0.0-2.0) Prothrombin Time 11.8 SEC (9.30-11.50) H Prothromb Time International Ratio 1.1 (0.9-1.1) Activated Partial Thromboplast Time 24 SEC (23-33) Sodium Level 141 MMOL/L (136-145) Potassium Level 3.3 MMOL/L (3.5-5.1) L Chloride Level 104 MMOL/L (98-107) Carbon Dioxide Level 27 MMOL/L (21-32) Anion Gap 10 mmol/L (5-15) Blood Urea Nitrogen 16 mg/dL (7-18) Creatinine 1.1 MG/DL (0.55-1.30) Estimat Glomerular Filtration Rate > 60 mL/min (>60) Glucose Level 84 MG/DL (74-106) Calcium Level 8.8 MG/DL (8.5-10.1) Total Bilirubin 0.3 MG/DL (0.2-1.0) Aspartate Amino Transf (AST/SGOT) 22 U/L (15-37) Alanine Aminotransferase (ALT/SGPT) 20 U/L (12-78) Alkaline Phosphatase 87 U/L (46-116) Total Protein 6.8 G/DL (6.4-8.2) Albumin 3.7 G/DL (3.4-5.0) Globulin 3.1 g/dL Albumin/Globulin Ratio 1.2 (1.0-2.7) Urine Color Pale yellow Urine Appearance Clear Urine pH 5 (4.5-8.0) Urine Specific [place] 1.020 (1.005-1.035) Urine Protein Negative (NEGATIVE) Urine Glucose (UA) Negative (NEGATIVE) Urine Ketones Negative (NEGATIVE) Urine Blood Negative (NEGATIVE) Urine Nitrite Negative (NEGATIVE) Urine Bilirubin Negative (NEGATIVE) Urine Urobilinogen Normal MG/DL (0.0-1.0) Urine Leukocyte Esterase Negative (NEGATIVE) Height (Feet): 6 Height (Inches): 1.00 Weight (Pounds): 240 Assessment/Plan Assessment/Plan: ASSESSMENT Syncopal episode Bradycardia L hip hurtado Recurrent PE Hx of DVT Pancytopenia Chronic back pain 2 to sciatica with LLE radiculopathy Chronic opiate dependency Hypokalemia Asthma PLAN OF CARE tele troponin in am , ECG cardio consult ECHO recently done, with pEF orthostatic VS fall precautions off any SAB or AVB may need pacemaker continue Eliquis, GI prophylaxis K and Mg already replaced in ED, fup with lyte and thyroid panel laminator counts- at baseline O2 prn keep sat > 90%, HHN prn pulse ox currently stable on RA L hip X ray- pain management pain specialist beatriz case discussed and evaluated by supervising physician Jonas Butt MD 01/23/20 1240: History of Present Illness General Reason for Hospitalization: syncopal episode Present Illness Allergies: Coded Allergies: DIAZEPAM (Verified Allergy, Intermediate, 12/23/19) TREE NUT (Verified Allergy, Intermediate, 12/23/19) KETOROLAC (Verified Allergy, Mild, Rash, 01/01/19) TRAMADOL (Verified Allergy, Unknown, 08/01/18) NSAIDS (NON-STEROIDAL ANTI-INFLAMMA (Verified Adverse Reaction, Unknown, 08/01/18) Medication History Scheduled Apixaban (Eliquis*), 5 MG ORAL BID Cyanocobalamin (Vitamin B-12) (Vitamin B12), 1,000 MCG PO DAILY, (Reported) Docusate Sodium* (Colace*), 100 MG ORAL TWICE A DAY, (Reported) Famotidine* (Pepcid 20mg tablet*), 40 MG ORAL DAILY, (Reported) Fluoxetine Hcl* (Fluoxetine Hcl*), 40 MG ORAL DAILY, (Reported) Folic Acid* (Folic Acid*), 1 MG ORAL DAILY Gabapentin* (Gabapentin*), 300 MG ORAL TWICE A DAY, (Reported) Gabapentin* (Gabapentin*), 100 MG ORAL BEDTIME, (Reported) Pantoprazole* (Pantoprazole*), 40 MG ORAL DAILY, (Reported) Quetiapine Fumarate* (Quetiapine Fumarate*), 25 MG ORAL QHS, (Reported) Trazodone Hcl* (Desyrel*), 100 MG ORAL BEDTIME, (Reported) Cher Lerner NP Jan 23, 2020 11:38 Jonas Butt MD Jan 23, 2020 12:40
--- NOTE | 2020-01-23 12:45 | Consultation ---
DATE OF CONSULTATION: 01/23/2020 CARDIOLOGY CONSULTATION CONSULTING PHYSICIAN: Jarek Grant MD. REFERRING PHYSICIAN: Jonas Butt MD. REASON FOR CONSULTATION: Syncope and bradycardia. HISTORY OF PRESENT ILLNESS: The patient is a 44-year-old gentleman, who was discharged about two weeks ago. The patient has history of bradycardia, history of pulmonary embolism as well as history of pancytopenia and morbid obesity, status post gastric sleeve surgery. The patient presented to the emergency room with increased left-sided hip pain and body pain. The patient had recent IVC filter placement for pulmonary embolism and he is on Eliquis. The patient also has history of multiple medication allergies. Had negative COVID test apparently last week. The patient stated that he was feeling lightheaded and dizzy and felt like he was passing out, was checked, the heart rate was in the 40s. Cardiology consultation was obtained for further evaluation and management. REVIEW OF SYSTEMS: Negative other than what is mentioned in history of present illness. PAST MEDICAL HISTORY: As mentioned above. FAMILY HISTORY: Noncontributory. SOCIAL HISTORY: Denies smoke or using any drugs. ALLERGIES: Per reconciliation. PHYSICAL EXAMINATION: VITAL SIGNS: Blood pressure 124/75, pulse is 55, respirations , and he is afebrile. HEAD AND NECK: Showed no JVD. LUNGS: Clear. CARDIOVASCULAR: Shows regular S1 and S2. ABDOMEN: Soft. EXTREMITIES: No pitting edema. LABORATORY AND DIAGNOSTIC DATA: Labs show white count of 3.7, hemoglobin of 10.7, hematocrit of 33.6, and platelet count is 80. Sodium 141, potassium 3.3, BUN of 16, creatinine 1.1. His INR is 1.1. His EKG shows sinus rhythm with no acute ST-T wave abnormalities. ASSESSMENT AND PLAN: 1. Syncope. The patient also has bradycardia. The patient also has a history of bradycardia in the past. We will completely rule out ID protocol again. On previous admission, heart rate was dropping to 30s despite being off of any blocking agents. 2. History of pancytopenia including thrombocytopenia, status post bone marrow biopsy and CT of the abdomen and pelvis. 3. History of bipolar disorder. 4. Dilaudid dependency. 5. History of acute pulmonary embolism, status post IVC filter December 23, 2019, Eliquis 5 mg b.i.d. Thank you very much for allowing me to participate in the care of this patient. Please do not hesitate to contact me for any questions regarding my evaluation. Jarek Grant M.D. DR: JOY JOB#: [id number] CC:
--- NOTE | 2020-01-23 13:49 | Diagnostic Imaging Report ---
Indication: Left hip pain Technique: 2 views of the left hip, one view of the pelvis Comparison: Left femur radiograph dated 08/01/2018 Findings: Again demonstrated is deformity of the proximal femoral shaft with some endosteal thickening and medullary lucencies which appears similar to the previous study. No acute fractures. No dislocations. The joint spaces are preserved. Impression: Left femoral deformity, probably due to healed fracture, unchanged. No evidence of acute bony trauma
[2020-01-23] MEDS: HYDROcodone/Acetamin 5/325 tab ORAL PRN ×3 (14:33→22:59)
--- NOTE | 2020-01-23 15:05 | NUR ---
ED Nurse Note: Report given to ANDERS Gtz
--- NOTE | 2020-01-23 15:45 | NUR ---
ED Nurse Note: Patient was admited to TELE unit due to bradycardia, syncopal episode. Patient was transfered to the unit via gurney by ACLS protocol, with all belongings. Patient AAO x4, VSS at this time,.
--- NOTE | 2020-01-23 16:10 | NUR ---
NURSE NOTES: Received patient in bed. Awake, A/O x4. On room air. Patient reports left hip pain 10/10, norco given in ED. IV in the Right AC, site intact. patient is a high fall risk d/t s/p fall at home. Patietn placed close to the nurses station, bed low and locked, call light within reach with return demonstration. Belongings list verified, heart monitor in place.
--- NOTE | 2020-01-23 16:15 | NUR ---
NURSE NOTES: Home meds placed in security bag and sent down to lab. slip #[id number]
--- NOTE | 2020-01-23 16:19 | NUR ---
NURSE NOTES: Patient c/o 10/10 pain on left hip radiating to left leg. Cher Lerner [employer] ASC[employer] CONSULTANT contacted with new order for dilaudid 2 mg IV x1 dose. Any further pain concerns to contact [facility] pain specialist.
[2020-01-23] MEDS: Eliquis 5mg tablet ORAL SCH (17:23)
--- NOTE | 2020-01-23 19:20 | NUR ---
NURSE NOTES: Received report from ANDERS Pitt. Patient is resting in semi-fowlers position. Is in room air; no acute distress noted at this time. Patient is AOx4. Patient is able to make need known. Patient is reporting pain of 6/10 on left hip at this time. IV site is on right AC 20G S/LL; patent and flushed. No bleeding or erythema noted. Patient is adulatory with assistance. Patient has a left sided limp. Fall risk do to recent fall. Bed is low and locked, side rails up x2 top two side rails are padded. Patient has been educated to use call light when needing assistance. Call light in reach and bed alarm on. Will continue plan of care.
--- NOTE | 2020-01-23 19:32 | NUR ---
NURSE NOTES: Vape pen and cartridge placed in security safe.
[2020-01-23] MEDS: TraZODone 100mg tab ORAL SCH (20:40)
[2020-01-24] VITALS: BP_SYST 104; BP_SYST 108; BP_SYST 94; BP_DIAS 40; BP_DIAS 55; BP_DIAS 69
[2020-01-24] MEDS: HYDROcodone/Acetamin 5/325 tab ORAL PRN ×2 (03:00→08:00)
[2020-01-24 04:00] VITALS: BP 113/46
--- NOTE | 2020-01-24 05:14 | NUR ---
NURSE NOTES: Patient 12 lead EKG is compleat and in patient's chart.
[2020-01-24 07:06] LABS: ANION GAP 7 mmol/L (5-15); BLOOD UREA NITROGEN 12 mg/dL (7-18); CALCIUM 8.5 MG/DL (8.5-10.1); CARBON DIOXIDE 28 MMOL/L (21-32); CHLORIDE 107 MMOL/L (98-107); CREATININE 0.9 MG/DL (0.55-1.30); POTASSIUM 3.7 MMOL/L (3.5-5.1); SODIUM 142 MMOL/L (136-145)
[2020-01-24 07:11] LABS: HEMATOCRIT 30.3 % (42.0-52.0); HEMOGLOBIN 9.5 G/DL (14.2-18.0); MEAN CORPUSCULAR VOLUME 97 FL (80-99); PLATELET COUNT 76 K/UL (150-450); RED BLOOD COUNT 3.12 M/UL (4.70-6.10); RED CELL DISTRIBUTION WIDTH 15.3 % (11.6-14.8); WHITE BLOOD COUNT 2.7 K/UL (4.8-10.8)
--- NOTE | 2020-01-24 07:35 | NUR ---
NURSE NOTES: Report received from Ifrah MCNAMARA. Patient seen on rounds, awake and up in bed, not in distress, complained of pain on left hip rated 10/10 and requesting medication for pain, will administer PRN pain meds and reassess. Nurse reports pt has been Sinus Bradycardia overnight with HR in the low 40's but asymptomatic. PIV on right AC patent and intact. PT is ambulatory and continent. Bed low and locked, siderails up x2, call light placed within reach and instructed to call nurse for assistance. Will continue with plan of care.
--- NOTE | 2020-01-24 07:44 | NUR ---
NURSE HAND-OFF REPORT: Important Events on Shift: Patient is in pain despite taking pain medication [place]. Patient has orthostatic BP Q-shift Patient Status: No acute distress Diet: Regular whole pill thin liquid Pending Orders: Pending Results/Labs: Pending MD notification: Latest Vital Signs: Temperature 97.5 , Pulse 49 , B/P 113 /46 , Respiratory Rate 17 , O2 SAT 98 , Room Air, O2 Flow Rate . Vital Sign Comment: EKG Rhythm: Sinus Bradycardia Rhythm change?: N MD Notified?: - MD Response: Latest Presley Fall Score: 70 Fall Risk: High Risk Safety Measures: Call light Within Reach, Bed Alarm Zone 2, Side Rails Side Rails x2, Bed position Low and Locked. Fall Precautions: Yellow Socks Yellow Gown Door Sign Patient Fall Education Report given to Drea MCNAMARA .
[2020-01-24 08:00] VITALS: BP 102/46
[2020-01-24] MEDS: Eliquis 5mg tablet ORAL SCH ×2 (08:07→17:20)
--- NOTE | 2020-01-24 08:32 | NUR ---
CASE MANAGEMENT: INITIAL REVIEW 01/23/2020 44 YO M PRESENTED TO ED FROM HOME CC: GROUND [employer] PMHx: gastric sleeve. IVC filter placement SI:BRADYCARDIA. SYNCOPAL EPISODE. LEUKOPENIA. VS: T 98.4 HR 85 RR 16 B/P 124/75 SATS 99% ON RA LABS: WBC 3.7 K 3.3 BNP 129 IS: ACETAMINOPHEN PO X1 NS BOLUS X1 KCL PO X1 PATIENT ADMITTED TO TELE 01/23/2020 @ 0810 DCP: HOME PLAN OF CARE: CARDIO EVAL >> may need pacemaker CONCURRENT REVIEW FOR 01/24/2020 SI:BRADYCARDIA. SYNCOPAL EPISODE. LEUKOPENIA. VS: T 97.5 HR 47 RR 17 B/P 113/46 SATS 98% ON RA LABS: WBC 2.7 GLU 119 IS: GABAPENTIN PO BID TRAZODONE PO QHS ELIQUIS PO BID PROTONIX PO QD TELE DCP: HOME PLAN OF CARE: Completely rule out PR
--- NOTE | 2020-01-24 08:57 | Consultation ---
History of Present Illness General Date patient seen: Jan 24, 2020 Chief Complaint: Multiple Trauma/Fall Present Illness Allergies: Coded Allergies: DIAZEPAM (Verified Allergy, Intermediate, 12/23/19) TREE NUT (Verified Allergy, Intermediate, 12/23/19) KETOROLAC (Verified Allergy, Mild, Rash, 01/01/19) TRAMADOL (Verified Allergy, Unknown, 08/01/18) NSAIDS (NON-STEROIDAL ANTI-INFLAMMA (Verified Adverse Reaction, Unknown, 08/01/18) Medication History Scheduled Apixaban (Eliquis*), 5 MG ORAL BID Cyanocobalamin (Vitamin B-12) (Vitamin B12), 1,000 MCG PO DAILY, (Reported) Docusate Sodium* (Colace*), 100 MG ORAL TWICE A DAY, (Reported) Famotidine* (Pepcid 20mg tablet*), 40 MG ORAL DAILY, (Reported) Fluoxetine Hcl* (Fluoxetine Hcl*), 40 MG ORAL DAILY, (Reported) Folic Acid* (Folic Acid*), 1 MG ORAL DAILY Gabapentin* (Gabapentin*), 300 MG ORAL TWICE A DAY, (Reported) Gabapentin* (Gabapentin*), 100 MG ORAL BEDTIME, (Reported) Pantoprazole* (Pantoprazole*), 40 MG ORAL DAILY, (Reported) Quetiapine Fumarate* (Quetiapine Fumarate*), 25 MG ORAL QHS, (Reported) Trazodone Hcl* (Desyrel*), 100 MG ORAL BEDTIME, (Reported) Patient History Healthcare decision maker Resuscitation status Advanced Directive on File Physical Exam Last 24 Hour Vital Signs Date Time Temp Pulse Resp B/P (MAP) Pulse Ox O2 Delivery O2 Flow Rate FiO2 01/24/20 08:00 62 01/24/20 08:00 97.9 53 16 102/46 (64) 97 01/24/20 04:00 97.5 47 17 113/46 (68) 98 01/24/20 04:00 49 01/24/20 00:00 43 65 52 01/24/20 00:00 52 108/55 (72) 01/24/20 00:00 59 01/24/20 00:00 97.5 43 17 94/40 (58) 97 01/24/20 00:00 65 104/69 (81) 01/23/20 21:00 Room Air 01/23/20 20:00 96.6 64 17 119/65 (83) 97 01/23/20 20:00 59 01/23/20 18:00 80 120/77 (91) 01/23/20 17:55 64 123/61 (81) 01/23/20 17:50 64 120/53 (75) 01/23/20 16:44 98.6 57 17 110/66 97 Room Air 99 01/23/20 16:00 48 01/23/20 16:00 98.6 57 17 110/66 (81) 97 01/23/20 15:52 Room Air 01/23/20 15:45 98.0 57 16 138/78 99 Room Air 99 01/23/20 15:03 98.0 01/23/20 10:55 98.0 57 16 138/78 99 Room Air 99 Intake and Output 01/23/20 01/24/20 19:00 07:00 Intake Total 140 ml 800 ml Output Total 1200 ml Balance -1060 ml 800 ml Intake Oral 140 ml 800 ml Output Urine Total 1200 ml # Voids 3 3 # Bowel Movements 2 Laboratory Tests Test 01/24/20 06:20 White Blood Count 2.7 K/UL (4.8-10.8) L Red Blood Count 3.12 M/UL (4.70-6.10) L Hemoglobin 9.5 G/DL (14.2-18.0) L Hematocrit 30.3 % (42.0-52.0) L Mean Corpuscular Volume 97 FL (80-99) Mean Corpuscular Hemoglobin 30.6 PG (27.0-31.0) Mean Corpuscular Hemoglobin Concent 31.4 G/DL (32.0-36.0) L Red Cell Distribution Width 15.3 % (11.6-14.8) H Platelet Count 76 K/UL (150-450) L Mean Platelet Volume 7.5 FL (6.5-10.1) Neutrophils (%) (Auto) % (45.0-75.0) Lymphocytes (%) (Auto) % (20.0-45.0) Monocytes (%) (Auto) % (1.0-10.0) Eosinophils (%) (Auto) % (0.0-3.0) Basophils (%) (Auto) % (0.0-2.0) Neutrophils % (Manual) Pending Lymphocytes % (Manual) Pending Platelet Estimate Pending Platelet Morphology Pending Sodium Level 142 MMOL/L (136-145) Potassium Level 3.7 MMOL/L (3.5-5.1) Chloride Level 107 MMOL/L (98-107) Carbon Dioxide Level 28 MMOL/L (21-32) Anion Gap 7 mmol/L (5-15) Blood Urea Nitrogen 12 mg/dL (7-18) Creatinine 0.9 MG/DL (0.55-1.30) Estimat Glomerular Filtration Rate > 60 mL/min (>60) Glucose Level 119 MG/DL (74-106) H Calcium Level 8.5 MG/DL (8.5-10.1) Magnesium Level 1.8 MG/DL (1.8-2.4) Pro-B-Type Natriuretic Peptide 129 pg/mL (0-125) H Thyroid Stimulating Hormone (TSH) 0.141 uiU/mL (0.358-3.740) Free Thyroxine 1.14 NG/DL (0.76-1.46) Height (Feet): 6 Height (Inches): 1.00 Weight (Pounds): 240 Medications Current Medications Medications (Trade) Dose Ordered Sig/Mikey Route PRN Reason Start Time Stop Time Status Last Admin Dose Admin Acetaminophen/ Hydrocodone Bitart ([place] 5/325) 1 tab Q4H PRN ORAL pain 5-10 01/23/20 11:30 01/30/20 11:29 01/24/20 08:00 Albuterol/ Ipratropium (Albuterol/ Ipratropium) 3 ml Q6H PRN HHN sob 01/23/20 11:30 01/28/20 11:29 Apixaban (Eliquis) 5 mg BID ORAL 01/23/20 18:00 04/22/20 17:59 01/24/20 08:07 Dextrose (Dextrose 50%) 25 ml Q30M PRN IV Hypoglycemia 01/23/20 11:30 04/22/20 11:29 Dextrose (Dextrose 50%) 50 ml Q30M PRN IV Hypoglycemia 01/23/20 11:30 04/22/20 11:29 Fluoxetine HCl (PROzac) 40 mg DAILY ORAL 01/24/20 09:00 02/23/20 08:59 01/24/20 08:08 Folic Acid (Folate) 1 mg DAILY ORAL 01/24/20 09:00 02/23/20 08:59 01/24/20 08:07 Gabapentin (Neurontin) 300 mg TWICE A DAY ORAL 01/23/20 18:00 02/22/20 17:59 01/24/20 08:07 Pantoprazole (Protonix) 40 mg DAILY ORAL 01/24/20 09:00 02/23/20 08:59 01/24/20 08:07 Trazodone HCl (Desyrel) 100 mg BEDTIME ORAL 01/23/20 21:00 02/22/20 20:59 01/23/20 20:40 Assessment/Plan Assessment/Plan: (1) Lumbar Radiculopathy (2) R/O Lumbar herniated disc (3) Muscle spasm seen dictated Neo Sun Jan 24, 2020 08:57
--- NOTE | 2020-01-24 10:22 | Pulmonology Progress Note ---
Subjective Allergies: Coded Allergies: DIAZEPAM (Verified Allergy, Intermediate, 12/23/19) TREE NUT (Verified Allergy, Intermediate, 12/23/19) KETOROLAC (Verified Allergy, Mild, Rash, 01/01/19) TRAMADOL (Verified Allergy, Unknown, 08/01/18) NSAIDS (NON-STEROIDAL ANTI-INFLAMMA (Verified Adverse Reaction, Unknown, 08/01/18) Subjective remains in SB in low 50 + dizziness + back pain Objective Last 24 Hour Vital Signs Date Time Temp Pulse Resp B/P (MAP) Pulse Ox O2 Delivery O2 Flow Rate FiO2 01/24/20 09:00 Room Air 01/24/20 08:00 62 01/24/20 08:00 97.9 53 16 102/46 (64) 97 01/24/20 04:00 97.5 47 17 113/46 (68) 98 01/24/20 04:00 49 01/24/20 00:00 43 65 52 01/24/20 00:00 52 108/55 (72) 01/24/20 00:00 59 01/24/20 00:00 97.5 43 17 94/40 (58) 97 01/24/20 00:00 65 104/69 (81) 01/23/20 21:00 Room Air 01/23/20 20:00 96.6 64 17 119/65 (83) 97 01/23/20 20:00 59 01/23/20 18:00 80 120/77 (91) 01/23/20 17:55 64 123/61 (81) 01/23/20 17:50 64 120/53 (75) 01/23/20 16:44 98.6 57 17 110/66 97 Room Air 99 01/23/20 16:00 48 01/23/20 16:00 98.6 57 17 110/66 (81) 97 01/23/20 15:52 Room Air 01/23/20 15:45 98.0 57 16 138/78 99 Room Air 99 01/23/20 15:03 98.0 01/23/20 10:55 98.0 57 16 138/78 99 Room Air 99 Intake and Output 01/23/20 01/24/20 19:00 07:00 Intake Total 140 ml 800 ml Output Total 1200 ml Balance -1060 ml 800 ml Intake Oral 140 ml 800 ml Output Urine Total 1200 ml # Voids 3 3 # Bowel Movements 2 Objective General Appearance: WD/WN, no apparent distress, alert Lines, tubes and drains: peripheral HEENT: normocephalic, atraumatic, anicteric, mucous membranes moist, PERRL Neck: non-tender, normal alignment, supple Respiratory/Chest: chest wall non-tender, lungs clear, no respiratory distress, no accessory muscle use Cardiovascular/Chest: normal peripheral pulses, regular rhythm - SB on tele , no JVD Abdomen: normal bowel sounds, non tender, soft Extremities: normal range of motion, non-tender, no calf tenderness, normal capillary refill Skin Exam: warm/dry, other - heavy tattoos RUE Neurologic: no motor/sensory deficits, alert, oriented x 3, responsive, normal mood/affect Musculoskeletal: normal muscle bulk Laboratory Tests 01/24/20 06:20: White Blood Count 2.7L, Red Blood Count 3.12L, Hemoglobin 9.5L, Hematocrit 30.3L , Mean Corpuscular Volume 97, Mean Corpuscular Hemoglobin 30.6, Mean Corpuscular Hemoglobin Concent 31.4L, Red Cell Distribution Width 15.3H, Platelet Count 76L, Mean Platelet Volume 7.5, Neutrophils (%) (Auto) , Lymphocytes (%) (Auto) , Monocytes (%) (Auto) , Eosinophils (%) (Auto) , Basophils (%) (Auto) , Neutrophils % (Manual) [Pending], Lymphocytes % (Manual) [Pending], Platelet Estimate [Pending], Platelet Morphology [Pending], Sodium Level 142, Potassium Level 3.7, Chloride Level 107, Carbon Dioxide Level 28, Anion Gap 7, Blood Urea Nitrogen 12, Creatinine 0.9, Estimat Glomerular Filtration Rate > 60, Glucose Level 119H, Calcium Level 8.5, Magnesium Level 1.8, Pro-B-Type Natriuretic Peptide 129H, Thyroid Stimulating Hormone (TSH) 0.141L, Free Thyroxine 1.14 Current Medications Medications (Trade) Dose Ordered Sig/Mikey Route PRN Reason Start Time Stop Time Status Last Admin Dose Admin Acetaminophen/ Hydrocodone Bitart ([place] 10/325) 1 tab Q4H PRN ORAL Severe Pain (Pain Scale 7-10) 01/24/20 09:00 01/31/20 08:59 Albuterol/ Ipratropium (Albuterol/ Ipratropium) 3 ml Q6H PRN HHN sob 01/23/20 11:30 01/28/20 11:29 Apixaban (Eliquis) 5 mg BID ORAL 01/23/20 18:00 04/22/20 17:59 01/24/20 08:07 Dextrose (Dextrose 50%) 25 ml Q30M PRN IV Hypoglycemia 01/23/20 11:30 04/22/20 11:29 Dextrose (Dextrose 50%) 50 ml Q30M PRN IV Hypoglycemia 01/23/20 11:30 04/22/20 11:29 Fluoxetine HCl (PROzac) 40 mg DAILY ORAL 01/24/20 09:00 02/23/20 08:59 01/24/20 08:08 Folic Acid (Folate) 1 mg DAILY ORAL 01/24/20 09:00 02/23/20 08:59 01/24/20 08:07 Gabapentin (Neurontin) 300 mg TWICE A DAY ORAL 01/23/20 18:00 02/22/20 17:59 01/24/20 08:07 Methocarbamol (Robaxin) 500 mg Q8H PRN ORAL muscle spasm 01/24/20 09:00 02/23/20 08:59 Pantoprazole (Protonix) 40 mg DAILY ORAL 01/24/20 09:00 02/23/20 08:59 01/24/20 08:07 Trazodone HCl (Desyrel) 100 mg BEDTIME ORAL 01/23/20 21:00 02/22/20 20:59 01/23/20 20:40 Assessment/Plan Assessment/Plan ASSESSMENT Syncopal episode Bradycardia L hip hurtado Recurrent PE Hx of DVT Pancytopenia Chronic back pain 2 to sciatica with LLE radiculopathy Chronic opiate dependency Hypokalemia Asthma PLAN OF CARE tele troponin, ECG cardio eval appreciated ECHO recently done, with pEF orthostatic VS fall precautions off any SAB or AVB may need pacemaker continue Eliquis, GI prophylaxis TSH low, free T4 ok, will also get free T 3 monitor counts- at baseline O2 prn keep sat > 90%, HHN prn pulse ox currently stable on RA L hip X ray- Left femoral deformity, probably due to healed fracture, unchanged. No evidence of acute bony trauma pain management pain specialist eval appreciated MRI L spine pending case discussed and evaluated by supervising physician Cher Lerner NP Jan 24, 2020 10:22 Jonas Butt MD Jan 24, 2020 13:29
[2020-01-24] MEDS: HYDROcodone/Acetamin 10/325 tab ORAL PRN ×4 (11:24→23:44)
[2020-01-24 12:00] VITALS: BP 112/57
--- NOTE | 2020-01-24 12:28 | NUR ---
INSURANCE FAX CLINICALS TO [phone]
--- NOTE | 2020-01-24 12:45 | Consultation ---
DATE OF CONSULTATION: 01/24/2020 PAIN MANAGEMENT CONSULTATION CONSULTING PHYSICIAN: Racheal Grissom MD. REFERRING PHYSICIAN: Jonas Butt MD. PHYSICIAN CHIEF OF SAFETY AND PROTECTION: JENNA Courtney. CHIEF COMPLAINT: Low back pain. HISTORY OF PRESENT ILLNESS: This is a 44-year-old male, who is being seen on the telemetry floor of [facility] for comprehensive pain management consultation. The patient was admitted under the care of Dr. Butt. He is a known patient from previous hospital admission where he had pulmonary embolism, status post IVC filter placement. Reports that he had a syncopal episode yesterday and fell injuring his lower back as well as his left hip. X-ray of left hip was performed showing no acute fracture. Reports he has chronic lower back pain for the past 25 years, however, now it is acute on chronic, rating at 10/10, describing the pain as a sharp, shooting pain into his left lower extremity to the heel, increasing with movement and is reduced with medication. He was started on [place] 5/325 mg one tablet every four hours as needed for severe pain. He had been given one time dose of Dilaudid 2 mg IV as per the customer support engineer. However, at this time, discussed with the patient about IV medication and continuing on oral medication. He seems to understand. We will also order an MRI of lumbar spine to rule out any further pathology in the lower back. REVIEW OF SYSTEMS: Denies rash, fever, chills, sweating, dizziness, drowsiness, blurred vision, shortness of breath or chest pain. No nausea, vomiting, diarrhea, or dysuria. PHYSICAL EXAMINATION: GENERAL: Alert, awake, and oriented. VITAL SIGNS: Blood pressure 102/46, heart rate 53, oxygen saturation 98%, respiratory rate 16, temperature 97.9 degrees Fahrenheit. HEENT: PERRLA. NECK: Range of motion is full in all directions. No tenderness to paracervical muscles. No adenopathy. LUNGS: Decreased breath sounds bilaterally. HEART: S1 and S2, regular. ABDOMEN: Soft, nontender. BACK: Range of motion is decreased in flexion and extension with tenderness to paraspinal muscles. No tenderness to trapezius and rhomboid muscles. EXTREMITIES: Upper and lower extremity range of motion is decreased due to the patient's condition. No cyanosis. No clubbing. Sensory is intact. Reflexes are not obtainable. No adenopathy. ASSESSMENT AND PLAN: This is a 44-year-old male with lumbar herniated disc, lumbar radiculopathy, muscle spasm. The patient will be increased to [place] 10/325 mg one tablet every four hours as needed for severe pain. Started on Robaxin 500 mg tablet every 8 hours as needed for muscle spasm. We will order an MRI of the lumbar spine without contrast to rule out further pathology in the lower back. The patient was discussed with Dr. Grissom and Dr. Grissom concurred. We will follow the patient. Thank you very much for the courtesy of this consultation. Racheal Grissom M.D. JENNA Courtney DR: ALLAN JOB#: [id number] CC:
--- NOTE | 2020-01-24 13:00 | Cardiac Electrophysiology PN ---
Assessment/Plan Assessment/Plan 1. Hx of recent pulmonary embolism. S/P IVC filter 12/23/19. On Eliquis 5 bid Echo showed EF 60% with a PA pressure of only 12. 2. Recurrent Bradycardia with HR dropping to high 30s and low BP. Off any CHEN or AVN tessy. Now has syncope as well. May need PPM ECG today HR 44 3. Morbid obesity s/p Gastric sleeve surgery 5. Pancytopenia including Thrombocytopenia 70s. S/P BM biopsy and CT abdomen and pelvis 6. History of bipolar disorder, on Seroquel. 7. Back pain. Getting MRI. Dilaudid dependency Subjective Subjective Still bradycardic. ECG SR 44! MRI back pending Objective Last 24 Hour Vital Signs Date Time Temp Pulse Resp B/P (MAP) Pulse Ox O2 Delivery O2 Flow Rate FiO2 01/24/20 09:00 Room Air 01/24/20 08:00 62 01/24/20 08:00 97.9 53 16 102/46 (64) 97 01/24/20 04:00 97.5 47 17 113/46 (68) 98 01/24/20 04:00 49 01/24/20 00:00 43 65 52 01/24/20 00:00 52 108/55 (72) 01/24/20 00:00 59 01/24/20 00:00 97.5 43 17 94/40 (58) 97 01/24/20 00:00 65 104/69 (81) 01/23/20 21:00 Room Air 01/23/20 20:00 96.6 64 17 119/65 (83) 97 01/23/20 20:00 59 01/23/20 18:00 80 120/77 (91) 01/23/20 17:55 64 123/61 (81) 01/23/20 17:50 64 120/53 (75) 01/23/20 16:44 98.6 57 17 110/66 97 Room Air 99 01/23/20 16:00 48 01/23/20 16:00 98.6 57 17 110/66 (81) 97 01/23/20 15:52 Room Air 01/23/20 15:45 98.0 57 16 138/78 99 Room Air 99 01/23/20 15:03 98.0 Intake and Output 01/23/20 01/24/20 19:00 07:00 Intake Total 140 ml 800 ml Output Total 1200 ml Balance -1060 ml 800 ml Intake Oral 140 ml 800 ml Output Urine Total 1200 ml # Voids 3 3 # Bowel Movements 2 Laboratory Tests Test 01/24/20 06:20 White Blood Count 2.7 K/UL (4.8-10.8) L Red Blood Count 3.12 M/UL (4.70-6.10) L Hemoglobin 9.5 G/DL (14.2-18.0) L Hematocrit 30.3 % (42.0-52.0) L Mean Corpuscular Volume 97 FL (80-99) Mean Corpuscular Hemoglobin 30.6 PG (27.0-31.0) Mean Corpuscular Hemoglobin Concent 31.4 G/DL (32.0-36.0) L Red Cell Distribution Width 15.3 % (11.6-14.8) H Platelet Count 76 K/UL (150-450) L Mean Platelet Volume 7.5 FL (6.5-10.1) Neutrophils (%) (Auto) % (45.0-75.0) Lymphocytes (%) (Auto) % (20.0-45.0) Monocytes (%) (Auto) % (1.0-10.0) Eosinophils (%) (Auto) % (0.0-3.0) Basophils (%) (Auto) % (0.0-2.0) Differential Total Cells Counted 100 Neutrophils % (Manual) 51 % (45-75) Lymphocytes % (Manual) 40 % (20-45) Monocytes % (Manual) 8 % (1-10) Eosinophils % (Manual) 1 % (0-3) Basophils % (Manual) 0 % (0-2) Band Neutrophils 0 % (0-8) Platelet Estimate Decreased L Platelet Morphology Normal Hypochromasia 1+ Anisocytosis 1+ Sodium Level 142 MMOL/L (136-145) Potassium Level 3.7 MMOL/L (3.5-5.1) Chloride Level 107 MMOL/L (98-107) Carbon Dioxide Level 28 MMOL/L (21-32) Anion Gap 7 mmol/L (5-15) Blood Urea Nitrogen 12 mg/dL (7-18) Creatinine 0.9 MG/DL (0.55-1.30) Estimat Glomerular Filtration Rate > 60 mL/min (>60) Glucose Level 119 MG/DL (74-106) H Calcium Level 8.5 MG/DL (8.5-10.1) Magnesium Level 1.8 MG/DL (1.8-2.4) Pro-B-Type Natriuretic Peptide 129 pg/mL (0-125) H Thyroid Stimulating Hormone (TSH) 0.141 uiU/mL (0.358-3.740) Free Thyroxine 1.14 NG/DL (0.76-1.46) Objective HEAD AND NECK: Showed no JVD. LUNGS: Clear. CARDIOVASCULAR: Shows regular S1 and S2. ABDOMEN: Soft. EXTREMITIES: No pitting edema. Jarek Grant MD Jan 24, 2020 13:00
[2020-01-24] MEDS: Methocarbamol 500mg tab ORAL PRN (15:24)
[2020-01-24 16:00] VITALS: BP 109/54
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
--- NOTE | 2020-01-24 17:47 | Diagnostic Imaging Report ---
Indication: Lumbar radiculopathy, muscle spasm Technique: Sagittal T1 and T2 fast spin echo, sagittal STIR, axial T1 and T2 fast spin-echo images of the lumbar spine Comparison: none Findings: Bony alignment is normal. Vertebral body heights are preserved. Disc spaces are preserved. The vertebral marrow signal is normal. Conus medullaris terminates at the T12-L1 disc level. At L3-4, there is circumferential annular bulge and minimal left paracentral disc protrusion. This may impinge slightly upon the left lateral recess and slightly compromises the left neural foramen. No significant neural foraminal stenosis is seen on the right. No significant central canal stenosis. At L4-5, there is circumferential annular bulge. This does not significantly narrow the spinal canal or the neural foramina. At L5-S1, there is circumferential annular bulge and broad-based posterior disc protrusion. This does not significantly compromise the spinal canal or neural foramina. There is a right S2 nerve roots sleeve cyst. The included extraspinal soft tissues are unremarkable. Impression: Minimal degenerative changes, as detailed above
--- NOTE | 2020-01-24 19:40 | NUR ---
NURSE HAND-OFF REPORT: Important Events on Shift: S/P MRI of lumbar spine, orthostatics negative; plan is possible pacemaker placement on Monday Patient Status: Stable Diet: Regular Pending Orders: None Pending Results/Labs: N Pending MD notification: N Latest Vital Signs: Temperature 97.9 , Pulse 55 , B/P 109 /54 , Respiratory Rate 17 , O2 SAT 98 , Room Air, O2 Flow Rate . Vital Sign Comment: N EKG Rhythm: Sinus Bradycardia Rhythm change?: N MD Notified?: - MD Response: Latest Presley Fall Score: 70 Fall Risk: High Risk Safety Measures: Call light Within Reach, Bed Alarm Zone 2, Side Rails Side Rails x2, Bed position Low and Locked. Fall Precautions: Yellow Socks Yellow Gown Door Sign Patient Fall Education Report given to Erick MCNAMARA.
--- NOTE | 2020-01-24 19:46 | NUR ---
NURSE NOTES: The patient is alert and oriented x4, responsive with his care and does not appear to be in any active distress at this time.The Resp is even and unlabored. He is been Sinus yessi on ECG . The skin is intact with capillary refills <3 secs, no evidence of a pressure sore noted. PIV on right AC 20g patent and intact.The patient can ambulate to the bathroom and is continent. Bed low and locked, siderails up x2, call light placed within reach and instructed to call nurse for assistance. Will continue with plan of care.
[2020-01-24 20:00] VITALS: BP 124/67
[2020-01-24] MEDS: TraZODone 100mg tab ORAL SCH (20:18)
[2020-01-25] VITALS: BP 118/59
[2020-01-25 04:00] VITALS: BP 114/60
[2020-01-25] MEDS: HYDROcodone/Acetamin 10/325 tab ORAL PRN ×5 (04:30→21:20)
--- NOTE | 2020-01-25 07:20 | NUR ---
NURSE HAND-OFF REPORT: Important Events on Shift:Alert and stable Patient Status: Diet: Pending Orders: Pending Results/Labs: Pending MD notification: Latest Vital Signs: Temperature 98.0 , Pulse 51 , B/P 114 /60 , Respiratory Rate 17 , O2 SAT 100 , Room Air, O2 Flow Rate . Vital Sign Comment: EKG Rhythm: Sinus Bradycardia Rhythm change?: N MD Notified?: - MD Response: Latest Presley Fall Score: 70 Fall Risk: High Risk Safety Measures: Call light Within Reach, Bed Alarm Zone 2, Side Rails Side Rails x2, Bed position Low and Locked. Fall Precautions: Yellow Socks Yellow Gown Door Sign Patient Fall Education Report given to .
--- NOTE | 2020-01-25 07:25 | NUR ---
NURSE NOTES:received am report. pt is awake and alert in bed eating breakfast. oriented to time, person and place. denies any chest pain and weakness. respiration is even and unlabored on room air. no acute distress noted at this time. call light is placed within reach, will follow plan of care.
[2020-01-25 07:36] LABS: HEMATOCRIT 34.3 % (42.0-52.0); HEMOGLOBIN 10.6 G/DL (14.2-18.0); MEAN CORPUSCULAR VOLUME 100 FL (80-99); PLATELET COUNT 76 K/UL (150-450); RED BLOOD COUNT 3.43 M/UL (4.70-6.10); WHITE BLOOD COUNT 2.9 K/UL (4.8-10.8)
[2020-01-25 08:00] VITALS: BP 135/65
--- NOTE | 2020-01-25 08:38 | Pulmonology Progress Note ---
Subjective Allergies: Coded Allergies: DIAZEPAM (Verified Allergy, Intermediate, 12/23/19) TREE NUT (Verified Allergy, Intermediate, 12/23/19) KETOROLAC (Verified Allergy, Mild, Rash, 01/01/19) TRAMADOL (Verified Allergy, Unknown, 08/01/18) NSAIDS (NON-STEROIDAL ANTI-INFLAMMA (Verified Adverse Reaction, Unknown, 08/01/18) Subjective remains in SB in low 50 during night and early am + dizziness, no CP, no SOB pulse ox stable on RA + back pain MRI L spine - minimal degenerative changes chemistry still pending for this am Objective Last 24 Hour Vital Signs Date Time Temp Pulse Resp B/P (MAP) Pulse Ox O2 Delivery O2 Flow Rate FiO2 01/25/20 08:00 97.5 66 20 135/65 (88) 97 01/25/20 05:00 98.0 01/25/20 04:00 51 01/25/20 04:00 97.4 51 17 114/60 (78) 100 01/25/20 02:36 61 65 69 01/25/20 00:00 98.0 61 18 118/59 (78) 97 01/25/20 00:00 66 01/24/20 21:00 Room Air 01/24/20 20:00 66 01/24/20 20:00 97.8 59 17 124/67 (86) 97 01/24/20 17:54 58 60 89 01/24/20 16:00 97.9 55 17 109/54 (72) 98 01/24/20 16:00 51 01/24/20 12:00 97.5 63 16 112/57 (75) 98 01/24/20 12:00 51 01/24/20 09:00 Room Air Intake and Output 01/24/20 01/25/20 19:00 07:00 Intake Total 400 ml 650 ml Balance 400 ml 650 ml Intake Oral 400 ml 650 ml # Voids 2 2 # Bowel Movements 1 2 Objective General Appearance: WD/WN, no apparent distress, alert Lines, tubes and drains: peripheral HEENT: normocephalic, atraumatic, anicteric, mucous membranes moist, PERRL Neck: non-tender, normal alignment, supple Respiratory/Chest: chest wall non-tender, lungs clear, no respiratory distress, no accessory muscle use Cardiovascular/Chest: normal peripheral pulses, regular rhythm - SB on tele , no JVD Abdomen: normal bowel sounds, non tender, soft Extremities: normal range of motion, non-tender, no calf tenderness, normal capillary refill Skin Exam: warm/dry, other - heavy tattoos RUE Neurologic: no motor/sensory deficits, alert, oriented x 3, responsive, normal mood/affect Musculoskeletal: normal muscle bulk Laboratory Tests 01/25/20 06:30: White Blood Count 2.9L, Red Blood Count 3.43L, Hemoglobin 10.6L, Hematocrit 34.3L, Mean Corpuscular Volume 100H, Mean Corpuscular Hemoglobin 30.8, Mean Corpuscular Hemoglobin Concent 30.8L, Red Cell Distribution Width 15.0H, Platelet Count 76L, Mean Platelet Volume 8.0, Neutrophils (%) (Auto) , Lymphocytes (%) (Auto) , Monocytes (%) (Auto) , Eosinophils (%) (Auto) , Basophils (%) (Auto) , Neutrophils % (Manual) [Pending], Lymphocytes % (Manual) [Pending], Platelet Estimate [Pending], Platelet Morphology [Pending], Sodium Level [Pending], Potassium Level [Pending], Chloride Level [Pending], Carbon Dioxide Level [Pending], Blood Urea Nitrogen [Pending], Creatinine [Pending], Estimat Glomerular Filtration Rate [Pending], Glucose Level [Pending], Calcium Level [Pending], Total Bilirubin [Pending], Aspartate Amino Transf (AST/SGOT) [Pending], Alanine Aminotransferase (ALT/SGPT) [Pending], Alkaline Phosphatase [Pending], Total Protein [Pending], Albumin [Pending], Globulin [Pending], Free Triiodothyronine [Pending] Current Medications Medications (Trade) Dose Ordered Sig/Mikey Route PRN Reason Start Time Stop Time Status Last Admin Dose Admin Acetaminophen/ Hydrocodone Bitart ([place] 10/325) 1 tab Q4H PRN ORAL Severe Pain (Pain Scale 7-10) 01/24/20 09:00 01/31/20 08:59 01/25/20 04:30 Albuterol/ Ipratropium (Albuterol/ Ipratropium) 3 ml Q6H PRN HHN sob 01/23/20 11:30 01/28/20 11:29 Apixaban (Eliquis) 5 mg BID ORAL 01/23/20 18:00 04/22/20 17:59 01/24/20 17:20 Dextrose (Dextrose 50%) 25 ml Q30M PRN IV Hypoglycemia 01/23/20 11:30 04/22/20 11:29 Dextrose (Dextrose 50%) 50 ml Q30M PRN IV Hypoglycemia 01/23/20 11:30 04/22/20 11:29 Fluoxetine HCl (PROzac) 40 mg DAILY ORAL 01/24/20 09:00 02/23/20 08:59 01/24/20 08:08 Folic Acid (Folate) 1 mg DAILY ORAL 01/24/20 09:00 02/23/20 08:59 01/24/20 08:07 Gabapentin (Neurontin) 300 mg TWICE A DAY ORAL 01/23/20 18:00 02/22/20 17:59 01/24/20 17:20 Methocarbamol (Robaxin) 500 mg Q8H PRN ORAL muscle spasm 01/24/20 09:00 02/23/20 08:59 01/24/20 15:24 Pantoprazole (Protonix) 40 mg DAILY ORAL 01/24/20 09:00 02/23/20 08:59 01/24/20 08:07 Trazodone HCl (Desyrel) 100 mg BEDTIME ORAL 01/23/20 21:00 02/22/20 20:59 01/24/20 20:18 Assessment/Plan Assessment/Plan ASSESSMENT Syncopal episode Bradycardia L hip hurtado Recurrent PE Hx of DVT Pancytopenia Chronic back pain 2 to sciatica with LLE radiculopathy- MRI L spine stable Chronic opiate dependency Hypokalemia Asthma PLAN OF CARE tele troponin, ECG cardio follows may need pacemaker ECHO recently done, with pEF orthostatic VS -> no orthostatic changes fall precautions off any SAB or AVB continue Eliquis, GI prophylaxis TSH low, free T4 ok, will also get free T 3 monitor counts- at baseline O2 prn keep sat > 90%, HHN prn pulse ox currently stable on RA L hip X ray- Left femoral deformity, probably due to healed fracture, unchanged. No evidence of acute bony trauma MRI L psine - > Minimal degenerative changes pain management pain specialist beatriz appreciated case discussed and evaluated by supervising physician Cher Lerner IRRIGATION TEACHER Jan 25, 2020 08:38 Jonas Butt MD Jan 25, 2020 17:30
[2020-01-25] MEDS: Eliquis 5mg tablet ORAL SCH ×2 (08:40→17:04)
[2020-01-25 09:07] LABS: ALANINE AMINOTRANSFERASE 28 U/L (12-78); ALBUMIN 3.5 G/DL (3.4-5.0); ALBUMIN/GLOBULIN RATIO 0.9 (1.0-2.7); ALKALINE PHOSPHATASE 82 U/L (46-116); ANION GAP 7 mmol/L (5-15); ASPARTATE AMINO TRANSFERASE 23 U/L (15-37); BILIRUBIN,TOTAL 0.3 MG/DL (0.2-1.0); BLOOD UREA NITROGEN 10 mg/dL (7-18); CALCIUM 8.5 MG/DL (8.5-10.1); CARBON DIOXIDE 30 MMOL/L (21-32); CHLORIDE 107 MMOL/L (98-107); CREATININE 0.9 MG/DL (0.55-1.30); POTASSIUM 3.7 MMOL/L (3.5-5.1); SODIUM 144 MMOL/L (136-145)
[2020-01-25 12:00] VITALS: BP 127/65
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
--- NOTE | 2020-01-25 13:41 | Cardiac Electrophysiology PN ---
Assessment/Plan Assessment/Plan 1. Hx of recent pulmonary embolism. S/P IVC filter 12/23/19. On Eliquis 5 bid Echo showed EF 60% with a PA pressure of only 12. 2. Recurrent Bradycardia with HR dropping to high 30s and low BP. Off any CHEN or AVN tessy. Now has syncope as well. Likely needs PPM ECG HR 44 3. Morbid obesity s/p Gastric sleeve surgery 5. Pancytopenia including Thrombocytopenia 70s. S/P BM biopsy and CT abdomen and pelvis 6. History of bipolar disorder, on Seroquel. 7. Back pain. S/P spine MRI. 8. Dilaudid dependency Subjective Subjective Still bradycardic at times. ECG SR 44! MRI back showed minimal degenerative disease Objective Last 24 Hour Vital Signs Date Time Temp Pulse Resp B/P (MAP) Pulse Ox O2 Delivery O2 Flow Rate FiO2 01/25/20 12:00 97.5 53 20 127/65 (85) 100 01/25/20 09:00 Room Air 01/25/20 08:00 68 01/25/20 08:00 97.5 66 20 135/65 (88) 97 01/25/20 05:00 98.0 01/25/20 04:00 51 01/25/20 04:00 97.4 51 17 114/60 (78) 100 01/25/20 02:36 61 65 69 01/25/20 00:00 98.0 61 18 118/59 (78) 97 01/25/20 00:00 66 01/24/20 21:00 Room Air 01/24/20 20:00 66 01/24/20 20:00 97.8 59 17 124/67 (86) 97 01/24/20 17:54 58 60 89 01/24/20 16:00 97.9 55 17 109/54 (72) 98 01/24/20 16:00 51 Intake and Output 01/24/20 01/25/20 19:00 07:00 Intake Total 400 ml 650 ml Balance 400 ml 650 ml Intake Oral 400 ml 650 ml # Voids 2 2 # Bowel Movements 1 2 Laboratory Tests Test 01/25/20 06:30 White Blood Count 2.9 K/UL (4.8-10.8) L Red Blood Count 3.43 M/UL (4.70-6.10) L Hemoglobin 10.6 G/DL (14.2-18.0) L Hematocrit 34.3 % (42.0-52.0) L Mean Corpuscular Volume 100 FL (80-99) H Mean Corpuscular Hemoglobin 30.8 PG (27.0-31.0) Mean Corpuscular Hemoglobin Concent 30.8 G/DL (32.0-36.0) L Red Cell Distribution Width 15.0 % (11.6-14.8) H Platelet Count 76 K/UL (150-450) L Mean Platelet Volume 8.0 FL (6.5-10.1) Neutrophils (%) (Auto) % (45.0-75.0) Lymphocytes (%) (Auto) % (20.0-45.0) Monocytes (%) (Auto) % (1.0-10.0) Eosinophils (%) (Auto) % (0.0-3.0) Basophils (%) (Auto) % (0.0-2.0) Differential Total Cells Counted 100 Neutrophils % (Manual) 52 % (45-75) Lymphocytes % (Manual) 43 % (20-45) Monocytes % (Manual) 4 % (1-10) Eosinophils % (Manual) 1 % (0-3) Basophils % (Manual) 0 % (0-2) Band Neutrophils 0 % (0-8) Platelet Estimate Decreased L Platelet Morphology Normal Hypochromasia 1+ Anisocytosis 1+ Macrocytosis 1+ Sodium Level 144 MMOL/L (136-145) Potassium Level 3.7 MMOL/L (3.5-5.1) Chloride Level 107 MMOL/L (98-107) Carbon Dioxide Level 30 MMOL/L (21-32) Anion Gap 7 mmol/L (5-15) Blood Urea Nitrogen 10 mg/dL (7-18) Creatinine 0.9 MG/DL (0.55-1.30) Estimat Glomerular Filtration Rate > 60 mL/min (>60) Glucose Level 90 MG/DL (74-106) Calcium Level 8.5 MG/DL (8.5-10.1) Total Bilirubin 0.3 MG/DL (0.2-1.0) Aspartate Amino Transf (AST/SGOT) 23 U/L (15-37) Alanine Aminotransferase (ALT/SGPT) 28 U/L (12-78) Alkaline Phosphatase 82 U/L (46-116) Total Protein 7.3 G/DL (6.4-8.2) Albumin 3.5 G/DL (3.4-5.0) Globulin 3.8 g/dL Albumin/Globulin Ratio 0.9 (1.0-2.7) L Free Triiodothyronine 3.5 pg/mL (2.3-4.2) Objective HEAD AND NECK: Showed no JVD. LUNGS: Clear. CARDIOVASCULAR: Shows regular S1 and S2. ABDOMEN: Soft. EXTREMITIES: No pitting edema. Jarek Grant MD Jan 25, 2020 13:40
[2020-01-25] MEDS: Methocarbamol 500mg tab ORAL PRN (15:23)
[2020-01-25 16:00] VITALS: BP 115/69
--- NOTE | 2020-01-25 19:43 | NUR ---
NURSE NOTES: Received report from ANDERS Saldana. Patient is resting in high-fowlers position. Is in room air; no acute distress noted at this time. Patient is AOx4. Patient is able to make need known. Patient is reporting pain of 7/10 on left hip at this time. IV site is on right AC 20G S/L; patent and flushed. No bleeding or erythema noted. Patient is adulatory, but has a left sided limp, have asked the patient to please call before getting up. Fall risk do to recent fall. Bed is low and locked, side rails up x2 top two side rails are padded. Patient has been educated to use call light when needing assistance. Call light in reach and bed alarm on. Will continue plan of care.
--- NOTE | 2020-01-25 19:46 | NUR ---
HAND-OFF: Report given to Charlie.
[2020-01-25 20:00] VITALS: BP 115/49
[2020-01-25] MEDS: TraZODone 100mg tab ORAL SCH (21:20)
[2020-01-26] VITALS: BP 120/60
[2020-01-26] MEDS: HYDROcodone/Acetamin 10/325 tab ORAL PRN ×5 (01:22→19:56)
[2020-01-26 04:00] VITALS: BP 108/48
--- NOTE | 2020-01-26 07:15 | NUR ---
NURSE HAND-OFF REPORT: Important Events on Shift: Patient Status: No acute distress Diet: Regular Pending Orders: Pending Results/Labs: Pending MD notification: Latest Vital Signs: Temperature 96.6 , Pulse 45 , B/P 108 /48 , Respiratory Rate 20 , O2 SAT 100 , Room Air, O2 Flow Rate . Vital Sign Comment: EKG Rhythm: Sinus Bradycardia Rhythm change?: N MD Notified?: N - MD Response: Latest Presley Fall Score: 70 Fall Risk: High Risk Safety Measures: Call light Within Reach, Bed Alarm Zone 2, Side Rails Side Rails x2, Bed position Low and Locked. Fall Precautions: Yellow Socks Yellow Gown Door Sign Patient Fall Education Report given to Neeru MCNAMARA.
--- NOTE | 2020-01-26 07:16 | NUR ---
NURSE NOTES: Received hand-off report from Ifrah Walker RN. Patient in stable condition, denies pain at this time, alert and orientedx3, able to follow commands. Bed alarm on, bed in lowest and locked position, lunchroom monitor in place, call light within reach. Provided education regarding fall precautions.
[2020-01-26 08:00] VITALS: BP 132/74
--- NOTE | 2020-01-26 08:44 | Pulmonology Progress Note ---
Subjective Allergies: Coded Allergies: DIAZEPAM (Verified Allergy, Intermediate, 12/23/19) TREE NUT (Verified Allergy, Intermediate, 12/23/19) KETOROLAC (Verified Allergy, Mild, Rash, 01/01/19) TRAMADOL (Verified Allergy, Unknown, 08/01/18) NSAIDS (NON-STEROIDAL ANTI-INFLAMMA (Verified Adverse Reaction, Unknown, 08/01/18) Subjective remains in SB 40-50 th + dizziness, no CP, no SOB pulse ox stable on RA Objective Last 24 Hour Vital Signs Date Time Temp Pulse Resp B/P (MAP) Pulse Ox O2 Delivery O2 Flow Rate FiO2 01/26/20 04:00 45 01/26/20 04:00 96.6 51 20 108/48 (68) 100 01/26/20 00:00 51 01/26/20 00:00 97.7 50 20 120/60 (80) 96 01/25/20 21:00 Room Air 01/25/20 20:00 65 01/25/20 20:00 97.5 60 20 115/49 (71) 98 01/25/20 20:00 60 56 86 01/25/20 16:00 97.6 61 20 115/69 (84) 100 01/25/20 16:00 63 01/25/20 12:00 56 01/25/20 12:00 97.5 53 20 127/65 (85) 100 01/25/20 09:00 Room Air Intake and Output 01/25/20 01/26/20 19:00 07:00 Intake Total 800 ml 500 ml Balance 800 ml 500 ml Intake Oral 800 ml 500 ml # Voids 6 3 # Bowel Movements 1 2 Objective General Appearance: WD/WN, no apparent distress, alert Lines, tubes and drains: peripheral HEENT: normocephalic, atraumatic, anicteric, mucous membranes moist, PERRL Neck: non-tender, normal alignment, supple Respiratory/Chest: chest wall non-tender, lungs clear, no respiratory distress, no accessory muscle use Cardiovascular/Chest: normal peripheral pulses, SB on tele , no JVD Abdomen: normal bowel sounds, non tender, soft Extremities: normal range of motion, non-tender, no calf tenderness, normal capillary refill Skin Exam: warm/dry, other - heavy tattoos RUE Neurologic: no motor/sensory deficits, alert, oriented x 3, responsive, normal mood/affect Musculoskeletal: normal muscle bulk Current Medications Medications (Trade) Dose Ordered Sig/Mikey Route PRN Reason Start Time Stop Time Status Last Admin Dose Admin Acetaminophen/ Hydrocodone Bitart (Ramer 10/325) 1 tab Q4H PRN ORAL Severe Pain (Pain Scale 7-10) 01/24/20 09:00 01/31/20 08:59 01/26/20 05:23 Albuterol/ Ipratropium (Albuterol/ Ipratropium) 3 ml Q6H PRN HHN sob 01/23/20 11:30 01/28/20 11:29 Apixaban (Eliquis) 5 mg BID ORAL 01/23/20 18:00 04/22/20 17:59 01/25/20 17:04 Dextrose (Dextrose 50%) 25 ml Q30M PRN IV Hypoglycemia 01/23/20 11:30 04/22/20 11:29 Dextrose (Dextrose 50%) 50 ml Q30M PRN IV Hypoglycemia 01/23/20 11:30 04/22/20 11:29 Fluoxetine HCl (PROzac) 40 mg DAILY ORAL 01/24/20 09:00 02/23/20 08:59 01/25/20 08:39 Folic Acid (Folate) 1 mg DAILY ORAL 01/24/20 09:00 02/23/20 08:59 01/25/20 08:40 Gabapentin (Neurontin) 300 mg TWICE A DAY ORAL 01/23/20 18:00 02/22/20 17:59 01/25/20 17:04 Methocarbamol (Robaxin) 500 mg Q8H PRN ORAL muscle spasm 01/24/20 09:00 02/23/20 08:59 01/25/20 15:23 Pantoprazole (Protonix) 40 mg DAILY ORAL 01/24/20 09:00 02/23/20 08:59 01/25/20 08:40 Trazodone HCl (Desyrel) 100 mg BEDTIME ORAL 01/23/20 21:00 02/22/20 20:59 01/25/20 21:20 Assessment/Plan Assessment/Plan ASSESSMENT Syncopal episode Bradycardia L hip hurtado Recurrent PE Hx of DVT Pancytopenia Chronic back pain 2 to sciatica with LLE radiculopathy- MRI L spine stable Chronic opiate dependency Hypokalemia Asthma PLAN OF CARE tele troponin, ECG cardio follows may need pacemaker per cardio, keep on tele ECHO recently done, with pEF orthostatic VS -> no orthostatic changes fall precautions off any SAB or AVB continue Eliquis, GI prophylaxis TSH low, free T4 ok, will also get free T 3 monitor counts- at baseline , PLT remains at his baseline O2 prn keep sat > 90%, HHN prn pulse ox currently stable on RA L hip X ray- Left femoral deformity, probably due to healed fracture, unchanged. No evidence of acute bony trauma MRI L psine - > Minimal degenerative changes pain management pain specialist treasureal appreciated case discussed and evaluated by supervising physician Cher Lerner NP Jan 26, 2020 08:44 Jonas Butt MD Jan 26, 2020 15:42
[2020-01-26] MEDS: Eliquis 5mg tablet ORAL SCH ×2 (09:24→17:21)
--- NOTE | 2020-01-26 10:07 | General Progress Note ---
Subjective Date patient seen: Jan 26, 2020 Time patient seen: 09:00 - am Allergies: Coded Allergies: DIAZEPAM (Verified Allergy, Intermediate, 12/23/19) TREE NUT (Verified Allergy, Intermediate, 12/23/19) KETOROLAC (Verified Allergy, Mild, Rash, 01/01/19) TRAMADOL (Verified Allergy, Unknown, 08/01/18) NSAIDS (NON-STEROIDAL ANTI-INFLAMMA (Verified Adverse Reaction, Unknown, 08/01/18) Subjective HISTORY OF PRESENT ILLNESS: This is a 44-year-old male, who is being seen on the telemetry floor of [facility]. Patient is in bed and showing no signs of pain or distress. Pain has been at a moderate level on the [place]. No new complaints at this time. MRI was reviewed. REVIEW OF SYSTEMS: Denies rash, fever, chills, sweating, dizziness, drowsiness, blurred vision, shortness of breath or chest pain. No nausea, vomiting, diarrhea, or dysuria. Objective Last 24 Hour Vital Signs Date Time Temp Pulse Resp B/P (MAP) Pulse Ox O2 Delivery O2 Flow Rate FiO2 01/26/20 08:00 97.7 56 20 132/74 (93) 100 01/26/20 04:00 45 01/26/20 04:00 96.6 51 20 108/48 (68) 100 01/26/20 00:00 51 01/26/20 00:00 97.7 50 20 120/60 (80) 96 01/25/20 21:00 Room Air 01/25/20 20:00 65 01/25/20 20:00 97.5 60 20 115/49 (71) 98 01/25/20 20:00 60 56 86 01/25/20 16:00 97.6 61 20 115/69 (84) 100 01/25/20 16:00 63 01/25/20 12:00 56 01/25/20 12:00 97.5 53 20 127/65 (85) 100 Intake and Output 01/25/20 01/26/20 19:00 07:00 Intake Total 800 ml 500 ml Balance 800 ml 500 ml Intake Oral 800 ml 500 ml # Voids 6 3 # Bowel Movements 1 2 Height (Feet): 6 Height (Inches): 1.00 Weight (Pounds): 240 Objective PHYSICAL EXAMINATION: GENERAL: Alert, awake, and oriented. LUNGS: Decreased breath sounds bilaterally. HEART: S1 and S2, regular. ABDOMEN: Soft, nontender. EXTREMITIES: No cyanosis. No clubbing. NEURO: No changes. Procedure: MRI L Spine no Contrast Indication: Lumbar radiculopathy, muscle spasm Technique: Sagittal T1 and T2 fast spin echo, sagittal STIR, axial T1 and T2 fast spin-echo images of the lumbar spine Comparison: none Findings: Bony alignment is normal. Vertebral body heights are preserved. Disc spaces are preserved. The vertebral marrow signal is normal. Conus medullaris terminates at the T12-L1 disc level. At L3-4, there is circumferential annular bulge and minimal left paracentral d isc protrusion. This may impinge slightly upon the left lateral recess and slightly compromises the left neural foramen. No significant neural foraminal stenosis is seen on the right. No significant central canal stenosis. At L4-5, there is circumferential annular bulge. This does not significantly narrow the spinal canal or the neural foramina. At L5-S1, there is circumferential annular bulge and broad-based posterior disc protrusion. This does not significantly compromise the spinal canal or neural foramina. There is a right S2 nerve roots sleeve cyst. The included extraspinal soft tissues are unremarkable. Impression: Minimal degenerative changes, as detailed above Assessment/Plan Assessment/Plan: (1) Lumbar Radiculopathy (2) Lumbar herniated disc/DDD/Spondylosis (3) Muscle spasm Patient to be continued on [place]. D/w Dr. Grissom and he concurred. Neo Sun Jan 26, 2020 10:07
[2020-01-26 12:00] VITALS: BP 134/70
--- NOTE | 2020-01-26 14:55 | Cardiology Report ---
APPROVED REPORT EKG Measurement Heart [id number] SD 180P56 [id number] <Conclusion> Marked sinus bradycardia Abnormal ECG
--- NOTE | 2020-01-26 14:59 | Cardiology Report ---
APPROVED REPORT EKG Measurement Heart [id number] NC 196P23 [id number] <Conclusion> Normal sinus rhythm Normal ECG
[2020-01-26 16:00] VITALS: BP 132/72
--- NOTE | 2020-01-26 16:37 | Cardiac Electrophysiology PN ---
Assessment/Plan Assessment/Plan 1. Hx of recent pulmonary embolism. S/P IVC filter 12/23/19. On Eliquis 5 bid Echo showed EF 60% with a PA pressure of only 12. 2. Recurrent symptomatic Bradycardia with HR dropping to high 30s and low BP. Off any CHEN or AVN tessy. Now has syncope as well. Likely needs PPM ECG HR 44 3. Morbid obesity s/p Gastric sleeve surgery 5. Pancytopenia including Thrombocytopenia 70s. S/P BM biopsy and CT abdomen and pelvis 6. History of bipolar disorder, on Seroquel. 7. Back pain. S/P spine MRI. 8. Dilaudid dependency DW RN Subjective Subjective Still bradycardic at night and 50 daytime. ECG SR 44! MRI back showed minimal degenerative disease Objective Last 24 Hour Vital Signs Date Time Temp Pulse Resp B/P (MAP) Pulse Ox O2 Delivery O2 Flow Rate FiO2 01/26/20 12:00 50 01/26/20 12:00 97.7 55 20 134/70 (91) 98 01/26/20 09:00 Room Air 01/26/20 08:00 97.7 56 20 132/74 (93) 100 01/26/20 08:00 57 119 90 01/26/20 08:00 56 01/26/20 04:00 45 01/26/20 04:00 96.6 51 20 108/48 (68) 100 01/26/20 00:00 51 01/26/20 00:00 97.7 50 20 120/60 (80) 96 01/25/20 21:00 Room Air 01/25/20 20:00 65 01/25/20 20:00 97.5 60 20 115/49 (71) 98 01/25/20 20:00 60 56 86 Intake and Output 01/25/20 01/26/20 19:00 07:00 Intake Total 800 ml 500 ml Balance 800 ml 500 ml Intake Oral 800 ml 500 ml # Voids 6 3 # Bowel Movements 1 2 Objective HEAD AND NECK: Showed no JVD. LUNGS: Clear. CARDIOVASCULAR: Shows regular S1 and S2. ABDOMEN: Soft. EXTREMITIES: No pitting edema. Jarek Grant MD Jan 26, 2020 16:37
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
--- NOTE | 2020-01-26 18:55 | NUR ---
NURSE HAND-OFF REPORT: Important Events on Shift: pacemaker possibility according to Dr. Grant Patient Status: full code, stable condition Diet: regular, whole pills Pending Orders: [] Pending Results/Labs:[] Pending MD notification:[] Latest Vital Signs: Temperature 97.2 , Pulse 54 , B/P 132 /72 , Respiratory Rate 16 , O2 SAT 99 , Room Air, O2 Flow Rate . Vital Sign Comment: [] EKG Rhythm: Sinus Bradycardia Rhythm change?: N MD Notified?: N - MD Response: Latest Presley Fall Score: 50 Fall Risk: High Risk Safety Measures: Call light Within Reach, Bed Alarm Zone 2, Side Rails Side Rails x2, Bed position Low and Locked. Fall Precautions: Yellow Socks Yellow Gown Door Sign Patient Fall Education Report given to Ifrah Walker RN.
--- NOTE | 2020-01-26 19:00 | NUR ---
NURSE NOTES: Received report from ANDERS Dougherty. Patient is awake on phone in high-fowlers position. Pt is on room air; no acute distress noted at this time. Patient is AOx4. Patient is able to make need known. Patient is reporting pain of 10/10 on left hip at this time. IV site is on right AC 20G S/L; patent and flushed. No bleeding or erythema noted. Patient is adulatory, but has a left sided limp, have asked the patient to please call before getting up. Fall risk do to recent fall. Bed is low and locked, side rails up x2 top two side rails are padded. Patient has been educated to use call light when needing assistance. Call light in reach and bed alarm on. Will continue plan of care.
[2020-01-26] MEDS: Methocarbamol 500mg tab ORAL PRN (19:55)
[2020-01-26 20:00] VITALS: BP 119/59
[2020-01-26] MEDS: TraZODone 100mg tab ORAL SCH (20:01)
[2020-01-27] VITALS: BP 119/75
[2020-01-27 04:00] VITALS: BP 106/63
[2020-01-27] MEDS: HYDROcodone/Acetamin 10/325 tab ORAL PRN ×6 (04:55→21:25)
[2020-01-27] MEDS: Methocarbamol 500mg tab ORAL PRN (04:56)
--- NOTE | 2020-01-27 07:25 | NUR ---
NURSE HAND-OFF REPORT: Important Events on Shift: Patient has orthostatic VS 1x QS. Patient Status: No acute distress Diet: Regular Pending Orders: Pending Results/Labs: Pending MD notification: Latest Vital Signs: Temperature 97.5 , Pulse 55 , B/P 106 /63 , Respiratory Rate 17 , O2 SAT 98 , Room Air, O2 Flow Rate . Vital Sign Comment: EKG Rhythm: Sinus Bradycardia Rhythm change?: Y MD Notified?: N - MD Response: Latest Presley Fall Score: 70 Fall Risk: High Risk Safety Measures: Call light Within Reach, Bed Alarm Zone 2, Side Rails Side Rails x2, Bed position Low and Locked. Fall Precautions: Yellow Socks Yellow Gown Door Sign Patient Fall Education Report given to CORDELL MCNAMARA .
--- NOTE | 2020-01-27 07:31 | NUR ---
NURSE NOTES: Pt received from Ifrah Rod. Pt in bed awake and oriented. No complaint of chest pain or dizziness at this time. Bed low and locked. Call light within reach.
[2020-01-27 07:38] LABS: ANION GAP 5 mmol/L (5-15); BLOOD UREA NITROGEN 11 mg/dL (7-18); CALCIUM 8.4 MG/DL (8.5-10.1); CARBON DIOXIDE 31 MMOL/L (21-32); CHLORIDE 106 MMOL/L (98-107); CREATININE 0.9 MG/DL (0.55-1.30); POTASSIUM 4.2 MMOL/L (3.5-5.1); SODIUM 142 MMOL/L (136-145)
--- NOTE | 2020-01-27 07:41 | General Progress Note ---
Subjective Date patient seen: Jan 27, 2020 Time patient seen: 06:00 - am Allergies: Coded Allergies: DIAZEPAM (Verified Allergy, Intermediate, 12/23/19) TREE NUT (Verified Allergy, Intermediate, 12/23/19) KETOROLAC (Verified Allergy, Mild, Rash, 01/01/19) TRAMADOL (Verified Allergy, Unknown, 08/01/18) NSAIDS (NON-STEROIDAL ANTI-INFLAMMA (Verified Adverse Reaction, Unknown, 08/01/18) Subjective HISTORY OF PRESENT ILLNESS: This is a 44-year-old male, who is being seen on the telemetry floor of [facility]. Patient continues to c/o pain which he has been using the [place] as needed. No new complaints at this time. REVIEW OF SYSTEMS: Denies rash, fever, chills, sweating, dizziness, drowsiness, blurred vision, shortness of breath or chest pain. No nausea, vomiting, diarrhea, or dysuria. Objective Last 24 Hour Vital Signs Date Time Temp Pulse Resp B/P (MAP) Pulse Ox O2 Delivery O2 Flow Rate FiO2 01/27/20 04:00 46 01/27/20 04:00 97.5 55 17 106/63 (77) 98 01/27/20 00:00 97.1 59 17 119/75 (90) 97 01/27/20 00:00 61 01/26/20 21:00 Room Air 01/26/20 20:00 63 67 88 01/26/20 20:00 97.1 63 17 119/59 (79) 98 01/26/20 20:00 60 01/26/20 16:00 54 01/26/20 16:00 97.2 54 16 132/72 (92) 99 01/26/20 12:00 50 01/26/20 12:00 97.7 55 20 134/70 (91) 98 01/26/20 09:00 Room Air 01/26/20 08:00 97.7 56 20 132/74 (93) 100 01/26/20 08:00 57 119 90 01/26/20 08:00 56 Intake and Output 01/26/20 01/27/20 19:00 07:00 Intake Total 400 ml 725 ml Balance 400 ml 725 ml Intake Oral 400 ml 725 ml # Voids 2 3 # Bowel Movements 2 Laboratory Tests 01/27/20 05:45: Sodium Level [Pending], Potassium Level [Pending], Chloride Level [Pending], Carbon Dioxide Level [Pending], Blood Urea Nitrogen [Pending], Creatinine [Pending], Estimat Glomerular Filtration Rate [Pending], Glucose Level [ Pending], Calcium Level [Pending] Height (Feet): 6 Height (Inches): 1.00 Weight (Pounds): 240 Objective PHYSICAL EXAMINATION: GENERAL: Alert, awake, and oriented. LUNGS: Decreased breath sounds bilaterally. HEART: S1 and S2, regular. ABDOMEN: Soft, nontender. EXTREMITIES: No cyanosis. No clubbing. NEURO: No changes. Assessment/Plan Assessment/Plan: (1) Lumbar Radiculopathy (2) Lumbar herniated disc/DDD/Spondylosis (3) Muscle spasm Patient to be continued on [place]. D/w Dr. Grissom and he concurred. Neo Sun Jan 27, 2020 07:41
[2020-01-27 08:00] VITALS: BP 122/65
[2020-01-27] MEDS: Eliquis 5mg tablet ORAL SCH ×2 (08:02→17:03)
[2020-01-27 09:00] LABS: HEMATOCRIT 35.4 % (42.0-52.0); HEMOGLOBIN 11.3 G/DL (14.2-18.0); MEAN CORPUSCULAR VOLUME 98 FL (80-99); PLATELET COUNT 69 K/UL (150-450); RED BLOOD COUNT 3.61 M/UL (4.70-6.10); RED CELL DISTRIBUTION WIDTH 14.7 % (11.6-14.8)
[2020-01-27] MEDS ORDERED: oxyCODONE HCL/Acetaminophen 5/325mg ORAL SCH (10:45)
--- NOTE | 2020-01-27 11:01 | Pulmonology Progress Note ---
Subjective Allergies: Coded Allergies: DIAZEPAM (Verified Allergy, Intermediate, 12/23/19) TREE NUT (Verified Allergy, Intermediate, 12/23/19) KETOROLAC (Verified Allergy, Mild, Rash, 01/01/19) TRAMADOL (Verified Allergy, Unknown, 08/01/18) NSAIDS (NON-STEROIDAL ANTI-INFLAMMA (Verified Adverse Reaction, Unknown, 08/01/18) Subjective remains in SB 40-50 th, then goes to SR still with intermittent dizziness, no CP, no SOB pulse ox stable on RA no fevers Objective Last 24 Hour Vital Signs Date Time Temp Pulse Resp B/P (MAP) Pulse Ox O2 Delivery O2 Flow Rate FiO2 01/27/20 09:35 97.9 01/27/20 09:00 Room Air 01/27/20 08:00 66 01/27/20 08:00 97.9 63 18 122/65 (84) 100 01/27/20 08:00 67 63 83 01/27/20 04:00 46 01/27/20 04:00 97.5 55 17 106/63 (77) 98 01/27/20 00:00 97.1 59 17 119/75 (90) 97 01/27/20 00:00 61 01/26/20 21:00 Room Air 01/26/20 20:00 63 67 88 01/26/20 20:00 97.1 63 17 119/59 (79) 98 01/26/20 20:00 60 01/26/20 16:00 54 01/26/20 16:00 97.2 54 16 132/72 (92) 99 01/26/20 12:00 50 01/26/20 12:00 97.7 55 20 134/70 (91) 98 Intake and Output 01/26/20 01/27/20 19:00 07:00 Intake Total 400 ml 725 ml Balance 400 ml 725 ml Intake Oral 400 ml 725 ml # Voids 2 3 # Bowel Movements 2 Objective General Appearance: WD/WN, no apparent distress, alert Lines, tubes and drains: peripheral HEENT: normocephalic, atraumatic, anicteric, mucous membranes moist, PERRL Neck: non-tender, normal alignment, supple Respiratory/Chest: chest wall non-tender, lungs clear, no respiratory distress, no accessory muscle use Cardiovascular/Chest: normal peripheral pulses, SB on tele , no JVD Abdomen: normal bowel sounds, non tender, soft Extremities: normal range of motion, non-tender, no calf tenderness, normal capillary refill Skin Exam: warm/dry, other - heavy tattoos RUE Neurologic: no motor/sensory deficits, alert, oriented x 3, responsive, normal mood/affect Musculoskeletal: normal muscle bulk Laboratory Tests 01/27/20 05:45: Sodium Level 142, Potassium Level 4.2, Chloride Level 106, Carbon Dioxide Level 31, Anion Gap 5, Blood Urea Nitrogen 11, Creatinine 0.9, Estimat Glomerular Filtration Rate > 60, Glucose Level 86, Calcium Level 8.4L 01/27/20 08:15: White Blood Count 3.0L, Red Blood Count 3.61L, Hemoglobin 11.3L, Hematocrit 35.4L, Mean Corpuscular Volume 98, Mean Corpuscular Hemoglobin 31.2H, Mean Corpuscular Hemoglobin Concent 31.9L, Red Cell Distribution Width 14.7, Platelet Count 69L, Mean Platelet Volume 7.6, Neutrophils (%) (Auto) , Lymphocytes (%) (Auto) , Monocytes (%) (Auto) , Eosinophils (%) (Auto) , Basophils (%) (Auto) , Neutrophils % (Manual) [Pending], Lymphocytes % (Manual) [Pending], Platelet Estimate [Pending], Platelet Morphology [Pending] Current Medications Medications (Trade) Dose Ordered Sig/Mikey Route PRN Reason Start Time Stop Time Status Last Admin Dose Admin Acetaminophen/ Hydrocodone Bitart ([place] 10/325) 1 tab Q4H PRN ORAL Severe Pain (Pain Scale 7-10) 01/24/20 09:00 01/31/20 08:59 01/27/20 09:05 Albuterol/ Ipratropium (Albuterol/ Ipratropium) 3 ml Q6H PRN HHN sob 01/23/20 11:30 01/28/20 11:29 Apixaban (Eliquis) 5 mg BID ORAL 01/23/20 18:00 04/22/20 17:59 01/27/20 08:02 Dextrose (Dextrose 50%) 25 ml Q30M PRN IV Hypoglycemia 01/23/20 11:30 04/22/20 11:29 Dextrose (Dextrose 50%) 50 ml Q30M PRN IV Hypoglycemia 01/23/20 11:30 04/22/20 11:29 Fluoxetine HCl (PROzac) 40 mg DAILY ORAL 01/24/20 09:00 02/23/20 08:59 01/27/20 08:03 Folic Acid (Folate) 1 mg DAILY ORAL 01/24/20 09:00 02/23/20 08:59 01/27/20 08:03 Gabapentin (Neurontin) 300 mg TWICE A DAY ORAL 01/23/20 18:00 02/22/20 17:59 01/27/20 08:03 Methocarbamol (Robaxin) 500 mg Q8H PRN ORAL muscle spasm 01/24/20 09:00 02/23/20 08:59 01/27/20 04:56 Oxycodone/ Acetaminophen (Percocet 5-325) 1 tab ONCE ORAL 01/27/20 10:45 01/27/20 12:30 Pantoprazole (Protonix) 40 mg DAILY ORAL 01/24/20 09:00 02/23/20 08:59 01/27/20 08:03 Trazodone HCl (Desyrel) 100 mg BEDTIME ORAL 01/23/20 21:00 02/22/20 20:59 01/26/20 20:01 Assessment/Plan Assessment/Plan ASSESSMENT Syncopal episode Bradycardia L hip hurtado Recurrent PE Hx of DVT Pancytopenia Chronic back pain 2 to sciatica with LLE radiculopathy- MRI L spine stable Chronic opiate dependency Hypokalemia Asthma PLAN OF CARE tele troponin, ECG cardio follows may need pacemaker per cardio, keep on tele ECHO recently done, with pEF orthostatic VS -> no orthostatic changes fall precautions off any SAB or AVB will stop Robaxin prn as possible contributor to bradycardia continue Eliquis, GI prophylaxis TSH low, free T4 ok, will also get free T 3 monitor counts- at baseline , PLT remains at his baseline O2 prn keep sat > 90%, HHN prn pulse ox currently stable on RA L hip X ray- Left femoral deformity, probably due to healed fracture, unchanged. No evidence of acute bony trauma MRI L psine - > Minimal degenerative changes pain management pain specialist beatriz cooper will discuss with cardio re further plans today while closely monitoring HR, if no PPM plan, then will dc case discussed and evaluated by supervising physician Cher Lerner [employer]EL INSPECTOR Jan 27, 2020 11:01
[2020-01-27 12:00] VITALS: BP 120/67
--- NOTE | 2020-01-27 14:37 | Cardiac Electrophysiology PN ---
Assessment/Plan Assessment/Plan 1. Hx of recent pulmonary embolism. S/P IVC filter 12/23/19. On Eliquis 5 bid Echo showed EF 60% with a PA pressure of only 12. 2. Recurrent symptomatic Bradycardia with HR dropping to high 30s and low BP. Off any CHEN or AVN tessy. Now has syncope but not sure if related to bradycardia. ECG HR 44. Will watch overnight. Reassess in am 3. Morbid obesity s/p Gastric sleeve surgery 5. Pancytopenia including Thrombocytopenia 70s. S/P BM biopsy and CT abdomen and pelvis 6. History of bipolar disorder, on Seroquel. 7. Back pain. S/P spine MRI. 8. Dilaudid dependency DW RN Subjective Subjective Bradycardic at night and 50s daytime. ECG SR 44! MRI back showed minimal degenerative disease Objective Last 24 Hour Vital Signs Date Time Temp Pulse Resp B/P (MAP) Pulse Ox O2 Delivery O2 Flow Rate FiO2 01/27/20 13:55 97.9 01/27/20 12:00 60 01/27/20 12:00 97.9 63 20 120/67 (84) 97 01/27/20 11:34 97.9 01/27/20 09:35 97.9 01/27/20 09:00 Room Air 01/27/20 08:00 66 01/27/20 08:00 97.9 63 18 122/65 (84) 100 01/27/20 08:00 67 63 83 01/27/20 04:00 46 01/27/20 04:00 97.5 55 17 106/63 (77) 98 01/27/20 00:00 97.1 59 17 119/75 (90) 97 01/27/20 00:00 61 01/26/20 21:00 Room Air 01/26/20 20:00 63 67 88 01/26/20 20:00 97.1 63 17 119/59 (79) 98 01/26/20 20:00 60 01/26/20 16:00 54 01/26/20 16:00 97.2 54 16 132/72 (92) 99 Intake and Output 01/26/20 01/27/20 19:00 07:00 Intake Total 400 ml 725 ml Balance 400 ml 725 ml Intake Oral 400 ml 725 ml # Voids 2 3 # Bowel Movements 2 Laboratory Tests Test 01/27/20 05:45 01/27/20 08:15 Sodium Level 142 MMOL/L (136-145) Potassium Level 4.2 MMOL/L (3.5-5.1) Chloride Level 106 MMOL/L (98-107) Carbon Dioxide Level 31 MMOL/L (21-32) Anion Gap 5 mmol/L (5-15) Blood Urea Nitrogen 11 mg/dL (7-18) Creatinine 0.9 MG/DL (0.55-1.30) Estimat Glomerular Filtration Rate > 60 mL/min (>60) Glucose Level 86 MG/DL (74-106) Calcium Level 8.4 MG/DL (8.5-10.1) L White Blood Count 3.0 K/UL (4.8-10.8) L Red Blood Count 3.61 M/UL (4.70-6.10) L Hemoglobin 11.3 G/DL (14.2-18.0) L Hematocrit 35.4 % (42.0-52.0) L Mean Corpuscular Volume 98 FL (80-99) Mean Corpuscular Hemoglobin 31.2 PG (27.0-31.0) H Mean Corpuscular Hemoglobin Concent 31.9 G/DL (32.0-36.0) L Red Cell Distribution Width 14.7 % (11.6-14.8) Platelet Count 69 K/UL (150-450) L Mean Platelet Volume 7.6 FL (6.5-10.1) Neutrophils (%) (Auto) % (45.0-75.0) Lymphocytes (%) (Auto) % (20.0-45.0) Monocytes (%) (Auto) % (1.0-10.0) Eosinophils (%) (Auto) % (0.0-3.0) Basophils (%) (Auto) % (0.0-2.0) Differential Total Cells Counted 100 Neutrophils % (Manual) 47 % (45-75) Lymphocytes % (Manual) 47 % (20-45) H Monocytes % (Manual) 6 % (1-10) Eosinophils % (Manual) 0 % (0-3) Basophils % (Manual) 0 % (0-2) Band Neutrophils 0 % (0-8) Platelet Estimate Decreased L Platelet Morphology Normal Anisocytosis 1+ Objective HEAD AND NECK: Showed no JVD. LUNGS: Clear. CARDIOVASCULAR: Shows regular S1 and S2. ABDOMEN: Soft. EXTREMITIES: No pitting edema. Jarek Grant MD Jan 27, 2020 14:37
--- NOTE | 2020-01-27 15:43 | NUR ---
CASE MANAGEMENT:REVIEW 01/27/20 SI: SYNCOPE. BRADYCARDIA. OPIATE DEPENDENT 97.9 63 18 122/65 97% ON RA WBC-3.0 PLT-69 IS: NORCO PO Q4HRS PRN PROZAC PO QD TRAZODONE PO QHS NEURONTIN PO BID ELIQUIS PO BID : TRANSFER TO MED/SURG
[2020-01-27 16:00] VITALS: BP 121/67
--- NOTE | 2020-01-27 16:06 | NUR ---
NURSE HAND-OFF REPORT: Important Events on Shift:[Pain did not subside with [place] 10, 1 time Percoc[address] given. Per Dr. Grant, he is going to continue monitoring cardio to determine if pace maker is necessary ] Patient Status: [stable] Diet: [regular] Pending Orders: [] Pending Results/Labs:[] Pending MD notification:[] Latest Vital Signs: Temperature 97.7 , Pulse 54 , B/P 121 /67 , Respiratory Rate 18 , O2 SAT 97 , Room Air, O2 Flow Rate . Vital Sign Comment: [sometimes yessi otherwise stable ] EKG Rhythm: Sinus Rhythm Rhythm change?: N MD Notified?: N - MD Response: Latest Presley Fall Score: 70 Fall Risk: High Risk Safety Measures: Call light Within Reach, Bed Alarm Zone 2, Side Rails Side Rails x2, Bed position Low and Locked. Fall Precautions: Yellow Socks Yellow Gown Door Sign Patient Fall Education Report given to [pending RN assignments]. Addendum: 01/27/20 at 1926 by Tana Gloria RN Report given to Fallon MCNAMARA
--- NOTE | 2020-01-27 16:31 | NUR ---
INSURANCE CLINICALS/REVIEWS (01/22-01/26) FAXED TO [facility] [phone] PH [phone]
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
--- NOTE | 2020-01-27 19:15 | NUR ---
NURSE NOTES: RECEIVED REPORT FROM ANDERS LANDA. PATIENT AWAKE, AOX4, VERBALLY RESPONSIVE AND ABLE TO MAKE NEEDS KNOWN. PATIENT STATES "PAIN IS COMING BACK", BUT CAN WAIT UNTIL NEXT DOSE. BREATHING IS EVEN AND UNLABORED ON ROOM AIR, NO S/SX OF DISTRESS NOTED. IV SITE ON RAC PATENT, INTACT, ASYMPTOMATIC AND SALINE-LOCKED. NOTED TO HAVE GOOD BED MOBILITY, ABLE TO TRANSFER AND AMBULATE SELF INDEPENDENTLY. BED LOCKED AND IN LOWEST POSITION, SIDERAILS UP X 2. CALL LIGHT WITHIN REACH. WILL CONTINUE TO MONITOR PER POC.
[2020-01-27 20:00] VITALS: BP 123/68
[2020-01-27] MEDS: TraZODone 100mg tab ORAL SCH (21:03)
[2020-01-28] VITALS: BP_SYST 110; BP_DIAS 32; BP_DIAS 62
--- NOTE | 2020-01-28 | NUR ---
NURSE NOTES: PER PATIENT, HIS RIGHT ARM WENT "NUMB" WHILE HE WAS ASLEEP. ASSESSED PATIENT AND WAS NEGATIVE FOR FACIAL DROOP, SLURRING OF SPEECH, RIGHT-SIDED WEAKNESS; BILATERAL HAND STRENGTH 5/5, PUPILS 4MM, PERRLA WITH NO COMPLAINTS OF DIFFICULTY SEEING/CHANGE IN VISION. WILL CONTINUE TO MONITOR.
--- NOTE | 2020-01-28 00:10 | NUR ---
NURSE NOTES: PATIENT'S CARDIAC RHYTHM NOTED TO BE SR WITH 1ST DEGREE AVB- HR 67, MN INTERVAL 0.22, QRS 0.08. PATIENT AWAKE, STABLE, AND ASYMPTOMATIC. PATIENT DENIES ANY DIZZINESS, LIGHTHEADEDNESS, OR CHEST PAIN. V/S BP 110/62, HR 65, RR 18, SAO2 ON ROOM AIR 98%, TEMP 97.1F (ORAL). WILL NOTIFY DR. TRINH IN THE AM. WILL CONTINUE TO MONITOR PATIENT.
[2020-01-28] MEDS: HYDROcodone/Acetamin 10/325 tab ORAL PRN ×4 (01:25→13:40)
[2020-01-28 04:00] VITALS: BP 117/60
[2020-01-28 06:17] LABS: HEMATOCRIT 32.5 % (42.0-52.0); MEAN CORPUSCULAR VOLUME 100 FL (80-99); PLATELET COUNT 64 K/UL (150-450); RED BLOOD COUNT 3.25 M/UL (4.70-6.10); RED CELL DISTRIBUTION WIDTH 15.3 % (11.6-14.8); WHITE BLOOD COUNT 2.5 K/UL (4.8-10.8)
--- NOTE | 2020-01-28 06:32 | NUR ---
NURSE NOTES: INFORMED DR. TRINH THAT PATIENT HAD CHANGE IN CARDIAC RHYTHM- SR WITH 1ST AVB, REMAINED STABLE AND ASYMPTOMATIC. AWAITING CALL BACK FOR ANY NEW ORDERS.
--- NOTE | 2020-01-28 06:35 | NUR ---
NURSE HAND-OFF REPORT: Important Events on Shift: CHANGE IN CARDIAC RHYTHM (SR WITH 1ST AVB), PAIN MANAGEMENT, REPORTED RIGHT ARM NUMBNESS WHEN ASLEEP X1 Patient Status: STABLE Diet: REGULAR Pending Orders: N/A Pending Results/Labs: AM LABS Pending notification: INFORMED DR. TRINH OF CHANGE IN CARDIAC RHYTHM (SR WITH 1ST AVB), AWAITING CALL BACK FOR ANY NEW ORDERS Latest Vital Signs: Temperature 97.5 , Pulse 58 , B/P 117 /60 , Respiratory Rate 18 , O2 SAT 100 , Room Air, O2 Flow Rate . Vital Sign Comment: STABLE EKG Rhythm: Sinus Bradycardia Rhythm change?: N Notified?: Y -DR. GAYATHRI PHAN Response: Latest Presley Fall Score: 40 Fall Risk: Medium Risk Safety Measures: Call light Within Reach, Bed Alarm Zone 2, Side Rails Side Rails x2, Bed position Low and Locked. Fall Precautions: Yellow Socks Yellow Gown Door Sign Patient Fall Education Report given to WILL AMEND ONCE REPORT GIVEN TO ASSIGNED NURSE. Addendum: 01/28/20 at 0801 by Fallon Ruiz RN REPORT GIVEN TO ANDERS GALAVIZ.
--- NOTE | 2020-01-28 07:58 | NUR ---
NURSE NOTES: pt. in bed resting no complains of pain. 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 Bed in lowest position, call light within reach. Will continue to monitor pt.
[2020-01-28 08:00] VITALS: BP 113/54
--- NOTE | 2020-01-28 09:07 | General Progress Note ---
Subjective Date patient seen: Jan 28, 2020 Time patient seen: 08:00 - am Allergies: Coded Allergies: DIAZEPAM (Verified Allergy, Intermediate, 12/23/19) TREE NUT (Verified Allergy, Intermediate, 12/23/19) KETOROLAC (Verified Allergy, Mild, Rash, 01/01/19) TRAMADOL (Verified Allergy, Unknown, 08/01/18) NSAIDS (NON-STEROIDAL ANTI-INFLAMMA (Verified Adverse Reaction, Unknown, 08/01/18) Subjective HISTORY OF PRESENT ILLNESS: This is a 44-year-old male, who is being seen on the telemetry floor of [facility]. Patient showing no signs of pain or distress. In bed laying down using the Rhome as needed. Was given a one time dose of Percocet 5/325mg yesterday. REVIEW OF SYSTEMS: Denies rash, fever, chills, sweating, dizziness, drowsiness, blurred vision, shortness of breath or chest pain. No nausea, vomiting, diarrhea, or dysuria. Objective Last 24 Hour Vital Signs Date Time Temp Pulse Resp B/P (MAP) Pulse Ox O2 Delivery O2 Flow Rate FiO2 01/28/20 04:00 55 01/28/20 04:00 97.5 58 18 117/60 (79) 100 01/28/20 00:00 67 01/28/20 00:00 97.1 65 18 110/62 (78) 98 01/27/20 21:00 Room Air 01/27/20 20:00 65 68 72 01/27/20 20:00 97.5 63 18 123/68 (86) 98 01/27/20 20:00 68 01/27/20 17:55 97.7 01/27/20 16:00 56 01/27/20 16:00 97.7 54 18 121/67 (85) 97 01/27/20 13:55 97.9 01/27/20 12:00 60 01/27/20 12:00 97.9 63 20 120/67 (84) 97 01/27/20 11:34 97.9 01/27/20 09:35 97.9 Intake and Output 01/27/20 01/28/20 19:00 07:00 Intake Total 600 ml 480 ml Balance 600 ml 480 ml Intake Oral 600 ml 480 ml # Voids 3 2 Laboratory Tests 01/28/20 05:57: White Blood Count 2.5L, Red Blood Count 3.25L, Hemoglobin 10.0L, Hematocrit 32.5L, Mean Corpuscular Volume 100H, Mean Corpuscular Hemoglobin 30.9, Mean Corpuscular Hemoglobin Concent 30.9L, Red Cell Distribution Width 15.3H, Plat elet Count 64L, Mean Platelet Volume 6.4L, Neutrophils (%) (Auto) , Lymphocytes (%) (Auto) , Monocytes (%) (Auto) , Eosinophils (%) (Auto) , Basophils (%) (Auto) , Neutrophils % (Manual) [Pending], Lymphocytes % (Manual) [Pending], Platelet Estimate [Pending], Platelet Morphology [Pending] Height (Feet): 6 Height (Inches): 1.00 Weight (Pounds): 240 Objective PHYSICAL EXAMINATION: GENERAL: Alert, awake, and oriented. LUNGS: Decreased breath sounds bilaterally. HEART: S1 and S2, regular. ABDOMEN: Soft, nontender. EXTREMITIES: No cyanosis. No clubbing. NEURO: No changes. Assessment/Plan Assessment/Plan: (1) Lumbar Radiculopathy (2) Lumbar herniated disc/DDD/Spondylosis (3) Muscle spasm Patient to be continued on Rhome. D/w Dr. Grissom and he concurred. Neo Sun Jan 28, 2020 09:07
[2020-01-28] MEDS: Eliquis 5mg tablet ORAL SCH (09:37)
--- NOTE | 2020-01-28 10:33 | Pulmonology Progress Note ---
Subjective Allergies: Coded Allergies: DIAZEPAM (Verified Allergy, Intermediate, 12/23/19) TREE NUT (Verified Allergy, Intermediate, 12/23/19) KETOROLAC (Verified Allergy, Mild, Rash, 01/01/19) TRAMADOL (Verified Allergy, Unknown, 08/01/18) NSAIDS (NON-STEROIDAL ANTI-INFLAMMA (Verified Adverse Reaction, Unknown, 08/01/18) Subjective HR high 50th -60th dizziness resolved one episode while sleeping HR 49 still with intermittent dizziness, no CP, no SOB pulse ox stable on RA no fevers off Robaxin since 01/26 Objective Last 24 Hour Vital Signs Date Time Temp Pulse Resp B/P (MAP) Pulse Ox O2 Delivery O2 Flow Rate FiO2 01/28/20 04:00 55 01/28/20 04:00 97.5 58 18 117/60 (79) 100 01/28/20 00:00 67 01/28/20 00:00 97.1 65 18 110/62 (78) 98 01/27/20 21:00 Room Air 01/27/20 20:00 65 68 72 01/27/20 20:00 97.5 63 18 123/68 (86) 98 01/27/20 20:00 68 01/27/20 17:55 97.7 01/27/20 16:00 56 01/27/20 16:00 97.7 54 18 121/67 (85) 97 01/27/20 13:55 97.9 01/27/20 12:00 60 01/27/20 12:00 97.9 63 20 120/67 (84) 97 01/27/20 11:34 97.9 Intake and Output 01/27/20 01/28/20 19:00 07:00 Intake Total 600 ml 480 ml Balance 600 ml 480 ml Intake Oral 600 ml 480 ml # Voids 3 2 Objective General Appearance: WD/WN, no apparent distress, alert Lines, tubes and drains: peripheral HEENT: normocephalic, atraumatic, anicteric, mucous membranes moist, PERRL Neck: non-tender, normal alignment, supple Respiratory/Chest: chest wall non-tender, lungs clear, no respiratory distress, no accessory muscle use Cardiovascular/Chest: normal peripheral pulses, SB-SR on tele , no JVD Abdomen: normal bowel sounds, non tender, soft Extremities: normal range of motion, non-tender, no calf tenderness, normal capillary refill Skin Exam: warm/dry, other - heavy tattoos RUE Neurologic: no motor/sensory deficits, alert, oriented x 3, responsive, normal mood/affect Musculoskeletal: normal muscle bulk Laboratory Tests 01/28/20 05:57: White Blood Count 2.5L, Red Blood Count 3.25L, Hemoglobin 10.0L, Hematocrit 32.5L, Mean Corpuscular Volume 100H, Mean Corpuscular Hemoglobin 30.9, Mean Corpuscular Hemoglobin Concent 30.9L, Red Cell Distribution Width 15.3H, Platelet Count 64L, Mean Platelet Volume 6.4L, Neutrophils (%) (Auto) , Lymphocytes (%) (Auto) , Monocytes (%) (Auto) , Eosinophils (%) (Auto) , Basophils (%) (Auto) , Differential Total Cells Counted 100, Neutrophils % (Manual) 47, Lymphocytes % (Manual) 45, Monocytes % (Manual) 6, Eosinophils % (Manual) 2, Basophils % (Manual) 0, Band Neutrophils 0, Platelet Estimate DecreasedL, Platelet Morphology Normal, Hypochromasia 2+, Anisocytosis 1+, Macrocytosis 1+ Current Medications Medications (Trade) Dose Ordered Sig/Mikey Route PRN Reason Start Time Stop Time Status Last Admin Dose Admin Acetaminophen/ Hydrocodone Bitart ([place] 10/325) 1 tab Q4H PRN ORAL Severe Pain (Pain Scale 7-10) 01/24/20 09:00 01/31/20 08:59 01/28/20 09:34 Albuterol/ Ipratropium (Albuterol/ Ipratropium) 3 ml Q6H PRN HHN sob 01/23/20 11:30 01/28/20 11:29 Apixaban (Eliquis) 5 mg BID ORAL 01/23/20 18:00 04/22/20 17:59 01/28/20 09:37 Dextrose (Dextrose 50%) 25 ml Q30M PRN IV Hypoglycemia 01/23/20 11:30 04/22/20 11:29 Dextrose (Dextrose 50%) 50 ml Q30M PRN IV Hypoglycemia 01/23/20 11:30 04/22/20 11:29 Fluoxetine HCl (PROzac) 40 mg DAILY ORAL 01/24/20 09:00 02/23/20 08:59 01/28/20 09:35 Folic Acid (Folate) 1 mg DAILY ORAL 01/24/20 09:00 02/23/20 08:59 01/28/20 09:35 Gabapentin (Neurontin) 300 mg TWICE A DAY ORAL 01/23/20 18:00 02/22/20 17:59 01/28/20 09:34 Pantoprazole (Protonix) 40 mg DAILY ORAL 01/24/20 09:00 02/23/20 08:59 01/28/20 09:35 Trazodone HCl (Desyrel) 100 mg BEDTIME ORAL 01/23/20 21:00 02/22/20 20:59 01/27/20 21:03 Assessment/Plan Assessment/Plan ASSESSMENT Syncopal episode Bradycardia L hip hurtado Recurrent PE Hx of DVT Pancytopenia Chronic back pain 2 to sciatica with LLE radiculopathy- MRI L spine stable Chronic opiate dependency Hypokalemia Asthma PLAN OF CARE tele troponin NGT , ECG no ischemic changes cardio follows discussed with cardio will hold on pacemaker implantation for now ECHO recently done, with pEF orthostatic VS -> no orthostatic changes fall precautions off any SAB or AVB off Robaxin , as a possible contributor to bradycardia continue Eliquis, GI prophylaxis TSH low, free T4 ok, free T 3 stable monitor counts- at baseline , PLT remains at his baseline O2 prn keep sat > 90%, HHN prn pulse ox currently stable on RA L hip X ray- Left femoral deformity, probably due to healed fracture, unchanged. No evidence of acute bony trauma MRI L psine - > Minimal degenerative changes pain management pain specialist beatriz cooper dc today fup with PMD at [facility], IVC filter will need to come out at some point avoid excess narcotics case discussed and evaluated by supervising physician Cher Lerner NP Jan 28, 2020 10:33
--- NOTE | 2020-01-28 11:35 | Cardiac Electrophysiology PN ---
Assessment/Plan Assessment/Plan 1. Hx of recent pulmonary embolism. S/P IVC filter 12/23/19. On Eliquis 5 bid Echo showed EF 60% with a PA pressure of only 12. 2. Recurrent symptomatic Bradycardia with HR dropping to high 30s and low BP. Off any CHEN or AVN tessy. Now has syncope but not sure if related to bradycardia. ECG HR 44. Hold off on permanent pacer at this time. May need Zio Patch as out patient 3. Morbid obesity s/p Gastric sleeve surgery 5. Pancytopenia including Thrombocytopenia 70s. S/P BM biopsy and CT abdomen and pelvis 6. History of bipolar disorder, on Seroquel. 7. Back pain. S/P spine MRI. 8. Dilaudid dependency DW RN Subjective Subjective Bradycardic at night when sleeping and 50s daytime MRI back showed minimal degenerative disease Objective Last 24 Hour Vital Signs Date Time Temp Pulse Resp B/P (MAP) Pulse Ox O2 Delivery O2 Flow Rate FiO2 01/28/20 08:00 97.5 68 17 113/54 (73) 100 01/28/20 04:00 55 01/28/20 04:00 97.5 58 18 117/60 (79) 100 01/28/20 00:00 67 01/28/20 00:00 97.1 65 18 110/62 (78) 98 01/27/20 21:00 Room Air 01/27/20 20:00 65 68 72 01/27/20 20:00 97.5 63 18 123/68 (86) 98 01/27/20 20:00 68 01/27/20 17:55 97.7 01/27/20 16:00 56 01/27/20 16:00 97.7 54 18 121/67 (85) 97 01/27/20 13:55 97.9 01/27/20 12:00 60 01/27/20 12:00 97.9 63 20 120/67 (84) 97 Intake and Output 01/27/20 01/28/20 19:00 07:00 Intake Total 600 ml 480 ml Balance 600 ml 480 ml Intake Oral 600 ml 480 ml # Voids 3 2 Laboratory Tests Test 01/28/20 05:57 White Blood Count 2.5 K/UL (4.8-10.8) L Red Blood Count 3.25 M/UL (4.70-6.10) L Hemoglobin 10.0 G/DL (14.2-18.0) L Hematocrit 32.5 % (42.0-52.0) L Mean Corpuscular Volume 100 FL (80-99) H Mean Corpuscular Hemoglobin 30.9 PG (27.0-31.0) Mean Corpuscular Hemoglobin Concent 30.9 G/DL (32.0-36.0) L Red Cell Distribution Width 15.3 % (11.6-14.8) H Platelet Count 64 K/UL (150-450) L Mean Platelet Volume 6.4 FL (6.5-10.1) L Neutrophils (%) (Auto) % (45.0-75.0) Lymphocytes (%) (Auto) % (20.0-45.0) Monocytes (%) (Auto) % (1.0-10.0) Eosinophils (%) (Auto) % (0.0-3.0) Basophils (%) (Auto) % (0.0-2.0) Differential Total Cells Counted 100 Neutrophils % (Manual) 47 % (45-75) Lymphocytes % (Manual) 45 % (20-45) Monocytes % (Manual) 6 % (1-10) Eosinophils % (Manual) 2 % (0-3) Basophils % (Manual) 0 % (0-2) Band Neutrophils 0 % (0-8) Platelet Estimate Decreased L Platelet Morphology Normal Hypochromasia 2+ Anisocytosis 1+ Macrocytosis 1+ Objective HEAD AND NECK: Showed no JVD. LUNGS: Clear. CARDIOVASCULAR: Shows regular S1 and S2. ABDOMEN: Soft. EXTREMITIES: No pitting edema. Jarek Grant MD Jan 28, 2020 11:35
[2020-01-28 12:00] VITALS: BP 116/59
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
--- NOTE | 2020-01-28 14:05 | NUR ---
NURSE NOTES: pt was DC in stable condition. pt does not complain of any dizziness or weakness when he was asked. pt will be taking public transportation home. ID band was DC. IV was discontinued and site is not bleeding. Bag of Medication that was brought to the hospital was given back to pt. , as well as vaping supplies. Pt took his cell phone and backpack with him. Pt will be following up with PCP within 1 wk of DC.
--- NOTE | 2020-01-28 14:19 | NUR ---
NURSE NOTES: L/M to notifed pt's sister pt was DC from the hospital. pt stated sister was not aware he was admitted, however now she knows he has been safely DC home, he took the bus.
--- NOTE | 2020-01-30 14:43 | Discharge Summary ---
Discharge Summary Discharge Summary _ DATE OF ADMISSION: 01/23/2020 DATE OF DISCHARGE: 01/28/2020 DISCHARGED BY: Dr. Butt REASON FOR ADMISSION: 44 years old male with past medical history of recurrent PE, DVT, status post IVC filter placement on previous admission, currently on anticoagulation, pancytopenia, status post negative bone marrow biopsy on last admission, asthma, history of gastric bypass, pain seeking behavior, bipolar disorder, history of prior EtOH abuse, presented with bradycardia syncope and fall CT of the head revealed no acute intracranial pathology. Laboratory work-up showed WBC 3.7, hemoglobin 10.6, hematocrit 33.6 , platelet count 80. Potassium 3.3. Urinalysis unremarkable Troponin EKG revealed sinus bradycardia in 50s. Patient denied chest pain , shortness of breath, but complaining of the left hip and low back pain. Pulse oximetry stable on room air . Potassium and magnesium replaced in the emergency department. Patient received analgesic. He is currently waiting for telemetry bed. He reported that had seen his PMD, who advised him that she wants to keep IVC filter in for now. Patient reports compliance with medications/Eliquis. No ETOH, quit years ago, no illicit drug use. Patient admitted to telemetry floor for further management. CONSULTANTS: board catcher Dr. Márquez surgery Dr. Carrillo pain specialist Dr. Grissom [facility] COURSE: Patient admitted to telemetry floor. Serial troponin were negative. EKG revealed no acute ischemic changes. Patient was ruled out for acute myocardial infarction. Echocardiogram was done on previous admission and revealed preserved ejection fraction. Orthostatic vital signs revealed no evidence of orthostatic changes. Patient was off any SAB or AFB. Eliquis continued. Counts were closely monitored and remained at baseline. Patient was initially with symptomatic bradycardia with heart rate going down to 30s and dizziness. Pain management was addressed as per pain specialist recommendation. Left hip x-ray revealed left femoral deformity , probably due to healed fracture. No evidence of acute bony trauma. MRI of the L-spine revealed minimal degenerative changes. Robaxin was stopped as a possible contributor to bradycardia. Heart rate improved to high 50s. Floor Renovator advised to hold on pacemaker implantation at this time. Supplemental oxygen was on board as needed to keep pulse oximetry remained above 90% Pulse oximetry remained stable on room air. Patient clinically stabilized and was ready for discharge home. Patient was advised to follow-up with a primary care provider at [facility]. Patient was advised that IVC filter will need to come out at some point. Patient was counseled to avoid excess narcotics. FINAL DIAGNOSES: Syncopal episode Recurrent symptomatic bradycardia Recurrent PE Hx of DVT Pancytopenia Lumbar radiculopathy Lumbar herniated disc/DDD/spondylosis L hip hurtado Chronic back pain Chronic opiate dependency Asthma DISCHARGE MEDICATIONS: See Medication Reconciliation list. DISCHARGE INSTRUCTIONS: Patient was discharged home. Follow-up with a primary care provider in 1to 2 weeks. Cher Lerner NP Jan 30, 2020 14:43
== END 2020-01-28 13:50 | disposition home or self-care (01) | DRG 201 ==
LOC: EMR 06:00 → 2E 08:10 → EDBEDREQ 08:49 → 2E 01-24 05:05
DX: R00.1 Bradycardia, unspecified (principal); D61.818 Other pancytopenia; E87.6 Hypokalemia; Z86.711 Personal history of pulmonary embolism; Z88.6 Allergy status to analgesic agent; Z88.8 Allergy status to other drugs, medicaments and biological substances; Z86.718 Personal history of other venous thrombosis and embolism; Z79.01 Long term (current) use of anticoagulants; Z98.84 Bariatric surgery status; F31.9 Bipolar disorder, unspecified; I48.91 Unspecified atrial fibrillation; F10.11 Alcohol abuse, in remission; Z95.828 Presence of other vascular implants and grafts; F11.20 Opioid dependence, uncomplicated; J45.909 Unspecified asthma, uncomplicated; M51.16 Intervertebral disc disorders with radiculopathy, lumbar region; K44.9 Diaphragmatic hernia without obstruction or gangrene; K57.90 Diverticulosis of intestine, part unspecified, without perforation or abscess without bleeding; R10.9 Unspecified abdominal pain; G89.29 Other chronic pain; K62.89 Other specified diseases of anus and rectum; S70.02XA Contusion of left hip, initial encounter; W19.XXXA Unspecified fall, initial encounter; M62.830 Muscle spasm of back
CPT/HCPCS: 36415; 70450; 72148; 73502; 80048; 80053; 81003; 83735; 83880; 84439; 84443; 84481; 84484; 85007; 85025; 85610; 85730; 93005; 96361; 96365; 99285; J7030; J8499

== ENCOUNTER 2020-02-03 22:52 | Emergency (ER) | payer MEDICAID ==
[~2020-02-03] VITALS: Ht 185.4 cm; Wt 113.4 kg
[~2020-02-03 22:52] MED LIST changes: +GABAPENTIN100 MG ORAL; +PANTOPRAZOLE SO40 MG ORAL; +VITAMIN B122500 MCG PO
--- NOTE | 2020-02-03 23:02 | NUR ---
ED Nurse Note: Patient walked in from home c/o left hip pain for 3 days. Patient aao x 4 and ambulatory. Patient repors he fell down some steps and has a deformed femur, he reports he can feel "bone grinding". Patient stable during assessment.
[2020-02-03 23:03] VITALS: BP 125/85
--- NOTE | 2020-02-03 23:07 | Emergency Room Report ---
History of Present Illness General Chief Complaint: Pain Source: Patient Present Illness HPI This a 44-year-old male with a history of DVT and PE. Status post IVC filter and currently on Eliquis. He presents with chief complaint of left hip pain. He claimed that he fell down flight of stairs 3 days ago. Since then his left hip been hurting. This is a chronic complaint for him also. According to our records, he presents several times with this complaint. Every time he claimed that he fell. He has been able to walk on it without any problem. He is not take any pain medication. He said Tylenol is not helping. There is 10 out of 10. No syncope. No other trauma. Nothing made it better. Walking made it worse. Allergies: Coded Allergies: DIAZEPAM (Verified Allergy, Intermediate, 12/23/19) TREE NUT (Verified Allergy, Intermediate, 12/23/19) KETOROLAC (Verified Allergy, Mild, Rash, 01/01/19) TRAMADOL (Verified Allergy, Unknown, 08/01/18) NSAIDS (NON-STEROIDAL ANTI-INFLAMMA (Verified Adverse Reaction, Unknown, 08/01/18) COVID-19 Screening Contact w/high risk pt: No Recent Travel to affected area: No Experienced COVID-19 symptoms?: No COVID-19 Testing performed CHIEF CUSTOMER OFFICER: No Patient History Past Medical History: see triage record, old chart reviewed, AFib Past Surgical History: other Pertinent Family History: none Social History: Denies: smoking Immunizations: other Reviewed Nursing Documentation: PMH: Agreed; PSxH: Agreed Nursing Documentation-PMH Hx Cardiac Problems: Yes - atrial fib, IVC filter Hx Cancer: No Hx Gastrointestinal Problems: Yes - gastric bypass Hx Neurological Problems: No Review of Systems Eye: Denies: eye pain, blurred vision ENT: Denies: ear pain, nose congestion, throat swelling Respiratory: Denies: cough, shortness of breath Cardiovascular: Denies: chest pain, palpitations Gastrointestinal: Denies: abdominal pain, diarrhea, nausea, vomiting Musculoskeletal: Reports: joint pain; Denies: back pain Skin: Denies: rash Neurological: Denies: headache, numbness Endocrine: Denies: increased thirst, increased urine Hematologic/Lymphatic: Denies: easy bruising All Other Systems: negative except mentioned in HPI Physical Exam Vital Signs Date Time Temp Pulse Resp B/P (MAP) Pulse Ox O2 Delivery O2 Flow Rate FiO2 02/03/20 22:57 97.7 82 18 128/87 (101) 97 Room Air Vitals normal Sp02 EP Interpretation: reviewed, normal General Appearance: well appearing, no apparent distress, alert, obese Head: normocephalic, atraumatic Eyes: bilateral eye PERRL, bilateral eye EOMI ENT: hearing grossly normal, normal pharynx Neck: full range of motion, supple, no meningismus Respiratory: chest non-tender, lungs clear, normal breath sounds Cardiovascular #1: regular rate, rhythm, no murmur Gastrointestinal: normal bowel sounds, non tender, no mass, no organomegaly, no bruit, non-distended Musculoskeletal: back normal, normal range of motion, gait/station normal Psychiatric: mood/affect normal Medical Decision Making Diagnostic Impression: Primary Impression: Hip pain, left Additional Impression: Opiate dependence, continuous ER Course Patient with left hip pain. I suspect opioid dependency and drug-seeking behavior. He has been to numerous hospitals and has numerous prescription for narcotics from different providers. This is checked on the [employer] system. I see no evidence of any new fracture or dislocation. Other X-Ray Diagnostic Results Other X-Ray Diagnostic Results : X-Ray ordered: left hip # of Views/Limited Vs Complete: Complete Indication: Pain EP Interpretation: Yes Interpretation: no dislocation, no soft tissue swelling, no fractures Impression: No acute disease Electronically Signed by: Augustine Roy MD Last Vital Signs Date Time Temp Pulse Resp B/P (MAP) Pulse Ox O2 Delivery O2 Flow Rate FiO2 02/03/20 22:57 97.7 82 18 128/87 (101) 97 Room Air Status: improved Disposition: HOME, SELF-CARE Condition: Stable Scripts Acetaminophen* (ACETAMINOPHEN EXTRA STRENGTH*) 500 Mg Tablet 500 MG ORAL Q8H PRN for Fever/Headache/Mild Pain, #30 TAB Prov: Augustine Roy MD 02/03/20 Additional Instructions: Follow-up with In 7 days. Return if symptoms worsen. Augustine Roy MD Feb 03, 2020 23:07
--- NOTE | 2020-02-03 23:12 | NUR ---
ED Nurse Note: Pt taken to xray
[2020-02-03] MEDS ORDERED: Acetaminophen 500mg (ES) tab ORAL ONE (23:15)
[2020-02-03] MEDS ORDERED: ACETAMINOPHEN500 M3 ORAL (23:55)
[2020-02-03 23:58] VITALS: BP 122/79
--- NOTE | 2020-02-03 23:58 | NUR ---
ER DISCHARGE NOTE: Patient is cleared to be discharged per ERMD, pt is aox4, on room air, with stable vital signs. pt was given dc and prescription instructions, pt was able to verbalize understanding, pt id band removed. pt is able to ambulate. pt took all belongings. pt stable upon discharge.
--- NOTE | 2020-02-05 14:50 | Diagnostic Imaging Report ---
Indication: Hip pain Technique: AP view of the pelvis; frontal and frog lateral views of the right hip. Comparison: 01/23/2020 and 08/01/2018 Findings: No radiographically appreciable acute fracture. There is a chronic likely post traumatic deformity of the left femur which is unchanged compared to the prior exam. Symphysis pubis and sacroiliac joints are maintained. No radiopaque foreign body. Impression: No radiographically appreciable acute hip fracture. Chronic deformity of the left femur, unchanged compared to the prior exam.
== END 2020-02-03 23:58 | disposition home or self-care (01) ==
LOC: EMR 23:07
DX: M25.552 Pain in left hip (principal); F11.20 Opioid dependence, uncomplicated; I48.91 Unspecified atrial fibrillation; Z79.01 Long term (current) use of anticoagulants; Z98.84 Bariatric surgery status
CPT/HCPCS: 73502; Z7502; 99283

== ENCOUNTER 2020-04-06 20:24 | Emergency (ER) | payer MEDICAID ==
[~2020-04-06] VITALS: Ht 185.4 cm; Wt 115.7 kg
[2020-04-06] MEDS ORDERED: SEROQUEL100 MG ORAL (20:34)
[2020-04-06] MEDS ORDERED: TRAZODONE HCL150 MG ORAL (20:34)
[2020-04-06] MEDS ORDERED: PROZAC40 MG ORAL (20:34)
[2020-04-06] MEDS ORDERED: FAMOTIDINE20 MG ORAL (20:34)
[2020-04-06 20:35] VITALS: BP 117/79
--- NOTE | 2020-04-06 20:40 | NUR ---
ED Nurse Note: Patient walked into ED c/o chest pain, reports of feeling pain for the past 2 days now, states that he recently calledh is PMD due to his symptoms and advised that it could be probably cause he has not taken his eliquis for the past 4 days. patient does have a history of PE in the past, last covid test was positive which took place in february 2020. patient complains of no fevers or chills. o2 sat currently at 98% Ra.
[2020-04-06] MEDS ORDERED: Omnipaque 350 100ml vial INJ PRN (20:45)
--- NOTE | 2020-04-06 20:51 | Emergency Room Report ---
History of Present Illness General Chief Complaint: Chest Pain Source: Patient Present Illness HPI 44-year-old male with history of DVT, PE, supposed be taking daily Eliquis, here with chest pain. Patient says that 4 days ago he ran out of his Eliquis. He also had an IVC filter placed several months ago which was removed 1 week ago at [facility] because "they said it was crooked and had to be taken out." Patient says he ran out of his Eliquis and has not been able to contact his physician for refill. Has been without Eliquis for 4 days. Says that 2 days ago he began having generalized chest pressure. It has gradually worsened. He also feels short of breath and worsening chest pain when he inhales deeply. Has had a mild dry cough for 4 days. No fevers, chills, palpitations, back pain, abdominal pain, nausea, vomiting, diarrhea, dysuria. 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 COVID-19 Screening: Positive COVID-19 COVID-19 Testing Source: PMD Nursing Documentation-[facility] Past Medical History: No History, Except For Hx Cardiac Problems: Yes - atrial fib, IVC filter Hx Cancer: No Hx Gastrointestinal Problems: Yes - gastric bypass Hx Neurological Problems: No Review of Systems All Other Systems: negative except mentioned in HPI Physical Exam Vital Signs Date Time Temp Pulse Resp B/P (MAP) Pulse Ox O2 Delivery O2 Flow Rate FiO2 04/06/20 20:29 98.4 71 18 117/79 (92) 95 Room Air Sp02 EP Interpretation: reviewed, normal General Appearance: no apparent distress, alert, non-toxic Head: normocephalic, atraumatic Eyes: bilateral eye normal inspection, bilateral eye PERRL ENT: hearing grossly normal, normal pharynx, no angioedema, normal voice Neck: full range of motion, supple/symm/no masses Respiratory: chest non-tender, lungs clear, normal breath sounds, speaking full sentences Cardiovascular #1: regular rate, rhythm, no edema Cardiovascular #2: 2+ carotid (R), 2+ carotid (L), 2+ radial (R), 2+ radial (L), 2+ dorsalis pedis (R), 2+ dorsalis pedis (L) Gastrointestinal: normal bowel sounds, non tender, soft, non-distended, no g uarding, no rebound Rectal: deferred Genitourinary: normal inspection, no CVA tenderness Musculoskeletal: back normal, normal range of motion, gait/station normal, non- tender Neurologic: alert, motor strength/tone normal, oriented x3, sensory intact, responsive, speech normal Psychiatric: judgement/insight normal, memory normal, mood/affect normal, no suicidal/homicidal ideation Lymphatic: no adenopathy Medical Decision Making ER Course EKG: NSR, no ischemia, intervals WNL. No ectopy, 60 bpm Rhythm strip: patient monitored for arrhythmias - no malignant dysrhythmias, runs of PVCs, nor pauses noted CXR: No infiltrate/effusion. Mediastinum within normal limits. No consolidations. No free air under the diaphragm. No bony abnormalities 44-year-old male with history of pulmonary embolism noncompliant with Eliquis here with chest pain. Patient was hemodynamically stable and neurovascular intact in the emergency department. He was given morphine with good resolution of his pain. Chest x-ray unremarkable and EKG normal. Currently waiting results of CTA of the chest to evaluate for pulmonary embolism. Disposition pending on results. Signed out to oncoming physician. Last Vital Signs Date Time Temp Pulse Resp B/P (MAP) Pulse Ox O2 Delivery O2 Flow Rate FiO2 04/06/20 20:29 98.4 71 18 117/79 (92) 95 Room Air León Barfield M.D. Apr 06, 2020 20:51
[2020-04-06] MEDS ORDERED: Morphine Sulfate 4mg/ml Inj (IV USE ONLY) IVP ONE (21:00)
[2020-04-06 21:30] LABS: BASOPHILS % (AUTO) 0.7 % (0.0-2.0); EOSINOPHILS % (AUTO) 0.8 % (0.0-3.0); HEMATOCRIT 32.7 % (42.0-52.0); HEMOGLOBIN 10.5 G/DL (14.2-18.0); LYMPHOCYTES % (AUTO) 31.8 % (20.0-45.0); MEAN CORPUSCULAR VOLUME 96 FL (80-99); MONOCYTES % (AUTO) 6.5 % (1.0-10.0); NEUTROPHILS % (AUTO) 60.2 % (45.0-75.0); PLATELET COUNT 100 K/UL (150-450); RED BLOOD COUNT 3.39 M/UL (4.70-6.10); RED CELL DISTRIBUTION WIDTH 16.7 % (11.6-14.8); WHITE BLOOD COUNT 4.3 K/UL (4.8-10.8)
[2020-04-06 22:22] LABS: ANION GAP 10 mmol/L (5-15); BLOOD UREA NITROGEN 13 mg/dL (7-18); CALCIUM 8.9 MG/DL (8.5-10.1); CARBON DIOXIDE 24 MMOL/L (21-32); CHLORIDE 108 MMOL/L (98-107); CREATININE 1.1 MG/DL (0.55-1.30); POTASSIUM 3.6 MMOL/L (3.5-5.1); SODIUM 142 MMOL/L (136-145)
[2020-04-06 22:35] LABS: ALANINE AMINOTRANSFERASE 34 U/L (12-78); ALBUMIN 3.4 G/DL (3.4-5.0); ALBUMIN/GLOBULIN RATIO 0.9 (1.0-2.7); ALKALINE PHOSPHATASE 104 U/L (46-116); ASPARTATE AMINO TRANSFERASE 23 U/L (15-37); BILIRUBIN,TOTAL < 0.1 MG/DL (0.2-1.0)
--- NOTE | 2020-04-06 22:53 | Diagnostic Imaging Report ---
EXAM: CT Angiography Chest With Intravenous Contrast CLINICAL HISTORY: CP TECHNIQUE: Axial computed tomographic angiography images of the chest with intravenous contrast. CTDI is 79.7 mGy and DLP is 459.4 mGy-cm. One or more of the following dose reduction techniques were used: automated exposure control, adjustment of the mA and/or kV according to patient size, use of iterative reconstruction technique. MIP reconstructed images were created and reviewed. COMPARISON: CTA chest with contrast 12/22/2019 FINDINGS: Pulmonary arteries: Unremarkable. No pulmonary embolism. Aorta: No acute findings. No thoracic aortic aneurysm. Lungs: Unremarkable. No mass. No consolidation. Pleural space: Unremarkable. No significant effusion. No pneumothorax. Heart: Unremarkable. No cardiomegaly. No significant pericardial effusion. No evidence of RV dysfunction. Mediastinum: Stable small hiatal hernia. Bones/joints: No acute fracture. No dislocation. Soft tissues: Unremarkable. Lymph nodes: Unremarkable. No enlarged lymph nodes. Stomach and bowel: Postsurgical changes of gastric sleeve surgery. IMPRESSION: No acute findings in the visualized arteries of the chest.
[2020-04-06 23:26] VITALS: BP 120/75
--- NOTE | 2020-04-06 23:27 | NUR ---
ER DISCHARGE NOTE: Patient is cleared to be discharged per ERMD, pt is aox4, on room air, with stable vital signs. pt was given dc and prescription instructions, pt was able to verbalize understanding, pt id band and iv site removed without complications. pt is able to ambulate with steady gait. pt took all belongings.
--- NOTE | 2020-04-07 11:56 | Diagnostic Imaging Report ---
Indication: Chest pain Technique: One view of the chest Comparison: none Findings: Lungs and pleural spaces are clear. Heart size is normal. Impression: No acute process
== END 2020-04-06 23:27 | disposition home or self-care (01) ==
LOC: EMR 20:51
DX: R07.89 Other chest pain (principal); G89.4 Chronic pain syndrome; F11.20 Opioid dependence, uncomplicated; I48.91 Unspecified atrial fibrillation; Z79.01 Long term (current) use of anticoagulants; Z98.84 Bariatric surgery status; Z88.8 Allergy status to other drugs, medicaments and biological substances; Z88.5 Allergy status to narcotic agent; Z86.711 Personal history of pulmonary embolism; Z91.14 Patient's other noncompliance with medication regimen
CPT/HCPCS: 36415; 71045; 71275; 80053; 83880; 84484; 85025; 85379; 85610; 85730; 96374; 96375; J2270; J2405; Q9967; Z7502; 99284

== ENCOUNTER → 2020-05-03 | Emergency (ER) | payer MEDICAID ==
[~2020-05-03] VITALS: Ht 185.4 cm; Wt 111.1 kg
[~2020-05-03] MED LIST changes: +Acetaminophen 500mg (ES) tab ORAL ONE; +PROZAC40 MG ORAL; +SEROQUEL100 MG ORAL; +TRAZODONE HCL150 MG ORAL
[2020-05-03 20:38] VITALS: BP 124/67
--- NOTE | 2020-05-03 21:00 | NUR ---
ED Nurse Note: Patient came in with complaints of flank pain says he think it is a kidney stone
--- NOTE | 2020-05-03 21:00 | Emergency Room Report ---
History of Present Illness General Chief Complaint: Abdominal Pain Source: Patient, Medical Record Present Illness HPI Is a 44-year-old male with a history of DVT and PE for which he is taking Eliquis. He also has history of chronic pain and been to numerous hospital including this ER for different pain complaint. He presents with chief complaint of right flank pain. He said has a history of kidney stones and this feels like 1. Ongoing for last 2 days. Pain is 9 out of 10. Worse with movement. Better with rest. No hematuria. Denies any dysuria frequency. No trauma. Denies any fever. 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 COVID-19 Screening: Negative COVID-19 COVID-19 Testing Source: [facility] Patient History Past Medical History: see triage record, old chart reviewed Past Surgical History: other Pertinent Family History: none Social History: Denies: smoking Immunizations: other Reviewed Nursing Documentation: PMH: Agreed; PSxH: Agreed Nursing Documentation-PMH Past Medical History: No History, Except For Hx Cardiac Problems: Yes - atrial fib, IVC filter Hx Cancer: No Hx Gastrointestinal Problems: Yes - gastric bypass Hx Neurological Problems: No Review of Systems Eye: Denies: eye pain, blurred vision ENT: Denies: ear pain, nose congestion, throat swelling Respiratory: Denies: cough, shortness of breath Cardiovascular: Denies: chest pain, palpitations Gastrointestinal: Denies: abdominal pain, diarrhea, nausea, vomiting Musculoskeletal: Reports: back pain; Denies: joint pain Skin: Denies: rash Neurological: Denies: headache, numbness Endocrine: Denies: increased thirst, increased urine Hematologic/Lymphatic: Denies: easy bruising All Other Systems: negative except mentioned in HPI Physical Exam Vital Signs Date Time Temp Pulse Resp B/P (MAP) Pulse Ox O2 Delivery O2 Flow Rate FiO2 2/14/21 20:38 98.1 82 18 124/67 (86) 94 Room Air Vitals normal Sp02 EP Interpretation: reviewed, normal General Appearance: well appearing, no apparent distress, alert Head: normocephalic, atraumatic Eyes: bilateral eye PERRL, bilateral eye EOMI ENT: hearing grossly normal, normal pharynx Neck: full range of motion, supple, no meningismus Respiratory: chest non-tender, lungs clear, normal breath sounds Cardiovascular #1: regular rate, rhythm, no murmur Gastrointestinal: normal bowel sounds, non tender, no mass, no organomegaly, no bruit, non-distended Musculoskeletal: normal range of motion, gait/station normal, other - Patient has tenderness to the right flank area. No midline tenderness. No step-off. Neurologic: alert, oriented x3 Psychiatric: mood/affect normal Medical Decision Making Diagnostic Impression: Primary Impression: Back pain Qualified Codes: M54.5 - Low back pain Additional Impression: Opiate dependence, continuous ER Course This patient presents with back pain. He looks very comfortable and in no distress. He is walking around without any difficulty. When I barely touch his back he started screaming in pain. On the [employer] system, he has numerous opioid prescriptions from different doctors at different facilities. I suspect a drug- seeking behavior and opioid dependency. I am not comfortable prescribing him more narcotics. I see no evidence of cauda equina syndrome, spinal epidural abscess or neoplastic process. I see no evidence of any acute abdomen. CT/MRI/US Diagnostic Results CT/MRI/US Diagnostic Results : Imaging Test Ordered: CT abdomen pelvis Impression Read by radiologist. neg Last Vital Signs Date Time Temp Pulse Resp B/P (MAP) Pulse Ox O2 Delivery O2 Flow Rate FiO2 05/03/20 20:38 98.1 82 18 124/67 (86) 94 Room Air Status: improved Disposition: HOME, SELF-CARE Condition: Stable Additional Instructions: Follow-up with your doctor in 7 days. Return if symptoms worsen. Augustine Roy MD May 03, 2020 21:00
--- NOTE | 2020-05-03 21:08 | NUR ---
ED Nurse Note: urine specimen sent to lab
[2020-05-03 21:09] VITALS: BP 124/67
[2020-05-03 21:27] LABS: APPEARANCE,URINE CLEAR; BILIRUBIN, URINE NEGATIVE (NEGATIVE); COLOR,URINE PALE YELLOW; GLUCOSE, URINE (UA) NEGATIVE (NEGATIVE); KETONES,URINE NEGATIVE (NEGATIVE); LEUKOCYTE ESTERASE ,URINE NEGATIVE (NEGATIVE); NITRITE,URINE NEGATIVE (NEGATIVE); PH,URINE 6 (4.5-8.0); PROTEIN,URINE NEGATIVE (NEGATIVE); UROBILINOGEN,URINE NORMAL MG/DL (0.0-1.0)
--- NOTE | 2020-05-03 21:41 | Diagnostic Imaging Report ---
EXAM: CT Abdomen and Pelvis Without Intravenous Contrast CLINICAL HISTORY: ABD PAIN Notes: Right flank pain. TECHNIQUE: Axial computed tomography images of the abdomen and pelvis without intravenous contrast. CTDI is 13.2 mGy and DLP is 756.6 mGy-cm. One or more of the following dose reduction techniques were used: automated exposure control, adjustment of the mA and/or kV according to patient size, use of iterative reconstruction technique. COMPARISON: 12/27/2019. FINDINGS: Evaluation of the soft tissue and vasculature is limited on this noncontrast exam. Lung bases: No effusions or focal consolidation. ABDOMEN: Liver: Unremarkable. Gallbladder and bile ducts: Contracted gallbladder. No calcified gallstones. No calcified stones. No ductal dilation. Pancreas: Unremarkable. No ductal dilation. Spleen: No splenomegaly. Adrenals: Unremarkable. No mass. Kidneys and ureters: Unremarkable. No obstructing stones. No hydronephrosis. Stomach and bowel: Status post sleeve gastrectomy. Stable small hiatal hernia. No evidence of bowel obstruction. No mural bowel wall thickening. PELVIS: Appendix: Appendix not identified but no secondary findings to suggest acute appendicitis. Bladder: Decompressed. No stones. Reproductive: Unremarkable as visualized. ABDOMEN and PELVIS: Intraperitoneal space: Unremarkable. No free air. No significant fluid collection. Bones/joints: Within normal limits. Soft tissues: Subcutaneous inflammatory changes are noted in the anterior abdominal wall likely related to injections. Vasculature: No abdominal aortic aneurysm. Lymph nodes: No enlarged lymph nodes. IMPRESSION: No acute process identified within the abdomen or pelvis. No urolithiasis, hydronephrosis or hydroureter.
--- NOTE | 2020-05-03 21:54 | NUR ---
ER DISCHARGE NOTE: Patient is cleared to be discharged per ERMD, pt is aox4, on room air, with stable vital signs. pt was given dc instructions, pt was able to verbalize understanding, pt id band removed without complications. pt is able to ambulate with steady gait. pt took all belongings.
== END | disposition home or self-care (01) ==
LOC: EMR 21:10
DX: M54.5 Low back pain (principal); F11.20 Opioid dependence, uncomplicated; Z98.84 Bariatric surgery status; Z88.6 Allergy status to analgesic agent; Z86.718 Personal history of other venous thrombosis and embolism; Z79.01 Long term (current) use of anticoagulants; Z86.711 Personal history of pulmonary embolism; Z88.0 Allergy status to penicillin
CPT/HCPCS: 74176; 81003; Z7502; 99284

== ENCOUNTER 2020-06-04 03:46 | Emergency (ER) | payer MEDICAID ==
[~2020-06-04] VITALS: Ht 185.4 cm; Wt 113.4 kg
[~2020-06-04 03:46] MED LIST changes: -Acetaminophen 500mg (ES) tab ORAL ONE
[2020-06-04 04:01] VITALS: BP 138/78
--- NOTE | 2020-06-04 04:06 | Emergency Room Report ---
History of Present Illness General Chief Complaint: Lower Back Pain or Injury Source: Patient Present Illness HPI Is a 44-year-old male well-known to me. He has a history of PE and chronic pain. He presents with chief complaint of lower back pain. He said that he was helping someone moved and was lifting a couch and pulled his back. Complaint of lower back pain. This occurred tonight. Pain is 9 out of 10. Worse with movement. Better with rest. No radiation of his pain. No trauma. No fever or chills. No incontinence of bowel or urine. Allergies: Coded Allergies: DIAZEPAM (Verified Allergy, Intermediate, 12/23/19) TREE NUT (Verified Allergy, Intermediate, 12/23/19) KETOROLAC (Verified Allergy, Mild, Rash, 01/01/19) TRAMADOL (Verified Allergy, Unknown, 08/01/18) NSAIDS (NON-STEROIDAL ANTI-INFLAMMA (Verified Adverse Reaction, Unknown, 08/01/18) COVID-19 Screening Contact w/high risk pt: No Recent Travel to affected area: No Experienced COVID-19 symptoms?: No COVID-19 Testing performed TRIBAL COUNCIL MEMBER: No Patient History Past Medical History: see triage record, old chart reviewed Past Surgical History: other Pertinent Family History: none Social History: Denies: smoking Immunizations: other Reviewed Nursing Documentation: PMH: Agreed; PSxH: Agreed Nursing Documentation-PMH Hx Cardiac Problems: No Hx Hypertension: No Hx Pacemaker: No Hx Asthma: No Hx COPD: No Hx Diabetes: No Hx Cancer: No Hx Gastrointestinal Problems: No Hx Dialysis: No History Of Psychiatric Problem: No Hx Neurological Problems: No Hx Cerebrovascular Accident: No Hx Seizures: No Review of Systems Eye: Denies: eye pain, blurred vision ENT: Denies: ear pain, nose congestion, throat swelling Respiratory: Denies: cough, shortness of breath Cardiovascular: Denies: chest pain, palpitations Gastrointestinal: Denies: abdominal pain, diarrhea, nausea, vomiting Musculoskeletal: Reports: back pain; Denies: joint pain Skin: Denies: rash Neurological: Denies: headache, numbness Endocrine: Denies: increased thirst, increased urine Hematologic/Lymphatic: Denies: easy bruising All Other Systems: negative except mentioned in HPI Physical Exam Vital Signs Date Time Temp Pulse Resp B/P (MAP) Pulse Ox O2 Delivery O2 Flow Rate FiO2 06/04/20 03:54 98.4 78 16 138/78 (98) 100 Room Air Vitals normal Sp02 EP Interpretation: reviewed, normal General Appearance: well appearing, no apparent distress, alert Head: normocephalic, atraumatic Eyes: bilateral eye PERRL, bilateral eye EOMI ENT: hearing grossly normal, normal pharynx Neck: full range of motion, supple, no meningismus Respiratory: chest non-tender, lungs clear, normal breath sounds Cardiovascular #1: regular rate, rhythm, no murmur Gastrointestinal: normal bowel sounds, non tender, no mass, no organomegaly, no bruit, non-distended Musculoskeletal: back normal - No deformity. Mild tenderness to the lower lumbar paraspinous muscle. No step-off., normal range of motion, gait/station normal Psychiatric: mood/affect normal Medical Decision Making Diagnostic Impression: Primary Impression: Exacerbation of chronic back pain ER Course Patient presents with exacerbation of his chronic pain. I see no evidence of cauda equina syndrome, spinal epidural abscess or neoplastic process. I see no evidence of any trauma. On the [employer] system, he has multiple prescriptions for narcotics from different providers at different pharmacy. It appeared that he also goes to different hospitals. He just received prescription for Tylenol 3 2 days ago from [facility]. Therefore I am not comfortable prescribing controlled substance. Last Vital Signs Date Time Temp Pulse Resp B/P (MAP) Pulse Ox O2 Delivery O2 Flow Rate FiO2 06/04/20 03:54 98.4 78 16 138/78 (98) 100 Room Air Status: improved Disposition: HOME, SELF-CARE Condition: Stable Referrals: [facility],REFERRING (PCP) Patient Instructions: Back Pain, Adult Additional Instructions: Follow-up with your doctor in 7 days. May take Tylenol for pain. Warm compress to lower back. Return if symptoms worsen. Augustine Roy MD Jun 04, 2020 04:06
--- NOTE | 2020-06-04 04:06 | NUR ---
ED Nurse Note: per pt from home c/o lower back pain, was helping a friend move and felt a pinch in lower back unable to sleep, per pt medical hx gastric sleeve
[2020-06-04] MEDS ORDERED: Acetaminophen 500mg (ES) tab ORAL ONE (04:15)
== END 2020-06-04 04:17 | disposition home or self-care (01) ==
LOC: EMR 04:01
DX: M54.5 Low back pain (principal); G89.29 Other chronic pain; Z86.711 Personal history of pulmonary embolism; Z88.8 Allergy status to other drugs, medicaments and biological substances; Z88.6 Allergy status to analgesic agent
CPT/HCPCS: 99282